=== PATIENT | male | born 1930 | race Caucasian/White ===

== ENCOUNTER 2017-09-16 14:10 | Inpatient (IN) | payer MEDICARE, BC ==
[2017-09-16] VITALS (8 sets, daily range): BP systolic 90–146; BP diastolic 40–78
[~2017-09-16] VITALS: Ht 172.7 cm; Wt 81.6 kg
[2017-09-16 14:58] LABS: HEMATOCRIT 26.7 % (42.0-52.0); HEMOGLOBIN 7.1 G/DL (14.2-18.0); MEAN CORPUSCULAR VOLUME 61 FL (80-99); PLATELET COUNT 99 K/UL (150-450); RED BLOOD COUNT 4.38 M/UL (4.70-6.10); RED CELL DISTRIBUTION WIDTH 18.4 % (11.6-14.8)
[2017-09-16 15:00] LABS: WHITE BLOOD COUNT 32.7 K/UL (4.8-10.8)
[2017-09-16 15:08] LABS: ANION GAP 10 mmol/L (5-15); BLOOD UREA NITROGEN 18 mg/dL (7-18); CALCIUM 8.7 MG/DL (8.5-10.1); CARBON DIOXIDE 23 MMOL/L (21-32); CHLORIDE 107 MMOL/L (98-107); CREATININE 1.2 MG/DL (0.55-1.30); POTASSIUM 3.7 MMOL/L (3.5-5.1); SODIUM 140 MMOL/L (136-145)
[2017-09-16 15:22] LABS: ALANINE AMINOTRANSFERASE 23 U/L (12-78); ALBUMIN 3.1 G/DL (3.4-5.0); ALBUMIN/GLOBULIN RATIO 0.9 (1.0-2.7); ALKALINE PHOSPHATASE 82 U/L (46-116); ASPARTATE AMINO TRANSFERASE 18 U/L (15-37); BILIRUBIN,TOTAL 0.7 MG/DL (0.2-1.0); CKMB 1.5 NG/ML (0.0-3.6); CREATINE KINASE 31 U/L (26-308)
[2017-09-16] MEDS ORDERED: ALLOPURINOL100 M1 ORAL (15:25)
[2017-09-16] MEDS ORDERED: LEVOTHYROXINE25 MCG ORAL (15:25)
[2017-09-16] MEDS ORDERED: SYMBICORT 80-10.2 G1 IH (15:25)
--- NOTE | 2017-09-16 15:30 | Diagnostic Imaging Report ---
Indication: Pain Technique: One view of the chest Comparison: none Findings: No acute infiltrates, effusions, or congestion. Tortuous calcified aorta. Normal heart size. Upper mediastinum unremarkable. Impression: No acute process.
[2017-09-16] MEDS ORDERED: NS 1000ml 2,200 ML IVLG ONE (16:00)
[2017-09-16 16:12] LABS: APPEARANCE,URINE CLEAR; BILIRUBIN, URINE NEGATIVE (NEGATIVE); GLUCOSE, URINE (UA) NEGATIVE (NEGATIVE); KETONES,URINE NEGATIVE (NEGATIVE); LEUKOCYTE ESTERASE ,URINE 1+ (NEGATIVE); NITRITE,URINE NEGATIVE (NEGATIVE); PH,URINE 5 (4.5-8.0); PROTEIN,URINE NEGATIVE (NEGATIVE); UROBILINOGEN,URINE NORMAL MG/DL (0.0-1.0)
[2017-09-16 16:17] LABS: COLOR,URINE YELLOW
--- NOTE | 2017-09-16 16:24 | Diagnostic Imaging Report ---
Indications: Altered mental status Technique: Spiral acquisitions obtained through the brain. Angled axial and coronal 5 x 5 mm slices were reconstructed. Total dose length product 1404.24 mGycm. CTDI vol(s) 70.38 mGy. Dose reduction achieved using automated exposure control Comparison: None. Findings: There is marked age-related enlargement of the ventricles and extra axial CSF spaces, the former somewhat out of proportion to the latter. 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 There is periventricular deep white matter chronic ischemic change. No acute intracranial hemorrhage or edema, mass effect, or midline shift. The calvarium is intact. There are bilateral maxillary sinusitis polyps versus mucous retention cysts. There is also bilateral ethmoid and right-sided sphenoid sinus disease visualized orbits are unremarkable. Impression: Chronic and age-related changes, as described Ventriculomegaly is probably due to chronic central volume loss, but component of hydrocephalus not completely ruled out Negative for acute intracranial bleed or mass effect The CT scanner at [facility] is accredited by the [employer] and the scans are performed using protocols designed to limit radiation exposure to as low as reasonably achievable to attain images of sufficient resolution adequate for diagnostic evaluation.
[2017-09-16] MEDS ORDERED: Zosyn 3.375gm inj ONE (16:54)
[2017-09-16] MEDS ORDERED: Piperacillin/Tazobactam 3.375 GM in NS 55 ML IVPB ONE (17:00)
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
[2017-09-16] MEDS ORDERED: LEVOTHYROXINE50 MCG ORAL (18:46)
[2017-09-16] MEDS ORDERED: ASPIRIN EC81 MG ORAL (18:47)
[2017-09-16] MEDS ORDERED: MONTELUKAST SOD10 MG ORAL (18:48)
[2017-09-16] MEDS ORDERED: Albuterol/Ipratropium 3ml neb HHN PRN (21:15)
[2017-09-16 21:49] LABS: HEMATOCRIT 22.5 % (42.0-52.0); MEAN CORPUSCULAR VOLUME 62 FL (80-99); PLATELET COUNT 78 K/UL (150-450); RED BLOOD COUNT 3.64 M/UL (4.70-6.10); RED CELL DISTRIBUTION WIDTH 18.5 % (11.6-14.8)
[2017-09-16 21:53] LABS: HEMOGLOBIN 5.8 G/DL (14.2-18.0); WHITE BLOOD COUNT 34.8 K/UL (4.8-10.8)
[2017-09-16] MEDS ORDERED: Piperacillin/Tazobactam 3.375 GM in D5W 110 ML IVPB SCH (22:00)
[2017-09-16] MEDS: D5NS 1,000 ML IV SCH (22:15)
[2017-09-16] MEDS: Pantoprazole Inj IVP SCH (23:56)
[2017-09-17] VITALS (24 sets, daily range): BP systolic 106–152; BP diastolic 35–82
[2017-09-17] MEDS ORDERED: Zosyn 3.375gm inj ONE ×2 (00:01→06:49)
[2017-09-17] MEDS: Zoysn 3.37gm in D5W 55ml IVPB SCH ×4 (00:06→21:37)
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
[2017-09-17 07:11] LABS: HEMATOCRIT 26.8 % (42.0-52.0); HEMOGLOBIN 7.8 G/DL (14.2-18.0); MEAN CORPUSCULAR VOLUME 66 FL (80-99); PLATELET COUNT 76 K/UL (150-450); RED BLOOD COUNT 4.08 M/UL (4.70-6.10); RED CELL DISTRIBUTION WIDTH 23.1 % (11.6-14.8)
[2017-09-17 07:28] LABS: WHITE BLOOD COUNT 26.4 K/UL (4.8-10.8)
[2017-09-17 07:53] LABS: % IRON SATURATION 3 % (15-50); IRON 9 ug/dL (50-175); TOTAL IRON BINDING CAPACITY 301 ug/dL (250-450)
[2017-09-17 08:06] LABS: ALANINE AMINOTRANSFERASE 22 U/L (12-78); ALBUMIN 2.7 G/DL (3.4-5.0); ALBUMIN/GLOBULIN RATIO 0.8 (1.0-2.7); ALKALINE PHOSPHATASE 69 U/L (46-116); ANION GAP 9 mmol/L (5-15); ASPARTATE AMINO TRANSFERASE 22 U/L (15-37); BLOOD UREA NITROGEN 14 mg/dL (7-18); CARBON DIOXIDE 22 MMOL/L (21-32); CHLORIDE 111 MMOL/L (98-107); CREATININE 1.2 MG/DL (0.55-1.30); POTASSIUM 3.4 MMOL/L (3.5-5.1); SODIUM 141 MMOL/L (136-145)
[2017-09-17] MEDS ORDERED: Aspirin EC 81mg tab ORAL SCH (09:00)
[2017-09-17] MEDS: Pantoprazole Inj IVP SCH ×2 (09:24→20:47)
[2017-09-17] MEDS: Montelukast 10mg tablet ORAL SCH (09:24)
[2017-09-17 10:35] LABS: BILIRUBIN,TOTAL 0.8 MG/DL (0.2-1.0)
--- NOTE | 2017-09-17 11:18 | General Progress Note ---
Assessment/Plan Problem List: (1) Anemia ICD Codes: D64.9 - Anemia, unspecified SNOMED: 913453574 (2) AMI (acute myocardial infarction) ICD Codes: I21.9 - Acute myocardial infarction, unspecified SNOMED: 14827016 (3) HTN (hypertension) ICD Codes: I10 - Essential (primary) hypertension SNOMED: 51005185 (4) COPD (chronic obstructive pulmonary disease) ICD Codes: J44.9 - Chronic obstructive pulmonary disease, unspecified SNOMED: 49259967 (5) Gout ICD Codes: M10.9 - Gout, unspecified SNOMED: 93124622 (6) Episode of generalized weakness ICD Codes: R53.1 - Weakness SNOMED: 28844381 (7) Sepsis ICD Codes: A41.9 - Sepsis, unspecified organism SNOMED: 93721514 Qualifiers: Qualified Codes: A41.9 - Sepsis, unspecified organism Status: stable, progressing Assessment/Plan transfuse iv abx follow up cultures id, cards, heme evals check stool ob iron panel smear guarded Subjective ROS Limited/Unobtainable: No Constitutional: Reports: malaise, weakness HEENT: Reports: no symptoms Cardiovascular: Reports: no symptoms Respiratory: Reports: no symptoms Gastrointestinal/Abdominal: Reports: no symptoms Genitourinary: Reports: no symptoms Neurologic/Psychiatric: Reports: no symptoms Endocrine: Reports: no symptoms Hematologic/Lymphatic: Reports: anemia Allergies: Coded Allergies: No Known Allergies (Unverified , 09/16/17) All Systems: reviewed and negative except above Subjective better. no bleeding. less confused according to family. WBC trending down. on iv abx Objective Last 24 Hour Vital Signs Date Time Temp Pulse Resp B/P (MAP) Pulse Ox O2 Delivery O2 Flow Rate FiO2 09/17/17 09:00 75 19 120/42 100 Nasal Cannula 2.0 09/17/17 08:00 69 09/17/17 08:00 97.9 71 18 107/41 99 Nasal Cannula 2.0 09/17/17 07:00 71 21 112/49 99 Nasal Cannula 2.0 09/17/17 06:00 71 21 115/49 99 Nasal Cannula 2.0 09/17/17 05:00 77 22 106/55 98 Nasal Cannula 2.0 09/17/17 04:00 78 09/17/17 04:00 98.1 78 22 116/46 97 Nasal Cannula 2.0 09/17/17 03:00 79 22 108/43 97 Nasal Cannula 2.0 09/17/17 02:00 79 23 107/43 96 Nasal Cannula 2.0 09/17/17 01:00 84 21 113/42 98 Nasal Cannula 2.0 09/17/17 00:00 98.0 84 21 108/41 99 Nasal Cannula 2.0 09/16/17 23:00 86 09/16/17 23:00 86 17 146/51 97 Nasal Cannula 2.0 09/16/17 22:35 98.7 87 18 98/48 96 09/16/17 21:00 97.0 88 18 124/72 96 09/16/17 19:50 98.7 95 16 107/78 98 Room Air 09/16/17 19:45 98.7 95 16 107/78 98 Room Air 09/16/17 17:00 95 19 110/45 94 Room Air 09/16/17 16:30 98.9 96 18 100/43 98 Room Air 09/16/17 16:00 98.9 96 18 90/40 98 Room Air 09/16/17 14:10 99.0 112 20 125/68 96 Room Air 09/16/17 14:04 99.0 110 20 125/68 96 Room Air Intake and Output 09/16/17 09/17/17 19:00 07:00 Intake Total 2200 ml 1330.00 ml Output Total 200 ml Balance 2200 ml 1130.00 ml Intake Oral 0 ml 0 ml IV Total 2200 ml 730.00 ml Blood Product 600 ml Output Urine Total 200 ml # Voids 1 # Bowel Movements 1 Laboratory Tests 09/16/17 14:15: White Blood Count 32.7*H, Red Blood Count 4.38L, Hemoglobin 7.1L, Hematocrit 26.7L, Mean Corpuscular Volume 61L, Mean Corpuscular Hemoglobin 16.2L, Mean Corpuscular Hemoglobin Concent 26.5L, Red Cell Distribution Width 18.4H, Platelet Count 99L, Mean Platelet Volume 12.1H, Neutrophils (%) (Auto) , Lymphocytes (%) (Auto) , Monocytes (%) (Auto) , Eosinophils (%) (Auto) , Basophils (%) (Auto) , Differential Total Cells Counted 100, Neutrophils % ( Manual) 86H, Lymphocytes % (Manual) 3L, Monocytes % (Manual) 7, Eosinophils % ( Manual) 0, Basophils % (Manual) 0, Band Neutrophils 4, Platelet Estimate DecreasedL, Platelet Morphology Normal, Polychromasia 2+, Hypochromasia 3+, Anisocytosis 3+, Microcytosis 3+, Prothrombin Time 10.6, Prothromb Time International Ratio 1.0, Activated Partial Thromboplast Time 29, Sodium Level 140, Potassium Level 3.7, Chloride Level 107, Carbon Dioxide Level 23, Anion Gap 10, Blood Urea Nitrogen 18, Creatinine 1.2, Estimat Glomerular Filtration Rate , Glucose Level 128H, Lactic Acid Level [Pending], Calcium Level 8.7, Total Bilirubin 0.7, Aspartate Amino Transf (AST/SGOT) 18, Alanine Aminotransferase (ALT/SGPT) 23, Alkaline Phosphatase 82, Total Creatine Kinase 31, Creatine Kinase MB 1.5, Creatine Kinase MB Relative Index 4.8, Troponin I 0.016, Pro-B-Type Natriuretic Peptide 486H, Total Protein 6.6, Albumin 3.1L, Globulin 3.5, Albumin/Globulin Ratio 0.9L 09/16/17 15:50: Urine Color Yellow, Urine Appearance Clear, Urine pH 5, Urine Specific [place] 1.015, Urine Protein Negative, Urine Glucose (UA) Negative, Urine Ketones Negative, Urine Occult Blood 1+H, Urine Nitrite Negative, Urine Bilirubin Negative, Urine Urobilinogen Normal, Urine Leukocyte Esterase 1+H, Urine RBC 2- 4H, Urine WBC 0-2, Urine Squamous Epithelial Cells None, Urine Bacteria Occasional 09/16/17 21:30: White Blood Count 34.8*H, Red Blood Count 3.64L, Hemoglobin 5.8*L, Hematocrit 22.5L, Mean Corpuscular Volume 62L, Mean Corpuscular Hemoglobin 16.0L, Mean Corpuscular Hemoglobin Concent 26.0L, Red Cell Distribution Width 18.5H, Platelet Count 78L, Mean Platelet Volume 10.6H, Neutrophils (%) (Auto) , Lymphocytes (%) (Auto) , Monocytes (%) (Auto) , Eosinophils (%) (Auto) , Basophils (%) (Auto) , Neutrophils % (Manual) 78H, Lymphocytes % (Manual) 7L, Monocytes % (Manual) 15H, Eosinophils % (Manual) 0, Basophils % (Manual) 0, Band Neutrophils 0, Platelet Estimate DecreasedL, Platelet Morphology Normal, Hypochromasia 3+, Anisocytosis 2+, Microcytosis 3+ 09/17/17 05:30: Stool Occult Blood [Pending] 09/17/17 06:35: White Blood Count 26.4*H, Red Blood Count 4.08L, Hemoglobin 7.8#L, Hematocrit 26.8L, Mean Corpuscular Volume 66L, Mean Corpuscular Hemoglobin 19.2L, Mean Corpuscular Hemoglobin Concent 29.2L, Red Cell Distribution Width 23.1H, Platelet Count 76L, Mean Platelet Volume 12.8H, Neutrophils (%) (Auto) , Lymphocytes (%) (Auto) , Monocytes (%) (Auto) , Eosinophils (%) (Auto) , Basophils (%) (Auto) , Differential Total Cells Counted 100, Neutrophils % ( Manual) 85H, Lymphocytes % (Manual) 4L, Monocytes % (Manual) 10, Eosinophils % ( Manual) 0, Basophils % (Manual) 1, Band Neutrophils 0, Platelet Estimate DecreasedL, Platelet Morphology Normal, Polychromasia 1+, Hypochromasia 1+, Anisocytosis 2+, Microcytosis 2+, Sodium Level 141, Potassium Level 3.4L, Chloride Level 111H, Carbon Dioxide Level 22, Anion Gap 9, Blood Urea Nitrogen 14, Creatinine 1.2, Estimat Glomerular Filtration Rate , Glucose Level 125H, Lactic Acid Level 1.60, Calcium Level 8.0L, Iron Level 9L, Total Iron Binding Capacity 301, Percent Iron Saturation 3L, Unsaturated Iron Binding 292, Total Bilirubin 0.8, Aspartate Amino Transf (AST/SGOT) 22, Alanine Aminotransferase ( ALT/SGPT) 22, Alkaline Phosphatase 69, Troponin I 0.120H, Total Protein 6.0L, Albumin 2.7L, Globulin 3.3, Albumin/Globulin Ratio 0.8L Height (Feet): 5 Height (Inches): 8.00 Weight (Pounds): 160 General Appearance: WD/WN, alert Neck: supple Cardiovascular: normal rate, regular rhythm Respiratory/Chest: chest wall non-tender, lungs clear, normal breath sounds, no respiratory distress Abdomen: normal bowel sounds, non tender, soft, no organomegaly Edema: no edema noted Arm (L), no edema noted Arm (R), no edema noted Leg (L), no edema noted Leg (R), no edema noted Pedal (L), no edema noted Pedal (R), no edema noted Generalized BHUPINDER DILL Sep 17, 2017 11:18
[2017-09-17] MEDS: D5NS 1,000 ML IV SCH (11:31)
[2017-09-17 14:29] LABS: INR 1.1 (0.9-1.1)
--- NOTE | 2017-09-17 21:38 | Cardiology Progress Note ---
Assessment/Plan Assessment/Plan The patient is seen and examined, full consult note will be dictated. Objective Last 24 Hour Vital Signs Date Time Temp Pulse Resp B/P (MAP) Pulse Ox O2 Delivery O2 Flow Rate FiO2 09/17/17 20:00 98.1 72 25 141/50 99 Nasal Cannula 2.0 09/17/17 20:00 72 09/17/17 19:57 100 Nasal Cannula 2.0 28 09/17/17 19:57 Nasal Cannula 2.0 28 09/17/17 19:30 81 20 Nasal Cannula 2.0 28 09/17/17 19:00 77 25 120/50 98 Nasal Cannula 2.0 09/17/17 18:00 85 21 110/82 99 Nasal Cannula 2.0 09/17/17 17:00 83 25 152/53 99 Nasal Cannula 2.0 09/17/17 16:00 98.5 85 25 139/49 99 Nasal Cannula 2.0 09/17/17 16:00 81 09/17/17 15:00 79 23 117/46 100 Nasal Cannula 2.0 09/17/17 14:00 74 21 115/45 100 Nasal Cannula 2.0 09/17/17 13:00 72 23 115/45 100 Nasal Cannula 2.0 09/17/17 12:00 98.7 69 19 130/43 100 Nasal Cannula 2.0 09/17/17 12:00 70 09/17/17 11:00 71 20 141/46 100 Nasal Cannula 2.0 09/17/17 10:00 74 23 114/50 99 Nasal Cannula 2.0 09/17/17 09:00 75 19 120/42 100 Nasal Cannula 2.0 09/17/17 08:00 69 09/17/17 08:00 97.9 71 18 107/41 99 Nasal Cannula 2.0 09/17/17 08:00 75 23 Nasal Cannula 2.0 28 09/17/17 08:00 100 Nasal Cannula 2.0 28 09/17/17 08:00 Nasal Cannula 2.0 28 09/17/17 07:00 71 21 112/49 99 Nasal Cannula 2.0 09/17/17 06:00 71 21 115/49 99 Nasal Cannula 2.0 09/17/17 05:00 77 22 106/55 98 Nasal Cannula 2.0 09/17/17 04:00 78 09/17/17 04:00 98.1 78 22 116/46 97 Nasal Cannula 2.0 09/17/17 03:00 79 22 108/43 97 Nasal Cannula 2.0 09/17/17 02:00 79 23 107/43 96 Nasal Cannula 2.0 09/17/17 01:00 84 21 113/42 98 Nasal Cannula 2.0 09/17/17 00:00 98.0 84 21 108/41 99 Nasal Cannula 2.0 09/16/17 23:00 86 09/16/17 23:00 86 17 146/51 97 Nasal Cannula 2.0 09/16/17 22:35 98.7 87 18 98/48 96 Intake and Output 09/16/17 09/17/17 19:00 07:00 Intake Total 2200 ml 1330.00 ml Output Total 200 ml Balance 2200 ml 1130.00 ml Intake Oral 0 ml 0 ml IV Total 2200 ml 730.00 ml Blood Product 600 ml Output Urine Total 200 ml # Voids 1 # Bowel Movements 1 Laboratory Tests Test 09/17/17 05:30 09/17/17 06:35 09/17/17 14:00 Stool Occult Blood Positive (NEGATIVE) White Blood Count 26.4 K/UL (4.8-10.8) *H Red Blood Count 4.08 M/UL (4.70-6.10) L Hemoglobin 7.8 G/DL (14.2-18.0) #L Hematocrit 26.8 % (42.0-52.0) L Mean Corpuscular Volume 66 FL (80-99) L Mean Corpuscular Hemoglobin 19.2 PG (27.0-31.0) L Mean Corpuscular Hemoglobin Concent 29.2 G/DL (32.0-36.0) L Red Cell Distribution Width 23.1 % (11.6-14.8) H Platelet Count 76 K/UL (150-450) L Mean Platelet Volume 12.8 FL (6.5-10.1) H Neutrophils (%) (Auto) % (45.0-75.0) Lymphocytes (%) (Auto) % (20.0-45.0) Monocytes (%) (Auto) % (1.0-10.0) Eosinophils (%) (Auto) % (0.0-3.0) Basophils (%) (Auto) % (0.0-2.0) Differential Total Cells Counted 100 Neutrophils % (Manual) 85 % (45-75) H Lymphocytes % (Manual) 4 % (20-45) L Monocytes % (Manual) 10 % (1-10) Eosinophils % (Manual) 0 % (0-3) Basophils % (Manual) 1 % (0-2) Band Neutrophils 0 % (0-8) Platelet Estimate Decreased L Platelet Morphology Normal Polychromasia 1+ Hypochromasia 1+ Anisocytosis 2+ Microcytosis 2+ Sodium Level 141 MMOL/L (136-145) Potassium Level 3.4 MMOL/L (3.5-5.1) L Chloride Level 111 MMOL/L (98-107) H Carbon Dioxide Level 22 MMOL/L (21-32) Anion Gap 9 mmol/L (5-15) Blood Urea Nitrogen 14 mg/dL (7-18) Creatinine 1.2 MG/DL (0.55-1.30) Estimat Glomerular Filtration Rate mL/min (>60) Glucose Level 125 MG/DL (74-106) H Lactic Acid Level 1.60 mmol/L (0.66-2.22) Calcium Level 8.0 MG/DL (8.5-10.1) L Iron Level 9 ug/dL (50-175) L 7 ug/dL (50-175) L Total Iron Binding Capacity 301 ug/dL (250-450) Percent Iron Saturation 3 % (15-50) L Unsaturated Iron Binding 292 ug/dL (112-346) Total Bilirubin 0.8 MG/DL (0.2-1.0) Aspartate Amino Transf (AST/SGOT) 22 U/L (15-37) Alanine Aminotransferase (ALT/SGPT) 22 U/L (12-78) Alkaline Phosphatase 69 U/L (46-116) Troponin I 0.120 ng/mL (0.000-0.056) Total Protein 6.0 G/DL (6.4-8.2) L Albumin 2.7 G/DL (3.4-5.0) L Globulin 3.3 g/dL Albumin/Globulin Ratio 0.8 (1.0-2.7) L Pending Reticulocyte Count 2.0 % (0.0-2.0) Prothrombin Time 11.5 SEC (9.30-11.50) Prothromb Time International Ratio 1.1 (0.9-1.1) Activated Partial Thromboplast Time 33 SEC (23-33) Fibrinogen 411 mg/dL (200-400) H Uric Acid 3.6 MG/DL (2.6-7.2) Ferritin 37 NG/ML (8-388) Lactate Dehydrogenase 193 U/L (81-234) Total Protein (PEP) Pending Albumin (PEP) Pending Globulin (PEP) Pending Fsktp-6-Eeibapqge Pending Djvpm-3-Hceiswfpk Pending Beta Globulins Pending Beta Gamma Globulin Pending PEP Abnormal Protein Bands Pending Protein Electrophoresis Interpret Pending Vitamin B12 Level 856 PG/ML (193-986) Folate 14.8 NG/ML (8.6-58.9) Hepatitis B Surface Antigen Pending Hepatitis C Antibody Pending HIV (1&2) Antibody Rapid Negative (NEGATIVE) Microbiology Date/Time Source Procedure Growth Status 09/16/17 16:00 Nasal Nares Influenza Types A,B Antigen (SOL) - Final Complete MARCELLO PULLIAM Sep 17, 2017 21:38
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
[2017-09-18] VITALS (14 sets, daily range): BP systolic 130–171; BP diastolic 49–90
[2017-09-18] MEDS: D5NS 1,000 ML IV SCH ×2 (00:12→13:22)
[2017-09-18] MEDS: Zoysn 3.37gm in D5W 55ml IVPB SCH (05:34)
[2017-09-18 05:45] LABS: HEMATOCRIT 30.6 % (42.0-52.0); MEAN CORPUSCULAR VOLUME 68 FL (80-99); RED BLOOD COUNT 4.52 M/UL (4.70-6.10); WHITE BLOOD COUNT 17.2 K/UL (4.8-10.8)
[2017-09-18 06:16] LABS: ALANINE AMINOTRANSFERASE 20 U/L (12-78); ALBUMIN 2.7 G/DL (3.4-5.0); ALBUMIN/GLOBULIN RATIO 0.7 (1.0-2.7); ALKALINE PHOSPHATASE 75 U/L (46-116); ANION GAP 7 mmol/L (5-15); ASPARTATE AMINO TRANSFERASE 22 U/L (15-37); BILIRUBIN,TOTAL 0.7 MG/DL (0.2-1.0); BLOOD UREA NITROGEN 13 mg/dL (7-18); CALCIUM 7.4 MG/DL (8.5-10.1); CARBON DIOXIDE 22 MMOL/L (21-32); CHLORIDE 112 MMOL/L (98-107); CREATININE 1.4 MG/DL (0.55-1.30); POTASSIUM 4.4 MMOL/L (3.5-5.1); SODIUM 141 MMOL/L (136-145)
[2017-09-18] MEDS: Montelukast 10mg tablet ORAL SCH (08:25)
[2017-09-18] MEDS: Pantoprazole Inj IVP SCH ×2 (08:25→21:10)
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
[2017-09-18] MEDS ORDERED: Docusate 250mg cap ORAL SCH (09:00)
[2017-09-18] MEDS ORDERED: Lactulose 20gm/30ml UDC ORAL SCH (09:00)
[2017-09-18 09:18] LABS: PLATELET COUNT 70 K/UL (150-450)
--- NOTE | 2017-09-18 10:41 | General Progress Note ---
Assessment/Plan Problem List: (1) Anemia ICD Codes: D64.9 - Anemia, unspecified SNOMED: 380292397 (2) AMI (acute myocardial infarction) ICD Codes: I21.9 - Acute myocardial infarction, unspecified SNOMED: 94189543 (3) HTN (hypertension) ICD Codes: I10 - Essential (primary) hypertension SNOMED: 48647279 (4) COPD (chronic obstructive pulmonary disease) ICD Codes: J44.9 - Chronic obstructive pulmonary disease, unspecified SNOMED: 40372590 (5) Gout ICD Codes: M10.9 - Gout, unspecified SNOMED: 43314305 (6) Episode of generalized weakness ICD Codes: R53.1 - Weakness SNOMED: 45333846 (7) Sepsis ICD Codes: A41.9 - Sepsis, unspecified organism SNOMED: 71242768 Qualifiers: Qualified Codes: A41.9 - Sepsis, unspecified organism (8) Pneumonia ICD Codes: J18.9 - Pneumonia, unspecified organism SNOMED: 061566891 Status: stable, progressing Assessment/Plan transfuse as needed GI eval- stool ob positive iv abx follow up cultures bowel regime ivf until eating better id, cards, heme evals apprecaited smear- no leukemia to buddy guarded Subjective ROS Limited/Unobtainable: No Constitutional: Reports: malaise, weakness HEENT: Reports: no symptoms Cardiovascular: Reports: no symptoms Respiratory: Reports: cough Gastrointestinal/Abdominal: Reports: no symptoms Genitourinary: Reports: no symptoms Neurologic/Psychiatric: Reports: no symptoms Endocrine: Reports: no symptoms Hematologic/Lymphatic: Reports: anemia Allergies: Coded Allergies: No Known Allergies (Unverified , 09/16/17) All Systems: reviewed and negative except above Subjective no events. ct yesterday shows fecal impaction and left lower lobe pna. more alert. h/h stable. Objective Last 24 Hour Vital Signs Date Time Temp Pulse Resp B/P (MAP) Pulse Ox O2 Delivery O2 Flow Rate FiO2 09/18/17 10:00 92 27 171/90 98 Nasal Cannula 2.0 09/18/17 09:00 89 26 163/64 96 Nasal Cannula 2.0 09/18/17 08:00 98.3 104 26 144/58 96 Nasal Cannula 2.0 09/18/17 07:00 101 23 140/74 96 Nasal Cannula 2.0 09/18/17 06:04 81 23 143/49 99 Nasal Cannula 2.0 09/18/17 05:00 78 22 148/61 100 Nasal Cannula 2.0 09/18/17 04:00 98.0 74 24 130/67 100 Nasal Cannula 2.0 09/18/17 04:00 74 09/18/17 03:00 77 23 131/50 96 Nasal Cannula 2.0 09/18/17 02:00 102 22 153/51 97 Nasal Cannula 2.0 09/18/17 01:00 75 24 135/52 98 Nasal Cannula 2.0 09/18/17 00:00 98.2 78 23 141/54 98 Nasal Cannula 2.0 09/18/17 00:00 78 09/17/17 23:00 75 23 130/51 100 Nasal Cannula 2.0 09/17/17 22:00 71 16 120/82 99 Nasal Cannula 2.0 09/17/17 21:00 87 22 134/35 98 Nasal Cannula 2.0 09/17/17 20:00 98.1 72 25 141/50 99 Nasal Cannula 2.0 09/17/17 20:00 72 09/17/17 19:57 100 Nasal Cannula 2.0 28 09/17/17 19:57 Nasal Cannula 2.0 28 09/17/17 19:30 81 20 Nasal Cannula 2.0 28 09/17/17 19:00 77 25 120/50 98 Nasal Cannula 2.0 09/17/17 18:00 85 21 110/82 99 Nasal Cannula 2.0 09/17/17 17:00 83 25 152/53 99 Nasal Cannula 2.0 09/17/17 16:00 98.5 85 25 139/49 99 Nasal Cannula 2.0 09/17/17 16:00 81 09/17/17 15:00 79 23 117/46 100 Nasal Cannula 2.0 09/17/17 14:00 74 21 115/45 100 Nasal Cannula 2.0 09/17/17 13:00 72 23 115/45 100 Nasal Cannula 2.0 09/17/17 12:00 98.7 69 19 130/43 100 Nasal Cannula 2.0 09/17/17 12:00 70 09/17/17 11:00 71 20 141/46 100 Nasal Cannula 2.0 Intake and Output 09/17/17 09/18/17 19:00 07:00 Intake Total 1950.50 ml 893.75 ml Output Total 126 ml 341 ml Balance 1824.50 ml 552.75 ml Intake Oral 960 ml 0 ml IV Total 970.50 ml 893.75 ml Other 20 ml Output Urine Total 126 ml 341 ml # Bowel Movements 4 2 Laboratory Tests 09/17/17 14:00: Reticulocyte Count 2.0, Prothrombin Time 11.5, Prothromb Time International Ratio 1.1, Activated Partial Thromboplast Time 33, Fibrinogen 411H, Uric Acid 3.6, Iron Level 7L, Ferritin 37, Lactate Dehydrogenase 193, Total Protein (PEP) [Pending], Albumin (PEP) [Pending], Globulin (PEP) [Pending], Albumin/Globulin Ratio [Pending], Mcvbj-0-Ptjiuolmj [Pending], Hxhud-6-[place] [Pending], Beta Globulins [Pending], Beta Gamma Globulin [Pending], PEP Abnormal Protein Bands [ Pending], Protein Electrophoresis Interpret [Pending], Vitamin B12 Level 856, Folate 14.8, Hepatitis B Surface Antigen Negative, Hepatitis C Antibody 0.1, HIV (1&2) Antibody Rapid Negative 09/18/17 04:20: Albumin/Globulin Ratio 0.7L, White Blood Count 17.2H, Red Blood Count 4.52L, Hemoglobin 9.0L, Hematocrit 30.6L, Mean Corpuscular Volume 68L, Mean Corpuscular Hemoglobin 19.8L, Mean Corpuscular Hemoglobin Concent 29.2L, Red Cell Distribution Width 24.0H, Platelet Count 70L, Mean Platelet Volume 14.8H, Neutrophils (%) (Auto) , Lymphocytes (%) (Auto) , Monocytes (%) (Auto) , Eosinophils (%) (Auto) , Basophils (%) (Auto) , Differential Total Cells Counted 100, Neutrophils % (Manual) 81H, Lymphocytes % (Manual) 9L, Monocytes % (Manual) 10, Eosinophils % (Manual) 0, Basophils % (Manual) 0, Band Neutrophils 0, Platelet Estimate DecreasedL, Platelet Morphology , Giant Platelets Occasional, Polychromasia 1+, Hypochromasia 1+, Microcytosis 2+, Sodium Level 141, Potassium Level 4.4, Chloride Level 112H, Carbon Dioxide Level 22, Anion Gap 7, Blood Urea Nitrogen 13, Creatinine 1.4H, Estimat Glomerular Filtration Rate , Glucose Level 140H, Calcium Level 7.4L, Total Bilirubin 0.7, Aspartate Amino Transf (AST/SGOT) 22, Alanine Aminotransferase (ALT/SGPT) 20, Alkaline Phosphatase 75, Troponin I 0.085H, Total Protein 6.4, Albumin 2.7L, Globulin 3.7 , Prostate Specific Antigen 3.18 Height (Feet): 5 Height (Inches): 8.00 Weight (Pounds): 160 Objective General Appearance: WD/WN, alert Neck: supple Cardiovascular: normal rate, regular rhythm Respiratory/Chest: chest wall non-tender, lungs clear, normal breath sounds, no respiratory distress Abdomen: normal bowel sounds, non tender, soft, no organomegaly Edema: no edema noted Arm (L), no edema noted Arm (R), no edema noted Leg (L), no edema noted Leg (R), no edema noted Pedal (L), no edema noted Pedal (R), no edema noted Generalized BHUPINDER DILL Sep 18, 2017 10:41
--- NOTE | 2017-09-18 12:29 | Infectious Diseases Prog Note ---
Assessment/Plan Assessment/Plan antibiotics : zosyn A 1. leucocytosis improving 2. COPD 3. gout 4. thrombocytopenia 5. anemia P 1. continue zosyn 2. will follow up cultures Subjective Constitutional: Denies: fever, chills Respiratory: Reports: shortness of breath, dry cough Gastrointestinal/Abdominal: Denies: nausea, vomiting, diarrhea Musculoskeletal: Denies: pain Allergies: Coded Allergies: No Known Allergies (Unverified , 09/16/17) Objective Vital Signs Last 24 Hour Vital Signs Date Time Temp Pulse Resp B/P (MAP) Pulse Ox O2 Delivery O2 Flow Rate FiO2 09/18/17 11:00 101 23 170/64 96 Nasal Cannula 2.0 09/18/17 10:00 92 27 171/90 98 Nasal Cannula 2.0 09/18/17 09:00 89 26 163/64 96 Nasal Cannula 2.0 09/18/17 08:00 98.3 104 26 144/58 96 Nasal Cannula 2.0 09/18/17 07:00 100 Nasal Cannula 2.0 28 09/18/17 07:00 84 20 Nasal Cannula 2.0 28 09/18/17 07:00 101 23 140/74 96 Nasal Cannula 2.0 09/18/17 07:00 Nasal Cannula 2.0 28 09/18/17 06:04 81 23 143/49 99 Nasal Cannula 2.0 09/18/17 05:00 78 22 148/61 100 Nasal Cannula 2.0 09/18/17 04:00 98.0 74 24 130/67 100 Nasal Cannula 2.0 09/18/17 04:00 74 09/18/17 03:00 77 23 131/50 96 Nasal Cannula 2.0 09/18/17 02:00 102 22 153/51 97 Nasal Cannula 2.0 09/18/17 01:00 75 24 135/52 98 Nasal Cannula 2.0 09/18/17 00:00 98.2 78 23 141/54 98 Nasal Cannula 2.0 09/18/17 00:00 78 09/17/17 23:00 75 23 130/51 100 Nasal Cannula 2.0 09/17/17 22:00 71 16 120/82 99 Nasal Cannula 2.0 09/17/17 21:00 87 22 134/35 98 Nasal Cannula 2.0 09/17/17 20:00 98.1 72 25 141/50 99 Nasal Cannula 2.0 09/17/17 20:00 72 09/17/17 19:57 100 Nasal Cannula 2.0 28 09/17/17 19:57 Nasal Cannula 2.0 28 09/17/17 19:30 81 20 Nasal Cannula 2.0 28 09/17/17 19:00 77 25 120/50 98 Nasal Cannula 2.0 09/17/17 18:00 85 21 110/82 99 Nasal Cannula 2.0 09/17/17 17:00 83 25 152/53 99 Nasal Cannula 2.0 09/17/17 16:00 98.5 85 25 139/49 99 Nasal Cannula 2.0 09/17/17 16:00 81 09/17/17 15:00 79 23 117/46 100 Nasal Cannula 2.0 09/17/17 14:00 74 21 115/45 100 Nasal Cannula 2.0 09/17/17 13:00 72 23 115/45 100 Nasal Cannula 2.0 Height (Feet): 5 Height (Inches): 8.00 Weight (Pounds): 160 Respiratory/Chest: lungs clear Cardiovascular: normal rate, regular rhythm, no gallop/murmur Abdomen: soft, non tender Extremities: no edema Microbiology Date/Time Source Procedure Growth Status 09/16/17 14:30 Blood Blood Culture - Preliminary NO GROWTH AFTER 24 HOURS Resulted 09/16/17 14:15 Blood Blood Culture - Preliminary NO GROWTH AFTER 24 HOURS Resulted 09/16/17 16:00 Nasal Nares Influenza Types A,B Antigen (SOL) - Final Complete Laboratory Tests Test 09/17/17 14:00 09/18/17 04:20 Reticulocyte Count 2.0 % (0.0-2.0) Prothrombin Time 11.5 SEC (9.30-11.50) Prothromb Time International Ratio 1.1 (0.9-1.1) Activated Partial Thromboplast Time 33 SEC (23-33) Fibrinogen 411 mg/dL (200-400) H Uric Acid 3.6 MG/DL (2.6-7.2) Iron Level 7 ug/dL (50-175) L Ferritin 37 NG/ML (8-388) Lactate Dehydrogenase 193 U/L (81-234) Total Protein (PEP) 5.9 g/dL (6.0-8.5) L Albumin (PEP) 3.1 g/dL (2.9-4.4) Globulin (PEP) 2.8 g/dL (2.2-3.9) Albumin/Globulin Ratio 1.1 (0.7-1.7) 0.7 (1.0-2.7) L Dnvte-4-Fbpwjyrfp 0.3 g/dL (0.0-0.4) Eomdf-5-Duucaeitq 0.8 g/dL (0.4-1.0) Beta Globulins 0.8 g/dL (0.7-1.3) Beta Gamma Globulin 0.9 g/dL (0.4-1.8) PEP Abnormal Protein Bands Not observed g/dL (Not Protein Electrophoresis Interpret Comment (.) Vitamin B12 Level 856 PG/ML (193-986) Folate 14.8 NG/ML (8.6-58.9) Hepatitis B Surface Antigen Negative (Negative) Hepatitis C Antibody 0.1 s/co ratio (0.0-0.9) HIV (1&2) Antibody Rapid Negative (NEGATIVE) White Blood Count 17.2 K/UL (4.8-10.8) H Red Blood Count 4.52 M/UL (4.70-6.10) L Hemoglobin 9.0 G/DL (14.2-18.0) L Hematocrit 30.6 % (42.0-52.0) L Mean Corpuscular Volume 68 FL (80-99) L Mean Corpuscular Hemoglobin 19.8 PG (27.0-31.0) L Mean Corpuscular Hemoglobin Concent 29.2 G/DL (32.0-36.0) L Red Cell Distribution Width 24.0 % (11.6-14.8) H Platelet Count 70 K/UL (150-450) L Mean Platelet Volume 14.8 FL (6.5-10.1) H Neutrophils (%) (Auto) % (45.0-75.0) Lymphocytes (%) (Auto) % (20.0-45.0) Monocytes (%) (Auto) % (1.0-10.0) Eosinophils (%) (Auto) % (0.0-3.0) Basophils (%) (Auto) % (0.0-2.0) Differential Total Cells Counted 100 Neutrophils % (Manual) 81 % (45-75) H Lymphocytes % (Manual) 9 % (20-45) L Monocytes % (Manual) 10 % (1-10) Eosinophils % (Manual) 0 % (0-3) Basophils % (Manual) 0 % (0-2) Band Neutrophils 0 % (0-8) Platelet Estimate Decreased L Platelet Morphology Giant Platelets Occasional Polychromasia 1+ Hypochromasia 1+ Microcytosis 2+ Sodium Level 141 MMOL/L (136-145) Potassium Level 4.4 MMOL/L (3.5-5.1) Chloride Level 112 MMOL/L (98-107) H Carbon Dioxide Level 22 MMOL/L (21-32) Anion Gap 7 mmol/L (5-15) Blood Urea Nitrogen 13 mg/dL (7-18) Creatinine 1.4 MG/DL (0.55-1.30) H Estimat Glomerular Filtration Rate mL/min (>60) Glucose Level 140 MG/DL (74-106) H Calcium Level 7.4 MG/DL (8.5-10.1) L Total Bilirubin 0.7 MG/DL (0.2-1.0) Aspartate Amino Transf (AST/SGOT) 22 U/L (15-37) Alanine Aminotransferase (ALT/SGPT) 20 U/L (12-78) Alkaline Phosphatase 75 U/L (46-116) Troponin I 0.085 ng/mL (0.000-0.056) Total Protein 6.4 G/DL (6.4-8.2) Albumin 2.7 G/DL (3.4-5.0) L Globulin 3.7 g/dL Prostate Specific Antigen 3.18 ng/mL (0.13-4.0) SHARON LUEVANO Sep 18, 2017 12:29
--- NOTE | 2017-09-18 13:17 | General Progress Note ---
Assessment/Plan Assessment/Plan Assessment - OB (+) stools - Microcytic Iron deficient anemia - severe thrombocytopenia - OBS Recommendations - d/w son - wants to discuss possible GI w/u with siblings over next few days - follow labs and exam - push po - Laxative - IV Fe - PPI Subjective Allergies: Coded Allergies: No Known Allergies (Unverified , 09/16/17) Objective Last 24 Hour Vital Signs Date Time Temp Pulse Resp B/P (MAP) Pulse Ox O2 Delivery O2 Flow Rate FiO2 09/18/17 12:00 103 09/18/17 11:00 101 23 170/64 96 Nasal Cannula 2.0 09/18/17 10:00 92 27 171/90 98 Nasal Cannula 2.0 09/18/17 09:00 89 26 163/64 96 Nasal Cannula 2.0 09/18/17 08:00 79 09/18/17 08:00 98.3 104 26 144/58 96 Nasal Cannula 2.0 09/18/17 07:00 100 Nasal Cannula 2.0 28 09/18/17 07:00 84 20 Nasal Cannula 2.0 28 09/18/17 07:00 101 23 140/74 96 Nasal Cannula 2.0 09/18/17 07:00 Nasal Cannula 2.0 28 09/18/17 06:04 81 23 143/49 99 Nasal Cannula 2.0 09/18/17 05:00 78 22 148/61 100 Nasal Cannula 2.0 09/18/17 04:00 98.0 74 24 130/67 100 Nasal Cannula 2.0 09/18/17 04:00 74 09/18/17 03:00 77 23 131/50 96 Nasal Cannula 2.0 09/18/17 02:00 102 22 153/51 97 Nasal Cannula 2.0 09/18/17 01:00 75 24 135/52 98 Nasal Cannula 2.0 09/18/17 00:00 98.2 78 23 141/54 98 Nasal Cannula 2.0 09/18/17 00:00 78 09/17/17 23:00 75 23 130/51 100 Nasal Cannula 2.0 09/17/17 22:00 71 16 120/82 99 Nasal Cannula 2.0 09/17/17 21:00 87 22 134/35 98 Nasal Cannula 2.0 09/17/17 20:00 98.1 72 25 141/50 99 Nasal Cannula 2.0 09/17/17 20:00 72 09/17/17 19:57 100 Nasal Cannula 2.0 28 09/17/17 19:57 Nasal Cannula 2.0 28 09/17/17 19:30 81 20 Nasal Cannula 2.0 28 09/17/17 19:00 77 25 120/50 98 Nasal Cannula 2.0 09/17/17 18:00 85 21 110/82 99 Nasal Cannula 2.0 09/17/17 17:00 83 25 152/53 99 Nasal Cannula 2.0 09/17/17 16:00 98.5 85 25 139/49 99 Nasal Cannula 2.0 09/17/17 16:00 81 09/17/17 15:00 79 23 117/46 100 Nasal Cannula 2.0 09/17/17 14:00 74 21 115/45 100 Nasal Cannula 2.0 Intake and Output 09/17/17 09/18/17 19:00 07:00 Intake Total 1950.50 ml 893.75 ml Output Total 126 ml 341 ml Balance 1824.50 ml 552.75 ml Intake Oral 960 ml 0 ml IV Total 970.50 ml 893.75 ml Other 20 ml Output Urine Total 126 ml 341 ml # Bowel Movements 4 2 Laboratory Tests 09/17/17 14:00: Reticulocyte Count 2.0, Prothrombin Time 11.5, Prothromb Time International Ratio 1.1, Activated Partial Thromboplast Time 33, Fibrinogen 411H, Uric Acid 3.6, Iron Level 7L, Ferritin 37, Lactate Dehydrogenase 193, Total Protein (PEP) 5.9L, Albumin (PEP) 3.1, Globulin (PEP) 2.8, Albumin/Globulin Ratio 1.1, Alpha-1 -Globulins 0.3, Wkvsp-1-Igrxamjky 0.8, Beta Globulins 0.8, Beta Gamma Globulin 0.9, PEP Abnormal Protein Bands Not observed, Protein Electrophoresis Interpret Comment, Vitamin B12 Level 856, Folate 14.8, Hepatitis B Surface Antigen Negative, Hepatitis C Antibody 0.1, HIV (1&2) Antibody Rapid Negative 09/18/17 04:20: Albumin/Globulin Ratio 0.7L, White Blood Count 17.2H, Red Blood Count 4.52L, Hemoglobin 9.0L, Hematocrit 30.6L, Mean Corpuscular Volume 68L, Mean Corpuscular Hemoglobin 19.8L, Mean Corpuscular Hemoglobin Concent 29.2L, Red Cell Distribution Width 24.0H, Platelet Count 70L, Mean Platelet Volume 14.8H, Neutrophils (%) (Auto) , Lymphocytes (%) (Auto) , Monocytes (%) (Auto) , Eosinophils (%) (Auto) , Basophils (%) (Auto) , Differential Total Cells Counted 100, Neutrophils % (Manual) 81H, Lymphocytes % (Manual) 9L, Monocytes % (Manual) 10, Eosinophils % (Manual) 0, Basophils % (Manual) 0, Band Neutrophils 0, Platelet Estimate DecreasedL, Platelet Morphology , Giant Platelets Occasional, Polychromasia 1+, Hypochromasia 1+, Microcytosis 2+, Sodium Level 141, Potassium Level 4.4, Chloride Level 112H, Carbon Dioxide Level 22, Anion Gap 7, Blood Urea Nitrogen 13, Creatinine 1.4H, Estimat Glomerular Filtration Rate , Glucose Level 140H, Calcium Level 7.4L, Total Bilirubin 0.7, Aspartate Amino Transf (AST/SGOT) 22, Alanine Aminotransferase (ALT/SGPT) 20, Alkaline Phosphatase 75, Troponin I 0.085H, Total Protein 6.4, Albumin 2.7L, Globulin 3.7 , Prostate Specific Antigen 3.18 Height (Feet): 5 Height (Inches): 8.00 Weight (Pounds): 160 TAYO GUERIN Sep 18, 2017 13:17
[2017-09-18] MEDS: Lactulose 20gm/30ml UDC ORAL SCH ×2 (13:18→18:15)
[2017-09-18] MEDS: Piperacillin/Tazobactam 3.375 GM in D5W 55 ML IVPB SCH ×2 (13:41→21:11)
--- NOTE | 2017-09-18 15:11 | Diagnostic Imaging Report ---
Indication: Evaluate for hematoma. Technique: CT CHEST Abdomen Pelvis WO Con. CT scan of the chest, abdomen and pelvis was obtained utilizing automated exposure control without intravenous or oral contrast. CT dose: Total DLP 1301.14 mGycm; CTDI vol 18.22 mGy Comparison: None Findings: CT chest: There are small bilateral pleural effusions with compressive atelectasis in bilateral lower lobes. There is more dense infiltrate in the left lower lobe concerning for pneumonia, question aspiration. There is no pneumothorax. There is a calcified granuloma in the left upper lobe. The heart is normal in caliber. There is a small pericardial effusion. There are extensive coronary arterial calcifications. Aortic valvular and mitral annular calcifications are also noted. Small mediastinal lymph nodes are noted. Nonspecific in etiology. Thyroid grossly unremarkable. CT abdomen/pelvis: Noncontrast evaluation of the liver, spleen, adrenal glands and pancreas is grossly unremarkable. Calcified gallstones are noted. No CT evidence to suggest acute cholecystitis. Well-circumscribed low-attenuation lesions in the kidneys not definitively characterize but possibly cysts. Bilateral nonspecific perinephric stranding. No evidence of urinary tract stone or hydronephrosis bilaterally. Bladder unremarkable in appearance. Prostate is heterogeneous in attenuation and mildly enlarged, particularly the central gland. It contains coarse central calcifications. There is marked fecal impaction with a large volume of stool within a distended rectum and sigmoid colon. There is associated rectal wall thickening and minimal perirectal fat stranding along with some small perirectal lymph nodes. These findings are concerning for stercoral colitis. There is colonic diverticulosis without evidence to suggest an acute diverticulitis. No free intraperitoneal air or abscess. Moderate to severe calcification of a normal caliber thoracic and abdominal aorta along with their main branches. Small perirectal lymph nodes as described with additional small mesenteric, retroperitoneal and mediastinal lymph nodes. Multiple compression deformities noted within the lower thoracic and lumbar spine of indeterminate age, possibly chronic. The patient is status post kyphoplasty at L5 3 at L5. Impression: Marked fecal impaction with abnormal distention of the rectum and rectal wall thickening. Mild perirectal fat stranding and small perirectal lymph nodes. These findings are concerning for stercoral colitis. Discrete underlying lesion is not seen.. Diverticulosis without evidence of acute diverticulitis. Cholelithiasis without evidence of acute cholecystitis. Left lower lobe opacity concerning for pneumonia. Medical correlation recommended. Small bilateral pleural effusions with adjacent compressive atelectasis. Small pericardial effusion. Coronary artery disease. Aortic valvular and mitral annular calcifications. Enlarged prostate. Multilevel lower thoracic and lumbar compression deformities. Patient status post vertebroplasty at L3 and L5. This corresponds with the statrad preliminary report. The CT scanner at [facility] is accredited by the [employer] and the scans are performed using protocols designed to limit radiation exposure to as low as reasonably achievable to attain images of sufficient resolution adequate for diagnostic evaluation.
[2017-09-18] MEDS: Docusate 250mg cap ORAL SCH (18:12)
[2017-09-18] MEDS: Albuterol/Ipratropium 3ml neb HHN PRN (18:44)
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
[2017-09-19] VITALS: BP 152/71
--- NOTE | 2017-09-19 00:03 | Cardiology Report ---
APPROVED REPORT EXAM: Two-dimensional echocardiogram with contrast. INDICATION ALTERNED MENTAL STATUS M-Mode DIMENSIONS IVSd1.5 (0.7-1.1cm)Left Atrium (MM)3.0 (1.6-4.0cm) LVDd2.2 (3.5-5.6cm)Aortic Root2.5 (2.0-3.7cm) PWd4.7 (0.7-1.1cm)Aortic Cusp Exc.1.4 (1.5-2.0cm) IVSs3.4 cm LVDs1.5 (2.5-4.0cm) PWs1.7 cm Technically difficult study due to poor acoustical windows. Normal left ventricular chamber size, systolic function and wall motion to extent visualized. Left ventricular ejection fraction estimated to be 55 %. mild left ventricular hypertrophy by 2-D. No evidence of pericardial effusion All other cardiac chamber size are within normal limits. Focal aortic valve sclerosis with adequate cusp excursion. Thickened mitral valve leaflets with normal excursion. Mitral annulus and aortic root calcification. Pulmonic valve not well visualized. Normal tricuspid valve structure. IVC at 2.2 cm without physiologic collapse.. A color flow and spectral Doppler study was performed and revealed: Mild aortic regurgitation. Trace mitral regurgitation. Normal left ventricular diastolic function. Trace tricuspid regurgitation. Tricuspid systolic velocities suggests peak right ventricular systolic pressure of 18 mmHg No Pulmonic regurgitation present.
--- NOTE | 2017-09-19 00:26 | Cardiology Report ---
APPROVED REPORT EKG Measurement Heart [id number] Sinus tachycardia Low voltage QRS Borderline ECG
[2017-09-19] MEDS: D5NS 1,000 ML IV SCH (02:24)
[2017-09-19 04:00] VITALS: BP 135/52
[2017-09-19] MEDS: Piperacillin/Tazobactam 3.375 GM in D5W 55 ML IVPB SCH ×3 (06:03→21:36)
[2017-09-19 07:38] LABS: HEMATOCRIT 28.7 % (42.0-52.0); HEMOGLOBIN 8.7 G/DL (14.2-18.0); MEAN CORPUSCULAR VOLUME 67 FL (80-99); PLATELET COUNT 74 K/UL (150-450); WHITE BLOOD COUNT 15.4 K/UL (4.8-10.8)
[2017-09-19 08:00] VITALS: BP 139/95
[2017-09-19 08:04] LABS: ALANINE AMINOTRANSFERASE 30 U/L (12-78); ALBUMIN 2.6 G/DL (3.4-5.0); ALBUMIN/GLOBULIN RATIO 0.7 (1.0-2.7); ALKALINE PHOSPHATASE 75 U/L (46-116); ANION GAP 10 mmol/L (5-15); ASPARTATE AMINO TRANSFERASE 22 U/L (15-37); BLOOD UREA NITROGEN 9 mg/dL (7-18); CALCIUM 7.3 MG/DL (8.5-10.1); CARBON DIOXIDE 21 MMOL/L (21-32); CHLORIDE 111 MMOL/L (98-107); POTASSIUM 3.2 MMOL/L (3.5-5.1); SODIUM 141 MMOL/L (136-145)
[2017-09-19] MEDS: Pantoprazole Inj IVP SCH ×2 (08:39→21:34)
[2017-09-19] MEDS: Docusate 250mg cap ORAL SCH ×2 (08:39→17:56)
[2017-09-19] MEDS: Lactulose 20gm/30ml UDC ORAL SCH ×3 (08:40→17:55)
[2017-09-19] MEDS: Montelukast 10mg tablet ORAL SCH (08:40)
--- NOTE | 2017-09-19 08:55 | Diagnostic Imaging Report ---
Indication: COPD Technique: 09/16/2017 Comparison: None Findings: Heart size and mediastinal contours are stable. Atherosclerotic calcifications again noted in the aortic arch. Interval development of interstitial opacification/edema and probably perihilar patchy airspace opacities. These findings may be related to fluid overload/pulmonary edema. Superimposed pneumonia should be excluded clinically. Patchy left basilar atelectasis. There is no pneumothorax. A prominent gaseous loop of the right colon is noted in the right upper abdomen, known to be interspersed anterior to the liver on prior CT scan. The degree of dilatation of this loop is increased compared to the CT scan. Impression: Interval development of interstitial edema with patchy bilateral airspace opacities thought to related to interstitial edema/fluid overload. Superimposed pneumonia should be excluded clinically. Follow-up exam recommended. Interval gaseous dilatation of known loop of right colon interposed anterior to the liver. Degree of gaseous dilatation of this loop is increased compared to CT of 09/17/2017, where there was marked fecal impaction in a markedly dilated rectum. Correlate with physical exam to exclude early obstruction. Further imaging of the abdomen can be obtained as clinically indicated.
[2017-09-19] MEDS: Albuterol/Ipratropium 3ml neb HHN PRN (09:05)
--- NOTE | 2017-09-19 09:22 | General Progress Note ---
Assessment/Plan Problem List: (1) Anemia ICD Codes: D64.9 - Anemia, unspecified SNOMED: 567576762 (2) AMI (acute myocardial infarction) ICD Codes: I21.9 - Acute myocardial infarction, unspecified SNOMED: 53870929 (3) HTN (hypertension) ICD Codes: I10 - Essential (primary) hypertension SNOMED: 64609841 (4) COPD (chronic obstructive pulmonary disease) ICD Codes: J44.9 - Chronic obstructive pulmonary disease, unspecified SNOMED: 61724177 (5) Gout ICD Codes: M10.9 - Gout, unspecified SNOMED: 60214045 (6) Episode of generalized weakness ICD Codes: R53.1 - Weakness SNOMED: 67640387 (7) Sepsis ICD Codes: A41.9 - Sepsis, unspecified organism SNOMED: 04946335 Qualifiers: Qualified Codes: A41.9 - Sepsis, unspecified organism (8) Pneumonia ICD Codes: J18.9 - Pneumonia, unspecified organism SNOMED: 854196701 Status: stable, progressing Assessment/Plan gi follow up ppi rx monitor h/h. transfuse as needed iv steroids for copd exac. follow up cxr resp rx scheduled q4 cards follow up Subjective ROS Limited/Unobtainable: No Constitutional: Reports: malaise, weakness HEENT: Reports: no symptoms Cardiovascular: Reports: no symptoms Respiratory: Reports: cough, shortness of breath, wheezing Gastrointestinal/Abdominal: Reports: no symptoms Genitourinary: Reports: no symptoms Neurologic/Psychiatric: Reports: no symptoms Endocrine: Reports: no symptoms Hematologic/Lymphatic: Reports: anemia Allergies: Coded Allergies: No Known Allergies (Unverified , 09/16/17) All Systems: reviewed and negative except above Subjective more sob. wheezing this am. no cp/sob. no fevers. + cough Objective Last 24 Hour Vital Signs Date Time Temp Pulse Resp B/P (MAP) Pulse Ox O2 Delivery O2 Flow Rate FiO2 09/19/17 09:10 94 20 92 Nasal Cannula 4.0 09/19/17 09:05 94 20 Nasal Cannula 4.0 36 09/19/17 09:05 Nasal Cannula 4.0 36 09/19/17 09:05 94 4.0 36 09/19/17 08:00 97.9 60 20 139/95 98 Nasal Cannula 4.0 09/19/17 04:00 96.1 88 23 135/52 92 Nasal Cannula 4.0 88 88 09/19/17 03:54 90 09/19/17 00:00 98.2 98 25 152/71 94 Nasal Cannula 4.0 09/18/17 23:40 98 09/18/17 20:17 97 09/18/17 20:00 98.1 109 26 149/67 94 Nasal Cannula 4.0 09/18/17 18:48 100 22 96 Nasal Cannula 2.0 28 09/18/17 18:45 28 09/18/17 18:44 102 22 94 Nasal Cannula 2.0 28 09/18/17 18:43 94 Nasal Cannula 2.0 28 09/18/17 18:39 Nasal Cannula 2.0 28 09/18/17 18:37 102 22 Nasal Cannula 2.0 28 09/18/17 16:00 98 09/18/17 16:00 99.5 99 22 138/90 96 Nasal Cannula 2.0 09/18/17 12:00 103 09/18/17 11:00 101 23 170/64 96 Nasal Cannula 2.0 09/18/17 10:00 92 27 171/90 98 Nasal Cannula 2.0 Intake and Output 09/18/17 09/19/17 19:00 07:00 Intake Total 721.85 ml 1305.00 ml Output Total 1460 ml 200 ml Balance -738.15 ml 1105.00 ml Intake Oral 240 ml 240 ml IV Total 481.85 ml 945.00 ml Blood Product 100 ml Other 20 ml Output Urine Total 1460 ml 200 ml # Voids 1 # Bowel Movements 1 1 Laboratory Tests 09/19/17 06:57: White Blood Count 15.4H, Red Blood Count 4.30L, Hemoglobin 8.7L, Hematocrit 28.7L, Mean Corpuscular Volume 67L, Mean Corpuscular Hemoglobin 20.3L, Mean Corpuscular Hemoglobin Concent 30.5L, Red Cell Distribution Width 24.0H, Platelet Count 74L, Mean Platelet Volume 13.7H, Neutrophils (%) (Auto) , Lymphocytes (%) (Auto) , Monocytes (%) (Auto) , Eosinophils (%) (Auto) , Basophils (%) (Auto) , Neutrophils % (Manual) [Pending], Lymphocytes % (Manual) [Pending], Platelet Estimate [Pending], Platelet Morphology [Pending], Sodium Level 141, Potassium Level 3.2L, Chloride Level 111H, Carbon Dioxide Level 21, Anion Gap 10, Blood Urea Nitrogen 9, Creatinine 1.0, Estimat Glomerular Filtration Rate , Glucose Level 149H, Calcium Level 7.3L, Total Bilirubin 1.0, Aspartate Amino Transf (AST/SGOT) 22, Alanine Aminotransferase (ALT/SGPT) 30, Alkaline Phosphatase 75, Total Protein 6.5, Albumin 2.6L, Globulin 3.9, Albumin/ Globulin Ratio 0.7L Height (Feet): 5 Height (Inches): 8.00 Weight (Pounds): 160 Objective General Appearance: WD/WN, alert Neck: supple Cardiovascular: normal rate, regular rhythm Respiratory/Chest: wheezes bilaterlly Abdomen: normal bowel sounds, non tender, soft, no organomegaly Edema: no edema noted Arm (L), no edema noted Arm (R), no edema noted Leg (L), no edema noted Leg (R), no edema noted Pedal (L), no edema noted Pedal (R), no edema noted Generalized BHUPINDER DILL Sep 19, 2017 09:22
--- NOTE | 2017-09-19 09:28 | General Progress Note ---
Assessment/Plan Problem List: (1) Diverticulosis ICD Codes: K57.90 - Diverticulosis of intestine, part unspecified, without perforation or abscess without bleeding SNOMED: 547948207 (2) Fecal impaction ICD Codes: K56.41 - Fecal impaction SNOMED: 06616150 (3) Gout ICD Codes: M10.9 - Gout, unspecified SNOMED: 76422605 (4) Anemia ICD Codes: D64.9 - Anemia, unspecified SNOMED: 459386341 (5) Sepsis ICD Codes: A41.9 - Sepsis, unspecified organism SNOMED: 11505824 Qualifiers: Qualified Codes: A41.9 - Sepsis, unspecified organism (6) AMI (acute myocardial infarction) ICD Codes: I21.9 - Acute myocardial infarction, unspecified SNOMED: 04736044 (7) HTN (hypertension) ICD Codes: I10 - Essential (primary) hypertension SNOMED: 09180753 (8) Episode of generalized weakness ICD Codes: R53.1 - Weakness SNOMED: 70447736 (9) Pneumonia ICD Codes: J18.9 - Pneumonia, unspecified organism SNOMED: 258157393 Assessment/Plan abd us to evaluate for thrombocytopenia ppi daily monitor H&H transfuse to keep Hgb around 8 needs GI procedures but needs cardiac clearance first repeat stool pb abx per ID fu Subjective ROS Limited/Unobtainable: Yes Allergies: Coded Allergies: No Known Allergies (Unverified , 09/16/17) Objective Last 24 Hour Vital Signs Date Time Temp Pulse Resp B/P (MAP) Pulse Ox O2 Delivery O2 Flow Rate FiO2 09/19/17 09:10 94 20 92 Nasal Cannula 4.0 09/19/17 09:05 94 20 Nasal Cannula 4.0 36 09/19/17 09:05 Nasal Cannula 4.0 36 09/19/17 09:05 94 4.0 36 09/19/17 08:00 97.9 60 20 139/95 98 Nasal Cannula 4.0 09/19/17 04:00 96.1 88 23 135/52 92 Nasal Cannula 4.0 88 88 09/19/17 03:54 90 09/19/17 00:00 98.2 98 25 152/71 94 Nasal Cannula 4.0 09/18/17 23:40 98 09/18/17 20:17 97 09/18/17 20:00 98.1 109 26 149/67 94 Nasal Cannula 4.0 09/18/17 18:48 100 22 96 Nasal Cannula 2.0 28 09/18/17 18:45 28 09/18/17 18:44 102 22 94 Nasal Cannula 2.0 28 09/18/17 18:43 94 Nasal Cannula 2.0 28 09/18/17 18:39 Nasal Cannula 2.0 28 09/18/17 18:37 102 22 Nasal Cannula 2.0 28 09/18/17 16:00 98 09/18/17 16:00 99.5 99 22 138/90 96 Nasal Cannula 2.0 09/18/17 12:00 103 09/18/17 11:00 101 23 170/64 96 Nasal Cannula 2.0 09/18/17 10:00 92 27 171/90 98 Nasal Cannula 2.0 Intake and Output 09/18/17 09/19/17 19:00 07:00 Intake Total 721.85 ml 1305.00 ml Output Total 1460 ml 200 ml Balance -738.15 ml 1105.00 ml Intake Oral 240 ml 240 ml IV Total 481.85 ml 945.00 ml Blood Product 100 ml Other 20 ml Output Urine Total 1460 ml 200 ml # Voids 1 # Bowel Movements 1 1 Laboratory Tests 09/19/17 06:57: White Blood Count 15.4H, Red Blood Count 4.30L, Hemoglobin 8.7L, Hematocrit 28.7L, Mean Corpuscular Volume 67L, Mean Corpuscular Hemoglobin 20.3L, Mean Corpuscular Hemoglobin Concent 30.5L, Red Cell Distribution Width 24.0H, Platelet Count 74L, Mean Platelet Volume 13.7H, Neutrophils (%) (Auto) , Lymphocytes (%) (Auto) , Monocytes (%) (Auto) , Eosinophils (%) (Auto) , Basophils (%) (Auto) , Neutrophils % (Manual) [Pending], Lymphocytes % (Manual) [Pending], Platelet Estimate [Pending], Platelet Morphology [Pending], Sodium Level 141, Potassium Level 3.2L, Chloride Level 111H, Carbon Dioxide Level 21, Anion Gap 10, Blood Urea Nitrogen 9, Creatinine 1.0, Estimat Glomerular Filtration Rate , Glucose Level 149H, Calcium Level 7.3L, Total Bilirubin 1.0, Aspartate Amino Transf (AST/SGOT) 22, Alanine Aminotransferase (ALT/SGPT) 30, Alkaline Phosphatase 75, Total Protein 6.5, Albumin 2.6L, Globulin 3.9, Albumin/ Globulin Ratio 0.7L Height (Feet): 5 Height (Inches): 8.00 Weight (Pounds): 160 General Appearance: alert EENT: normal ENT inspection Neck: supple Cardiovascular: normal rate Respiratory/Chest: decreased breath sounds Abdomen: normal bowel sounds, non tender, soft Extremities: non-tender SUZY CARDONA Sep 19, 2017 09:28
--- NOTE | 2017-09-19 10:56 | Infectious Diseases Prog Note ---
Assessment/Plan Assessment/Plan antibiotics : zosyn A 1. pneumonia 2. leucocytosis improving 3. COPD 4. gout 5. thrombocytopenia 6. anemia P 1. continue zosyn 2. sputum culture 3. will follow up cultures Subjective Constitutional: Denies: fever, chills Respiratory: Reports: shortness of breath, Denies: dry cough Gastrointestinal/Abdominal: Denies: nausea, vomiting, diarrhea Musculoskeletal: Denies: pain Allergies: Coded Allergies: No Known Allergies (Unverified , 09/16/17) Objective Vital Signs Last 24 Hour Vital Signs Date Time Temp Pulse Resp B/P (MAP) Pulse Ox O2 Delivery O2 Flow Rate FiO2 09/19/17 09:10 94 20 92 Nasal Cannula 4.0 09/19/17 09:05 94 20 Nasal Cannula 4.0 36 09/19/17 09:05 Nasal Cannula 4.0 36 09/19/17 09:05 94 4.0 36 09/19/17 08:00 97.9 60 20 139/95 98 Nasal Cannula 4.0 09/19/17 04:00 96.1 88 23 135/52 92 Nasal Cannula 4.0 88 88 09/19/17 03:54 90 09/19/17 00:00 98.2 98 25 152/71 94 Nasal Cannula 4.0 09/18/17 23:40 98 09/18/17 20:17 97 09/18/17 20:00 98.1 109 26 149/67 94 Nasal Cannula 4.0 09/18/17 18:48 100 22 96 Nasal Cannula 2.0 28 09/18/17 18:45 28 09/18/17 18:44 102 22 94 Nasal Cannula 2.0 28 09/18/17 18:43 94 Nasal Cannula 2.0 28 09/18/17 18:39 Nasal Cannula 2.0 28 09/18/17 18:37 102 22 Nasal Cannula 2.0 28 09/18/17 16:00 98 09/18/17 16:00 99.5 99 22 138/90 96 Nasal Cannula 2.0 09/18/17 12:00 103 09/18/17 11:00 101 23 170/64 96 Nasal Cannula 2.0 Height (Feet): 5 Height (Inches): 8.00 Weight (Pounds): 160 Respiratory/Chest: lungs clear Cardiovascular: normal rate, regular rhythm, no gallop/murmur Abdomen: soft, non tender Extremities: no edema Microbiology Date/Time Source Procedure Growth Status 09/16/17 14:30 Blood Blood Culture - Preliminary NO GROWTH AFTER 24 HOURS Resulted 09/16/17 14:15 Blood Blood Culture - Preliminary NO GROWTH AFTER 24 HOURS Resulted 09/16/17 16:00 Nasal Nares Influenza Types A,B Antigen (SOL) - Final Complete Laboratory Tests Test 09/19/17 06:57 White Blood Count 15.4 K/UL (4.8-10.8) H Red Blood Count 4.30 M/UL (4.70-6.10) L Hemoglobin 8.7 G/DL (14.2-18.0) L Hematocrit 28.7 % (42.0-52.0) L Mean Corpuscular Volume 67 FL (80-99) L Mean Corpuscular Hemoglobin 20.3 PG (27.0-31.0) L Mean Corpuscular Hemoglobin Concent 30.5 G/DL (32.0-36.0) L Red Cell Distribution Width 24.0 % (11.6-14.8) H Platelet Count 74 K/UL (150-450) L Mean Platelet Volume 13.7 FL (6.5-10.1) H Neutrophils (%) (Auto) % (45.0-75.0) Lymphocytes (%) (Auto) % (20.0-45.0) Monocytes (%) (Auto) % (1.0-10.0) Eosinophils (%) (Auto) % (0.0-3.0) Basophils (%) (Auto) % (0.0-2.0) Differential Total Cells Counted 100 Neutrophils % (Manual) 81 % (45-75) H Lymphocytes % (Manual) 6 % (20-45) L Monocytes % (Manual) 12 % (1-10) H Eosinophils % (Manual) 0 % (0-3) Basophils % (Manual) 0 % (0-2) Metamyelocytes % 1 % (0-0) H Band Neutrophils 0 % (0-8) Platelet Estimate Decreased L Platelet Morphology Normal Hypochromasia 2+ Anisocytosis 3+ Microcytosis 3+ Sodium Level 141 MMOL/L (136-145) Potassium Level 3.2 MMOL/L (3.5-5.1) L Chloride Level 111 MMOL/L (98-107) H Carbon Dioxide Level 21 MMOL/L (21-32) Anion Gap 10 mmol/L (5-15) Blood Urea Nitrogen 9 mg/dL (7-18) Creatinine 1.0 MG/DL (0.55-1.30) Estimat Glomerular Filtration Rate mL/min (>60) Glucose Level 149 MG/DL (74-106) H Calcium Level 7.3 MG/DL (8.5-10.1) L Total Bilirubin 1.0 MG/DL (0.2-1.0) Aspartate Amino Transf (AST/SGOT) 22 U/L (15-37) Alanine Aminotransferase (ALT/SGPT) 30 U/L (12-78) Alkaline Phosphatase 75 U/L (46-116) Total Protein 6.5 G/DL (6.4-8.2) Albumin 2.6 G/DL (3.4-5.0) L Globulin 3.9 g/dL Albumin/Globulin Ratio 0.7 (1.0-2.7) L SHARNO LUEVANO Sep 19, 2017 10:56
[2017-09-19] MEDS: Albuterol/Ipratropium 3ml neb HHN SCH ×4 (11:00→23:20)
[2017-09-19] MEDS: Solu-MEDROL 125mg Inj IVP SCH ×2 (11:09→17:57)
[2017-09-19 12:00] VITALS: BP 136/70
[2017-09-19 16:00] VITALS: BP 166/80
[2017-09-19] MEDS ORDERED: Tubing IV Secondary IV ONE ×2 (17:21→17:39)
[2017-09-19] MEDS ORDERED: D5NS 1000ml IV ONE ×2 (17:21→17:40)
[2017-09-19] MEDS ORDERED: NS 275ml ONE ×3 (17:21→17:40)
[2017-09-19] MEDS ORDERED: Tubing IV Blood Pump IV ONE ×2 (17:39→17:40)
[2017-09-19 20:00] VITALS: BP 119/68
[2017-09-19] MEDS: Miralax 17gm pkt ORAL SCH (21:35)
[2017-09-20] VITALS (20 sets, daily range): BP systolic 118–200; BP diastolic 56–112
[2017-09-20] MEDS: Solu-MEDROL 125mg Inj IVP SCH ×3 (01:44→17:58)
[2017-09-20] MEDS: Albuterol/Ipratropium 3ml neb HHN SCH ×3 (03:27→10:01)
[2017-09-20] MEDS: Piperacillin/Tazobactam 3.375 GM in D5W 55 ML IVPB SCH ×3 (06:00→21:55)
[2017-09-20 08:04] LABS: HEMATOCRIT 32.6 % (42.0-52.0); HEMOGLOBIN 9.7 G/DL (14.2-18.0); MEAN CORPUSCULAR VOLUME 67 FL (80-99); PLATELET COUNT 80 K/UL (150-450); RED BLOOD COUNT 4.86 M/UL (4.70-6.10); RED CELL DISTRIBUTION WIDTH 24.3 % (11.6-14.8); WHITE BLOOD COUNT 15.9 K/UL (4.8-10.8)
[2017-09-20 08:31] LABS: ALANINE AMINOTRANSFERASE 34 U/L (12-78); ALBUMIN/GLOBULIN RATIO 0.7 (1.0-2.7); ALKALINE PHOSPHATASE 80 U/L (46-116); ANION GAP 14 mmol/L (5-15); ASPARTATE AMINO TRANSFERASE 19 U/L (15-37); BILIRUBIN,TOTAL 0.5 MG/DL (0.2-1.0); BLOOD UREA NITROGEN 16 mg/dL (7-18); CALCIUM 8.2 MG/DL (8.5-10.1); CARBON DIOXIDE 21 MMOL/L (21-32); CHLORIDE 106 MMOL/L (98-107); CREATININE 1.4 MG/DL (0.55-1.30); POTASSIUM 3.6 MMOL/L (3.5-5.1); SODIUM 140 MMOL/L (136-145)
[2017-09-20] MEDS: Montelukast 10mg tablet ORAL SCH (08:46)
[2017-09-20] MEDS: Docusate 250mg cap ORAL SCH ×2 (08:46→17:57)
[2017-09-20] MEDS: Pantoprazole Inj IVP SCH ×2 (08:46→20:46)
[2017-09-20] MEDS: Lactulose 20gm/30ml UDC ORAL SCH ×3 (08:46→17:57)
--- NOTE | 2017-09-20 08:46 | Infectious Diseases Prog Note ---
Assessment/Plan Assessment/Plan O; 1. pneumonia 2. leucocytosis improving 3. COPD 4. gout 5. thrombocytopenia 6. anemia P 1. continue Zosyn 2.will f/u sputum culture Subjective ROS Limited/Unobtainable: No Constitutional: Reports: no symptoms Respiratory: Reports: productive cough Cardiovascular: Reports: no symptoms Gastrointestinal/Abdominal: Reports: no symptoms Genitourinary: Reports: no symptoms Allergies: Coded Allergies: No Known Allergies (Unverified , 09/16/17) Objective Vital Signs Last 24 Hour Vital Signs Date Time Temp Pulse Resp B/P (MAP) Pulse Ox O2 Delivery O2 Flow Rate FiO2 09/20/17 07:49 104 20 99 Nasal Cannula 4.0 36 09/20/17 07:45 36 09/20/17 07:44 98 4.0 36 09/20/17 07:44 Nasal Cannula 4.0 36 09/20/17 07:44 96 20 Nasal Cannula 4.0 36 09/20/17 07:42 96 18 98 Nasal Cannula 4.0 36 09/20/17 04:00 97.1 116 20 159/88 94 09/20/17 04:00 114 09/20/17 03:39 36 09/20/17 03:39 115 21 98 Nasal Cannula 4.0 36 09/20/17 03:28 14 20 97 Nasal Cannula 4.0 36 09/20/17 00:00 120 09/20/17 00:00 98.1 116 21 148/72 95 09/19/17 23:30 108 20 98 Nasal Cannula 4.0 36 09/19/17 23:30 36 09/19/17 23:20 107 20 97 Nasal Cannula 4.0 36 09/19/17 20:10 111 20 98 Nasal Cannula 4.0 36 09/19/17 20:10 36 09/19/17 20:01 95 4.0 36 09/19/17 20:01 96 20 Nasal Cannula 4.0 36 09/19/17 20:01 Nasal Cannula 4.0 36 09/19/17 20:00 95 20 97 Nasal Cannula 4.0 36 09/19/17 20:00 114 09/19/17 20:00 98.6 104 21 119/68 97 09/19/17 16:02 101 20 98 Nasal Cannula 4.0 36 09/19/17 16:02 36 09/19/17 16:00 97.9 81 19 166/80 93 Nasal Cannula 4.0 09/19/17 16:00 120 09/19/17 15:52 94 20 97 Nasal Cannula 4.0 36 09/19/17 12:18 36 09/19/17 12:18 101 20 98 Nasal Cannula 4.0 36 09/19/17 12:07 99 20 96 Nasal Cannula 4.0 36 09/19/17 12:00 Venturi Mask 95.0 09/19/17 12:00 104 09/19/17 12:00 97.7 81 19 136/70 Room Air 95.0 09/19/17 09:10 94 20 92 Nasal Cannula 4.0 09/19/17 09:05 94 20 Nasal Cannula 4.0 36 09/19/17 09:05 Nasal Cannula 4.0 36 09/19/17 09:05 94 4.0 36 Height (Feet): 5 Height (Inches): 8.00 Weight (Pounds): 160 General Appearance: no acute distress HEENT: mucous membranes moist Respiratory/Chest: rhonchi - bilaterally, other - O2 by cannula Abdomen: distended Extremities: other - edema of legs Laboratory Tests Test 09/20/17 06:27 White Blood Count 15.9 K/UL (4.8-10.8) H Red Blood Count 4.86 M/UL (4.70-6.10) Hemoglobin 9.7 G/DL (14.2-18.0) L Hematocrit 32.6 % (42.0-52.0) L Mean Corpuscular Volume 67 FL (80-99) L Mean Corpuscular Hemoglobin 20.1 PG (27.0-31.0) L Mean Corpuscular Hemoglobin Concent 30.0 G/DL (32.0-36.0) L Red Cell Distribution Width 24.3 % (11.6-14.8) H Platelet Count 80 K/UL (150-450) L Mean Platelet Volume 13.1 FL (6.5-10.1) H Neutrophils (%) (Auto) % (45.0-75.0) Lymphocytes (%) (Auto) % (20.0-45.0) Monocytes (%) (Auto) % (1.0-10.0) Eosinophils (%) (Auto) % (0.0-3.0) Basophils (%) (Auto) % (0.0-2.0) Neutrophils % (Manual) Pending Lymphocytes % (Manual) Pending Platelet Estimate Pending Platelet Morphology Pending Sodium Level 140 MMOL/L (136-145) Potassium Level 3.6 MMOL/L (3.5-5.1) Chloride Level 106 MMOL/L (98-107) Carbon Dioxide Level 21 MMOL/L (21-32) Anion Gap 14 mmol/L (5-15) Blood Urea Nitrogen 16 mg/dL (7-18) Creatinine 1.4 MG/DL (0.55-1.30) H Estimat Glomerular Filtration Rate mL/min (>60) Glucose Level 257 MG/DL (74-106) #H Calcium Level 8.2 MG/DL (8.5-10.1) L Total Bilirubin 0.5 MG/DL (0.2-1.0) Aspartate Amino Transf (AST/SGOT) 19 U/L (15-37) Alanine Aminotransferase (ALT/SGPT) 34 U/L (12-78) Alkaline Phosphatase 80 U/L (46-116) Total Protein 7.5 G/DL (6.4-8.2) Albumin 3.0 G/DL (3.4-5.0) L Globulin 4.5 g/dL Albumin/Globulin Ratio 0.7 (1.0-2.7) L Current Medications Medications (Trade) Dose Ordered Sig/Duong Route PRN Reason Start Time Stop Time Status Last Admin Dose Admin Albuterol/ Ipratropium (Albuterol/ Ipratropium) 3 ml Q4H PRN HHN Shortness of Breath 09/18/17 13:15 09/21/17 21:14 09/19/17 09:05 Albuterol/ Ipratropium (Albuterol/ Ipratropium) 3 ml Q4HRT HHN 09/19/17 11:00 09/24/17 10:59 09/20/17 07:41 Docusate Sodium (Colace) 250 mg BID ORAL 09/18/17 18:00 10/18/17 08:59 09/19/17 17:56 Furosemide (Lasix) 40 mg DAILY IV 09/19/17 12:00 10/19/17 11:59 09/19/17 12:25 Lactulose (Cephulac) 30 gm THREE TIMES A DAY ORAL 09/18/17 13:00 10/18/17 08:59 09/19/17 17:55 Levothyroxine Sodium (Synthroid) 50 mcg ACBREAKFAST ORAL 09/19/17 06:30 10/17/17 06:29 09/20/17 06:28 Methylprednisolone Sodium Succinate (Solu-MEDROL) 60 mg Q8H IVP 09/19/17 10:00 10/19/17 09:59 09/20/17 01:44 Montelukast Sodium (Singulair) 10 mg DAILY ORAL 09/19/17 09:00 10/17/17 08:59 09/19/17 08:40 Pantoprazole (Protonix) 40 mg EVERY 12 HOURS IVP 09/18/17 21:00 10/16/17 22:59 09/19/17 21:34 Piperacillin Sod/ Tazobactam Sod 3.375 gm/Dextrose 55 ml @ 13.75 mls/ hr EVERY 8 HOURS IVPB 09/19/17 14:00 09/22/17 13:59 09/20/17 06:00 Polyethylene Glycol (Miralax) 17 gm BEDTIME ORAL 09/19/17 21:00 10/19/17 20:59 09/19/17 21:35 CIRO GODFREY Sep 20, 2017 08:46
--- NOTE | 2017-09-20 09:03 | General Progress Note ---
Assessment/Plan Problem List: (1) Anemia ICD Codes: D64.9 - Anemia, unspecified SNOMED: 187895924 (2) AMI (acute myocardial infarction) ICD Codes: I21.9 - Acute myocardial infarction, unspecified SNOMED: 14211506 (3) HTN (hypertension) ICD Codes: I10 - Essential (primary) hypertension SNOMED: 25190804 (4) COPD (chronic obstructive pulmonary disease) ICD Codes: J44.9 - Chronic obstructive pulmonary disease, unspecified SNOMED: 31042190 (5) Gout ICD Codes: M10.9 - Gout, unspecified SNOMED: 13923267 (6) Episode of generalized weakness ICD Codes: R53.1 - Weakness SNOMED: 29904480 (7) Sepsis ICD Codes: A41.9 - Sepsis, unspecified organism SNOMED: 55662154 Qualifiers: Qualified Codes: A41.9 - Sepsis, unspecified organism (8) Pneumonia ICD Codes: J18.9 - Pneumonia, unspecified organism SNOMED: 351519362 Status: stable, progressing Assessment/Plan gi follow up ppi rx monitor h/h. transfuse as needed iv steroids for copd exac- will continue- consider weaning tomorrow monitor cxr resp rx scheduled q4 cards follow up lasix Subjective ROS Limited/Unobtainable: No Constitutional: Reports: malaise, weakness HEENT: Reports: no symptoms Cardiovascular: Reports: no symptoms Respiratory: Reports: cough, wheezing Gastrointestinal/Abdominal: Reports: no symptoms Genitourinary: Reports: no symptoms Neurologic/Psychiatric: Reports: no symptoms Endocrine: Reports: no symptoms Hematologic/Lymphatic: Reports: anemia Allergies: Coded Allergies: No Known Allergies (Unverified , 09/16/17) All Systems: reviewed and negative except above Subjective less sob this am but still with wheezing. cxr noted- increased infiltrates on iv abx, steroids and lasix Objective Last 24 Hour Vital Signs Date Time Temp Pulse Resp B/P (MAP) Pulse Ox O2 Delivery O2 Flow Rate FiO2 09/20/17 07:49 104 20 99 Nasal Cannula 4.0 36 09/20/17 07:45 36 09/20/17 07:44 98 4.0 36 09/20/17 07:44 Nasal Cannula 4.0 36 09/20/17 07:44 96 20 Nasal Cannula 4.0 36 09/20/17 07:42 96 18 98 Nasal Cannula 4.0 36 09/20/17 04:00 97.1 116 20 159/88 94 09/20/17 04:00 114 09/20/17 03:39 36 09/20/17 03:39 115 21 98 Nasal Cannula 4.0 36 09/20/17 03:28 14 20 97 Nasal Cannula 4.0 36 09/20/17 00:00 120 09/20/17 00:00 98.1 116 21 148/72 95 09/19/17 23:30 108 20 98 Nasal Cannula 4.0 36 09/19/17 23:30 36 09/19/17 23:20 107 20 97 Nasal Cannula 4.0 36 09/19/17 20:10 111 20 98 Nasal Cannula 4.0 36 09/19/17 20:10 36 09/19/17 20:01 95 4.0 36 09/19/17 20:01 96 20 Nasal Cannula 4.0 36 09/19/17 20:01 Nasal Cannula 4.0 36 09/19/17 20:00 95 20 97 Nasal Cannula 4.0 36 09/19/17 20:00 114 09/19/17 20:00 98.6 104 21 119/68 97 09/19/17 16:02 101 20 98 Nasal Cannula 4.0 36 09/19/17 16:02 36 09/19/17 16:00 97.9 81 19 166/80 93 Nasal Cannula 4.0 09/19/17 16:00 120 09/19/17 15:52 94 20 97 Nasal Cannula 4.0 36 09/19/17 12:18 36 09/19/17 12:18 101 20 98 Nasal Cannula 4.0 36 09/19/17 12:07 99 20 96 Nasal Cannula 4.0 36 09/19/17 12:00 Venturi Mask 95.0 09/19/17 12:00 104 09/19/17 12:00 97.7 81 19 136/70 Room Air 95.0 09/19/17 09:10 94 20 92 Nasal Cannula 4.0 09/19/17 09:05 94 20 Nasal Cannula 4.0 36 09/19/17 09:05 Nasal Cannula 4.0 36 09/19/17 09:05 94 4.0 36 Intake and Output 09/19/17 09/20/17 19:00 07:00 Intake Total 868.25 ml Output Total 300 ml Balance 568.25 ml Intake Oral 472 ml IV Total 396.25 ml Output Urine Total 300 ml # Voids 3 # Bowel Movements 1 Laboratory Tests 09/20/17 06:27: White Blood Count 15.9H, Red Blood Count 4.86, Hemoglobin 9.7L, Hematocrit 32.6L , Mean Corpuscular Volume 67L, Mean Corpuscular Hemoglobin 20.1L, Mean Corpuscular Hemoglobin Concent 30.0L, Red Cell Distribution Width 24.3H, Platelet Count 80L, Mean Platelet Volume 13.1H, Neutrophils (%) (Auto) , Lymphocytes (%) (Auto) , Monocytes (%) (Auto) , Eosinophils (%) (Auto) , Basophils (%) (Auto) , Neutrophils % (Manual) [Pending], Lymphocytes % (Manual) [Pending], Platelet Estimate [Pending], Platelet Morphology [Pending], Sodium Level 140, Potassium Level 3.6, Chloride Level 106, Carbon Dioxide Level 21, Anion Gap 14, Blood Urea Nitrogen 16, Creatinine 1.4H, Estimat Glomerular Filtration Rate , Glucose Level 257#H, Calcium Level 8.2L, Total Bilirubin 0.5, Aspartate Amino Transf (AST/SGOT) 19, Alanine Aminotransferase (ALT/SGPT) 34, Alkaline Phosphatase 80, Total Protein 7.5, Albumin 3.0L, Globulin 4.5, Albumin/ Globulin Ratio 0.7L Height (Feet): 5 Height (Inches): 8.00 Weight (Pounds): 160 Objective General Appearance: WD/WN, alert Neck: supple Cardiovascular: normal rate, regular rhythm Respiratory/Chest: wheezes bilaterlly- less Abdomen: normal bowel sounds, non tender, soft, no organomegaly Edema: no edema noted Arm (L), no edema noted Arm (R), no edema noted Leg (L), no edema noted Leg (R), no edema noted Pedal (L), no edema noted Pedal (R), no edema noted Generalized BHUPINDER DILL Sep 20, 2017 09:03
--- NOTE | 2017-09-20 09:58 | General Progress Note ---
Assessment/Plan Problem List: (1) Diverticulosis ICD Codes: K57.90 - Diverticulosis of intestine, part unspecified, without perforation or abscess without bleeding SNOMED: 530161370 (2) Fecal impaction ICD Codes: K56.41 - Fecal impaction SNOMED: 99850960 (3) Gout ICD Codes: M10.9 - Gout, unspecified SNOMED: 96117439 (4) Anemia ICD Codes: D64.9 - Anemia, unspecified SNOMED: 133753873 (5) Sepsis ICD Codes: A41.9 - Sepsis, unspecified organism SNOMED: 10885732 Qualifiers: Qualified Codes: A41.9 - Sepsis, unspecified organism (6) AMI (acute myocardial infarction) ICD Codes: I21.9 - Acute myocardial infarction, unspecified SNOMED: 53446401 (7) HTN (hypertension) ICD Codes: I10 - Essential (primary) hypertension SNOMED: 64911219 (8) Episode of generalized weakness ICD Codes: R53.1 - Weakness SNOMED: 52130265 (9) Pneumonia ICD Codes: J18.9 - Pneumonia, unspecified organism SNOMED: 526849219 Assessment/Plan abd us to evaluate for thrombocytopenia ppi daily monitor H&H transfuse to keep Hgb around 8 needs GI procedures but not stable at this time repeat stool ob abx per ID bowel regimen Subjective ROS Limited/Unobtainable: Yes Allergies: Coded Allergies: No Known Allergies (Unverified , 09/16/17) Subjective SOB wheezing had BM last night Objective Last 24 Hour Vital Signs Date Time Temp Pulse Resp B/P (MAP) Pulse Ox O2 Delivery O2 Flow Rate FiO2 09/20/17 09:52 129 22 171/76 94 4.0 09/20/17 09:41 191/112 09/20/17 09:20 98.2 131 25 191/112 94 Nasal Cannula 4.0 09/20/17 07:49 104 20 99 Nasal Cannula 4.0 36 09/20/17 07:45 36 09/20/17 07:44 98 4.0 36 09/20/17 07:44 Nasal Cannula 4.0 36 09/20/17 07:44 96 20 Nasal Cannula 4.0 36 09/20/17 07:42 96 18 98 Nasal Cannula 4.0 36 09/20/17 04:00 97.1 116 20 159/88 94 09/20/17 04:00 114 09/20/17 03:39 36 09/20/17 03:39 115 21 98 Nasal Cannula 4.0 36 09/20/17 03:28 14 20 97 Nasal Cannula 4.0 36 09/20/17 00:00 120 09/20/17 00:00 98.1 116 21 148/72 95 09/19/17 23:30 108 20 98 Nasal Cannula 4.0 36 09/19/17 23:30 36 09/19/17 23:20 107 20 97 Nasal Cannula 4.0 36 09/19/17 20:10 111 20 98 Nasal Cannula 4.0 36 09/19/17 20:10 36 09/19/17 20:01 95 4.0 36 09/19/17 20:01 96 20 Nasal Cannula 4.0 36 09/19/17 20:01 Nasal Cannula 4.0 36 09/19/17 20:00 95 20 97 Nasal Cannula 4.0 36 09/19/17 20:00 114 09/19/17 20:00 98.6 104 21 119/68 97 09/19/17 16:02 101 20 98 Nasal Cannula 4.0 36 09/19/17 16:02 36 09/19/17 16:00 97.9 81 19 166/80 93 Nasal Cannula 4.0 09/19/17 16:00 120 09/19/17 15:52 94 20 97 Nasal Cannula 4.0 36 09/19/17 12:18 36 09/19/17 12:18 101 20 98 Nasal Cannula 4.0 36 09/19/17 12:07 99 20 96 Nasal Cannula 4.0 36 09/19/17 12:00 Venturi Mask 95.0 09/19/17 12:00 104 09/19/17 12:00 97.7 81 19 136/70 Room Air 95.0 Intake and Output 09/19/17 09/20/17 19:00 07:00 Intake Total 868.25 ml Output Total 300 ml Balance 568.25 ml Intake Oral 472 ml IV Total 396.25 ml Output Urine Total 300 ml # Voids 3 # Bowel Movements 1 Laboratory Tests 09/20/17 06:27: White Blood Count 15.9H, Red Blood Count 4.86, Hemoglobin 9.7L, Hematocrit 32.6L , Mean Corpuscular Volume 67L, Mean Corpuscular Hemoglobin 20.1L, Mean Corpuscular Hemoglobin Concent 30.0L, Red Cell Distribution Width 24.3H, Platelet Count 80L, Mean Platelet Volume 13.1H, Neutrophils (%) (Auto) , Lymphocytes (%) (Auto) , Monocytes (%) (Auto) , Eosinophils (%) (Auto) , Basophils (%) (Auto) , Differential Total Cells Counted 100, Neutrophils % ( Manual) 89H, Lymphocytes % (Manual) 3L, Monocytes % (Manual) 5, Eosinophils % ( Manual) 0, Basophils % (Manual) 0, Band Neutrophils 3, Platelet Estimate DecreasedL, Platelet Morphology Normal, Hypochromasia 2+, Anisocytosis 3+, Microcytosis 3+, Sodium Level 140, Potassium Level 3.6, Chloride Level 106, Carbon Dioxide Level 21, Anion Gap 14, Blood Urea Nitrogen 16, Creatinine 1.4H, Estimat Glomerular Filtration Rate , Glucose Level 257#H, Calcium Level 8.2L, Total Bilirubin 0.5, Aspartate Amino Transf (AST/SGOT) 19, Alanine Aminotransferase (ALT/SGPT) 34, Alkaline Phosphatase 80, Total Protein 7.5, Albumin 3.0L, Globulin 4.5, Albumin/Globulin Ratio 0.7L Height (Feet): 5 Height (Inches): 8.00 Weight (Pounds): 160 General Appearance: alert EENT: normal ENT inspection Neck: supple Cardiovascular: normal rate Respiratory/Chest: respiratory distress, decreased breath sounds, rhonchi - bilaterally, expiratory wheezing Abdomen: non tender, soft, hypoactive bowel sounds Extremities: non-tender SUZY CARDONA Sep 20, 2017 09:58
[2017-09-20] MEDS ORDERED: dilTIAZem HCl 25mg/5ml Inj IVP ONE ×3 (10:20→11:15)
[2017-09-20] MEDS ORDERED: Levalbuterol Inh UD 1.25mg/0.5ml HHN PRN (11:00)
[2017-09-20] MEDS ORDERED: Ipratropium 0.02% Inh Soln 2.5ml UD HHN PRN (11:00)
--- NOTE | 2017-09-20 12:07 | Diagnostic Imaging Report ---
Indication: Abdominal pain Technique: Multi plantar grayscale and color Doppler imaging of the abdomen Comparison: Correlation made to CT of the chest, abdomen and pelvis 09/17/2017 Findings: Limited exam due to patient body habitus/overlying bowel gas. Pancreas, portions of the aorta and the left lobe of the liver not seen. The right lobe of the liver measures 17 cm in length. No discrete liver lesion is appreciated sonographically. Gallbladder is within normal limits. No cholelithiasis seen. There is no pericholecystic fluid. No intrahepatic or extrahepatic biliary ductal dilatation. Common bile duct measures 4.3 mm in diameter. Main portal vein is patent with normal direction of flow. Kidneys demonstrate normal parenchymal thickness and echogenicity bilaterally. A 1.8 cm simple cyst is noted within the upper pole the right kidney. No evidence of hydronephrosis bilaterally. Punctate calcification seen in the left kidney may represent the hilar calcification noted on concurrent CT. Spleen normal in size. Impression: Limited exam with lack of visualization of the pancreas, aorta and portions of the liver. No definite sonographic evidence of acute intra-abdominal pathology.
[2017-09-20] MEDS: dilTIAZem HCl 30mg tab ORAL SCH ×2 (12:34→17:57)
[2017-09-20] MEDS ORDERED: Levalbuterol Inh UD 1.25mg/0.5ml HHN SCH (13:00)
[2017-09-20] MEDS: Ipratropium 0.02% Inh Soln 2.5ml UD HHN SCH ×3 (15:26→22:52)
[2017-09-20] MEDS: Levalbuterol Inh UD 1.25mg/0.5ml HHN SCH ×3 (15:27→22:53)
[2017-09-20] MEDS: Miralax 17gm pkt ORAL SCH (20:46)
[2017-09-20] MEDS ORDERED: dilTIAZem HCl 60mg tab ORAL SCH (21:00)
[2017-09-20] MEDS: dilTIAZem HCl 60mg tab ORAL SCH (21:11)
[2017-09-21] VITALS (35 sets, daily range): BP systolic 66–191; BP diastolic 28–96
[2017-09-21] MEDS: dilTIAZem HCl 60mg tab ORAL SCH ×3 (00:15→12:52)
[2017-09-21] MEDS: Solu-MEDROL 125mg Inj IVP SCH ×3 (02:03→17:50)
--- NOTE | 2017-09-21 03:38 | Emergency Room Report ---
Physical Exam Asked to intubate patient. ABG with hypoxia, hypercarbia and respiratory acidosis. Last 24 Hour Vital Signs Date Time Temp Pulse Resp B/P (MAP) Pulse Ox O2 Delivery O2 Flow Rate FiO2 09/21/17 04:00 110 09/21/17 03:44 112 21 100 09/21/17 03:00 108 31 139/51 94 Non-Rebreather 15.0 100 09/21/17 02:00 108 30 151/53 96 Non-Rebreather 15.0 100 09/21/17 01:30 83 19 89/53 96 Non-Rebreather 15.0 100 09/21/17 01:15 85 19 66/29 96 Non-Rebreather 15.0 100 09/21/17 01:00 109 26 173/56 96 Non-Rebreather 15.0 100 09/21/17 00:45 86 19 72/28 96 Non-Rebreather 15.0 100 09/21/17 00:15 124 191/73 09/21/17 00:00 125 09/21/17 00:00 99.1 125 28 191/68 97 Non-Rebreather 15.0 100 09/20/17 23:28 126 21 93 Nasal Cannula 4.0 36 09/20/17 23:00 130 21 134/86 93 Nasal Cannula 4.0 09/20/17 22:54 36 09/20/17 22:53 124 22 92 Nasal Cannula 4.0 36 09/20/17 22:48 206/77 09/20/17 22:00 99.2 126 17 199/96 94 Nasal Cannula 4.0 09/20/17 21:11 125 182/83 09/20/17 21:00 125 17 182/83 93 Nasal Cannula 4.0 09/20/17 20:00 124 09/20/17 20:00 99.4 124 23 178/66 95 Nasal Cannula 4.0 09/20/17 19:08 132 23 97 Nasal Cannula 4.0 36 09/20/17 19:00 130 24 186/75 95 Nasal Cannula 4.0 09/20/17 18:52 36 09/20/17 18:50 124 17 97 Nasal Cannula 4.0 36 09/20/17 18:49 Nasal Cannula 4.0 36 09/20/17 18:46 97 Nasal Cannula 4.0 36 09/20/17 18:44 124 17 Nasal Cannula 4.0 36 09/20/17 18:00 123 18 185/76 99 Nasal Cannula 4.0 09/20/17 17:57 125 170/71 09/20/17 17:00 125 18 197/76 96 Nasal Cannula 4.0 09/20/17 16:00 125 09/20/17 16:00 98.6 124 19 175/84 96 Nasal Cannula 4.0 09/20/17 15:36 119 17 98 Nasal Cannula 4.0 36 09/20/17 15:28 36 09/20/17 15:28 120 16 95 Nasal Cannula 4.0 36 09/20/17 15:00 117 22 153/74 96 Nasal Cannula 4.0 09/20/17 14:00 118 22 147/56 96 Nasal Cannula 4.0 09/20/17 13:00 134 30 189/75 94 Nasal Cannula 4.0 09/20/17 12:34 138 190/89 09/20/17 12:00 138 26 190/90 93 Nasal Cannula 4.0 09/20/17 12:00 136 09/20/17 11:58 137 22 98 Nasal Cannula 4.0 36 09/20/17 11:58 36 09/20/17 11:30 98.5 136 26 200/91 93 Nasal Cannula 4.0 09/20/17 11:14 133 181/80 09/20/17 11:07 132 179/71 09/20/17 10:25 169/99 09/20/17 10:14 156 22 99 Nasal Cannula 4.0 36 09/20/17 10:07 36 09/20/17 10:01 120 20 96 Nasal Cannula 4.0 36 09/20/17 09:57 131 22 169/99 94 Nasal Cannula 4.0 09/20/17 09:52 129 22 171/76 94 4.0 09/20/17 09:41 191/112 09/20/17 09:20 98.2 131 25 191/112 94 Nasal Cannula 4.0 09/20/17 08:00 106 09/20/17 08:00 97.1 80 19 118/106 93 Nasal Cannula 4.0 09/20/17 07:49 104 20 99 Nasal Cannula 4.0 36 09/20/17 07:45 36 09/20/17 07:44 98 4.0 36 09/20/17 07:44 Nasal Cannula 4.0 36 09/20/17 07:44 96 20 Nasal Cannula 4.0 36 09/20/17 07:42 96 18 98 Nasal Cannula 4.0 36 Sp02 EP Interpretation: reviewed, abnormal - low per FIO2 General Appearance: moderate distress, Stupor Head: normocephalic Eyes: bilateral eye normal inspection, bilateral eye PERRL ENT: dry mucus membranes Respiratory: respiratory distress, accessory muscle use, rales, rhonchi Cardiovascular #1: tachycardia Gastrointestinal: decreased bowel sounds Musculoskeletal: other - no deform Neurologic: other - unresponsive to pain Psychiatric: other - stupor Skin: other - hot, plethoric Intubation Intubation : Consent: Emergent Intubation Method: orotracheal Tube Size (cm): 7.5 Medications: Other - none Breath Sounds after Intubation: equal Intubation Complications: no complications Post Intubation Xray: Yes Attempts: One Patient Tolerated: Well Complications: None Medical Decision Making Diagnostic Impression: Primary Impression: Respiratory failure Qualified Codes: J96.01 - Acute respiratory failure with hypoxia; J96.02 - Acute respiratory failure with hypercapnia Additional Impression: Sepsis Qualified Codes: A41.9 - Sepsis, unspecified organism ER Course Patient with hypoxia and hypercarbia. Patient has respiratory failure. He appear septic. Intubation is indicated. See procedure note. Post procedure x-ray shows good placement of endotracheal tube with infiltrates. Patient is quite ill. Rhythm Strip Diag. Results EP Interpretation: yes Rhythm: no PVC's, no ectopy, other - ST Last Vital Signs Date Time Temp Pulse Resp B/P (MAP) Pulse Ox O2 Delivery O2 Flow Rate FiO2 09/21/17 04:00 110 09/21/17 03:44 21 100 09/21/17 03:00 139/51 94 Non-Rebreather 15.0 09/21/17 00:00 99.1 Status: improved Disposition: ADMITTED INPATIENT Condition: Critical Referrals: NON PHYSICIAN (PCP) Malik Lozada M.D. Sep 21, 2017 03:38
--- NOTE | 2017-09-21 04:30 | Progress Note ---
DATE: 09/20/2017 CARDIOLOGY PROGRESS NOTE SUBJECTIVE: The patient is increasingly congested. He was transferred to the intensive care unit for further monitoring and placed on a high-flow mask. OBJECTIVE: VITAL SIGNS: Blood pressure 134/86, pulse 130, respiratory rate 21, and afebrile. LUNGS: Coarse breath sounds. Scattered rhonchi. Expiratory wheezes. CARDIAC: Regular rhythm. Rapid rate. Normal S1, S2. ABDOMEN: Soft. EXTREMITIES: Trace edema. LABORATORY DATA: Sodium 140, potassium 3.6, BUN 16, creatinine 1.4, glucose 257, albumin 3.0. ABG, pH 7.39, pCO2 32, pO2 74 this morning. White count 15.9, hemoglobin 9.7. IMPRESSION: 1. Acute respiratory insufficiency. 2. Chronic obstructive pulmonary disease exacerbation. 3. Status post acute myocardial infarction. 4. Microcytic anemia. 5. Accelerated hypertension/hypertensive urgency. PLAN: 1. Respiratory hygiene. 2. Steroids. 3. Inhaled bronchodilators. 4. Antimicrobials. 5. Diuresis with caution. 6. Diltiazem as needed for blood pressure management. 7. Avoid beta-blockers in view of active bronchospasm. 8. Critical condition, guarded prognosis. Adilson Mckay JOB#: [id number] CC:
[2017-09-21] MEDS: Ipratropium 0.02% Inh Soln 2.5ml UD HHN SCH ×6 (05:44→23:45)
[2017-09-21] MEDS: Levalbuterol Inh UD 1.25mg/0.5ml HHN SCH ×6 (05:44→23:45)
[2017-09-21] MEDS: Piperacillin/Tazobactam 3.375 GM in D5W 55 ML IVPB SCH ×2 (06:08→22:01)
[2017-09-21 07:23] LABS: HEMATOCRIT 35.9 % (42.0-52.0); HEMOGLOBIN 10.2 G/DL (14.2-18.0); MEAN CORPUSCULAR VOLUME 68 FL (80-99); PLATELET COUNT 133 K/UL (150-450); RED CELL DISTRIBUTION WIDTH 24.8 % (11.6-14.8)
[2017-09-21 07:24] LABS: WHITE BLOOD COUNT 49.2 K/UL (4.8-10.8)
--- NOTE | 2017-09-21 07:55 | Infectious Diseases Prog Note ---
Assessment/Plan Assessment/Plan O; 1. pneumonia 2. leucocytosis worsening 3. COPD 4. gout 5. thrombocytopenia 6. anemia 7. Hypoxic respiratory failure P 1. continue Zosyn 2.sputum culture Subjective ROS Limited/Unobtainable: Yes Respiratory: Reports: other - intubated transferred to ICU Neurologic: Reports: confusion, other - on restraint Allergies: Coded Allergies: No Known Allergies (Unverified , 09/16/17) Objective Vital Signs Last 24 Hour Vital Signs Date Time Temp Pulse Resp B/P (MAP) Pulse Ox O2 Delivery O2 Flow Rate FiO2 09/21/17 07:33 123 20 97 Mechanical Ventilator 80 09/21/17 07:17 97 Mechanical Ventilator 80 09/21/17 07:17 Mechanical Ventilator 80 09/21/17 07:17 123 21 Mechanical Ventilator 80 09/21/17 07:16 123 21 97 Mechanical Ventilator 80 09/21/17 07:07 122 22 80 09/21/17 07:00 124 18 125/59 97 Mechanical Ventilator 80 09/21/17 06:08 122 124/96 09/21/17 06:00 124 17 124/79 97 Mechanical Ventilator 80 09/21/17 05:56 121 18 97 Mechanical Ventilator 80 09/21/17 05:48 80 09/21/17 05:47 121 21 97 Mechanical Ventilator 80 09/21/17 05:00 121 21 111/96 97 Mechanical Ventilator 80 09/21/17 04:00 99.0 111 20 107/55 97 Mechanical Ventilator 80 09/21/17 04:00 110 09/21/17 03:44 112 21 100 09/21/17 03:00 108 31 139/51 94 Non-Rebreather 15.0 100 09/21/17 02:00 108 30 151/53 96 Non-Rebreather 15.0 100 09/21/17 01:00 109 26 173/56 96 Non-Rebreather 15.0 100 09/21/17 00:15 124 191/73 09/21/17 00:00 125 09/21/17 00:00 99.1 125 28 191/68 97 Non-Rebreather 15.0 100 09/20/17 23:28 126 21 93 Nasal Cannula 4.0 36 09/20/17 23:00 130 21 134/86 93 Nasal Cannula 4.0 09/20/17 22:54 36 09/20/17 22:53 124 22 92 Nasal Cannula 4.0 36 09/20/17 22:48 206/77 09/20/17 22:00 99.2 126 17 199/96 94 Nasal Cannula 4.0 09/20/17 21:11 125 182/83 09/20/17 21:00 125 17 182/83 93 Nasal Cannula 4.0 09/20/17 20:00 124 09/20/17 20:00 99.4 124 23 178/66 95 Nasal Cannula 4.0 09/20/17 19:08 132 23 97 Nasal Cannula 4.0 36 09/20/17 19:00 130 24 186/75 95 Nasal Cannula 4.0 09/20/17 18:52 36 09/20/17 18:50 124 17 97 Nasal Cannula 4.0 36 09/20/17 18:49 Nasal Cannula 4.0 36 09/20/17 18:46 97 Nasal Cannula 4.0 36 09/20/17 18:44 124 17 Nasal Cannula 4.0 36 09/20/17 18:00 123 18 185/76 99 Nasal Cannula 4.0 09/20/17 17:57 125 170/71 09/20/17 17:00 125 18 197/76 96 Nasal Cannula 4.0 09/20/17 16:00 125 09/20/17 16:00 98.6 124 19 175/84 96 Nasal Cannula 4.0 09/20/17 15:36 119 17 98 Nasal Cannula 4.0 36 09/20/17 15:28 36 09/20/17 15:28 120 16 95 Nasal Cannula 4.0 36 09/20/17 15:00 117 22 153/74 96 Nasal Cannula 4.0 09/20/17 14:00 118 22 147/56 96 Nasal Cannula 4.0 09/20/17 13:00 134 30 189/75 94 Nasal Cannula 4.0 09/20/17 12:34 138 190/89 09/20/17 12:00 138 26 190/90 93 Nasal Cannula 4.0 09/20/17 12:00 136 09/20/17 11:58 137 22 98 Nasal Cannula 4.0 36 09/20/17 11:58 36 09/20/17 11:30 98.5 136 26 200/91 93 Nasal Cannula 4.0 09/20/17 11:14 133 181/80 09/20/17 11:07 132 179/71 09/20/17 10:25 169/99 09/20/17 10:14 156 22 99 Nasal Cannula 4.0 36 09/20/17 10:07 36 09/20/17 10:01 120 20 96 Nasal Cannula 4.0 36 09/20/17 09:57 131 22 169/99 94 Nasal Cannula 4.0 09/20/17 09:52 129 22 171/76 94 4.0 09/20/17 09:41 191/112 09/20/17 09:20 98.2 131 25 191/112 94 Nasal Cannula 4.0 09/20/17 08:00 106 09/20/17 08:00 97.1 80 19 118/106 93 Nasal Cannula 4.0 09/20/17 07:49 104 20 99 Nasal Cannula 4.0 36 Height (Feet): 5 Height (Inches): 8.00 Weight (Pounds): 192 HEENT: other - orally intubated Respiratory/Chest: lungs clear, other - on ventilator Cardiovascular: tachycardia Abdomen: distended, other - soft Extremities: other - edema of legs Neurologic/Psychiatric: other - opens eyes Laboratory Tests Test 09/20/17 11:05 09/21/17 02:34 09/21/17 03:39 09/21/17 05:30 Arterial Blood pH 7.392 (7.350-7.450) 7.113 (7.350-7.450) 7.364 (7.350-7.450) Arterial Blood Partial Pressure CO2 32.7 mmHg (35.0-45.0) L 71.8 mmHg (35.0-45.0) *H 34.5 mmHg (35.0-45.0) L Arterial Blood Partial Pressure O2 73.5 mmHg (75.0-100.0) L 93.7 mmHg (75.0-100.0) 103.8 mmHg (75.0-100.0) H Arterial Blood HCO3 19.5 mmol/L (22.0-26.0) L 22.5 mmol/L (22.0-26.0) 19.2 mmol/L (22.0-26.0) L Arterial Blood Oxygen Saturation 94.7 % (92.0-98.0) 94.4 % (92.0-98.0) 97.9 % (92.0-98.0) Arterial Blood Base Excess -4.7 -7.8 -5.4 Scotty Test Positive Positive Positive White Blood Count 49.2 K/UL (4.8-10.8) #*H Red Blood Count 5.30 M/UL (4.70-6.10) Hemoglobin 10.2 G/DL (14.2-18.0) L Hematocrit 35.9 % (42.0-52.0) L Mean Corpuscular Volume 68 FL (80-99) L Mean Corpuscular Hemoglobin 19.3 PG (27.0-31.0) L Mean Corpuscular Hemoglobin Concent 28.6 G/DL (32.0-36.0) L Red Cell Distribution Width 24.8 % (11.6-14.8) H Platelet Count 133 K/UL (150-450) #L Mean Platelet Volume 13.2 FL (6.5-10.1) H Neutrophils (%) (Auto) % (45.0-75.0) Lymphocytes (%) (Auto) % (20.0-45.0) Monocytes (%) (Auto) % (1.0-10.0) Eosinophils (%) (Auto) % (0.0-3.0) Basophils (%) (Auto) % (0.0-2.0) Neutrophils % (Manual) Pending Lymphocytes % (Manual) Pending Platelet Estimate Pending Platelet Morphology Pending Sodium Level Pending Potassium Level Pending Chloride Level Pending Carbon Dioxide Level Pending Blood Urea Nitrogen Pending Creatinine Pending Estimat Glomerular Filtration Rate Pending Glucose Level Pending Calcium Level Pending Magnesium Level Pending Total Bilirubin Pending Aspartate Amino Transf (AST/SGOT) Pending Alanine Aminotransferase (ALT/SGPT) Pending Alkaline Phosphatase Pending Troponin I Pending Pro-B-Type Natriuretic Peptide Pending Total Protein Pending Albumin Pending Globulin Pending Current Medications Medications (Trade) Dose Ordered Sig/Duong Route PRN Reason Start Time Stop Time Status Last Admin Dose Admin Diltiazem HCl (Cardizem) 60 mg EVERY 6 HOURS ORAL 09/20/17 21:15 10/20/17 21:14 09/21/17 06:08 Docusate Sodium (Colace) 250 mg BID ORAL 09/18/17 18:00 10/18/17 08:59 09/20/17 17:57 Furosemide (Lasix) 40 mg DAILY IV 09/19/17 12:00 10/19/17 11:59 09/20/17 08:46 Hydralazine HCl (Apresoline) 10 mg Q4H PRN IV For High Blood Pressure 09/20/17 22:45 10/20/17 22:44 09/20/17 22:48 Ipratropium [place] (Atrovent) 500 mcg Q4H PRN N Breakthru Shortness of Breath 09/20/17 11:00 09/25/17 10:59 09/20/17 11:58 Ipratropium [place] (Atrovent) 500 mcg Q4HRT HHN 09/20/17 15:00 09/25/17 14:59 09/21/17 07:15 Lactulose (Cephulac) 30 gm THREE TIMES A DAY ORAL 09/18/17 13:00 10/18/17 08:59 09/20/17 17:57 Levalbuterol HCl (Xopenex) 0.63 mg Q4H PRN N Shortness of Breath 09/20/17 11:00 09/25/17 10:59 09/20/17 11:58 Levalbuterol HCl (Xopenex) 0.63 mg Q4HRT HHN 09/20/17 15:00 09/25/17 14:59 09/21/17 07:15 Levothyroxine Sodium (Synthroid) 50 mcg ACBREAKFAST ORAL 09/19/17 06:30 10/17/17 06:29 09/21/17 06:08 Methylprednisolone Sodium Succinate (Solu-MEDROL) 60 mg Q8H IVP 09/19/17 10:00 10/19/17 09:59 09/21/17 02:03 Montelukast Sodium (Singulair) 10 mg DAILY ORAL 09/19/17 09:00 10/17/17 08:59 09/20/17 08:46 Pantoprazole (Protonix) 40 mg EVERY 12 HOURS IVP 09/18/17 21:00 10/16/17 22:59 09/20/17 20:46 Piperacillin Sod/ Tazobactam Sod 3.375 gm/Dextrose 55 ml @ 13.75 mls/ hr EVERY 8 HOURS IVPB 09/19/17 14:00 09/22/17 13:59 09/21/17 06:08 Polyethylene Glycol (Miralax) 17 gm BEDTIME ORAL 09/19/17 21:00 10/19/17 20:59 09/20/17 20:46 CIRO GODFREY Sep 21, 2017 07:55
[2017-09-21 08:03] LABS: ALANINE AMINOTRANSFERASE 30 U/L (12-78); ALBUMIN/GLOBULIN RATIO 0.7 (1.0-2.7); ALKALINE PHOSPHATASE 84 U/L (46-116); ANION GAP 16 mmol/L (5-15); ASPARTATE AMINO TRANSFERASE 19 U/L (15-37); BILIRUBIN,TOTAL 0.5 MG/DL (0.2-1.0); BLOOD UREA NITROGEN 34 mg/dL (7-18); CALCIUM 8.8 MG/DL (8.5-10.1); CARBON DIOXIDE 19 MMOL/L (21-32); CHLORIDE 106 MMOL/L (98-107); CREATININE 2.5 MG/DL (0.55-1.30); POTASSIUM 3.4 MMOL/L (3.5-5.1); SODIUM 141 MMOL/L (136-145)
[2017-09-21] MEDS: Montelukast 10mg tablet ORAL SCH (09:18)
[2017-09-21] MEDS: Lactulose 20gm/30ml UDC ORAL SCH ×2 (09:18→12:52)
[2017-09-21] MEDS: Docusate 250mg cap ORAL SCH ×2 (09:18→17:50)
[2017-09-21] MEDS: Pantoprazole Inj IVP SCH ×2 (09:19→21:06)
--- NOTE | 2017-09-21 09:30 | Critical Care Progress Note ---
Assessment/Plan Assessment/Plan COPD with exacerbation Acute respiratory failure tachycardia Pneumonia acute encephalopathy hypoxemia significant agitation anemia hypertension profound leukocytosis PLAN care noted IV antibiotics respiratory care Ventilatory support Fentanyl drip for sedation supportive care suction start feeds ID follow up with significant leukocytosis taper steroids no wean oxygen therapy prognosis guarded and care d/w son in detai medications/laboratory data/nursing notes/ICU care reviewed in detail note reviewed and edited care discussed with RN and RT ICU time spent 36 minutes Critical Care - Subjective Interval Events: d/w son in detail notes that he is agitated and would like to increase sedation patient does have advanced directives currently arouseable d/w nursing in detail ROS Limited/Unobtainable: Yes Condition: critical EKG Rhythm: Sinus Tachycardia I&O: Intake and Output 09/20/17 09/21/17 19:00 07:00 Intake Total 163.75 ml 188.75 ml Output Total 480 ml 1175 ml Balance -316.25 ml -986.25 ml Intake Oral 150 ml 60 ml IV Total 13.75 ml 68.75 ml Other 60 ml Output Urine Total 480 ml 275 ml Gastric Drainage Total 900 ml Critical Care - Objective ET-Tube: 7.5 ET Position: 23 Last 24 Hour Vital Signs Date Time Temp Pulse Resp B/P (MAP) Pulse Ox O2 Delivery O2 Flow Rate FiO2 09/21/17 09:12 128 24 70 09/21/17 08:00 99.5 125 24 132/61 97 Mechanical Ventilator 80 09/21/17 08:00 125 09/21/17 07:33 123 20 97 Mechanical Ventilator 80 09/21/17 07:17 97 Mechanical Ventilator 80 09/21/17 07:17 Mechanical Ventilator 80 09/21/17 07:17 123 21 Mechanical Ventilator 80 09/21/17 07:16 123 21 97 Mechanical Ventilator 80 09/21/17 07:07 122 22 80 09/21/17 07:00 124 18 125/59 97 Mechanical Ventilator 80 09/21/17 06:08 122 124/96 09/21/17 06:00 124 17 124/79 97 Mechanical Ventilator 80 09/21/17 05:56 121 18 97 Mechanical Ventilator 80 09/21/17 05:48 80 09/21/17 05:47 121 21 97 Mechanical Ventilator 80 09/21/17 05:00 121 21 111/96 97 Mechanical Ventilator 80 09/21/17 04:00 99.0 111 20 107/55 97 Mechanical Ventilator 80 09/21/17 04:00 110 09/21/17 03:44 112 21 100 09/21/17 03:00 108 31 139/51 94 Non-Rebreather 15.0 100 09/21/17 02:00 108 30 151/53 96 Non-Rebreather 15.0 100 09/21/17 01:00 109 26 173/56 96 Non-Rebreather 15.0 100 09/21/17 00:15 124 191/73 09/21/17 00:00 125 09/21/17 00:00 99.1 125 28 191/68 97 Non-Rebreather 15.0 100 09/20/17 23:28 126 21 93 Nasal Cannula 4.0 36 09/20/17 23:00 130 21 134/86 93 Nasal Cannula 4.0 09/20/17 22:54 36 09/20/17 22:53 124 22 92 Nasal Cannula 4.0 36 09/20/17 22:48 206/77 09/20/17 22:00 99.2 126 17 199/96 94 Nasal Cannula 4.0 09/20/17 21:11 125 182/83 09/20/17 21:00 125 17 182/83 93 Nasal Cannula 4.0 09/20/17 20:00 124 09/20/17 20:00 99.4 124 23 178/66 95 Nasal Cannula 4.0 09/20/17 19:08 132 23 97 Nasal Cannula 4.0 36 09/20/17 19:00 130 24 186/75 95 Nasal Cannula 4.0 09/20/17 18:52 36 09/20/17 18:50 124 17 97 Nasal Cannula 4.0 36 09/20/17 18:49 Nasal Cannula 4.0 36 09/20/17 18:46 97 Nasal Cannula 4.0 36 09/20/17 18:44 124 17 Nasal Cannula 4.0 36 09/20/17 18:00 123 18 185/76 99 Nasal Cannula 4.0 09/20/17 17:57 125 170/71 09/20/17 17:00 125 18 197/76 96 Nasal Cannula 4.0 09/20/17 16:00 125 09/20/17 16:00 98.6 124 19 175/84 96 Nasal Cannula 4.0 09/20/17 15:36 119 17 98 Nasal Cannula 4.0 36 09/20/17 15:28 36 09/20/17 15:28 120 16 95 Nasal Cannula 4.0 36 09/20/17 15:00 117 22 153/74 96 Nasal Cannula 4.0 09/20/17 14:00 118 22 147/56 96 Nasal Cannula 4.0 09/20/17 13:00 134 30 189/75 94 Nasal Cannula 4.0 09/20/17 12:34 138 190/89 09/20/17 12:00 138 26 190/90 93 Nasal Cannula 4.0 09/20/17 12:00 136 09/20/17 11:58 137 22 98 Nasal Cannula 4.0 36 09/20/17 11:58 36 09/20/17 11:30 98.5 136 26 200/91 93 Nasal Cannula 4.0 09/20/17 11:14 133 181/80 09/20/17 11:07 132 179/71 09/20/17 10:25 169/99 09/20/17 10:14 156 22 99 Nasal Cannula 4.0 36 09/20/17 10:07 36 09/20/17 10:01 120 20 96 Nasal Cannula 4.0 36 09/20/17 09:57 131 22 169/99 94 Nasal Cannula 4.0 09/20/17 09:52 129 22 171/76 94 4.0 09/20/17 09:41 191/112 Labs: Labs Test 09/19/17 06:57 09/20/17 06:27 09/20/17 11:05 09/21/17 02:34 White Blood Count 15.4 K/UL (4.8-10.8) 15.9 K/UL (4.8-10.8) Red Blood Count 4.30 M/UL (4.70-6.10) 4.86 M/UL (4.70-6.10) Hemoglobin 8.7 G/DL (14.2-18.0) 9.7 G/DL (14.2-18.0) Hematocrit 28.7 % (42.0-52.0) 32.6 % (42.0-52.0) Mean Corpuscular Volume 67 FL (80-99) 67 FL (80-99) Mean Corpuscular Hemoglobin 20.3 PG (27.0-31.0) 20.1 PG (27.0-31.0) Mean Corpuscular Hemoglobin Concent 30.5 G/DL (32.0-36.0) 30.0 G/DL (32.0-36.0) Red Cell Distribution Width 24.0 % (11.6-14.8) 24.3 % (11.6-14.8) Platelet Count 74 K/UL (150-450) 80 K/UL (150-450) Mean Platelet Volume 13.7 FL (6.5-10.1) 13.1 FL (6.5-10.1) Neutrophils (%) (Auto) % (45.0-75.0) % (45.0-75.0) Lymphocytes (%) (Auto) % (20.0-45.0) % (20.0-45.0) Monocytes (%) (Auto) % (1.0-10.0) % (1.0-10.0) Eosinophils (%) (Auto) % (0.0-3.0) % (0.0-3.0) Basophils (%) (Auto) % (0.0-2.0) % (0.0-2.0) Differential Total Cells Counted 100 100 Neutrophils % (Manual) 81 % (45-75) 89 % (45-75) Lymphocytes % (Manual) 6 % (20-45) 3 % (20-45) Monocytes % (Manual) 12 % (1-10) 5 % (1-10) Eosinophils % (Manual) 0 % (0-3) 0 % (0-3) Basophils % (Manual) 0 % (0-2) 0 % (0-2) Metamyelocytes % 1 % (0-0) Band Neutrophils 0 % (0-8) 3 % (0-8) Platelet Estimate Decreased Decreased Platelet Morphology Normal Normal Hypochromasia 2+ 2+ Anisocytosis 3+ 3+ Microcytosis 3+ 3+ Sodium Level 141 MMOL/L (136-145) 140 MMOL/L (136-145) Potassium Level 3.2 MMOL/L (3.5-5.1) 3.6 MMOL/L (3.5-5.1) Chloride Level 111 MMOL/L (98-107) 106 MMOL/L (98-107) Carbon Dioxide Level 21 MMOL/L (21-32) 21 MMOL/L (21-32) Anion Gap 10 mmol/L (5-15) 14 mmol/L (5-15) Blood Urea Nitrogen 9 mg/dL (7-18) 16 mg/dL (7-18) Creatinine 1.0 MG/DL (0.55-1.30) 1.4 MG/DL (0.55-1.30) Estimat Glomerular Filtration Rate mL/min (>60) mL/min (>60) Glucose Level 149 MG/DL (74-106) 257 MG/DL (74-106) Calcium Level 7.3 MG/DL (8.5-10.1) 8.2 MG/DL (8.5-10.1) Total Bilirubin 1.0 MG/DL (0.2-1.0) 0.5 MG/DL (0.2-1.0) Aspartate Amino Transf (AST/SGOT) 22 U/L (15-37) 19 U/L (15-37) Alanine Aminotransferase (ALT/SGPT) 30 U/L (12-78) 34 U/L (12-78) Alkaline Phosphatase 75 U/L (46-116) 80 U/L (46-116) Total Protein 6.5 G/DL (6.4-8.2) 7.5 G/DL (6.4-8.2) Albumin 2.6 G/DL (3.4-5.0) 3.0 G/DL (3.4-5.0) Globulin 3.9 g/dL 4.5 g/dL Albumin/Globulin Ratio 0.7 (1.0-2.7) 0.7 (1.0-2.7) Arterial Blood pH 7.392 (7.350-7.450) 7.113 (7.350-7.450) Arterial Blood Partial Pressure CO2 32.7 mmHg (35.0-45.0) 71.8 mmHg (35.0-45.0) Arterial Blood Partial Pressure O2 73.5 mmHg (75.0-100.0) 93.7 mmHg (75.0-100.0) Arterial Blood HCO3 19.5 mmol/L (22.0-26.0) 22.5 mmol/L (22.0-26.0) Arterial Blood Oxygen Saturation 94.7 % (92.0-98.0) 94.4 % (92.0-98.0) Arterial Blood Base Excess -4.7 -7.8 Scotty Test Positive Positive Test 09/21/17 03:39 09/21/17 05:30 Arterial Blood pH 7.364 (7.350-7.450) Arterial Blood Partial Pressure CO2 34.5 mmHg (35.0-45.0) Arterial Blood Partial Pressure O2 103.8 mmHg (75.0-100.0) Arterial Blood HCO3 19.2 mmol/L (22.0-26.0) Arterial Blood Oxygen Saturation 97.9 % (92.0-98.0) Arterial Blood Base Excess -5.4 Scotty Test Positive White Blood Count 49.2 K/UL (4.8-10.8) Red Blood Count 5.30 M/UL (4.70-6.10) Hemoglobin 10.2 G/DL (14.2-18.0) Hematocrit 35.9 % (42.0-52.0) Mean Corpuscular Volume 68 FL (80-99) Mean Corpuscular Hemoglobin 19.3 PG (27.0-31.0) Mean Corpuscular Hemoglobin Concent 28.6 G/DL (32.0-36.0) Red Cell Distribution Width 24.8 % (11.6-14.8) Platelet Count 133 K/UL (150-450) Mean Platelet Volume 13.2 FL (6.5-10.1) Neutrophils (%) (Auto) % (45.0-75.0) Lymphocytes (%) (Auto) % (20.0-45.0) Monocytes (%) (Auto) % (1.0-10.0) Eosinophils (%) (Auto) % (0.0-3.0) Basophils (%) (Auto) % (0.0-2.0) Sodium Level 141 MMOL/L (136-145) Potassium Level 3.4 MMOL/L (3.5-5.1) Chloride Level 106 MMOL/L (98-107) Carbon Dioxide Level 19 MMOL/L (21-32) Anion Gap 16 mmol/L (5-15) Blood Urea Nitrogen 34 mg/dL (7-18) Creatinine 2.5 MG/DL (0.55-1.30) Estimat Glomerular Filtration Rate mL/min (>60) Glucose Level 216 MG/DL (74-106) Calcium Level 8.8 MG/DL (8.5-10.1) Magnesium Level 1.9 MG/DL (1.8-2.4) Total Bilirubin 0.5 MG/DL (0.2-1.0) Aspartate Amino Transf (AST/SGOT) 19 U/L (15-37) Alanine Aminotransferase (ALT/SGPT) 30 U/L (12-78) Alkaline Phosphatase 84 U/L (46-116) Troponin I 0.136 ng/mL (0.000-0.056) Pro-B-Type Natriuretic Peptide 76264 pg/mL (0-125) Total Protein 7.6 G/DL (6.4-8.2) Albumin 3.0 G/DL (3.4-5.0) Globulin 4.6 g/dL Albumin/Globulin Ratio 0.7 (1.0-2.7) Objective: WDWN NAD opens eyes ETT in place reduced breath sounds bilaterally with some rhonchi [id number] tachy without MRG NABS nontender no HSM OGT in place no CCE nonfocal somewhat sedated STEVE CARPIO Sep 21, 2017 09:30
--- NOTE | 2017-09-21 09:35 | Diagnostic Imaging Report ---
Indication: Postintubation Technique: XRAY Chest 1v Comparison: 09/19/2017 Findings: An endotracheal tube has been placed in good position. The cardiomediastinal silhouette is unchanged. There is decreased infiltrate or atelectasis in right suprahilar region. No other change. Impression: Decreased infiltrate or atelectasis in the right suprahilar region. Placement of endotracheal tube in good position. No other change.
[2017-09-21] MEDS: Azithromycin 500 MG in D5W 275 ML IV SCH (10:05)
--- NOTE | 2017-09-21 11:39 | General Progress Note ---
Assessment/Plan Problem List: (1) Diverticulosis ICD Codes: K57.90 - Diverticulosis of intestine, part unspecified, without perforation or abscess without bleeding SNOMED: 998791605 (2) Fecal impaction ICD Codes: K56.41 - Fecal impaction SNOMED: 40415445 (3) Gout ICD Codes: M10.9 - Gout, unspecified SNOMED: 49499126 (4) Anemia ICD Codes: D64.9 - Anemia, unspecified SNOMED: 938642221 (5) Sepsis ICD Codes: A41.9 - Sepsis, unspecified organism SNOMED: 04960196 Qualifiers: Qualified Codes: A41.9 - Sepsis, unspecified organism (6) AMI (acute myocardial infarction) ICD Codes: I21.9 - Acute myocardial infarction, unspecified SNOMED: 50884762 (7) HTN (hypertension) ICD Codes: I10 - Essential (primary) hypertension SNOMED: 75863059 (8) Episode of generalized weakness ICD Codes: R53.1 - Weakness SNOMED: 76950605 (9) Pneumonia ICD Codes: J18.9 - Pneumonia, unspecified organism SNOMED: 596532348 (10) Renal insufficiency ICD Codes: N28.9 - Disorder of kidney and ureter, unspecified SNOMED: 668213414, 167531583 (11) Respiratory failure ICD Codes: J96.90 - Respiratory failure, unspecified, unspecified whether with hypoxia or hypercapnia SNOMED: 952806517 Qualifiers: Qualified Codes: J96.01 - Acute respiratory failure with hypoxia; J96.02 - Acute respiratory failure with hypercapnia Assessment/Plan ppi daily monitor H&H transfuse to keep Hgb around 8 needs GI procedures but not stable at this time repeat stool ob abx per ID bowel regimen og TF abx stool for C.diff Subjective ROS Limited/Unobtainable: No Allergies: Coded Allergies: No Known Allergies (Unverified , 09/16/17) Subjective intubated Objective Last 24 Hour Vital Signs Date Time Temp Pulse Resp B/P (MAP) Pulse Ox O2 Delivery O2 Flow Rate FiO2 09/21/17 11:26 119 18 98 Mechanical Ventilator 80 09/21/17 11:15 116 22 98 Mechanical Ventilator 70 09/21/17 11:10 115 22 70 09/21/17 11:02 22 09/21/17 09:12 128 24 70 09/21/17 08:00 99.5 125 24 132/61 97 Mechanical Ventilator 80 09/21/17 08:00 125 09/21/17 07:33 123 20 97 Mechanical Ventilator 80 09/21/17 07:17 97 Mechanical Ventilator 80 09/21/17 07:17 Mechanical Ventilator 80 09/21/17 07:17 123 21 Mechanical Ventilator 80 09/21/17 07:16 123 21 97 Mechanical Ventilator 80 09/21/17 07:07 122 22 80 09/21/17 07:00 124 18 125/59 97 Mechanical Ventilator 80 09/21/17 06:08 122 124/96 09/21/17 06:00 124 17 124/79 97 Mechanical Ventilator 80 09/21/17 05:56 121 18 97 Mechanical Ventilator 80 09/21/17 05:48 80 09/21/17 05:47 121 21 97 Mechanical Ventilator 80 09/21/17 05:00 121 21 111/96 97 Mechanical Ventilator 80 09/21/17 04:00 99.0 111 20 107/55 97 Mechanical Ventilator 80 09/21/17 04:00 110 09/21/17 03:44 112 21 100 09/21/17 03:00 108 31 139/51 94 Non-Rebreather 15.0 100 09/21/17 02:00 108 30 151/53 96 Non-Rebreather 15.0 100 09/21/17 01:00 109 26 173/56 96 Non-Rebreather 15.0 100 09/21/17 00:15 124 191/73 09/21/17 00:00 125 09/21/17 00:00 99.1 125 28 191/68 97 Non-Rebreather 15.0 100 09/20/17 23:28 126 21 93 Nasal Cannula 4.0 36 09/20/17 23:00 130 21 134/86 93 Nasal Cannula 4.0 09/20/17 22:54 36 09/20/17 22:53 124 22 92 Nasal Cannula 4.0 36 09/20/17 22:48 206/77 09/20/17 22:00 99.2 126 17 199/96 94 Nasal Cannula 4.0 09/20/17 21:11 125 182/83 09/20/17 21:00 125 17 182/83 93 Nasal Cannula 4.0 09/20/17 20:00 124 09/20/17 20:00 99.4 124 23 178/66 95 Nasal Cannula 4.0 09/20/17 19:08 132 23 97 Nasal Cannula 4.0 36 09/20/17 19:00 130 24 186/75 95 Nasal Cannula 4.0 09/20/17 18:52 36 09/20/17 18:50 124 17 97 Nasal Cannula 4.0 36 09/20/17 18:49 Nasal Cannula 4.0 36 09/20/17 18:46 97 Nasal Cannula 4.0 36 09/20/17 18:44 124 17 Nasal Cannula 4.0 36 09/20/17 18:00 123 18 185/76 99 Nasal Cannula 4.0 09/20/17 17:57 125 170/71 09/20/17 17:00 125 18 197/76 96 Nasal Cannula 4.0 09/20/17 16:00 125 09/20/17 16:00 98.6 124 19 175/84 96 Nasal Cannula 4.0 09/20/17 15:36 119 17 98 Nasal Cannula 4.0 36 09/20/17 15:28 36 09/20/17 15:28 120 16 95 Nasal Cannula 4.0 36 09/20/17 15:00 117 22 153/74 96 Nasal Cannula 4.0 09/20/17 14:00 118 22 147/56 96 Nasal Cannula 4.0 09/20/17 13:00 134 30 189/75 94 Nasal Cannula 4.0 09/20/17 12:34 138 190/89 09/20/17 12:00 138 26 190/90 93 Nasal Cannula 4.0 09/20/17 12:00 136 09/20/17 11:58 137 22 98 Nasal Cannula 4.0 36 09/20/17 11:58 36 Intake and Output 09/20/17 09/21/17 19:00 07:00 Intake Total 163.75 ml 188.75 ml Output Total 480 ml 1175 ml Balance -316.25 ml -986.25 ml Intake Oral 150 ml 60 ml IV Total 13.75 ml 68.75 ml Other 60 ml Output Urine Total 480 ml 275 ml Gastric Drainage Total 900 ml Laboratory Tests 09/21/17 02:34: Arterial Blood pH 7.113*L, Arterial Blood Partial Pressure CO2 71.8*H, Arterial Blood Partial Pressure O2 93.7, Arterial Blood HCO3 22.5, Arterial Blood Oxygen Saturation 94.4, Arterial Blood Base Excess -7.8, Scotty Test Positive 09/21/17 03:39: Arterial Blood pH 7.364, Arterial Blood Partial Pressure CO2 34.5L, Arterial Blood Partial Pressure O2 103.8H, Arterial Blood HCO3 19.2L, Arterial Blood Oxygen Saturation 97.9, Arterial Blood Base Excess -5.4, Scotty Test Positive 09/21/17 05:30: White Blood Count 49.2#*H, Red Blood Count 5.30, Hemoglobin 10.2L, Hematocrit 35.9L, Mean Corpuscular Volume 68L, Mean Corpuscular Hemoglobin 19.3L, Mean Corpuscular Hemoglobin Concent 28.6L, Red Cell Distribution Width 24.8H, Platelet Count 133#L, Mean Platelet Volume 13.2H, Neutrophils (%) (Auto) , Lymphocytes (%) (Auto) , Monocytes (%) (Auto) , Eosinophils (%) (Auto) , Basophils (%) (Auto) , Differential Total Cells Counted 100, Neutrophils % ( Manual) 82H, Lymphocytes % (Manual) 2L, Monocytes % (Manual) 14H, Eosinophils % (Manual) 0, Basophils % (Manual) 0, Band Neutrophils 2, Platelet Estimate DecreasedL, Platelet Morphology Normal, Hypochromasia 1+, Anisocytosis 2+, Microcytosis 2+, Sodium Level 141, Potassium Level 3.4L, Chloride Level 106, Carbon Dioxide Level 19L, Anion Gap 16H, Blood Urea Nitrogen 34H, Creatinine 2.5 #H, Estimat Glomerular Filtration Rate , Glucose Level 216H, Calcium Level 8.8, Magnesium Level 1.9, Total Bilirubin 0.5, Aspartate Amino Transf (AST/SGOT) 19, Alanine Aminotransferase (ALT/SGPT) 30, Alkaline Phosphatase 84, Troponin I 0.136H, Pro-B-Type Natriuretic Peptide 41736M, Total Protein 7.6, Albumin 3.0L, Globulin 4.6, Albumin/Globulin Ratio 0.7L Height (Feet): 5 Height (Inches): 8.00 Weight (Pounds): 192 General Appearance: lethargic EENT: normal ENT inspection Neck: supple Cardiovascular: tachycardia Respiratory/Chest: decreased breath sounds Abdomen: normal bowel sounds, non tender, soft Extremities: non-tender SUZY CARDONA Sep 21, 2017 11:39
[2017-09-21] MEDS ORDERED: Tubing IV Secondary IV ONE (17:27)
[2017-09-21] MEDS ORDERED: Sterile Water Irrig 1000ml IRRIG ONE (17:27)
[2017-09-21] MEDS ORDERED: NS 275ml ONE (17:27)
[2017-09-21] MEDS: Lactulose 20gm/30ml UDC GT SCH (17:50)
[2017-09-21] MEDS: dilTIAZem HCl 60mg tab GT SCH ×2 (17:51→23:49)
[2017-09-21] MEDS ORDERED: Acetaminophen 650mg/20.3ml NG PRN ×2 (21:00→22:00)
[2017-09-21] MEDS: Miralax 17gm pkt GT SCH (21:06)
[2017-09-22] VITALS (36 sets, daily range): BP systolic 96–133; BP diastolic 35–55
[2017-09-22] MEDS: Solu-MEDROL 125mg Inj IVP SCH (01:33)
[2017-09-22] MEDS: Ipratropium 0.02% Inh Soln 2.5ml UD HHN SCH ×6 (03:19→23:04)
[2017-09-22] MEDS: Levalbuterol Inh UD 1.25mg/0.5ml HHN SCH ×6 (03:19→23:04)
--- NOTE | 2017-09-22 03:30 | Progress Note ---
DATE: 09/21/2017 CARDIOLOGY PROGRESS NOTE Critical care, 85 minutes. SUBJECTIVE: The patient is in the intensive care unit. He was evaluated with nursing staff. He was noted to have labored breathing with minimal air entry. An ABG was obtained and results noted as follows, 7.113, 72, and 94. I felt that the patient would require intubation and mechanical ventilation based on these findings. His son was contacted, Onur Nobles and made aware of the situation and by telephone agreed with that plan of care. Shortly thereafter, they arrived at the hospital and the case was discussed again in detail. Specifically, terminal extubation would be considered only if the patient was not felt to have any chance for meaningful recovery in the future. OBJECTIVE: VITAL SIGNS: Blood pressure is 139/51, pulse 108, respiratory rate 31, no fever. GENERAL: Poor air entry. Poorly responsive. HEART: Regular rhythm. Rapid rate. Normal S1, S2. ABDOMEN: Soft. EXTREMITIES: Trace edema. LABORATORIES: Noted. IMPRESSION: 1. Acute respiratory acidosis. 2. Acute respiratory failure with hypercarbia. 3. Secondary sinus tachycardia. 4. Severe leukocytosis. 5. Sepsis. 6. Hypokalemia. 7. Acute renal failure. 8. Acute myocardial ischemia. 9. Acute on chronic diastolic congestive heart failure. 10. Critical and guarded. PLAN: 1. Antimicrobials. 2. Ventilator support. 3. Hydration. 4. No diuretics. 5. Monitor acid-base parameters. Malik Burroughs M.D. DR: Dashawn JOB#: [id number] CC:
[2017-09-22 06:09] LABS: HEMATOCRIT 27.1 % (42.0-52.0); MEAN CORPUSCULAR VOLUME 66 FL (80-99); PLATELET COUNT 112 K/UL (150-450); RED CELL DISTRIBUTION WIDTH 24.9 % (11.6-14.8)
[2017-09-22 06:17] LABS: ALANINE AMINOTRANSFERASE 25 U/L (12-78); ALBUMIN 2.3 G/DL (3.4-5.0); ALBUMIN/GLOBULIN RATIO 0.6 (1.0-2.7); ALKALINE PHOSPHATASE 67 U/L (46-116); ANION GAP 15 mmol/L (5-15); ASPARTATE AMINO TRANSFERASE 26 U/L (15-37); BILIRUBIN,TOTAL 0.4 MG/DL (0.2-1.0); BLOOD UREA NITROGEN 48 mg/dL (7-18); CALCIUM 8.3 MG/DL (8.5-10.1); CARBON DIOXIDE 21 MMOL/L (21-32); CHLORIDE 109 MMOL/L (98-107); CREATININE 2.8 MG/DL (0.55-1.30); POTASSIUM 2.8 MMOL/L (3.5-5.1); SODIUM 144 MMOL/L (136-145)
[2017-09-22] MEDS: dilTIAZem HCl 60mg tab GT SCH ×4 (06:28→22:02)
--- NOTE | 2017-09-22 08:16 | Critical Care Progress Note ---
Assessment/Plan Assessment/Plan COPD with exacerbation Acute respiratory failure tachycardia Pneumonia acute encephalopathy hypoxemia significant agitation anemia hypertension profound leukocytosis PLAN care noted IV antibiotics respiratory care Ventilatory support Fentanyl drip for sedation supportive care suction started on feeds ID follow up with significant leukocytosis taper steroids as able- PIP low and patient without bronchospasm no wean- today; start in am oxygen therapy check ABG prognosis guarded and care d/w son in det[place] medications/laboratory data/nursing notes/ICU care reviewed in detail note reviewed and edited care discussed with RN and RT ICU time spent 36 minutes Critical Care - Subjective Interval Events: care noted appears more comfortable on the fentanyl drip hemodynamics improved ROS Limited/Unobtainable: Yes EKG Rhythm: Sinus Rhythm I&O: Intake and Output 09/21/17 09/22/17 19:00 07:00 Intake Total 488.25 ml 241.00 ml Output Total 760 ml 450 ml Balance -271.75 ml -209.00 ml IV Total 338.25 ml 91.00 ml Other 150 ml 150 ml Output Urine Total 530 ml 400 ml Gastric Drainage Total 200 ml 50 ml Emesis 30 ml # Bowel Movements 1 Critical Care - Objective CXR: improved reviewed ET-Tube: 7.5 ET Position: 23 Last 24 Hour Vital Signs Date Time Temp Pulse Resp B/P (MAP) Pulse Ox O2 Delivery O2 Flow Rate FiO2 09/22/17 07:54 92 20 98 Mechanical Ventilator 09/22/17 07:02 91 19 60 09/22/17 07:01 91 19 95 Mechanical Ventilator 09/22/17 07:00 87 19 133/42 97 Mechanical Ventilator 60 09/22/17 06:28 94 127/46 09/22/17 06:00 90 21 127/45 93 Mechanical Ventilator 40 09/22/17 05:24 86 19 40 09/22/17 05:00 85 20 121/39 92 Mechanical Ventilator 40 09/22/17 04:00 40 09/22/17 04:00 98.6 91 20 116/46 95 Mechanical Ventilator 40 09/22/17 04:00 90 09/22/17 03:23 99 20 100 Mechanical Ventilator 09/22/17 03:21 96 18 98 Mechanical Ventilator 09/22/17 03:19 87 18 60 09/22/17 03:00 88 19 120/38 98 Mechanical Ventilator 60 09/22/17 02:00 88 18 112/37 98 Mechanical Ventilator 60 09/22/17 01:30 96 25 60 09/22/17 01:00 90 19 109/35 97 Mechanical Ventilator 60 09/22/17 00:00 99.1 97 20 127/40 97 Mechanical Ventilator 60 09/22/17 00:00 97 09/22/17 00:00 60 09/21/17 23:55 106 22 99 Mechanical Ventilator 60 09/21/17 23:54 102 22 98 Mechanical Ventilator 60 09/21/17 23:49 104 123/43 09/21/17 23:30 104 23 60 09/21/17 23:00 94 18 118/43 97 Mechanical Ventilator 60 09/21/17 22:00 99.1 98 20 114/34 97 Mechanical Ventilator 60 09/21/17 21:30 111 21 60 09/21/17 21:00 99.7 106 25 121/41 97 Mechanical Ventilator 60 09/21/17 20:00 111 09/21/17 20:00 100.2 107 16 132/48 98 Mechanical Ventilator 60 09/21/17 20:00 60 09/21/17 19:45 110 26 99 Mechanical Ventilator 60 09/21/17 19:30 109 23 98 Mechanical Ventilator 60 09/21/17 19:30 Mechanical Ventilator 09/21/17 19:30 Mechanical Ventilator 09/21/17 19:30 Mechanical Ventilator 09/21/17 19:30 110 24 60 09/21/17 19:00 107 20 112/40 97 Mechanical Ventilator 60 09/21/17 18:30 109 18 112/38 98 Mechanical Ventilator 60 09/21/17 18:00 111 17 99/75 100 Mechanical Ventilator 60 09/21/17 17:51 111 109/40 09/21/17 17:30 113 17 109/40 100 Mechanical Ventilator 60 09/21/17 17:08 113 21 60 09/21/17 17:00 84 17 86/35 100 Mechanical Ventilator 60 09/21/17 16:30 114 22 129/45 98 Mechanical Ventilator 60 09/21/17 16:00 99.0 116 22 128/46 97 Mechanical Ventilator 60 09/21/17 16:00 115 09/21/17 15:30 116 22 113/43 97 Mechanical Ventilator 60 09/21/17 15:00 120 23 127/48 98 Mechanical Ventilator 60 09/21/17 14:52 123 20 98 Mechanical Ventilator 60 09/21/17 14:45 112 22 96 Mechanical Ventilator 60 09/21/17 14:42 112 21 60 09/21/17 14:30 112 22 114/48 96 Mechanical Ventilator 60 09/21/17 14:00 115 22 110/47 96 Mechanical Ventilator 60 09/21/17 13:30 120 22 111/45 96 Mechanical Ventilator 60 09/21/17 13:00 60 09/21/17 13:00 122 22 128/55 98 Mechanical Ventilator 60 09/21/17 12:52 124 140/53 09/21/17 12:44 125 22 60 09/21/17 12:30 123 22 140/51 98 Mechanical Ventilator 60 09/21/17 12:00 122 09/21/17 12:00 70 09/21/17 12:00 20 09/21/17 12:00 99.7 124 21 140/53 98 Mechanical Ventilator 70 09/21/17 11:30 121 21 123/51 98 Mechanical Ventilator 70 09/21/17 11:26 119 18 98 Mechanical Ventilator 80 09/21/17 11:15 116 22 98 Mechanical Ventilator 70 09/21/17 11:10 115 22 70 09/21/17 11:02 22 09/21/17 11:00 117 23 136/50 98 Mechanical Ventilator 80 09/21/17 10:00 119 23 130/49 98 Mechanical Ventilator 80 09/21/17 09:12 128 24 70 09/21/17 09:00 126 20 123/67 97 Mechanical Ventilator 80 Labs: Laboratory Tests Test 09/22/17 05:00 White Blood Count 21.0 K/UL (4.8-10.8) #H Red Blood Count 4.10 M/UL (4.70-6.10) L Hemoglobin 8.0 G/DL (14.2-18.0) L Hematocrit 27.1 % (42.0-52.0) L Mean Corpuscular Volume 66 FL (80-99) L Mean Corpuscular Hemoglobin 19.5 PG (27.0-31.0) L Mean Corpuscular Hemoglobin Concent 29.5 G/DL (32.0-36.0) L Red Cell Distribution Width 24.9 % (11.6-14.8) H Platelet Count 112 K/UL (150-450) L Mean Platelet Volume 11.4 FL (6.5-10.1) H Neutrophils (%) (Auto) % (45.0-75.0) Lymphocytes (%) (Auto) % (20.0-45.0) Monocytes (%) (Auto) % (1.0-10.0) Eosinophils (%) (Auto) % (0.0-3.0) Basophils (%) (Auto) % (0.0-2.0) Neutrophils % (Manual) Pending Lymphocytes % (Manual) Pending Platelet Estimate Pending Platelet Morphology Pending Sodium Level 144 MMOL/L (136-145) Potassium Level 2.8 MMOL/L (3.5-5.1) L Chloride Level 109 MMOL/L (98-107) H Carbon Dioxide Level 21 MMOL/L (21-32) Anion Gap 15 mmol/L (5-15) Blood Urea Nitrogen 48 mg/dL (7-18) H Creatinine 2.8 MG/DL (0.55-1.30) H Estimat Glomerular Filtration Rate mL/min (>60) Glucose Level 258 MG/DL (74-106) H Calcium Level 8.3 MG/DL (8.5-10.1) L Magnesium Level 2.1 MG/DL (1.8-2.4) Total Bilirubin 0.4 MG/DL (0.2-1.0) Aspartate Amino Transf (AST/SGOT) 26 U/L (15-37) Alanine Aminotransferase (ALT/SGPT) 25 U/L (12-78) Alkaline Phosphatase 67 U/L (46-116) Troponin I 0.084 ng/mL (0.000-0.056) Total Protein 6.3 G/DL (6.4-8.2) L Albumin 2.3 G/DL (3.4-5.0) L Globulin 4.0 g/dL Albumin/Globulin Ratio 0.6 (1.0-2.7) L Objective: WDWN NAD opens eyes ETT in place reduced breath sounds bilaterally with reduced rhonchi [id number] without MRG NABS nontender no HSM OGT in place no CCE nonfocal sedated Micro: Microbiology Date/Time Source Procedure Growth Status 09/21/17 10:15 Sputum Gram Stain Pending Resulted 09/21/17 10:15 Sputum Sputum Culture - Preliminary NO GROWTH AFTER 24 HOURS Resulted STEVE CARPIO Sep 22, 2017 08:16
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
[2017-09-22] MEDS: Solu-MEDROL 40mg Inj IVP SCH ×2 (09:28→21:01)
[2017-09-22] MEDS: Lactulose 20gm/30ml UDC GT SCH ×2 (09:28→12:59)
[2017-09-22] MEDS: Docusate 250mg cap ORAL SCH (09:29)
[2017-09-22] MEDS: Pantoprazole Inj IVP SCH ×2 (09:29→21:01)
[2017-09-22] MEDS: Montelukast 10mg tablet GT SCH (09:29)
[2017-09-22] MEDS: Azithromycin 500 MG in D5W 275 ML IV SCH (09:30)
[2017-09-22] MEDS: Piperacillin/Tazobactam 3.375 GM in D5W 55 ML IVPB SCH ×2 (09:31→21:01)
--- NOTE | 2017-09-22 11:55 | Diagnostic Imaging Report ---
Indication: NG tube Comparison: None Single view of the abdomen obtained Findings: NG tube is in the position. Two-level kyphoplasty noted within the lumbar spine. Dilated small bowel and large bowel noted in the abdomen. Follow-up suggested. IMPRESSION: NG tube in good position.
--- NOTE | 2017-09-22 12:17 | Infectious Diseases Prog Note ---
Assessment/Plan Assessment/Plan antibiotics : zosyn A 1. pneumonia improving 2. leucocytosis improving 3. COPD 4. gout 5. respiratory failure 6. renal failure P 1. continue zosyn 2. will follow up cultures Subjective ROS Limited/Unobtainable: Yes Allergies: Coded Allergies: No Known Allergies (Unverified , 09/16/17) Objective Vital Signs Last 24 Hour Vital Signs Date Time Temp Pulse Resp B/P (MAP) Pulse Ox O2 Delivery O2 Flow Rate FiO2 09/22/17 11:38 84 18 99 Mechanical Ventilator 09/22/17 11:12 86 18 95 Mechanical Ventilator 09/22/17 11:11 86 18 60 09/22/17 09:00 85 20 107/36 94 Mechanical Ventilator 60 09/22/17 09:00 60 09/22/17 08:49 88 18 60 09/22/17 08:30 86 20 115/40 94 Mechanical Ventilator 60 09/22/17 08:00 90 09/22/17 08:00 99.0 93 19 121/40 95 Mechanical Ventilator 60 09/22/17 07:54 92 20 98 Mechanical Ventilator 09/22/17 07:30 91 19 122/40 97 Mechanical Ventilator 60 09/22/17 07:02 91 19 60 09/22/17 07:01 91 19 95 Mechanical Ventilator 09/22/17 07:00 87 19 133/42 97 Mechanical Ventilator 60 09/22/17 06:28 94 127/46 09/22/17 06:00 90 21 127/45 93 Mechanical Ventilator 40 09/22/17 05:24 86 19 40 09/22/17 05:00 85 20 121/39 92 Mechanical Ventilator 40 09/22/17 04:00 40 09/22/17 04:00 98.6 91 20 116/46 95 Mechanical Ventilator 40 09/22/17 04:00 90 09/22/17 03:23 99 20 100 Mechanical Ventilator 09/22/17 03:21 96 18 98 Mechanical Ventilator 09/22/17 03:19 87 18 60 09/22/17 03:00 88 19 120/38 98 Mechanical Ventilator 60 09/22/17 02:00 88 18 112/37 98 Mechanical Ventilator 60 09/22/17 01:30 96 25 60 09/22/17 01:00 90 19 109/35 97 Mechanical Ventilator 60 09/22/17 00:00 99.1 97 20 127/40 97 Mechanical Ventilator 60 09/22/17 00:00 97 09/22/17 00:00 60 09/21/17 23:55 106 22 99 Mechanical Ventilator 60 09/21/17 23:54 102 22 98 Mechanical Ventilator 60 09/21/17 23:49 104 123/43 09/21/17 23:30 104 23 60 09/21/17 23:00 94 18 118/43 97 Mechanical Ventilator 60 09/21/17 22:00 99.1 98 20 114/34 97 Mechanical Ventilator 60 09/21/17 21:30 111 21 60 09/21/17 21:00 99.7 106 25 121/41 97 Mechanical Ventilator 60 09/21/17 20:00 111 09/21/17 20:00 100.2 107 16 132/48 98 Mechanical Ventilator 60 09/21/17 20:00 60 09/21/17 19:45 110 26 99 Mechanical Ventilator 60 09/21/17 19:30 109 23 98 Mechanical Ventilator 60 09/21/17 19:30 Mechanical Ventilator 09/21/17 19:30 Mechanical Ventilator 09/21/17 19:30 Mechanical Ventilator 09/21/17 19:30 110 24 60 09/21/17 19:00 107 20 112/40 97 Mechanical Ventilator 60 09/21/17 18:30 109 18 112/38 98 Mechanical Ventilator 60 09/21/17 18:00 111 17 99/75 100 Mechanical Ventilator 60 09/21/17 17:51 111 109/40 09/21/17 17:30 113 17 109/40 100 Mechanical Ventilator 60 09/21/17 17:08 113 21 60 09/21/17 17:00 84 17 86/35 100 Mechanical Ventilator 60 09/21/17 16:30 114 22 129/45 98 Mechanical Ventilator 60 09/21/17 16:00 99.0 116 22 128/46 97 Mechanical Ventilator 60 09/21/17 16:00 115 09/21/17 15:30 116 22 113/43 97 Mechanical Ventilator 60 09/21/17 15:00 120 23 127/48 98 Mechanical Ventilator 60 09/21/17 14:52 123 20 98 Mechanical Ventilator 60 09/21/17 14:45 112 22 96 Mechanical Ventilator 60 09/21/17 14:42 112 21 60 09/21/17 14:30 112 22 114/48 96 Mechanical Ventilator 60 09/21/17 14:00 115 22 110/47 96 Mechanical Ventilator 60 09/21/17 13:30 120 22 111/45 96 Mechanical Ventilator 60 09/21/17 13:00 60 09/21/17 13:00 122 22 128/55 98 Mechanical Ventilator 60 09/21/17 12:52 124 140/53 09/21/17 12:44 125 22 60 09/21/17 12:30 123 22 140/51 98 Mechanical Ventilator 60 Height (Feet): 5 Height (Inches): 8.00 Weight (Pounds): 183 HEENT: other - intubated Respiratory/Chest: lungs clear Cardiovascular: normal rate, regular rhythm, no gallop/murmur Abdomen: soft, non tender Extremities: other - + edema bilaterally Microbiology Date/Time Source Procedure Growth Status 09/21/17 10:15 Sputum Gram Stain Pending Resulted 09/21/17 10:15 Sputum Sputum Culture - Preliminary NO GROWTH AFTER 24 HOURS Resulted 09/22/17 05:20 Stool Clostridium difficile Toxin Assay - Final Complete Laboratory Tests Test 09/22/17 05:00 09/22/17 07:58 White Blood Count 21.0 K/UL (4.8-10.8) #H Red Blood Count 4.10 M/UL (4.70-6.10) L Hemoglobin 8.0 G/DL (14.2-18.0) L Hematocrit 27.1 % (42.0-52.0) L Mean Corpuscular Volume 66 FL (80-99) L Mean Corpuscular Hemoglobin 19.5 PG (27.0-31.0) L Mean Corpuscular Hemoglobin Concent 29.5 G/DL (32.0-36.0) L Red Cell Distribution Width 24.9 % (11.6-14.8) H Platelet Count 112 K/UL (150-450) L Mean Platelet Volume 11.4 FL (6.5-10.1) H Neutrophils (%) (Auto) % (45.0-75.0) Lymphocytes (%) (Auto) % (20.0-45.0) Monocytes (%) (Auto) % (1.0-10.0) Eosinophils (%) (Auto) % (0.0-3.0) Basophils (%) (Auto) % (0.0-2.0) Differential Total Cells Counted 100 Neutrophils % (Manual) 93 % (45-75) H Lymphocytes % (Manual) 2 % (20-45) L Monocytes % (Manual) 5 % (1-10) Eosinophils % (Manual) 0 % (0-3) Basophils % (Manual) 0 % (0-2) Band Neutrophils 0 % (0-8) Platelet Estimate Decreased L Platelet Morphology Normal Hypochromasia 1+ Anisocytosis 2+ Microcytosis 2+ Sodium Level 144 MMOL/L (136-145) Potassium Level 2.8 MMOL/L (3.5-5.1) L Chloride Level 109 MMOL/L (98-107) H Carbon Dioxide Level 21 MMOL/L (21-32) Anion Gap 15 mmol/L (5-15) Blood Urea Nitrogen 48 mg/dL (7-18) H Creatinine 2.8 MG/DL (0.55-1.30) H Estimat Glomerular Filtration Rate mL/min (>60) Glucose Level 258 MG/DL (74-106) H Calcium Level 8.3 MG/DL (8.5-10.1) L Magnesium Level 2.1 MG/DL (1.8-2.4) Total Bilirubin 0.4 MG/DL (0.2-1.0) Aspartate Amino Transf (AST/SGOT) 26 U/L (15-37) Alanine Aminotransferase (ALT/SGPT) 25 U/L (12-78) Alkaline Phosphatase 67 U/L (46-116) Troponin I 0.084 ng/mL (0.000-0.056) Total Protein 6.3 G/DL (6.4-8.2) L Albumin 2.3 G/DL (3.4-5.0) L Globulin 4.0 g/dL Albumin/Globulin Ratio 0.6 (1.0-2.7) L Arterial Blood pH 7.463 (7.350-7.450) Arterial Blood Partial Pressure CO2 29.1 mmHg (35.0-45.0) L Arterial Blood Partial Pressure O2 88.9 mmHg (75.0-100.0) Arterial Blood HCO3 20.4 mmol/L (22.0-26.0) L Arterial Blood Oxygen Saturation 96.5 % (92.0-98.0) Arterial Blood Base Excess -2.8 Scotty Test Positive SHARON LUEVANO Sep 22, 2017 12:17
[2017-09-22] MEDS ORDERED: Sodium Chloride 500ML 500 ML IV ONE (13:30)
[2017-09-22] MEDS: fentaNYL Citrate 2500mcg in NS 250ml IV SCH (13:39)
[2017-09-22] MEDS ORDERED: Ipratropium 0.02% Inh Soln 2.5ml UD HHN PRN (15:00)
--- NOTE | 2017-09-22 15:17 | GI Progress Note ---
Assessment/Plan Problems: (1) Fecal impaction ICD Codes: K56.41 - Fecal impaction SNOMED: 55080236 (2) Anemia ICD Codes: D64.9 - Anemia, unspecified SNOMED: 113638653 (3) Episode of generalized weakness ICD Codes: R53.1 - Weakness SNOMED: 27173495 (4) Diverticulosis ICD Codes: K57.90 - Diverticulosis of intestine, part unspecified, without perforation or abscess without bleeding SNOMED: 500499430 Status: unchanged Status Narrative Discussed with Dr. Mnotelongo. Assessment/Plan stool ob positive needs GI procedures but not stable at this time ppi daily monitor H&H, transfuse to keep Hgb around 8 titrate bowel regime >> dc colace/lactulose stool for C.diff >> dc ppi, ordered H2B abx per ID og TF abx fu labs The patient was seen and examined at bedside and all new and available data was reviewed in the patients chart. I agree with the above findings, impression and plan. (Patient seen earlier today. Signature stamp does not reflect patient encounter time.). - Brittaney Montelongo MD Subjective Subjective limited Objective Last 24 Hour Vital Signs Date Time Temp Pulse Resp B/P (MAP) Pulse Ox O2 Delivery O2 Flow Rate FiO2 09/22/17 15:00 85 19 120/44 96 Mechanical Ventilator 60 09/22/17 14:30 85 20 108/39 96 Mechanical Ventilator 60 09/22/17 14:00 86 20 108/42 96 Mechanical Ventilator 60 09/22/17 13:58 90 116/43 09/22/17 13:39 20 09/22/17 13:30 93 20 116/43 96 Mechanical Ventilator 60 09/22/17 13:03 95 121/47 09/22/17 13:00 95 20 114/41 97 Mechanical Ventilator 60 09/22/17 12:51 97 18 60 09/22/17 12:30 97 20 116/42 97 Mechanical Ventilator 60 09/22/17 12:00 99.3 98 24 121/47 97 Mechanical Ventilator 60 09/22/17 12:00 93 09/22/17 11:38 84 18 99 Mechanical Ventilator 09/22/17 11:30 91 19 103/55 96 Mechanical Ventilator 60 09/22/17 11:12 86 18 95 Mechanical Ventilator 09/22/17 11:11 86 18 60 09/22/17 11:00 20 09/22/17 11:00 86 21 96/37 96 Mechanical Ventilator 60 09/22/17 10:30 87 21 110/43 97 Mechanical Ventilator 60 09/22/17 10:00 91 21 108/38 97 Mechanical Ventilator 60 09/22/17 09:30 93 21 119/40 97 Mechanical Ventilator 60 09/22/17 09:00 85 20 107/36 94 Mechanical Ventilator 60 09/22/17 09:00 60 09/22/17 08:49 88 18 60 09/22/17 08:30 86 20 115/40 94 Mechanical Ventilator 60 09/22/17 08:00 90 09/22/17 08:00 99.0 93 19 121/40 95 Mechanical Ventilator 60 09/22/17 07:54 92 20 98 Mechanical Ventilator 09/22/17 07:30 91 19 122/40 97 Mechanical Ventilator 60 09/22/17 07:02 91 19 60 09/22/17 07:01 91 19 95 Mechanical Ventilator 09/22/17 07:00 87 19 133/42 97 Mechanical Ventilator 60 09/22/17 06:28 94 127/46 09/22/17 06:00 90 21 127/45 93 Mechanical Ventilator 40 09/22/17 05:24 86 19 40 09/22/17 05:00 85 20 121/39 92 Mechanical Ventilator 40 09/22/17 04:00 40 09/22/17 04:00 98.6 91 20 116/46 95 Mechanical Ventilator 40 09/22/17 04:00 90 09/22/17 03:23 99 20 100 Mechanical Ventilator 09/22/17 03:21 96 18 98 Mechanical Ventilator 09/22/17 03:19 87 18 60 09/22/17 03:00 88 19 120/38 98 Mechanical Ventilator 60 09/22/17 02:00 88 18 112/37 98 Mechanical Ventilator 60 09/22/17 01:30 96 25 60 09/22/17 01:00 90 19 109/35 97 Mechanical Ventilator 60 09/22/17 00:00 99.1 97 20 127/40 97 Mechanical Ventilator 60 09/22/17 00:00 97 09/22/17 00:00 60 09/21/17 23:55 106 22 99 Mechanical Ventilator 60 09/21/17 23:54 102 22 98 Mechanical Ventilator 60 09/21/17 23:49 104 123/43 09/21/17 23:30 104 23 60 09/21/17 23:00 94 18 118/43 97 Mechanical Ventilator 60 09/21/17 22:00 99.1 98 20 114/34 97 Mechanical Ventilator 60 09/21/17 21:30 111 21 60 09/21/17 21:00 99.7 106 25 121/41 97 Mechanical Ventilator 60 09/21/17 20:00 111 09/21/17 20:00 100.2 107 16 132/48 98 Mechanical Ventilator 60 09/21/17 20:00 60 09/21/17 19:45 110 26 99 Mechanical Ventilator 60 09/21/17 19:30 109 23 98 Mechanical Ventilator 60 09/21/17 19:30 Mechanical Ventilator 09/21/17 19:30 Mechanical Ventilator 09/21/17 19:30 Mechanical Ventilator 09/21/17 19:30 110 24 60 09/21/17 19:00 107 20 112/40 97 Mechanical Ventilator 60 09/21/17 18:30 109 18 112/38 98 Mechanical Ventilator 60 09/21/17 18:00 111 17 99/75 100 Mechanical Ventilator 60 09/21/17 17:51 111 109/40 09/21/17 17:30 113 17 109/40 100 Mechanical Ventilator 60 09/21/17 17:08 113 21 60 09/21/17 17:00 84 17 86/35 100 Mechanical Ventilator 60 09/21/17 16:30 114 22 129/45 98 Mechanical Ventilator 60 09/21/17 16:00 99.0 116 22 128/46 97 Mechanical Ventilator 60 09/21/17 16:00 115 09/21/17 15:30 116 22 113/43 97 Mechanical Ventilator 60 Intake and Output 09/21/17 09/22/17 19:00 07:00 Intake Total 488.25 ml 241.00 ml Output Total 760 ml 450 ml Balance -271.75 ml -209.00 ml IV Total 338.25 ml 91.00 ml Other 150 ml 150 ml Output Urine Total 530 ml 400 ml Gastric Drainage Total 200 ml 50 ml Emesis 30 ml # Bowel Movements 1 Laboratory Tests Test 09/22/17 05:00 09/22/17 07:58 White Blood Count 21.0 K/UL (4.8-10.8) #H Red Blood Count 4.10 M/UL (4.70-6.10) L Hemoglobin 8.0 G/DL (14.2-18.0) L Hematocrit 27.1 % (42.0-52.0) L Mean Corpuscular Volume 66 FL (80-99) L Mean Corpuscular Hemoglobin 19.5 PG (27.0-31.0) L Mean Corpuscular Hemoglobin Concent 29.5 G/DL (32.0-36.0) L Red Cell Distribution Width 24.9 % (11.6-14.8) H Platelet Count 112 K/UL (150-450) L Mean Platelet Volume 11.4 FL (6.5-10.1) H Neutrophils (%) (Auto) % (45.0-75.0) Lymphocytes (%) (Auto) % (20.0-45.0) Monocytes (%) (Auto) % (1.0-10.0) Eosinophils (%) (Auto) % (0.0-3.0) Basophils (%) (Auto) % (0.0-2.0) Differential Total Cells Counted 100 Neutrophils % (Manual) 93 % (45-75) H Lymphocytes % (Manual) 2 % (20-45) L Monocytes % (Manual) 5 % (1-10) Eosinophils % (Manual) 0 % (0-3) Basophils % (Manual) 0 % (0-2) Band Neutrophils 0 % (0-8) Platelet Estimate Decreased L Platelet Morphology Normal Hypochromasia 1+ Anisocytosis 2+ Microcytosis 2+ Sodium Level 144 MMOL/L (136-145) Potassium Level 2.8 MMOL/L (3.5-5.1) L Chloride Level 109 MMOL/L (98-107) H Carbon Dioxide Level 21 MMOL/L (21-32) Anion Gap 15 mmol/L (5-15) Blood Urea Nitrogen 48 mg/dL (7-18) H Creatinine 2.8 MG/DL (0.55-1.30) H Estimat Glomerular Filtration Rate mL/min (>60) Glucose Level 258 MG/DL (74-106) H Calcium Level 8.3 MG/DL (8.5-10.1) L Magnesium Level 2.1 MG/DL (1.8-2.4) Total Bilirubin 0.4 MG/DL (0.2-1.0) Aspartate Amino Transf (AST/SGOT) 26 U/L (15-37) Alanine Aminotransferase (ALT/SGPT) 25 U/L (12-78) Alkaline Phosphatase 67 U/L (46-116) Troponin I 0.084 ng/mL (0.000-0.056) Total Protein 6.3 G/DL (6.4-8.2) L Albumin 2.3 G/DL (3.4-5.0) L Globulin 4.0 g/dL Albumin/Globulin Ratio 0.6 (1.0-2.7) L Arterial Blood pH 7.463 (7.350-7.450) Arterial Blood Partial Pressure CO2 29.1 mmHg (35.0-45.0) L Arterial Blood Partial Pressure O2 88.9 mmHg (75.0-100.0) Arterial Blood HCO3 20.4 mmol/L (22.0-26.0) L Arterial Blood Oxygen Saturation 96.5 % (92.0-98.0) Arterial Blood Base Excess -2.8 Scotty Test Positive Microbiology Date/Time Source Procedure Growth Status 09/22/17 05:20 Stool Clostridium difficile Toxin Assay - Final Complete Height (Feet): 5 Height (Inches): 8.00 Weight (Pounds): 183 General Appearance: no apparent distress Cardiovascular: normal rate Respiratory/Chest: normal breath sounds, no respiratory distress, other - mech vent Abdominal Exam: GT site - c/d/i Extremities: non-tender Mary Ellen Stevenson N.PEffie Sep 22, 2017 15:17 SUZY MONTELONGO Sep 29, 2017 12:20
[2017-09-22] MEDS: 1/2NS w/KCl 20mEq 1000ml 1,000 ML IV SCH (16:28)
[2017-09-22] MEDS ORDERED: NS 275ml ONE (17:02)
[2017-09-22] MEDS ORDERED: Tubing IV Secondary IV ONE (17:02)
[2017-09-22 17:39] LABS: APPEARANCE,URINE CLEAR; BILIRUBIN, URINE NEGATIVE (NEGATIVE); COLOR,URINE PALE YELLOW; GLUCOSE, URINE (UA) NEGATIVE (NEGATIVE); KETONES,URINE NEGATIVE (NEGATIVE); LEUKOCYTE ESTERASE ,URINE NEGATIVE (NEGATIVE); NITRITE,URINE NEGATIVE (NEGATIVE); PH,URINE 5 (4.5-8.0); PROTEIN,URINE 1+ (NEGATIVE); UROBILINOGEN,URINE NORMAL MG/DL (0.0-1.0)
--- NOTE | 2017-09-22 18:30 | Consultation ---
DATE OF CONSULTATION: 09/22/2017 CONSULTING PHYSICIAN: Tre Hamilton M.D. REFERRING PHYSICIAN: Deacon Polanco M.D. REASON FOR CONSULTATION: Acute kidney injury. HISTORY OF PRESENT ILLNESS: The patient presents with weakness, anemia, and pancytopenia. He is having acute kidney injury. His creatinine on admission was 1.0 to 1.2 and today, BUN 48 and creatinine 2.8. He has an elevated glucose on this admission and an elevated BNP and elevated troponin. He is now intubated and sedated. There is no prior history of kidney disease, but he may have had some BPH and some slow stream of urine. He has an external catheter at this time. He has a history of [id number] alcohol use in the past. PAST SURGICAL HISTORY: Back surgery. CURRENT MEDICATIONS: Reviewed on the computer. HABITS: Smoked in the distant past and a [id number] alcohol as above. SYSTEM REVIEW: The patient is unable. Major problems as above. He also has a history of gout. PHYSICAL EXAMINATION: GENERAL: The patient is sedated and intubated. VITAL SIGNS: His blood pressure is 114/41, pulse oximetry 97% , and temperature 99.3. HEENT: Oral mucosa is slightly dry. He is intubated. Eyes closed. NECK: No adenopathy. LUNGS: Clear. HEART: Regular rhythm. I hear no murmur. ABDOMEN: Soft. I am unable to feel liver or spleen. EXTREMITIES: Trace edema. Degenerative changes in the knees. NEUROLOGIC: The patient is sedated. LABORATORY DATA: Pertinent labs today, sodium 144, potassium 2.8, chloride 109, CO2 21, BUN 48, creatinine 2.8, and glucose 257. Calcium is 8.3 and magnesium 2.1. The hematology, white count 21,000, hemoglobin 8, hematocrit 27.1, and platelets 112,000. The chest x-ray prior shows interstitial fullness with superimposed atelectasis and ill defined left hilar opacity. CT scanning showed a trabeculated bladder and no evidence of urinary stones or hydronephrosis. There was diverticulosis, cholelithiasis, left lower lobe opacity, bilateral effusions, evidence of coronary disease, aortic valve or mitral valve calcifications, and an enlarged prostate. The abdominal ultrasound showed normal parenchymal thickness and echogenicity of the kidneys. A 1.8 cm simple cyst is noted in the upper pole of right kidney. No hydronephrosis. IMPRESSION: The patient has acute kidney injury. This could be due to the use of diuretics in this admission versus sepsis and septic shock. He has had negative fluid balance for the past two days. His condition is critical. He is in the intensive care unit with multiorgan failure. He also has hypokalemia and this should be corrected. 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 PLAN: At this time, we will avoid dehydration, keep on some baseline fluids, replace potassium, and watch the evolution of his renal function. The patient also will have a Mcdonnell catheter placed for better monitoring of his renal function. Tre Hamilton M.D. DR: RAUL JOB#: [id number] CC:
[2017-09-22] MEDS: Miralax 17gm pkt GT SCH (21:01)
[2017-09-23] VITALS (27 sets, daily range): BP systolic 104–155; BP diastolic 39–76
[2017-09-23] MEDS: 1/2NS w/KCl 20mEq 1000ml 1,000 ML IV SCH ×4 (00:06→19:49)
[2017-09-23] MEDS: Ipratropium 0.02% Inh Soln 2.5ml UD HHN SCH ×6 (03:16→23:12)
[2017-09-23] MEDS: Levalbuterol Inh UD 1.25mg/0.5ml HHN SCH ×6 (03:16→23:12)
[2017-09-23] MEDS: dilTIAZem HCl 60mg tab GT SCH ×3 (05:44→21:40)
[2017-09-23 06:44] LABS: INR 1.1 (0.9-1.1)
[2017-09-23 06:46] LABS: HEMATOCRIT 25.8 % (42.0-52.0); HEMOGLOBIN 7.7 G/DL (14.2-18.0); MEAN CORPUSCULAR VOLUME 66 FL (80-99); PLATELET COUNT 94 K/UL (150-450); RED BLOOD COUNT 3.91 M/UL (4.70-6.10); RED CELL DISTRIBUTION WIDTH 25.3 % (11.6-14.8); WHITE BLOOD COUNT 12.7 K/UL (4.8-10.8)
[2017-09-23 07:34] LABS: ALANINE AMINOTRANSFERASE 27 U/L (12-78); ALBUMIN 2.2 G/DL (3.4-5.0); ALBUMIN/GLOBULIN RATIO 0.6 (1.0-2.7); ALKALINE PHOSPHATASE 63 U/L (46-116); ANION GAP 11 mmol/L (5-15); ASPARTATE AMINO TRANSFERASE 30 U/L (15-37); BILIRUBIN,TOTAL 0.3 MG/DL (0.2-1.0); BLOOD UREA NITROGEN 49 mg/dL (7-18); CALCIUM 8.1 MG/DL (8.5-10.1); CARBON DIOXIDE 23 MMOL/L (21-32); CHLORIDE 111 MMOL/L (98-107); CREATININE 1.8 MG/DL (0.55-1.30); POTASSIUM 3.9 MMOL/L (3.5-5.1); SODIUM 145 MMOL/L (136-145)
--- NOTE | 2017-09-23 07:57 | Nephrology Progress Note ---
Assessment/Plan Problem List: (1) Respiratory failure (2) Renal insufficiency (3) Sepsis (4) AMI (acute myocardial infarction) (5) Gout (6) Anemia (7) Diverticulosis (8) VICTORIA (acute kidney injury) (9) Pneumonia Plan victoria likely prerenal, lab trend better, reduce iv rate to avoid overload Subjective ROS Limited/Unobtainable: Yes Objective Objective Last 24 Hour Vital Signs Date Time Temp Pulse Resp B/P (MAP) Pulse Ox O2 Delivery O2 Flow Rate FiO2 09/23/17 07:26 83 20 98 Mechanical Ventilator 50 09/23/17 07:17 80 20 98 Mechanical Ventilator 50 09/23/17 07:00 76 19 130/50 98 Mechanical Ventilator 50 09/23/17 07:00 83 17 50 09/23/17 06:00 86 20 120/49 98 Mechanical Ventilator 50 09/23/17 05:44 88 134/48 09/23/17 05:26 88 25 50 09/23/17 05:00 79 21 118/45 98 Mechanical Ventilator 50 09/23/17 04:00 50 09/23/17 04:00 81 09/23/17 04:00 98.7 85 20 134/44 96 Mechanical Ventilator 50 09/23/17 03:25 72 14 98 Mechanical Ventilator 50 09/23/17 03:15 77 22 97 Mechanical Ventilator 50 09/23/17 03:14 82 22 50 09/23/17 03:00 81 15 127/58 97 Mechanical Ventilator 50 09/23/17 02:00 86 21 130/54 98 Mechanical Ventilator 50 09/23/17 01:07 81 16 50 09/23/17 01:00 79 16 104/44 98 Mechanical Ventilator 50 09/23/17 00:00 80 09/23/17 00:00 98.7 85 17 113/39 98 Mechanical Ventilator 50 09/23/17 00:00 50 09/22/17 23:13 78 17 98 Mechanical Ventilator 50 09/22/17 23:04 79 17 97 Mechanical Ventilator 50 09/22/17 23:03 80 17 60 09/22/17 23:00 80 22 101/37 99 Mechanical Ventilator 50 09/22/17 22:02 89 122/44 09/22/17 22:00 92 22 133/54 98 Mechanical Ventilator 50 09/22/17 21:23 85 17 60 09/22/17 21:00 89 18 111/44 96 Mechanical Ventilator 50 09/22/17 20:00 50 09/22/17 20:00 99.2 92 17 105/40 97 Mechanical Ventilator 50 09/22/17 20:00 88 09/22/17 19:42 87 18 99 Mechanical Ventilator 09/22/17 19:32 83 18 97 Mechanical Ventilator 50 09/22/17 19:29 81 17 60 09/22/17 19:00 80 20 109/37 97 Mechanical Ventilator 60 09/22/17 18:30 86 20 113/46 97 Mechanical Ventilator 60 09/22/17 18:00 86 20 118/46 97 Mechanical Ventilator 60 09/22/17 17:30 89 20 116/43 97 Mechanical Ventilator 60 09/22/17 17:14 93 23 60 09/22/17 17:00 95 23 124/45 97 Mechanical Ventilator 60 09/22/17 16:30 91 23 127/53 97 Mechanical Ventilator 60 09/22/17 16:00 20 09/22/17 16:00 91 09/22/17 16:00 60 09/22/17 16:00 99.1 93 20 118/53 98 Mechanical Ventilator 60 09/22/17 15:44 86 19 97 Mechanical Ventilator 09/22/17 15:30 83 19 128/46 97 Mechanical Ventilator 60 09/22/17 15:27 88 18 97 Mechanical Ventilator 09/22/17 15:27 84 18 60 09/22/17 15:00 85 19 120/44 96 Mechanical Ventilator 60 09/22/17 14:30 85 20 108/39 96 Mechanical Ventilator 60 09/22/17 14:00 86 20 108/42 96 Mechanical Ventilator 60 09/22/17 13:58 90 116/43 09/22/17 13:39 20 09/22/17 13:30 93 20 116/43 96 Mechanical Ventilator 60 09/22/17 13:03 95 121/47 09/22/17 13:00 95 20 114/41 97 Mechanical Ventilator 60 09/22/17 12:51 97 18 60 09/22/17 12:30 97 20 116/42 97 Mechanical Ventilator 60 09/22/17 12:00 60 09/22/17 12:00 99.3 98 24 121/47 97 Mechanical Ventilator 60 09/22/17 12:00 93 09/22/17 11:38 84 18 99 Mechanical Ventilator 09/22/17 11:30 91 19 103/55 96 Mechanical Ventilator 60 09/22/17 11:12 86 18 95 Mechanical Ventilator 09/22/17 11:11 86 18 60 09/22/17 11:00 20 09/22/17 11:00 86 21 96/37 96 Mechanical Ventilator 60 09/22/17 10:30 87 21 110/43 97 Mechanical Ventilator 60 09/22/17 10:00 91 21 108/38 97 Mechanical Ventilator 60 09/22/17 09:30 93 21 119/40 97 Mechanical Ventilator 60 09/22/17 09:00 85 20 107/36 94 Mechanical Ventilator 60 09/22/17 09:00 60 09/22/17 08:49 88 18 60 09/22/17 08:30 86 20 115/40 94 Mechanical Ventilator 60 09/22/17 08:00 90 09/22/17 08:00 99.0 93 19 121/40 95 Mechanical Ventilator 60 Intake and Output 09/22/17 09/23/17 19:00 07:00 Intake Total 1054.00 ml 1841.00 ml Output Total 1000 ml 765 ml Balance 54.00 ml 1076.00 ml IV Total 934.00 ml 1591.00 ml Tube Feeding 20 ml 100 ml Other 100 ml 150 ml Output Urine Total 1000 ml 765 ml # Bowel Movements 2 Laboratory Tests 09/22/17 07:58: Arterial Blood pH 7.463H, Arterial Blood Partial Pressure CO2 29.1L, Arterial Blood Partial Pressure O2 88.9, Arterial Blood HCO3 20.4L, Arterial Blood Oxygen Saturation 96.5, Arterial Blood Base Excess -2.8, Scotty Test Positive 09/22/17 15:00: Urine Color Pale yellow, Urine Appearance Clear, Urine pH 5, Urine Specific Dowell 1.020, Urine Protein 1+H, Urine Glucose (UA) Negative, Urine Ketones Negative, Urine Occult Blood 2+H, Urine Nitrite Negative, Urine Bilirubin Negative, Urine Urobilinogen Normal, Urine Leukocyte Esterase Negative, Urine RBC 2-4H, Urine WBC 0-2, Urine Squamous Epithelial Cells None, Urine Amorphous Sediment ModerateH, Urine Bacteria Few, Urine Osmolality 414L, Urine Random Sodium 95, Urine Creatinine 34.0 09/23/17 05:25: White Blood Count 12.7H, Red Blood Count 3.91L, Hemoglobin 7.7L, Hematocrit 25.8L, Mean Corpuscular Volume 66L, Mean Corpuscular Hemoglobin 19.7L, Mean Corpuscular Hemoglobin Concent 29.8L, Red Cell Distribution Width 25.3H, Platelet Count 94L, Mean Platelet Volume 13.8H, Neutrophils (%) (Auto) , Lymphocytes (%) (Auto) , Monocytes (%) (Auto) , Eosinophils (%) (Auto) , Basophils (%) (Auto) , Differential Total Cells Counted 100, Neutrophils % ( Manual) 93H, Lymphocytes % (Manual) 2L, Monocytes % (Manual) 5, Eosinophils % ( Manual) 0, Basophils % (Manual) 0, Band Neutrophils 0, Platelet Estimate DecreasedL, Platelet Morphology Normal, Hypochromasia 1+, Anisocytosis 2+, Microcytosis 2+, Prothrombin Time 11.4, Prothromb Time International Ratio 1.1, Sodium Level 145, Potassium Level 3.9, Chloride Level 111H, Carbon Dioxide Level 23, Anion Gap 11, Blood Urea Nitrogen 49H, Creatinine 1.8H, Estimat Glomerular Filtration Rate , Glucose Level 187H, Calcium Level 8.1L, Magnesium Level 2.1, Total Bilirubin 0.3, Aspartate Amino Transf (AST/SGOT) 30, Alanine Aminotransferase (ALT/SGPT) 27, Alkaline Phosphatase 63, Ammonia 26, Troponin I 0.077H, Total Protein 6.1L, Albumin 2.2L, Globulin 3.9, Albumin/Globulin Ratio 0.6L Height (Feet): 5 Height (Inches): 8.00 Weight (Pounds): 186 General Appearance: mild distress, other - intubated EENT: normal ENT inspection Neck: normal alignment Cardiovascular: normal rate Respiratory/Chest: rhonchi - bilaterally Abdomen: no organomegaly Extremities: trace edema Neurologic: engineering teacher II-XII grossly normal NAOMI SIERRA Sep 23, 2017 07:57
--- NOTE | 2017-09-23 08:40 | Critical Care Progress Note ---
Assessment/Plan Assessment/Plan COPD with exacerbation Acute respiratory failure tachycardia Pneumonia acute encephalopathy hypoxemia significant agitation anemia hypertension profound leukocytosis PLAN care noted IV antibiotics respiratory care Ventilatory support and start wean Fentanyl drip for sedation- hold with wean supportive care as outlined suction started on feeds ID follow up with persistent leukocytosis taper steroids and monitor weaning protocol oxygen therapy check ABG for yoo prognosis guarded but overall improved medications/laboratory data/nursing notes/ICU care reviewed in detail note reviewed and edited care discussed with RN and RT ICU time spent 37 minutes Critical Care - Subjective Interval Events: awake no distress on the ventilator comfortable at present acid base adequate ROS Limited/Unobtainable: Yes Condition: critical EKG Rhythm: Sinus Rhythm Residuals: minimal Tube Feeding Tolerated: yes I&O: Intake and Output 09/22/17 09/23/17 19:00 07:00 Intake Total 1054.00 ml 1841.00 ml Output Total 1000 ml 765 ml Balance 54.00 ml 1076.00 ml IV Total 934.00 ml 1591.00 ml Tube Feeding 20 ml 100 ml Other 100 ml 150 ml Output Urine Total 1000 ml 765 ml # Bowel Movements 2 Critical Care - Objective CXR: improved reviewed ET-Tube: 7.5 ET Position: 23 Last 24 Hour Vital Signs Date Time Temp Pulse Resp B/P (MAP) Pulse Ox O2 Delivery O2 Flow Rate FiO2 09/23/17 07:26 83 20 98 Mechanical Ventilator 50 09/23/17 07:17 80 20 98 Mechanical Ventilator 50 09/23/17 07:00 76 19 130/50 98 Mechanical Ventilator 50 09/23/17 07:00 83 17 50 09/23/17 06:00 86 20 120/49 98 Mechanical Ventilator 50 09/23/17 05:44 88 134/48 09/23/17 05:26 88 25 50 09/23/17 05:00 79 21 118/45 98 Mechanical Ventilator 50 09/23/17 04:00 50 09/23/17 04:00 81 09/23/17 04:00 98.7 85 20 134/44 96 Mechanical Ventilator 50 09/23/17 03:25 72 14 98 Mechanical Ventilator 50 09/23/17 03:15 77 22 97 Mechanical Ventilator 50 09/23/17 03:14 82 22 50 09/23/17 03:00 81 15 127/58 97 Mechanical Ventilator 50 09/23/17 02:00 86 21 130/54 98 Mechanical Ventilator 50 09/23/17 01:07 81 16 50 09/23/17 01:00 79 16 104/44 98 Mechanical Ventilator 50 09/23/17 00:00 80 09/23/17 00:00 98.7 85 17 113/39 98 Mechanical Ventilator 50 09/23/17 00:00 50 09/22/17 23:13 78 17 98 Mechanical Ventilator 50 09/22/17 23:04 79 17 97 Mechanical Ventilator 50 09/22/17 23:03 80 17 60 09/22/17 23:00 80 22 101/37 99 Mechanical Ventilator 50 09/22/17 22:02 89 122/44 09/22/17 22:00 92 22 133/54 98 Mechanical Ventilator 50 09/22/17 21:23 85 17 60 09/22/17 21:00 89 18 111/44 96 Mechanical Ventilator 50 09/22/17 20:00 50 09/22/17 20:00 99.2 92 17 105/40 97 Mechanical Ventilator 50 09/22/17 20:00 88 09/22/17 19:42 87 18 99 Mechanical Ventilator 09/22/17 19:32 83 18 97 Mechanical Ventilator 50 09/22/17 19:29 81 17 60 09/22/17 19:00 80 20 109/37 97 Mechanical Ventilator 60 09/22/17 18:30 86 20 113/46 97 Mechanical Ventilator 60 09/22/17 18:00 86 20 118/46 97 Mechanical Ventilator 60 09/22/17 17:30 89 20 116/43 97 Mechanical Ventilator 60 09/22/17 17:14 93 23 60 09/22/17 17:00 95 23 124/45 97 Mechanical Ventilator 60 09/22/17 16:30 91 23 127/53 97 Mechanical Ventilator 60 09/22/17 16:00 20 09/22/17 16:00 91 09/22/17 16:00 60 09/22/17 16:00 99.1 93 20 118/53 98 Mechanical Ventilator 60 09/22/17 15:44 86 19 97 Mechanical Ventilator 09/22/17 15:30 83 19 128/46 97 Mechanical Ventilator 60 09/22/17 15:27 88 18 97 Mechanical Ventilator 09/22/17 15:27 84 18 60 09/22/17 15:00 85 19 120/44 96 Mechanical Ventilator 60 09/22/17 14:30 85 20 108/39 96 Mechanical Ventilator 60 09/22/17 14:00 86 20 108/42 96 Mechanical Ventilator 60 09/22/17 13:58 90 116/43 09/22/17 13:39 20 09/22/17 13:30 93 20 116/43 96 Mechanical Ventilator 60 09/22/17 13:03 95 121/47 09/22/17 13:00 95 20 114/41 97 Mechanical Ventilator 60 09/22/17 12:51 97 18 60 09/22/17 12:30 97 20 116/42 97 Mechanical Ventilator 60 09/22/17 12:00 60 09/22/17 12:00 99.3 98 24 121/47 97 Mechanical Ventilator 60 09/22/17 12:00 93 09/22/17 11:38 84 18 99 Mechanical Ventilator 09/22/17 11:30 91 19 103/55 96 Mechanical Ventilator 60 09/22/17 11:12 86 18 95 Mechanical Ventilator 09/22/17 11:11 86 18 60 09/22/17 11:00 20 09/22/17 11:00 86 21 96/37 96 Mechanical Ventilator 60 09/22/17 10:30 87 21 110/43 97 Mechanical Ventilator 60 09/22/17 10:00 91 21 108/38 97 Mechanical Ventilator 60 09/22/17 09:30 93 21 119/40 97 Mechanical Ventilator 60 09/22/17 09:00 85 20 107/36 94 Mechanical Ventilator 60 09/22/17 09:00 60 09/22/17 08:49 88 18 60 Labs: Labs Test 09/20/17 11:05 09/21/17 02:34 09/21/17 03:39 09/21/17 05:30 Arterial Blood pH 7.392 (7.350-7.450) 7.113 (7.350-7.450) 7.364 (7.350-7.450) Arterial Blood Partial Pressure CO2 32.7 mmHg (35.0-45.0) 71.8 mmHg (35.0-45.0) 34.5 mmHg (35.0-45.0) Arterial Blood Partial Pressure O2 73.5 mmHg (75.0-100.0) 93.7 mmHg (75.0-100.0) 103.8 mmHg (75.0-100.0) Arterial Blood HCO3 19.5 mmol/L (22.0-26.0) 22.5 mmol/L (22.0-26.0) 19.2 mmol/L (22.0-26.0) Arterial Blood Oxygen Saturation 94.7 % (92.0-98.0) 94.4 % (92.0-98.0) 97.9 % (92.0-98.0) Arterial Blood Base Excess -4.7 -7.8 -5.4 Scotty Test Positive Positive Positive White Blood Count 49.2 K/UL (4.8-10.8) Red Blood Count 5.30 M/UL (4.70-6.10) Hemoglobin 10.2 G/DL (14.2-18.0) Hematocrit 35.9 % (42.0-52.0) Mean Corpuscular Volume 68 FL (80-99) Mean Corpuscular Hemoglobin 19.3 PG (27.0-31.0) Mean Corpuscular Hemoglobin Concent 28.6 G/DL (32.0-36.0) Red Cell Distribution Width 24.8 % (11.6-14.8) Platelet Count 133 K/UL (150-450) Mean Platelet Volume 13.2 FL (6.5-10.1) Neutrophils (%) (Auto) % (45.0-75.0) Lymphocytes (%) (Auto) % (20.0-45.0) Monocytes (%) (Auto) % (1.0-10.0) Eosinophils (%) (Auto) % (0.0-3.0) Basophils (%) (Auto) % (0.0-2.0) Differential Total Cells Counted 100 Neutrophils % (Manual) 82 % (45-75) Lymphocytes % (Manual) 2 % (20-45) Monocytes % (Manual) 14 % (1-10) Eosinophils % (Manual) 0 % (0-3) Basophils % (Manual) 0 % (0-2) Band Neutrophils 2 % (0-8) Platelet Estimate Decreased Platelet Morphology Normal Hypochromasia 1+ Anisocytosis 2+ Microcytosis 2+ Sodium Level 141 MMOL/L (136-145) Potassium Level 3.4 MMOL/L (3.5-5.1) Chloride Level 106 MMOL/L (98-107) Carbon Dioxide Level 19 MMOL/L (21-32) Anion Gap 16 mmol/L (5-15) Blood Urea Nitrogen 34 mg/dL (7-18) Creatinine 2.5 MG/DL (0.55-1.30) Estimat Glomerular Filtration Rate mL/min (>60) Glucose Level 216 MG/DL (74-106) Calcium Level 8.8 MG/DL (8.5-10.1) Magnesium Level 1.9 MG/DL (1.8-2.4) Total Bilirubin 0.5 MG/DL (0.2-1.0) Aspartate Amino Transf (AST/SGOT) 19 U/L (15-37) Alanine Aminotransferase (ALT/SGPT) 30 U/L (12-78) Alkaline Phosphatase 84 U/L (46-116) Troponin I 0.136 ng/mL (0.000-0.056) Pro-B-Type Natriuretic Peptide 24435 pg/mL (0-125) Total Protein 7.6 G/DL (6.4-8.2) Albumin 3.0 G/DL (3.4-5.0) Globulin 4.6 g/dL Albumin/Globulin Ratio 0.7 (1.0-2.7) Test 09/22/17 05:00 09/22/17 07:58 09/22/17 15:00 09/23/17 05:25 White Blood Count 21.0 K/UL (4.8-10.8) 12.7 K/UL (4.8-10.8) Red Blood Count 4.10 M/UL (4.70-6.10) 3.91 M/UL (4.70-6.10) Hemoglobin 8.0 G/DL (14.2-18.0) 7.7 G/DL (14.2-18.0) Hematocrit 27.1 % (42.0-52.0) 25.8 % (42.0-52.0) Mean Corpuscular Volume 66 FL (80-99) 66 FL (80-99) Mean Corpuscular Hemoglobin 19.5 PG (27.0-31.0) 19.7 PG (27.0-31.0) Mean Corpuscular Hemoglobin Concent 29.5 G/DL (32.0-36.0) 29.8 G/DL (32.0-36.0) Red Cell Distribution Width 24.9 % (11.6-14.8) 25.3 % (11.6-14.8) Platelet Count 112 K/UL (150-450) 94 K/UL (150-450) Mean Platelet Volume 11.4 FL (6.5-10.1) 13.8 FL (6.5-10.1) Neutrophils (%) (Auto) % (45.0-75.0) % (45.0-75.0) Lymphocytes (%) (Auto) % (20.0-45.0) % (20.0-45.0) Monocytes (%) (Auto) % (1.0-10.0) % (1.0-10.0) Eosinophils (%) (Auto) % (0.0-3.0) % (0.0-3.0) Basophils (%) (Auto) % (0.0-2.0) % (0.0-2.0) Differential Total Cells Counted 100 100 Neutrophils % (Manual) 93 % (45-75) 93 % (45-75) Lymphocytes % (Manual) 2 % (20-45) 2 % (20-45) Monocytes % (Manual) 5 % (1-10) 5 % (1-10) Eosinophils % (Manual) 0 % (0-3) 0 % (0-3) Basophils % (Manual) 0 % (0-2) 0 % (0-2) Band Neutrophils 0 % (0-8) 0 % (0-8) Platelet Estimate Decreased Decreased Platelet Morphology Normal Normal Hypochromasia 1+ 1+ Anisocytosis 2+ 2+ Microcytosis 2+ 2+ Sodium Level 144 MMOL/L (136-145) 145 MMOL/L (136-145) Potassium Level 2.8 MMOL/L (3.5-5.1) 3.9 MMOL/L (3.5-5.1) Chloride Level 109 MMOL/L (98-107) 111 MMOL/L (98-107) Carbon Dioxide Level 21 MMOL/L (21-32) 23 MMOL/L (21-32) Anion Gap 15 mmol/L (5-15) 11 mmol/L (5-15) Blood Urea Nitrogen 48 mg/dL (7-18) 49 mg/dL (7-18) Creatinine 2.8 MG/DL (0.55-1.30) 1.8 MG/DL (0.55-1.30) Estimat Glomerular Filtration Rate mL/min (>60) mL/min (>60) Glucose Level 258 MG/DL (74-106) 187 MG/DL (74-106) Calcium Level 8.3 MG/DL (8.5-10.1) 8.1 MG/DL (8.5-10.1) Magnesium Level 2.1 MG/DL (1.8-2.4) 2.1 MG/DL (1.8-2.4) Total Bilirubin 0.4 MG/DL (0.2-1.0) 0.3 MG/DL (0.2-1.0) Aspartate Amino Transf (AST/SGOT) 26 U/L (15-37) 30 U/L (15-37) Alanine Aminotransferase (ALT/SGPT) 25 U/L (12-78) 27 U/L (12-78) Alkaline Phosphatase 67 U/L (46-116) 63 U/L (46-116) Troponin I 0.084 ng/mL (0.000-0.056) 0.077 ng/mL (0.000-0.056) Total Protein 6.3 G/DL (6.4-8.2) 6.1 G/DL (6.4-8.2) Albumin 2.3 G/DL (3.4-5.0) 2.2 G/DL (3.4-5.0) Globulin 4.0 g/dL 3.9 g/dL Albumin/Globulin Ratio 0.6 (1.0-2.7) 0.6 (1.0-2.7) Arterial Blood pH 7.463 (7.350-7.450) Arterial Blood Partial Pressure CO2 29.1 mmHg (35.0-45.0) Arterial Blood Partial Pressure O2 88.9 mmHg (75.0-100.0) Arterial Blood HCO3 20.4 mmol/L (22.0-26.0) Arterial Blood Oxygen Saturation 96.5 % (92.0-98.0) Arterial Blood Base Excess -2.8 Scotty Test Positive Urine Color Pale yellow Urine Appearance Clear Urine pH 5 (4.5-8.0) Urine Specific [place] 1.020 (1.005-1.035) Urine Protein 1+ (NEGATIVE) Urine Glucose (UA) Negative (NEGATIVE) Urine Ketones Negative (NEGATIVE) Urine Occult Blood 2+ (NEGATIVE) Urine Nitrite Negative (NEGATIVE) Urine Bilirubin Negative (NEGATIVE) Urine Urobilinogen Normal MG/DL (0.0-1.0) Urine Leukocyte Esterase Negative (NEGATIVE) Urine RBC 2-4 /HPF (0 - 0) Urine WBC 0-2 /HPF (0 - 0) Urine Squamous Epithelial Cells None /LPF (NONE/OCC) Urine Amorphous Sediment Moderate /LPF (NONE) Urine Bacteria Few /HPF (NONE) Urine Osmolality 414 mOsm/kg (429-449) Urine Random Sodium 95 MEQ/L (20-110) Urine Creatinine 34.0 MG/DL (30.0-125.0) Prothrombin Time 11.4 SEC (9.30-11.50) Prothromb Time International Ratio 1.1 (0.9-1.1) Ammonia 26 umol/L (11-32) Objective: WDWN NAD opens eyes ETT in place reduced breath sounds bilaterally with some persistent rhonchi [id number] without MRG NABS nontender no HSM OGT in place no CCE nonfocal sedated but awake at present skin noted lines reviewed Micro: Microbiology Date/Time Source Procedure Growth Status 09/21/17 10:15 Sputum Gram Stain - Final Resulted 09/21/17 10:15 Sputum Sputum Culture - Preliminary NO GROWTH AFTER 24 HOURS Resulted 09/22/17 05:20 Stool Clostridium difficile Toxin Assay - Final Complete TSEVE CARPIO Sep 23, 2017 08:40
[2017-09-23] MEDS: Piperacillin/Tazobactam 3.375 GM in D5W 55 ML IVPB SCH ×2 (09:01→21:30)
[2017-09-23] MEDS: Montelukast 10mg tablet GT SCH (09:02)
[2017-09-23] MEDS: Pantoprazole Inj IVP SCH ×2 (09:02→21:03)
[2017-09-23] MEDS: Solu-MEDROL 40mg Inj IVP SCH (09:03)
[2017-09-23] MEDS: Azithromycin 500 MG in D5W 275 ML IV SCH (10:00)
--- NOTE | 2017-09-23 11:26 | Infectious Diseases Prog Note ---
Assessment/Plan Assessment/Plan antibiotics : zosyn A 1. pneumonia improving 2. leucocytosis improving 3. COPD 4. gout 5. respiratory failure 6. renal failure improving P 1. continue zosyn 2. will follow up cultures Subjective ROS Limited/Unobtainable: Yes Allergies: Coded Allergies: No Known Allergies (Unverified , 09/16/17) Objective Vital Signs Last 24 Hour Vital Signs Date Time Temp Pulse Resp B/P (MAP) Pulse Ox O2 Delivery O2 Flow Rate FiO2 09/23/17 11:20 81 20 94 Mechanical Ventilator 50 09/23/17 11:09 81 22 92 Mechanical Ventilator 50 09/23/17 11:00 83 24 131/54 95 Mechanical Ventilator 50 09/23/17 10:35 104 25 40 09/23/17 10:00 87 24 153/76 98 Bi-pap 45 09/23/17 09:31 88 26 09/23/17 09:30 45 09/23/17 09:30 78 24 130/49 98 Bi-pap 45 09/23/17 09:20 93 09/23/17 09:00 82 24 142/44 98 Mechanical Ventilator 40 09/23/17 08:36 82 22 40 09/23/17 08:30 84 22 155/66 98 Mechanical Ventilator 40 09/23/17 08:00 81 21 135/43 98 Mechanical Ventilator 40 09/23/17 08:00 40 09/23/17 08:00 79 09/23/17 07:30 76 19 130/50 98 Mechanical Ventilator 40 09/23/17 07:26 83 20 98 Mechanical Ventilator 50 09/23/17 07:17 80 20 98 Mechanical Ventilator 50 09/23/17 07:00 76 19 130/50 98 Mechanical Ventilator 50 09/23/17 07:00 83 17 50 09/23/17 06:00 86 20 120/49 98 Mechanical Ventilator 50 09/23/17 05:44 88 134/48 09/23/17 05:26 88 25 50 09/23/17 05:00 79 21 118/45 98 Mechanical Ventilator 50 09/23/17 04:00 50 09/23/17 04:00 81 09/23/17 04:00 98.7 85 20 134/44 96 Mechanical Ventilator 50 09/23/17 03:25 72 14 98 Mechanical Ventilator 50 09/23/17 03:15 77 22 97 Mechanical Ventilator 50 09/23/17 03:14 82 22 50 09/23/17 03:00 81 15 127/58 97 Mechanical Ventilator 50 09/23/17 02:00 86 21 130/54 98 Mechanical Ventilator 50 09/23/17 01:07 81 16 50 09/23/17 01:00 79 16 104/44 98 Mechanical Ventilator 50 09/23/17 00:00 80 09/23/17 00:00 98.7 85 17 113/39 98 Mechanical Ventilator 50 09/23/17 00:00 50 09/22/17 23:13 78 17 98 Mechanical Ventilator 50 09/22/17 23:04 79 17 97 Mechanical Ventilator 50 09/22/17 23:03 80 17 60 09/22/17 23:00 80 22 101/37 99 Mechanical Ventilator 50 09/22/17 22:02 89 122/44 09/22/17 22:00 92 22 133/54 98 Mechanical Ventilator 50 09/22/17 21:23 85 17 60 09/22/17 21:00 89 18 111/44 96 Mechanical Ventilator 50 09/22/17 20:00 50 09/22/17 20:00 99.2 92 17 105/40 97 Mechanical Ventilator 50 09/22/17 20:00 88 09/22/17 19:42 87 18 99 Mechanical Ventilator 09/22/17 19:32 83 18 97 Mechanical Ventilator 50 09/22/17 19:29 81 17 60 09/22/17 19:00 80 20 109/37 97 Mechanical Ventilator 60 09/22/17 18:30 86 20 113/46 97 Mechanical Ventilator 60 09/22/17 18:00 86 20 118/46 97 Mechanical Ventilator 60 09/22/17 17:30 89 20 116/43 97 Mechanical Ventilator 60 09/22/17 17:14 93 23 60 09/22/17 17:00 95 23 124/45 97 Mechanical Ventilator 60 09/22/17 16:30 91 23 127/53 97 Mechanical Ventilator 60 09/22/17 16:00 20 09/22/17 16:00 91 09/22/17 16:00 60 09/22/17 16:00 99.1 93 20 118/53 98 Mechanical Ventilator 60 09/22/17 15:44 86 19 97 Mechanical Ventilator 09/22/17 15:30 83 19 128/46 97 Mechanical Ventilator 60 09/22/17 15:27 88 18 97 Mechanical Ventilator 09/22/17 15:27 84 18 60 09/22/17 15:00 85 19 120/44 96 Mechanical Ventilator 60 09/22/17 14:30 85 20 108/39 96 Mechanical Ventilator 60 09/22/17 14:00 86 20 108/42 96 Mechanical Ventilator 60 09/22/17 13:58 90 116/43 09/22/17 13:39 20 09/22/17 13:30 93 20 116/43 96 Mechanical Ventilator 60 09/22/17 13:03 95 121/47 09/22/17 13:00 95 20 114/41 97 Mechanical Ventilator 60 09/22/17 12:51 97 18 60 09/22/17 12:30 97 20 116/42 97 Mechanical Ventilator 60 09/22/17 12:00 60 09/22/17 12:00 99.3 98 24 121/47 97 Mechanical Ventilator 60 09/22/17 12:00 93 09/22/17 11:38 84 18 99 Mechanical Ventilator 09/22/17 11:30 91 19 103/55 96 Mechanical Ventilator 60 Height (Feet): 5 Height (Inches): 8.00 Weight (Pounds): 186 HEENT: other - intubated Respiratory/Chest: lungs clear Cardiovascular: normal rate, regular rhythm, no gallop/murmur Abdomen: soft, non tender Extremities: no edema Microbiology Date/Time Source Procedure Growth Status 09/21/17 10:15 Sputum Gram Stain - Final Complete 09/21/17 10:15 Sputum Sputum Culture - Final NORMAL UPPER RESPIRATORY NIELS PRESENT Complete 09/22/17 05:20 Stool Clostridium difficile Toxin Assay - Final Complete Laboratory Tests Test 09/22/17 15:00 09/23/17 05:25 09/23/17 10:30 Urine Color Pale yellow Urine Appearance Clear Urine pH 5 (4.5-8.0) Urine Specific [place] 1.020 (1.005-1.035) Urine Protein 1+ (NEGATIVE) H Urine Glucose (UA) Negative (NEGATIVE) Urine Ketones Negative (NEGATIVE) Urine Occult Blood 2+ (NEGATIVE) H Urine Nitrite Negative (NEGATIVE) Urine Bilirubin Negative (NEGATIVE) Urine Urobilinogen Normal MG/DL (0.0-1.0) Urine Leukocyte Esterase Negative (NEGATIVE) Urine RBC 2-4 /HPF (0 - 0) H Urine WBC 0-2 /HPF (0 - 0) Urine Squamous Epithelial Cells None /LPF (NONE/OCC) Urine Amorphous Sediment Moderate /LPF (NONE) H Urine Bacteria Few /HPF (NONE) Urine Osmolality 414 mOsm/kg (429-449) L Urine Random Sodium 95 MEQ/L (20-110) Urine Creatinine 34.0 MG/DL (30.0-125.0) White Blood Count 12.7 K/UL (4.8-10.8) H Red Blood Count 3.91 M/UL (4.70-6.10) L Hemoglobin 7.7 G/DL (14.2-18.0) L Hematocrit 25.8 % (42.0-52.0) L Mean Corpuscular Volume 66 FL (80-99) L Mean Corpuscular Hemoglobin 19.7 PG (27.0-31.0) L Mean Corpuscular Hemoglobin Concent 29.8 G/DL (32.0-36.0) L Red Cell Distribution Width 25.3 % (11.6-14.8) H Platelet Count 94 K/UL (150-450) L Mean Platelet Volume 13.8 FL (6.5-10.1) H Neutrophils (%) (Auto) % (45.0-75.0) Lymphocytes (%) (Auto) % (20.0-45.0) Monocytes (%) (Auto) % (1.0-10.0) Eosinophils (%) (Auto) % (0.0-3.0) Basophils (%) (Auto) % (0.0-2.0) Differential Total Cells Counted 100 Neutrophils % (Manual) 93 % (45-75) H Lymphocytes % (Manual) 2 % (20-45) L Monocytes % (Manual) 5 % (1-10) Eosinophils % (Manual) 0 % (0-3) Basophils % (Manual) 0 % (0-2) Band Neutrophils 0 % (0-8) Platelet Estimate Decreased L Platelet Morphology Normal Hypochromasia 1+ Anisocytosis 2+ Microcytosis 2+ Prothrombin Time 11.4 SEC (9.30-11.50) Prothromb Time International Ratio 1.1 (0.9-1.1) Sodium Level 145 MMOL/L (136-145) Potassium Level 3.9 MMOL/L (3.5-5.1) Chloride Level 111 MMOL/L (98-107) H Carbon Dioxide Level 23 MMOL/L (21-32) Anion Gap 11 mmol/L (5-15) Blood Urea Nitrogen 49 mg/dL (7-18) H Creatinine 1.8 MG/DL (0.55-1.30) H Estimat Glomerular Filtration Rate mL/min (>60) Glucose Level 187 MG/DL (74-106) H Calcium Level 8.1 MG/DL (8.5-10.1) L Magnesium Level 2.1 MG/DL (1.8-2.4) Total Bilirubin 0.3 MG/DL (0.2-1.0) Aspartate Amino Transf (AST/SGOT) 30 U/L (15-37) Alanine Aminotransferase (ALT/SGPT) 27 U/L (12-78) Alkaline Phosphatase 63 U/L (46-116) Ammonia 26 umol/L (11-32) Troponin I 0.077 ng/mL (0.000-0.056) Total Protein 6.1 G/DL (6.4-8.2) L Albumin 2.2 G/DL (3.4-5.0) L Globulin 3.9 g/dL Albumin/Globulin Ratio 0.6 (1.0-2.7) L Arterial Blood pH 7.320 (7.350-7.450) Arterial Blood Partial Pressure CO2 44.6 mmHg (35.0-45.0) Arterial Blood Partial Pressure O2 69.9 mmHg (75.0-100.0) L Arterial Blood HCO3 22.5 mmol/L (22.0-26.0) Arterial Blood Oxygen Saturation 90.7 % (92.0-98.0) L Arterial Blood Base Excess -3.5 Scotty Test Positive SHARON LUEVANO Sep 23, 2017 11:26
[2017-09-23] MEDS: fentaNYL Citrate 2500mcg in NS 250ml IV SCH (13:00)
--- NOTE | 2017-09-23 19:36 | General Progress Note ---
Assessment/Plan Assessment/Plan Assessment - OB (+) stools - Microcytic Iron deficient anemia - s/p transfusion - TF intolerance - thrombocytopenia - OBS Recommendations - d/w son - wants to discuss possible EGD with his brother first - follow labs and exam - consider changing opioid sedative to BDZ given TF intolerance - transfuse PRN - IV Fe - PPI, d/c H2B Subjective Allergies: Coded Allergies: No Known Allergies (Unverified , 09/16/17) Subjective Above noted patient intubated lower H&H --> Transfused d/w son , aj, eneida GI w/u Son to discuss with his brother and get back to me re ? EGD patient with small brown stool no BRBPR or Melena reported TF intolerance noted by RN Objective Last 24 Hour Vital Signs Date Time Temp Pulse Resp B/P (MAP) Pulse Ox O2 Delivery O2 Flow Rate FiO2 09/23/17 18:00 86 18 132/44 98 Mechanical Ventilator 50 09/23/17 17:07 81 20 50 09/23/17 17:00 98.9 79 21 135/45 94 Mechanical Ventilator 50 09/23/17 16:00 98.9 82 18 136/48 94 Mechanical Ventilator 50 09/23/17 16:00 50 09/23/17 15:28 78 09/23/17 15:05 79 22 95 Mechanical Ventilator 50 09/23/17 15:02 78 24 50 09/23/17 15:00 84 18 146/51 94 Mechanical Ventilator 50 09/23/17 15:00 50 09/23/17 14:49 78 21 98 Mechanical Ventilator 50 09/23/17 14:33 82 141/52 09/23/17 14:00 82 18 141/52 94 Mechanical Ventilator 50 09/23/17 13:45 79 26 45 09/23/17 13:00 98.9 76 18 136/43 94 Mechanical Ventilator 50 09/23/17 13:00 18 09/23/17 13:00 45 09/23/17 12:48 83 24 50 09/23/17 12:00 80 09/23/17 12:00 75 18 120/75 94 Mechanical Ventilator 50 09/23/17 12:00 50 09/23/17 11:20 81 20 94 Mechanical Ventilator 50 09/23/17 11:09 81 22 92 Mechanical Ventilator 50 09/23/17 11:00 83 24 131/54 95 Mechanical Ventilator 50 09/23/17 10:35 104 25 50 09/23/17 10:30 50 09/23/17 10:00 87 24 153/76 98 Bi-pap 45 09/23/17 09:31 88 26 09/23/17 09:30 98.9 09/23/17 09:30 45 09/23/17 09:30 78 24 130/49 98 Bi-pap 45 09/23/17 09:20 93 09/23/17 09:00 82 24 142/44 98 Mechanical Ventilator 40 09/23/17 09:00 22 09/23/17 08:36 82 22 40 09/23/17 08:30 84 22 155/66 98 Mechanical Ventilator 40 09/23/17 08:00 81 21 135/43 98 Mechanical Ventilator 40 09/23/17 08:00 18 09/23/17 08:00 40 09/23/17 08:00 79 09/23/17 07:30 76 19 130/50 98 Mechanical Ventilator 40 09/23/17 07:26 83 20 98 Mechanical Ventilator 50 09/23/17 07:17 80 20 98 Mechanical Ventilator 50 09/23/17 07:00 76 19 130/50 98 Mechanical Ventilator 50 09/23/17 07:00 83 17 50 09/23/17 06:00 86 20 120/49 98 Mechanical Ventilator 50 09/23/17 05:44 88 134/48 09/23/17 05:26 88 25 50 09/23/17 05:00 79 21 118/45 98 Mechanical Ventilator 50 09/23/17 04:00 50 09/23/17 04:00 81 09/23/17 04:00 98.7 85 20 134/44 96 Mechanical Ventilator 50 09/23/17 03:25 72 14 98 Mechanical Ventilator 50 09/23/17 03:15 77 22 97 Mechanical Ventilator 50 09/23/17 03:14 82 22 50 09/23/17 03:00 81 15 127/58 97 Mechanical Ventilator 50 09/23/17 02:00 86 21 130/54 98 Mechanical Ventilator 50 09/23/17 01:07 81 16 50 09/23/17 01:00 79 16 104/44 98 Mechanical Ventilator 50 09/23/17 00:00 80 09/23/17 00:00 98.7 85 17 113/39 98 Mechanical Ventilator 50 09/23/17 00:00 50 12/26/17 23:13 78 17 98 Mechanical Ventilator 50 09/22/17 23:04 79 17 97 Mechanical Ventilator 50 09/22/17 23:03 80 17 60 09/22/17 23:00 80 22 101/37 99 Mechanical Ventilator 50 09/22/17 22:02 89 122/44 09/22/17 22:00 92 22 133/54 98 Mechanical Ventilator 50 09/22/17 21:23 85 17 60 09/22/17 21:00 89 18 111/44 96 Mechanical Ventilator 50 09/22/17 20:00 50 09/22/17 20:00 99.2 92 17 105/40 97 Mechanical Ventilator 50 09/22/17 20:00 88 09/22/17 19:42 87 18 99 Mechanical Ventilator 09/22/17 19:32 83 18 97 Mechanical Ventilator 50 Intake and Output 09/22/17 09/23/17 19:00 07:00 Intake Total 1054.00 ml 1841.00 ml Output Total 1000 ml 765 ml Balance 54.00 ml 1076.00 ml IV Total 934.00 ml 1591.00 ml Tube Feeding 20 ml 100 ml Other 100 ml 150 ml Output Urine Total 1000 ml 765 ml # Bowel Movements 2 Laboratory Tests 09/23/17 05:25: White Blood Count 12.7H, Red Blood Count 3.91L, Hemoglobin 7.7L, Hematocrit 25.8L, Mean Corpuscular Volume 66L, Mean Corpuscular Hemoglobin 19.7L, Mean Corpuscular Hemoglobin Concent 29.8L, Red Cell Distribution Width 25.3H, Platelet Count 94L, Mean Platelet Volume 13.8H, Neutrophils (%) (Auto) , Lymphocytes (%) (Auto) , Monocytes (%) (Auto) , Eosinophils (%) (Auto) , Basophils (%) (Auto) , Differential Total Cells Counted 100, Neutrophils % ( Manual) 93H, Lymphocytes % (Manual) 2L, Monocytes % (Manual) 5, Eosinophils % ( Manual) 0, Basophils % (Manual) 0, Band Neutrophils 0, Platelet Estimate DecreasedL, Platelet Morphology Normal, Hypochromasia 1+, Anisocytosis 2+, Microcytosis 2+, Prothrombin Time 11.4, Prothromb Time International Ratio 1.1, Sodium Level 145, Potassium Level 3.9, Chloride Level 111H, Carbon Dioxide Level 23, Anion Gap 11, Blood Urea Nitrogen 49H, Creatinine 1.8H, Estimat Glomerular Filtration Rate , Glucose Level 187H, Calcium Level 8.1L, Magnesium Level 2.1, Total Bilirubin 0.3, Aspartate Amino Transf (AST/SGOT) 30, Alanine Aminotransferase (ALT/SGPT) 27, Alkaline Phosphatase 63, Ammonia 26, Troponin I 0.077H, Total Protein 6.1L, Albumin 2.2L, Globulin 3.9, Albumin/Globulin Ratio 0.6L 09/23/17 10:30: Arterial Blood pH 7.320L, Arterial Blood Partial Pressure CO2 44.6, Arterial Blood Partial Pressure O2 69.9L, Arterial Blood HCO3 22.5, Arterial Blood Oxygen Saturation 90.7L, Arterial Blood Base Excess -3.5, Scotty Test Positive Height (Feet): 5 Height (Inches): 8.00 Weight (Pounds): 186 Objective Elderly patient in ICU NCAT, (+) ETT, (+) OGT supple Coarse BS RR Soft abd trace edema (+) TAYO Ramirez Sep 23, 2017 19:36
[2017-09-23] MEDS: Miralax 17gm pkt GT SCH (21:00)
--- NOTE | 2017-09-23 22:15 | Progress Note ---
DATE: 09/23/2017 CARDIOLOGY PROGRESS NOTE SUBJECTIVE: The patient was seen and evaluated. His son was at bedside. The case was discussed in detail with the patient's son as well as nursing staff. The patient is on a weaning trial. He is more awake and alert. He still has congestion and secretions. Monitored rhythm, sinus. OBJECTIVE: VITAL SIGNS: Blood pressure 132/44, heart rate 86, respiratory rate 18, and afebrile. LUNGS: Coarse breath sounds. Scattered rhonchi. HEART: Regular rhythm and rate. Normal S1, S2. ABDOMEN: Soft. EXTREMITIES: No edema. LABORATORY DATA: White count 12.7, hemoglobin 7.7. Potassium 3.9, BUN 49, and creatinine 1.8. Troponin 0.077. ABG, 7.32, 45, and 70. IMPRESSION: 1. Critical and guarded. 2. Status post acute respiratory acidosis. 3. Respiratory failure with hypoxia. 4. Acute renal failure. 5. Paroxysmal sinus tachycardia. 6. Toxic and metabolic encephalopathies. 7. Anemia. 8. Acute myocardial ischemia. 9. History of hypertension. 10. Gastroparesis. 11. Hemoccult-positive stool. PLAN: 1. Antimicrobials. 2. Respiratory hygiene. 3. Bronchodilators. 4. Cautious hydration. 5. No diuretics. 6. Transfuse packed red blood cells. 7. Promotility agents for gastroparesis. Malik Burroughs M.D. DR: Letty JOB#: [id number] CC:
[2017-09-24] VITALS (24 sets, daily range): BP systolic 132–161; BP diastolic 44–96
[2017-09-24] MEDS: Levalbuterol Inh UD 1.25mg/0.5ml HHN SCH ×6 (03:22→22:31)
[2017-09-24] MEDS: Ipratropium 0.02% Inh Soln 2.5ml UD HHN SCH ×6 (03:22→22:31)
[2017-09-24 06:04] LABS: HEMOGLOBIN 9.4 G/DL (14.2-18.0); MEAN CORPUSCULAR VOLUME 70 FL (80-99); PLATELET COUNT 87 K/UL (150-450); RED BLOOD COUNT 4.42 M/UL (4.70-6.10); WHITE BLOOD COUNT 9.9 K/UL (4.8-10.8)
[2017-09-24 06:16] LABS: ANION GAP 8 mmol/L (5-15); BLOOD UREA NITROGEN 37 mg/dL (7-18); CALCIUM 8.2 MG/DL (8.5-10.1); CARBON DIOXIDE 25 MMOL/L (21-32); CHLORIDE 111 MMOL/L (98-107); CREATINE KINASE 87 U/L (26-308); CREATININE 1.3 MG/DL (0.55-1.30); PHOSPHORUS 3.6 MG/DL (2.5-4.9); POTASSIUM 4.5 MMOL/L (3.5-5.1); SODIUM 143 MMOL/L (136-145)
[2017-09-24] MEDS: Piperacillin/Tazobactam 3.375 GM in D5W 55 ML IVPB SCH ×3 (06:25→21:28)
[2017-09-24] MEDS: dilTIAZem HCl 60mg tab GT SCH ×2 (06:25→15:11)
--- NOTE | 2017-09-24 08:13 | Nephrology Progress Note ---
Assessment/Plan Problem List: (1) Respiratory failure (2) Renal insufficiency (3) Sepsis (4) AMI (acute myocardial infarction) (5) Gout (6) Anemia (7) Diverticulosis (8) VICTORIA (acute kidney injury) (9) Pneumonia Plan victoria likely prerenal, lab trend better, reduce iv rate to avoid overload Subjective ROS Limited/Unobtainable: Yes Objective Objective Last 24 Hour Vital Signs Date Time Temp Pulse Resp B/P (MAP) Pulse Ox O2 Delivery O2 Flow Rate FiO2 09/24/17 07:30 67 17 45 09/24/17 07:00 66 19 136/51 99 Mechanical Ventilator 40 09/24/17 06:25 73 143/51 09/24/17 06:00 73 20 148/51 96 Mechanical Ventilator 50 09/24/17 05:16 71 19 45 09/24/17 05:00 83 25 148/47 92 Mechanical Ventilator 50 09/24/17 04:04 50 09/24/17 04:03 67 09/24/17 04:00 98.8 66 19 158/56 94 Mechanical Ventilator 50 09/24/17 03:34 65 14 97 Mechanical Ventilator 45 09/24/17 03:21 72 18 95 Mechanical Ventilator 45 09/24/17 03:20 67 20 45 09/24/17 03:00 66 21 152/65 96 Mechanical Ventilator 50 09/24/17 02:00 82 22 139/96 97 Mechanical Ventilator 50 09/24/17 01:19 83 20 45 09/24/17 01:00 76 20 139/53 97 Mechanical Ventilator 50 09/24/17 00:00 50 09/24/17 00:00 98.9 67 19 145/49 97 Mechanical Ventilator 50 09/23/17 23:22 63 14 96 Mechanical Ventilator 45 09/23/17 23:11 65 20 97 Mechanical Ventilator 45 09/23/17 23:10 63 20 45 09/23/17 23:00 63 17 133/43 97 Mechanical Ventilator 50 09/23/17 22:00 69 17 144/56 97 Mechanical Ventilator 50 09/23/17 21:40 87 122/61 09/23/17 21:18 87 24 45 09/23/17 21:00 87 22 122/61 96 Mechanical Ventilator 50 09/23/17 20:00 50 09/23/17 20:00 99.0 81 18 147/49 99 Mechanical Ventilator 50 09/23/17 20:00 81 09/23/17 19:55 90 20 97 Mechanical Ventilator 45 09/23/17 19:41 77 22 97 Mechanical Ventilator 45 09/23/17 19:29 75 23 45 09/23/17 19:00 88 18 134/46 98 Mechanical Ventilator 50 09/23/17 18:00 86 18 132/44 98 Mechanical Ventilator 50 09/23/17 17:07 81 20 50 09/23/17 17:00 98.9 79 21 135/45 94 Mechanical Ventilator 50 09/23/17 16:00 98.9 82 18 136/48 94 Mechanical Ventilator 50 09/23/17 16:00 50 09/23/17 15:28 78 09/23/17 15:05 79 22 95 Mechanical Ventilator 50 09/23/17 15:02 78 24 50 09/23/17 15:00 84 18 146/51 94 Mechanical Ventilator 50 09/23/17 15:00 50 09/23/17 14:49 78 21 98 Mechanical Ventilator 50 09/23/17 14:33 82 141/52 09/23/17 14:00 82 18 141/52 94 Mechanical Ventilator 50 09/23/17 13:45 79 26 45 09/23/17 13:00 98.9 76 18 136/43 94 Mechanical Ventilator 50 09/23/17 13:00 18 09/23/17 13:00 45 09/23/17 12:48 83 24 50 09/23/17 12:00 80 09/23/17 12:00 75 18 120/75 94 Mechanical Ventilator 50 09/23/17 12:00 50 09/23/17 11:20 81 20 94 Mechanical Ventilator 50 09/23/17 11:09 81 22 92 Mechanical Ventilator 50 09/23/17 11:00 83 24 131/54 95 Mechanical Ventilator 50 09/23/17 10:35 104 25 50 09/23/17 10:30 50 09/23/17 10:00 87 24 153/76 98 Bi-pap 45 09/23/17 09:31 88 26 09/23/17 09:30 98.9 09/23/17 09:30 45 09/23/17 09:30 78 24 130/49 98 Bi-pap 45 09/23/17 09:20 93 09/23/17 09:00 82 24 142/44 98 Mechanical Ventilator 40 09/23/17 09:00 22 12/27/17 08:36 82 22 40 09/23/17 08:30 84 22 155/66 98 Mechanical Ventilator 40 Intake and Output 09/23/17 09/24/17 19:00 07:00 Intake Total 1312.00 ml 1180.00 ml Output Total 1450 ml 1130 ml Balance -138.00 ml 50.00 ml IV Total 1082.00 ml 880.00 ml Tube Feeding 180 ml 0 ml Blood Product 300 ml Other 50 ml Output Urine Total 1450 ml 1130 ml # Bowel Movements 1 Laboratory Tests 09/23/17 10:30: Arterial Blood pH 7.320L, Arterial Blood Partial Pressure CO2 44.6, Arterial Blood Partial Pressure O2 69.9L, Arterial Blood HCO3 22.5, Arterial Blood Oxygen Saturation 90.7L, Arterial Blood Base Excess -3.5, Scotty Test Positive 09/24/17 04:40: White Blood Count 9.9, Red Blood Count 4.42L, Hemoglobin 9.4L, Hematocrit 31.0L , Mean Corpuscular Volume 70L, Mean Corpuscular Hemoglobin 21.3L, Mean Corpuscular Hemoglobin Concent 30.5L, Red Cell Distribution Width 25.0H, Platelet Count 87L, Mean Platelet Volume 12.6H, Neutrophils (%) (Auto) , Lymphocytes (%) (Auto) , Monocytes (%) (Auto) , Eosinophils (%) (Auto) , Basophils (%) (Auto) , Sodium Level 143, Potassium Level 4.5, Chloride Level 111H, Carbon Dioxide Level 25, Anion Gap 8, Blood Urea Nitrogen 37H, Creatinine 1.3, Estimat Glomerular Filtration Rate , Glucose Level 176H, Calcium Level 8.2L , Phosphorus Level 3.6, Magnesium Level 2.0, Total Creatine Kinase 87 Height (Feet): 5 Height (Inches): 8.00 Weight (Pounds): 190 General Appearance: mild distress EENT: normal ENT inspection Neck: normal alignment Cardiovascular: regular rhythm Respiratory/Chest: rhonchi - bilaterally Abdomen: non tender, soft Extremities: trace edema Neurologic: motor weakness NAOMI SIERRA Sep 24, 2017 08:13
--- NOTE | 2017-09-24 08:34 | Critical Care Progress Note ---
Assessment/Plan Assessment/Plan COPD with exacerbation Acute respiratory failure tachycardia Pneumonia acute encephalopathy hypoxemia significant agitation anemia hypertension profound leukocytosis PLAN care noted IV antibiotics respiratory care Ventilatory support and retry wean hold sedation as able supportive care as outlined suction started on feeds ID follow up with persistent leukocytosis- better at present taper steroids and monitor to off as able weaning protocol ordered oxygen therapy check ABG for change as needed prognosis guarded but overall improved medications/laboratory data/nursing notes/ICU care reviewed in detail note reviewed and edited care discussed with RN and RT ICU time spent 36 minutes Critical Care - Subjective Interval Events: care noted and reviewed did not tolerate wean yesterday opens eyes comfortable at present ROS Limited/Unobtainable: Yes Condition: critical EKG Rhythm: Sinus Rhythm Residuals: minimal Tube Feeding Tolerated: yes I&O: Intake and Output 09/23/17 09/24/17 19:00 07:00 Intake Total 1312.00 ml 1180.00 ml Output Total 1450 ml 1130 ml Balance -138.00 ml 50.00 ml IV Total 1082.00 ml 880.00 ml Tube Feeding 180 ml 0 ml Blood Product 300 ml Other 50 ml Output Urine Total 1450 ml 1130 ml # Bowel Movements 1 Critical Care - Objective ET-Tube: 7.5 ET Position: 23 Last 24 Hour Vital Signs Date Time Temp Pulse Resp B/P (MAP) Pulse Ox O2 Delivery O2 Flow Rate FiO2 09/24/17 07:38 65 14 97 Mechanical Ventilator 45 09/24/17 07:30 67 17 45 09/24/17 07:28 77 19 99 Mechanical Ventilator 45 09/24/17 07:28 77 19 45 09/24/17 07:00 66 19 136/51 99 Mechanical Ventilator 40 09/24/17 06:25 73 143/51 09/24/17 06:00 73 20 148/51 96 Mechanical Ventilator 50 09/24/17 05:16 71 19 45 09/24/17 05:00 83 25 148/47 92 Mechanical Ventilator 50 09/24/17 04:04 50 09/24/17 04:03 67 09/24/17 04:00 98.8 66 19 158/56 94 Mechanical Ventilator 50 09/24/17 03:34 65 14 97 Mechanical Ventilator 45 09/24/17 03:21 72 18 95 Mechanical Ventilator 45 09/24/17 03:20 67 20 45 09/24/17 03:00 66 21 152/65 96 Mechanical Ventilator 50 09/24/17 02:00 82 22 139/96 97 Mechanical Ventilator 50 09/24/17 01:19 83 20 45 09/24/17 01:00 76 20 139/53 97 Mechanical Ventilator 50 09/24/17 00:00 50 09/24/17 00:00 98.9 67 19 145/49 97 Mechanical Ventilator 50 09/23/17 23:22 63 14 96 Mechanical Ventilator 45 09/23/17 23:11 65 20 97 Mechanical Ventilator 45 09/23/17 23:10 63 20 45 09/23/17 23:00 63 17 133/43 97 Mechanical Ventilator 50 09/23/17 22:00 69 17 144/56 97 Mechanical Ventilator 50 09/23/17 21:40 87 122/61 09/23/17 21:18 87 24 45 09/23/17 21:00 87 22 122/61 96 Mechanical Ventilator 50 09/23/17 20:00 50 09/23/17 20:00 99.0 81 18 147/49 99 Mechanical Ventilator 50 09/23/17 20:00 81 09/23/17 19:55 90 20 97 Mechanical Ventilator 45 09/23/17 19:41 77 22 97 Mechanical Ventilator 45 09/23/17 19:29 75 23 45 09/23/17 19:00 88 18 134/46 98 Mechanical Ventilator 50 09/23/17 18:00 86 18 132/44 98 Mechanical Ventilator 50 09/23/17 17:07 81 20 50 09/23/17 17:00 98.9 79 21 135/45 94 Mechanical Ventilator 50 09/23/17 16:00 98.9 82 18 136/48 94 Mechanical Ventilator 50 09/23/17 16:00 50 09/23/17 15:28 78 09/23/17 15:05 79 22 95 Mechanical Ventilator 50 09/23/17 15:02 78 24 50 09/23/17 15:00 84 18 146/51 94 Mechanical Ventilator 50 09/23/17 15:00 50 09/23/17 14:49 78 21 98 Mechanical Ventilator 50 09/23/17 14:33 82 141/52 09/23/17 14:00 82 18 141/52 94 Mechanical Ventilator 50 09/23/17 13:45 79 26 45 09/23/17 13:00 98.9 76 18 136/43 94 Mechanical Ventilator 50 09/23/17 13:00 18 09/23/17 13:00 45 09/23/17 12:48 83 24 50 09/23/17 12:00 80 09/23/17 12:00 75 18 120/75 94 Mechanical Ventilator 50 09/23/17 12:00 50 09/23/17 11:20 81 20 94 Mechanical Ventilator 50 09/23/17 11:09 81 22 92 Mechanical Ventilator 50 09/23/17 11:00 83 24 131/54 95 Mechanical Ventilator 50 09/23/17 10:35 104 25 50 09/23/17 10:30 50 09/23/17 10:00 87 24 153/76 98 Bi-pap 45 09/23/17 09:31 88 26 09/23/17 09:30 98.9 09/23/17 09:30 45 09/23/17 09:30 78 24 130/49 98 Bi-pap 45 09/23/17 09:20 93 09/23/17 09:00 82 24 142/44 98 Mechanical Ventilator 40 09/23/17 09:00 22 09/23/17 08:36 82 22 40 Labs: Labs Test 09/22/17 05:00 09/22/17 07:58 09/22/17 15:00 09/23/17 05:25 White Blood Count 21.0 K/UL (4.8-10.8) 12.7 K/UL (4.8-10.8) Red Blood Count 4.10 M/UL (4.70-6.10) 3.91 M/UL (4.70-6.10) Hemoglobin 8.0 G/DL (14.2-18.0) 7.7 G/DL (14.2-18.0) Hematocrit 27.1 % (42.0-52.0) 25.8 % (42.0-52.0) Mean Corpuscular Volume 66 FL (80-99) 66 FL (80-99) Mean Corpuscular Hemoglobin 19.5 PG (27.0-31.0) 19.7 PG (27.0-31.0) Mean Corpuscular Hemoglobin Concent 29.5 G/DL (32.0-36.0) 29.8 G/DL (32.0-36.0) Red Cell Distribution Width 24.9 % (11.6-14.8) 25.3 % (11.6-14.8) Platelet Count 112 K/UL (150-450) 94 K/UL (150-450) Mean Platelet Volume 11.4 FL (6.5-10.1) 13.8 FL (6.5-10.1) Neutrophils (%) (Auto) % (45.0-75.0) % (45.0-75.0) Lymphocytes (%) (Auto) % (20.0-45.0) % (20.0-45.0) Monocytes (%) (Auto) % (1.0-10.0) % (1.0-10.0) Eosinophils (%) (Auto) % (0.0-3.0) % (0.0-3.0) Basophils (%) (Auto) % (0.0-2.0) % (0.0-2.0) Differential Total Cells Counted 100 100 Neutrophils % (Manual) 93 % (45-75) 93 % (45-75) Lymphocytes % (Manual) 2 % (20-45) 2 % (20-45) Monocytes % (Manual) 5 % (1-10) 5 % (1-10) Eosinophils % (Manual) 0 % (0-3) 0 % (0-3) Basophils % (Manual) 0 % (0-2) 0 % (0-2) Band Neutrophils 0 % (0-8) 0 % (0-8) Platelet Estimate Decreased Decreased Platelet Morphology Normal Normal Hypochromasia 1+ 1+ Anisocytosis 2+ 2+ Microcytosis 2+ 2+ Sodium Level 144 MMOL/L (136-145) 145 MMOL/L (136-145) Potassium Level 2.8 MMOL/L (3.5-5.1) 3.9 MMOL/L (3.5-5.1) Chloride Level 109 MMOL/L (98-107) 111 MMOL/L (98-107) Carbon Dioxide Level 21 MMOL/L (21-32) 23 MMOL/L (21-32) Anion Gap 15 mmol/L (5-15) 11 mmol/L (5-15) Blood Urea Nitrogen 48 mg/dL (7-18) 49 mg/dL (7-18) Creatinine 2.8 MG/DL (0.55-1.30) 1.8 MG/DL (0.55-1.30) Estimat Glomerular Filtration Rate mL/min (>60) mL/min (>60) Glucose Level 258 MG/DL (74-106) 187 MG/DL (74-106) Calcium Level 8.3 MG/DL (8.5-10.1) 8.1 MG/DL (8.5-10.1) Magnesium Level 2.1 MG/DL (1.8-2.4) 2.1 MG/DL (1.8-2.4) Total Bilirubin 0.4 MG/DL (0.2-1.0) 0.3 MG/DL (0.2-1.0) Aspartate Amino Transf (AST/SGOT) 26 U/L (15-37) 30 U/L (15-37) Alanine Aminotransferase (ALT/SGPT) 25 U/L (12-78) 27 U/L (12-78) Alkaline Phosphatase 67 U/L (46-116) 63 U/L (46-116) Troponin I 0.084 ng/mL (0.000-0.056) 0.077 ng/mL (0.000-0.056) Total Protein 6.3 G/DL (6.4-8.2) 6.1 G/DL (6.4-8.2) Albumin 2.3 G/DL (3.4-5.0) 2.2 G/DL (3.4-5.0) Globulin 4.0 g/dL 3.9 g/dL Albumin/Globulin Ratio 0.6 (1.0-2.7) 0.6 (1.0-2.7) Arterial Blood pH 7.463 (7.350-7.450) Arterial Blood Partial Pressure CO2 29.1 mmHg (35.0-45.0) Arterial Blood Partial Pressure O2 88.9 mmHg (75.0-100.0) Arterial Blood HCO3 20.4 mmol/L (22.0-26.0) Arterial Blood Oxygen Saturation 96.5 % (92.0-98.0) Arterial Blood Base Excess -2.8 Scotty Test Positive Urine Color Pale yellow Urine Appearance Clear Urine pH 5 (4.5-8.0) Urine Specific [place] 1.020 (1.005-1.035) Urine Protein 1+ (NEGATIVE) Urine Glucose (UA) Negative (NEGATIVE) Urine Ketones Negative (NEGATIVE) Urine Occult Blood 2+ (NEGATIVE) Urine Nitrite Negative (NEGATIVE) Urine Bilirubin Negative (NEGATIVE) Urine Urobilinogen Normal MG/DL (0.0-1.0) Urine Leukocyte Esterase Negative (NEGATIVE) Urine RBC 2-4 /HPF (0 - 0) Urine WBC 0-2 /HPF (0 - 0) Urine Squamous Epithelial Cells None /LPF (NONE/OCC) Urine Amorphous Sediment Moderate /LPF (NONE) Urine Bacteria Few /HPF (NONE) Urine Osmolality 414 mOsm/kg (429-449) Urine Random Sodium 95 MEQ/L (20-110) Urine Creatinine 34.0 MG/DL (30.0-125.0) Prothrombin Time 11.4 SEC (9.30-11.50) Prothromb Time International Ratio 1.1 (0.9-1.1) Ammonia 26 umol/L (11-32) Test 09/23/17 10:30 09/24/17 04:40 Arterial Blood pH 7.320 (7.350-7.450) Arterial Blood Partial Pressure CO2 44.6 mmHg (35.0-45.0) Arterial Blood Partial Pressure O2 69.9 mmHg (75.0-100.0) Arterial Blood HCO3 22.5 mmol/L (22.0-26.0) Arterial Blood Oxygen Saturation 90.7 % (92.0-98.0) Arterial Blood Base Excess -3.5 Scotty Test Positive White Blood Count 9.9 K/UL (4.8-10.8) Red Blood Count 4.42 M/UL (4.70-6.10) Hemoglobin 9.4 G/DL (14.2-18.0) Hematocrit 31.0 % (42.0-52.0) Mean Corpuscular Volume 70 FL (80-99) Mean Corpuscular Hemoglobin 21.3 PG (27.0-31.0) Mean Corpuscular Hemoglobin Concent 30.5 G/DL (32.0-36.0) Red Cell Distribution Width 25.0 % (11.6-14.8) Platelet Count 87 K/UL (150-450) Mean Platelet Volume 12.6 FL (6.5-10.1) Neutrophils (%) (Auto) % (45.0-75.0) Lymphocytes (%) (Auto) % (20.0-45.0) Monocytes (%) (Auto) % (1.0-10.0) Eosinophils (%) (Auto) % (0.0-3.0) Basophils (%) (Auto) % (0.0-2.0) Sodium Level 143 MMOL/L (136-145) Potassium Level 4.5 MMOL/L (3.5-5.1) Chloride Level 111 MMOL/L (98-107) Carbon Dioxide Level 25 MMOL/L (21-32) Anion Gap 8 mmol/L (5-15) Blood Urea Nitrogen 37 mg/dL (7-18) Creatinine 1.3 MG/DL (0.55-1.30) Estimat Glomerular Filtration Rate mL/min (>60) Glucose Level 176 MG/DL (74-106) Calcium Level 8.2 MG/DL (8.5-10.1) Phosphorus Level 3.6 MG/DL (2.5-4.9) Magnesium Level 2.0 MG/DL (1.8-2.4) Total Creatine Kinase 87 U/L (26-308) Objective: WDWN NAD opens eyes ETT in place reduced breath sounds bilaterally with some residual rhonchi [id number] without MRG NABS nontender no HSM OGT in place no CCE nonfocal sedated but awake at present skin noted lines reviewed reviewed and edited Micro: Microbiology Date/Time Source Procedure Growth Status 09/21/17 10:15 Sputum Gram Stain - Final Complete 09/21/17 10:15 Sputum Sputum Culture - Final NORMAL UPPER RESPIRATORY NIELS PRESENT Complete 09/22/17 05:20 Stool Clostridium difficile Toxin Assay - Final Complete STEVE CARPIO Sep 24, 2017 08:34
[2017-09-24] MEDS: Pantoprazole Inj IVP SCH ×2 (08:53→21:38)
[2017-09-24] MEDS: 1/2NS w/KCl 20mEq 1000ml 1,000 ML IV SCH (08:53)
[2017-09-24] MEDS: Montelukast 10mg tablet GT SCH (08:54)
[2017-09-24] MEDS: Solu-MEDROL 40mg Inj IVP SCH (08:54)
[2017-09-24] MEDS: Azithromycin 500 MG in D5W 275 ML IV SCH (08:54)
--- NOTE | 2017-09-24 09:05 | Diagnostic Imaging Report ---
Indication: Abdominal pain Technique: Supine view of the abdomen Comparison: 09/22/2017 Findings: Again demonstrated is a nasogastric tube, tip projected at the level of the gastric body. Considerable gas is seen in upper limits of normal caliber large and small bowel loops. Considerable stool is seen in the rectum, distending it. Again demonstrated is evidence of prior vertebral augmentation of L3 and L5. There is a Mcdonnell catheter in place. Findings are overall unchanged Impression: Satisfactory position of nasogastric tube Possible rectal fecal impaction 09/23/2017 Nonspecific prominent bowel gas without arian distention
--- NOTE | 2017-09-24 09:19 | Infectious Diseases Prog Note ---
Assessment/Plan Assessment/Plan O; 1. pneumonia 2. leucocytosis resolved 3. COPD 4. gout 5. thrombocytopenia 6. anemia 7. Hypoxic respiratory failure P 1. continue Zosyn Subjective ROS Limited/Unobtainable: Yes Respiratory: Reports: other - on weaning process Allergies: Coded Allergies: No Known Allergies (Unverified , 09/16/17) Objective Vital Signs Last 24 Hour Vital Signs Date Time Temp Pulse Resp B/P (MAP) Pulse Ox O2 Delivery O2 Flow Rate FiO2 09/24/17 09:00 45 09/24/17 09:00 97 09/24/17 09:00 73 29 45 09/24/17 08:00 99.0 68 17 143/51 97 Mechanical Ventilator 40 09/24/17 08:00 45 09/24/17 07:38 65 14 97 Mechanical Ventilator 45 09/24/17 07:28 77 19 99 Mechanical Ventilator 45 09/24/17 07:28 77 19 45 09/24/17 07:00 66 19 136/51 99 Mechanical Ventilator 40 09/24/17 06:25 73 143/51 09/24/17 06:00 73 20 148/51 96 Mechanical Ventilator 50 09/24/17 05:16 71 19 45 09/24/17 05:00 83 25 148/47 92 Mechanical Ventilator 50 09/24/17 04:04 50 09/24/17 04:03 67 09/24/17 04:00 98.8 66 19 158/56 94 Mechanical Ventilator 50 09/24/17 03:34 65 14 97 Mechanical Ventilator 45 09/24/17 03:21 72 18 95 Mechanical Ventilator 45 09/24/17 03:20 67 20 45 09/24/17 03:00 66 21 152/65 96 Mechanical Ventilator 50 09/24/17 02:00 82 22 139/96 97 Mechanical Ventilator 50 09/24/17 01:19 83 20 45 09/24/17 01:00 76 20 139/53 97 Mechanical Ventilator 50 09/24/17 00:00 50 09/24/17 00:00 98.9 67 19 145/49 97 Mechanical Ventilator 50 09/23/17 23:22 63 14 96 Mechanical Ventilator 45 09/23/17 23:11 65 20 97 Mechanical Ventilator 45 09/23/17 23:10 63 20 45 09/23/17 23:00 63 17 133/43 97 Mechanical Ventilator 50 09/23/17 22:00 69 17 144/56 97 Mechanical Ventilator 50 09/23/17 21:40 87 122/61 09/23/17 21:18 87 24 45 09/23/17 21:00 87 22 122/61 96 Mechanical Ventilator 50 09/23/17 20:00 50 09/23/17 20:00 99.0 81 18 147/49 99 Mechanical Ventilator 50 09/23/17 20:00 81 09/23/17 19:55 90 20 97 Mechanical Ventilator 45 09/23/17 19:41 77 22 97 Mechanical Ventilator 45 09/23/17 19:29 75 23 45 09/23/17 19:00 88 18 134/46 98 Mechanical Ventilator 50 09/23/17 18:00 86 18 132/44 98 Mechanical Ventilator 50 09/23/17 17:07 81 20 50 09/23/17 17:00 98.9 79 21 135/45 94 Mechanical Ventilator 50 09/23/17 16:00 98.9 82 18 136/48 94 Mechanical Ventilator 50 09/23/17 16:00 50 09/23/17 15:28 78 09/23/17 15:05 79 22 95 Mechanical Ventilator 50 09/23/17 15:02 78 24 50 09/23/17 15:00 84 18 146/51 94 Mechanical Ventilator 50 09/23/17 15:00 50 09/23/17 14:49 78 21 98 Mechanical Ventilator 50 09/23/17 14:33 82 141/52 09/23/17 14:00 82 18 141/52 94 Mechanical Ventilator 50 09/23/17 13:45 79 26 45 09/23/17 13:00 98.9 76 18 136/43 94 Mechanical Ventilator 50 09/23/17 13:00 18 09/23/17 13:00 45 09/23/17 12:48 83 24 50 09/23/17 12:00 80 09/23/17 12:00 75 18 120/75 94 Mechanical Ventilator 50 09/23/17 12:00 50 09/23/17 11:20 81 20 94 Mechanical Ventilator 50 09/23/17 11:09 81 22 92 Mechanical Ventilator 50 09/23/17 11:00 83 24 131/54 95 Mechanical Ventilator 50 09/23/17 10:35 104 25 50 09/23/17 10:30 50 09/23/17 10:00 87 24 153/76 98 Bi-pap 45 09/23/17 09:31 88 26 09/23/17 09:30 98.9 09/23/17 09:30 45 09/23/17 09:30 78 24 130/49 98 Bi-pap 45 09/23/17 09:20 93 Height (Feet): 5 Height (Inches): 8.00 Weight (Pounds): 190 HEENT: other - orally intubated Respiratory/Chest: rhonchi - bilaterally Cardiovascular: normal rate Abdomen: soft, non tender, other - orogastric tube Extremities: no edema Neurologic/Psychiatric: alert, responsive Microbiology Date/Time Source Procedure Growth Status 09/21/17 10:15 Sputum Gram Stain - Final Complete 09/21/17 10:15 Sputum Sputum Culture - Final NORMAL UPPER RESPIRATORY NIELS PRESENT Complete 09/22/17 05:20 Stool Clostridium difficile Toxin Assay - Final Complete Laboratory Tests Test 09/23/17 10:30 09/24/17 04:40 Arterial Blood pH 7.320 (7.350-7.450) Arterial Blood Partial Pressure CO2 44.6 mmHg (35.0-45.0) Arterial Blood Partial Pressure O2 69.9 mmHg (75.0-100.0) L Arterial Blood HCO3 22.5 mmol/L (22.0-26.0) Arterial Blood Oxygen Saturation 90.7 % (92.0-98.0) L Arterial Blood Base Excess -3.5 Scotty Test Positive White Blood Count 9.9 K/UL (4.8-10.8) Red Blood Count 4.42 M/UL (4.70-6.10) L Hemoglobin 9.4 G/DL (14.2-18.0) L Hematocrit 31.0 % (42.0-52.0) L Mean Corpuscular Volume 70 FL (80-99) L Mean Corpuscular Hemoglobin 21.3 PG (27.0-31.0) L Mean Corpuscular Hemoglobin Concent 30.5 G/DL (32.0-36.0) L Red Cell Distribution Width 25.0 % (11.6-14.8) H Platelet Count 87 K/UL (150-450) L Mean Platelet Volume 12.6 FL (6.5-10.1) H Neutrophils (%) (Auto) % (45.0-75.0) Lymphocytes (%) (Auto) % (20.0-45.0) Monocytes (%) (Auto) % (1.0-10.0) Eosinophils (%) (Auto) % (0.0-3.0) Basophils (%) (Auto) % (0.0-2.0) Sodium Level 143 MMOL/L (136-145) Potassium Level 4.5 MMOL/L (3.5-5.1) Chloride Level 111 MMOL/L (98-107) H Carbon Dioxide Level 25 MMOL/L (21-32) Anion Gap 8 mmol/L (5-15) Blood Urea Nitrogen 37 mg/dL (7-18) H Creatinine 1.3 MG/DL (0.55-1.30) Estimat Glomerular Filtration Rate mL/min (>60) Glucose Level 176 MG/DL (74-106) H Calcium Level 8.2 MG/DL (8.5-10.1) L Phosphorus Level 3.6 MG/DL (2.5-4.9) Magnesium Level 2.0 MG/DL (1.8-2.4) Total Creatine Kinase 87 U/L (26-308) Current Medications Medications (Trade) Dose Ordered Sig/Duong Route PRN Reason Start Time Stop Time Status Last Admin Dose Admin Acetaminophen (Tylenol) 650 mg Q4H PRN NG MILD PAIN(1-3)/FEVER 09/21/17 22:00 10/21/17 21:59 Azithromycin 500 mg/Dextrose 275 ml @ 275 mls/hr Q24HRS IV 09/21/17 09:00 09/27/17 09:59 09/24/17 08:54 Diltiazem HCl (Cardizem) 60 mg EVERY 8 HOURS GT 09/22/17 14:00 10/20/17 21:14 09/24/17 06:25 Fentanyl Citrate 2500 mcg/Sodium Chloride 250 ml @ 0 mls/hr Q24H IV 09/22/17 13:00 09/29/17 12:59 09/22/17 13:39 Ipratropium Peck (Atrovent) 500 mcg Q4H PRN HHN Breakthru Shortness of Breath 09/22/17 15:00 09/27/17 23:59 Ipratropium Peck (Atrovent) 500 mcg Q4HRT HHN 09/20/17 15:00 09/25/17 14:59 09/24/17 07:28 Levalbuterol HCl (Xopenex) 0.63 mg Q4H PRN HHN Shortness of Breath 09/20/17 11:00 09/25/17 10:59 09/20/17 11:58 Levalbuterol HCl (Xopenex) 0.63 mg Q4HRT HHN 09/20/17 15:00 09/25/17 14:59 09/24/17 07:28 Levothyroxine Sodium (Synthroid) 50 mcg ACBREAKFAST GT 09/22/17 06:30 10/17/17 06:29 09/24/17 06:25 Methylprednisolone Sodium Succinate (Solu-MEDROL) 40 mg DAILY IVP 09/23/17 09:00 10/19/17 09:59 09/24/17 08:54 Montelukast Sodium (Singulair) 10 mg DAILY GT 09/22/17 09:00 10/17/17 08:59 09/24/17 08:54 Pantoprazole (Protonix) 40 mg EVERY 12 HOURS IVP 09/18/17 21:00 10/16/17 22:59 09/24/17 08:53 Piperacillin Sod/ Tazobactam Sod 3.375 gm/Dextrose 55 ml @ 13.75 mls/ hr Q8HR IVPB 09/23/17 09:00 09/30/17 08:59 09/24/17 06:25 Polyethylene Glycol (Miralax) 17 gm BEDTIME GT 09/21/17 21:00 10/19/17 20:59 09/22/17 21:01 Sodium 1,000 ml @ 40 mls/hr Q24H IV 09/24/17 08:30 10/24/17 08:29 09/24/17 08:53 CIRO GODFREY Sep 24, 2017 09:19
--- NOTE | 2017-09-24 10:49 | Diagnostic Imaging Report ---
APPROVED REPORT CPT Code: 50245 Present Symptoms Shortness of breath BILATERAL LOWER EXTREMITY VENOUS DUPLEX: Imaging reveals a patent deep venous system bilaterally. There is no evidence of thrombus within the femoral, popliteal or tibial segments. The greater saphenous veins are also within normal limits. Doppler indicates normal spontaneous flow within these segments.
[2017-09-24] MEDS: fentaNYL Citrate 2500mcg in NS 250ml IV SCH (13:00)
[2017-09-24] MEDS ORDERED: Fleet's Enema 133ml RECTAL ONE (17:00)
[2017-09-24] MEDS: Metoclopramide 10mg/2ml Inj IVP SCH ×2 (17:51→23:44)
[2017-09-24] MEDS: Miralax 17gm pkt GT SCH (21:26)
[2017-09-24] MEDS: Metoprolol 25mg tab NG SCH (21:27)
--- NOTE | 2017-09-24 22:37 | General Progress Note ---
Assessment/Plan Assessment/Plan Assessment - OB (+) stools - Microcytic Iron deficient anemia - s/p transfusion - TF intolerance - thrombocytopenia - OBS - ? constipation Recommendations - follow labs and exam - Enema trial - transfuse PRN - IV Fe - PPI Subjective Allergies: Coded Allergies: No Known Allergies (Unverified , 09/16/17) Subjective Above noted undergoing weaning trials TF held since yesterday, due to residuals KUB noted Objective Last 24 Hour Vital Signs Date Time Temp Pulse Resp B/P (MAP) Pulse Ox O2 Delivery O2 Flow Rate FiO2 09/24/17 22:31 60 17 98 Mechanical Ventilator 45 09/24/17 22:29 60 17 45 09/24/17 21:27 60 159/61 09/24/17 20:57 60 18 45 09/24/17 19:00 61 19 144/58 97 Mechanical Ventilator 40 09/24/17 18:51 66 18 97 Mechanical Ventilator 45 09/24/17 18:43 69 18 45 09/24/17 18:41 69 24 98 Mechanical Ventilator 45 09/24/17 18:00 78 19 144/50 97 Mechanical Ventilator 40 09/24/17 17:21 70 21 45 09/24/17 17:00 68 19 146/58 97 Mechanical Ventilator 40 09/24/17 16:31 98.9 09/24/17 16:00 69 19 148/87 97 Mechanical Ventilator 40 09/24/17 16:00 71 09/24/17 16:00 98.7 09/24/17 16:00 45 09/24/17 15:13 69 21 97 Mechanical Ventilator 45 09/24/17 15:11 66 149/51 09/24/17 15:03 66 16 99 Mechanical Ventilator 45 09/24/17 15:02 67 16 45 09/24/17 15:00 68 19 149/51 97 Mechanical Ventilator 40 09/24/17 14:00 66 19 154/51 97 Mechanical Ventilator 40 09/24/17 13:27 67 25 45 09/24/17 13:20 67 26 45 09/24/17 13:00 68 19 155/49 97 Mechanical Ventilator 40 09/24/17 13:00 20 09/24/17 12:00 74 09/24/17 12:00 98.9 68 18 147/58 97 Mechanical Ventilator 40 09/24/17 12:00 45 09/24/17 11:45 71 16 99 Mechanical Ventilator 45 09/24/17 11:34 70 16 99 Mechanical Ventilator 45 09/24/17 11:00 68 19 138/54 99 Mechanical Ventilator 40 09/24/17 10:57 72 20 45 09/24/17 10:00 76 19 136/51 99 Mechanical Ventilator 40 09/24/17 09:47 77 27 45 09/24/17 09:00 45 09/24/17 09:00 97 09/24/17 09:00 73 29 45 09/24/17 09:00 98.9 69 17 148/51 97 Mechanical Ventilator 40 09/24/17 08:00 99.0 68 17 143/51 97 Mechanical Ventilator 40 09/24/17 08:00 45 09/24/17 08:00 72 09/24/17 07:38 65 14 97 Mechanical Ventilator 45 09/24/17 07:28 77 19 99 Mechanical Ventilator 45 09/24/17 07:28 77 19 45 09/24/17 07:00 66 19 136/51 99 Mechanical Ventilator 40 09/24/17 06:25 73 143/51 09/24/17 06:00 73 20 148/51 96 Mechanical Ventilator 50 09/24/17 05:16 71 19 45 09/24/17 05:00 83 25 148/47 92 Mechanical Ventilator 50 09/24/17 04:04 50 09/24/17 04:03 67 09/24/17 04:00 98.8 66 19 158/56 94 Mechanical Ventilator 50 09/24/17 03:34 65 14 97 Mechanical Ventilator 45 09/24/17 03:21 72 18 95 Mechanical Ventilator 45 09/24/17 03:20 67 20 45 09/24/17 03:00 66 21 152/65 96 Mechanical Ventilator 50 09/24/17 02:00 82 22 139/96 97 Mechanical Ventilator 50 09/24/17 01:19 83 20 45 09/24/17 01:00 76 20 139/53 97 Mechanical Ventilator 50 09/24/17 00:00 50 09/24/17 00:00 98.9 67 19 145/49 97 Mechanical Ventilator 50 09/23/17 23:22 63 14 96 Mechanical Ventilator 45 09/23/17 23:11 65 20 97 Mechanical Ventilator 45 09/23/17 23:10 63 20 45 09/23/17 23:00 63 17 133/43 97 Mechanical Ventilator 50 Intake and Output 09/23/17 09/24/17 19:00 07:00 Intake Total 1312.00 ml 1193.75 ml Output Total 1450 ml 1130 ml Balance -138.00 ml 63.75 ml IV Total 1082.00 ml 893.75 ml Tube Feeding 180 ml 0 ml Blood Product 300 ml Other 50 ml Output Urine Total 1450 ml 1130 ml # Bowel Movements 2 Laboratory Tests 09/24/17 04:40: White Blood Count 9.9, Red Blood Count 4.42L, Hemoglobin 9.4L, Hematocrit 31.0L , Mean Corpuscular Volume 70L, Mean Corpuscular Hemoglobin 21.3L, Mean Corpuscular Hemoglobin Concent 30.5L, Red Cell Distribution Width 25.0H, Platelet Count 87L, Mean Platelet Volume 12.6H, Neutrophils (%) (Auto) , Lymphocytes (%) (Auto) , Monocytes (%) (Auto) , Eosinophils (%) (Auto) , Basophils (%) (Auto) , Sodium Level 143, Potassium Level 4.5, Chloride Level 111H, Carbon Dioxide Level 25, Anion Gap 8, Blood Urea Nitrogen 37H, Creatinine 1.3, Estimat Glomerular Filtration Rate , Glucose Level 176H, Calcium Level 8.2L , Phosphorus Level 3.6, Magnesium Level 2.0, Total Creatine Kinase 87 Height (Feet): 5 Height (Inches): 8.00 Weight (Pounds): 190 Objective Elderly patient in ICU NCAT, (+) ETT, (+) OGT supple Coarse BS RR Soft abd trace edema (+) TAYO Ramirez Sep 24, 2017 22:37
[2017-09-25] VITALS (24 sets, daily range): BP systolic 138–165; BP diastolic 45–84
--- NOTE | 2017-09-25 02:00 | Progress Note ---
DATE: 09/24/2017 CARDIOLOGY PROGRESS NOTE SUBJECTIVE: The patient remains in the intensive care unit. Condition remains critical. Prognosis guarded. Case was discussed with his son. The patient is alert and interactive, but has not done well with weaning trials today. He also has abdominal distention due to fecal impaction and gastroparesis as well. OBJECTIVE: VITAL SIGNS: Blood pressure 136/51, pulse 66, respirations 19, and afebrile. LUNGS: Coarse breath sounds. Scattered rhonchi. HEART: Regular rhythm and rate. Normal S1 and S2. There is a fourth heart sound. ABDOMEN: Soft. EXTREMITIES: No edema. LABORATORY DATA: White count 9.9 and hemoglobin 9.4. Sodium 143, potassium 4.5, bicarbonate 25, BUN 37, and creatinine 1.3. Troponin 0.077. Albumin 2.2. Hemoglobin post transfusion is 9.4. IMPRESSION: 1. Sepsis with shock, recovering. 2. Anemia status post gastrointestinal bleed, now stabilized. 3. Respiratory failure with acute respiratory acidosis. 4. Healthcare-acquired pneumonia due to aspiration. 5. Fecal impaction. 6. Gastroparesis. 7. Severe protein-calorie malnutrition. 8. Acute renal failure, resolving. 9. Acute myocardial ischemia, resolving. PLAN: 1. Disimpact, start feedings with promotility agents. 2. Continue weaning trials. 3. Monitor volume status. 4. Cardiorenal parameters. 5. Diuresis as needed. 6. DVT and stress ulcer prophylaxes. 7. Hold anti-platelet therapy. 8. Family members considering endoscopy based on progress over the next 24 hours. 9. Discontinue diltiazem in favor of beta-brad therapy. Malik Burroughs M.D. DR: Jess JOB#: [id number] CC:
[2017-09-25] MEDS: Levalbuterol Inh UD 1.25mg/0.5ml HHN SCH ×3 (03:07→10:51)
[2017-09-25] MEDS: Ipratropium 0.02% Inh Soln 2.5ml UD HHN SCH ×3 (03:07→10:50)
[2017-09-25] MEDS: Piperacillin/Tazobactam 3.375 GM in D5W 55 ML IVPB SCH (05:37)
[2017-09-25] MEDS: Metoclopramide 10mg/2ml Inj IVP SCH ×4 (05:37→23:52)
[2017-09-25 06:09] LABS: HEMATOCRIT 32.4 % (42.0-52.0); HEMOGLOBIN 9.9 G/DL (14.2-18.0); MEAN CORPUSCULAR VOLUME 70 FL (80-99); PLATELET COUNT 70 K/UL (150-450); RED CELL DISTRIBUTION WIDTH 25.8 % (11.6-14.8); WHITE BLOOD COUNT 13.2 K/UL (4.8-10.8)
[2017-09-25 06:45] LABS: ANION GAP 8 mmol/L (5-15); BLOOD UREA NITROGEN 34 mg/dL (7-18); CALCIUM 8.4 MG/DL (8.5-10.1); CARBON DIOXIDE 26 MMOL/L (21-32); CHLORIDE 109 MMOL/L (98-107); CREATININE 1.2 MG/DL (0.55-1.30); POTASSIUM 4.5 MMOL/L (3.5-5.1); SODIUM 143 MMOL/L (136-145)
[2017-09-25] MEDS: 1/2NS w/KCl 20mEq 1000ml 1,000 ML IV SCH (09:16)
[2017-09-25] MEDS: Azithromycin 500 MG in D5W 275 ML IV SCH (09:16)
[2017-09-25] MEDS: Montelukast 10mg tablet GT SCH (09:17)
[2017-09-25] MEDS: Pantoprazole Inj IVP SCH ×2 (09:17→21:13)
[2017-09-25] MEDS: Solu-MEDROL 40mg Inj IVP SCH (09:17)
[2017-09-25] MEDS: Metoprolol 25mg tab NG SCH ×2 (09:18→21:14)
--- NOTE | 2017-09-25 12:05 | Infectious Diseases Prog Note ---
Assessment/Plan Assessment/Plan antibiotics : zosyn A 1. pneumonia improving 2. leucocytosis improving 3. COPD 4. gout 5. respiratory failure 6. renal failure improving 7. thrombocytopenia P 1. d/c zosyn 2. start and continue po levoquin 4 more days 3. will follow up cultures Subjective ROS Limited/Unobtainable: Yes Allergies: Coded Allergies: No Known Allergies (Unverified , 09/16/17) Objective Vital Signs Last 24 Hour Vital Signs Date Time Temp Pulse Resp B/P (MAP) Pulse Ox O2 Delivery O2 Flow Rate FiO2 09/25/17 11:50 35 09/25/17 11:50 86 30 09/25/17 11:00 84 23 158/61 96 Mechanical Ventilator 40 09/25/17 10:59 85 22 99 Mechanical Ventilator 40 09/25/17 10:51 83 23 98 Mechanical Ventilator 40 09/25/17 10:49 84 24 40 09/25/17 10:00 94 30 163/67 96 Mechanical Ventilator 40 09/25/17 09:18 86 152/52 09/25/17 09:15 40 09/25/17 09:14 82 24 40 09/25/17 09:00 97 29 152/52 98 Mechanical Ventilator 40 09/25/17 08:00 99.0 79 18 151/58 96 Mechanical Ventilator 40 09/25/17 08:00 40 09/25/17 08:00 79 09/25/17 07:23 81 18 99 Mechanical Ventilator 45 09/25/17 07:15 80 14 98 Mechanical Ventilator 45 09/25/17 07:14 84 14 45 09/25/17 07:00 73 20 141/49 98 Mechanical Ventilator 40 09/25/17 06:00 81 20 141/46 95 Mechanical Ventilator 40 09/25/17 05:02 61 23 45 09/25/17 05:00 64 18 158/58 98 Mechanical Ventilator 40 09/25/17 04:00 65 09/25/17 04:00 98.3 65 18 156/58 98 Mechanical Ventilator 40 09/25/17 04:00 40 09/25/17 03:14 60 18 99 Mechanical Ventilator 45 09/25/17 03:07 56 14 98 Mechanical Ventilator 45 09/25/17 03:06 59 14 45 09/25/17 03:00 64 19 138/50 97 Mechanical Ventilator 40 09/25/17 02:00 66 15 156/51 97 Mechanical Ventilator 40 09/25/17 01:26 66 18 45 09/25/17 01:00 65 20 154/56 98 Mechanical Ventilator 40 09/25/17 00:00 98.7 65 22 139/47 98 Mechanical Ventilator 40 09/25/17 00:00 40 09/25/17 00:00 65 09/24/17 23:00 62 23 144/46 98 Mechanical Ventilator 40 09/24/17 22:43 61 20 99 Mechanical Ventilator 45 09/24/17 22:31 60 17 98 Mechanical Ventilator 45 09/24/17 22:29 60 17 45 09/24/17 22:00 65 20 161/61 98 Mechanical Ventilator 40 09/24/17 21:27 60 159/61 09/24/17 21:00 64 21 159/61 98 Mechanical Ventilator 40 09/24/17 20:57 60 18 45 09/24/17 20:00 40 09/24/17 20:00 54 09/24/17 20:00 98.7 54 16 132/44 97 Mechanical Ventilator 40 09/24/17 19:00 61 19 144/58 97 Mechanical Ventilator 40 09/24/17 18:51 66 18 97 Mechanical Ventilator 45 09/24/17 18:43 69 18 45 09/24/17 18:41 69 24 98 Mechanical Ventilator 45 09/24/17 18:00 78 19 144/50 97 Mechanical Ventilator 40 09/24/17 17:21 70 21 45 09/24/17 17:00 68 19 146/58 97 Mechanical Ventilator 40 09/24/17 16:31 98.9 09/24/17 16:00 69 19 148/87 97 Mechanical Ventilator 40 09/24/17 16:00 71 09/24/17 16:00 98.7 09/24/17 16:00 45 09/24/17 15:13 69 21 97 Mechanical Ventilator 45 09/24/17 15:11 66 149/51 09/24/17 15:03 66 16 99 Mechanical Ventilator 45 09/24/17 15:02 67 16 45 09/24/17 15:00 68 19 149/51 97 Mechanical Ventilator 40 09/24/17 14:00 66 19 154/51 97 Mechanical Ventilator 40 09/24/17 13:27 67 25 45 09/24/17 13:20 67 26 45 09/24/17 13:00 68 19 155/49 97 Mechanical Ventilator 40 09/24/17 13:00 20 Height (Feet): 5 Height (Inches): 8.00 Weight (Pounds): 185 HEENT: other - intubated Respiratory/Chest: lungs clear Cardiovascular: normal rate, regular rhythm, no gallop/murmur Abdomen: soft, non tender Extremities: no edema Laboratory Tests Test 09/25/17 05:00 White Blood Count 13.2 K/UL (4.8-10.8) H Red Blood Count 4.60 M/UL (4.70-6.10) L Hemoglobin 9.9 G/DL (14.2-18.0) L Hematocrit 32.4 % (42.0-52.0) L Mean Corpuscular Volume 70 FL (80-99) L Mean Corpuscular Hemoglobin 21.5 PG (27.0-31.0) L Mean Corpuscular Hemoglobin Concent 30.6 G/DL (32.0-36.0) L Red Cell Distribution Width 25.8 % (11.6-14.8) H Platelet Count 70 K/UL (150-450) L Mean Platelet Volume 12.5 FL (6.5-10.1) H Neutrophils (%) (Auto) % (45.0-75.0) Lymphocytes (%) (Auto) % (20.0-45.0) Monocytes (%) (Auto) % (1.0-10.0) Eosinophils (%) (Auto) % (0.0-3.0) Basophils (%) (Auto) % (0.0-2.0) Sodium Level 143 MMOL/L (136-145) Potassium Level 4.5 MMOL/L (3.5-5.1) Chloride Level 109 MMOL/L (98-107) H Carbon Dioxide Level 26 MMOL/L (21-32) Anion Gap 8 mmol/L (5-15) Blood Urea Nitrogen 34 mg/dL (7-18) H Creatinine 1.2 MG/DL (0.55-1.30) Estimat Glomerular Filtration Rate mL/min (>60) Glucose Level 154 MG/DL (74-106) H Calcium Level 8.4 MG/DL (8.5-10.1) L Magnesium Level 1.9 MG/DL (1.8-2.4) Pro-B-Type Natriuretic Peptide 2989 pg/mL (0-125) H SHARON LUEVANO Sep 25, 2017 12:05
--- NOTE | 2017-09-25 12:26 | Diagnostic Imaging Report ---
Indication: Abnormal breath sounds Comparison: 09/21/2017 A single view chest radiograph was obtained. Findings: Patchy mild infiltrates demonstrated within the left lung. Heart size is normal. Tubes and lines are stable. IMPRESSION: Patchy infiltrates. No significant change
[2017-09-25] MEDS: fentaNYL Citrate 2500mcg in NS 250ml IV SCH (13:00)
[2017-09-25] MEDS ORDERED: Piperacillin/Tazobactam 3.375 GM in NS 110 ML IVPB SCH (14:00)
--- NOTE | 2017-09-25 14:39 | Nephrology Progress Note ---
Assessment/Plan Problem List: (1) Respiratory failure (2) Renal insufficiency (3) Sepsis (4) AMI (acute myocardial infarction) (5) Gout (6) Anemia (7) Diverticulosis (8) VICTORIA (acute kidney injury) (9) Pneumonia Plan victoria likely prerenal, lab trend better, reduce iv rate to avoid overload Subjective ROS Limited/Unobtainable: Yes Objective Objective Last 24 Hour Vital Signs Date Time Temp Pulse Resp B/P (MAP) Pulse Ox O2 Delivery O2 Flow Rate FiO2 09/25/17 14:00 68 21 151/57 96 Mechanical Ventilator 35 09/25/17 13:00 80 23 154/52 96 Mechanical Ventilator 35 09/25/17 12:49 85 28 09/25/17 12:00 81 09/25/17 12:00 99.1 87 24 143/51 96 Mechanical Ventilator 35 09/25/17 11:50 35 09/25/17 11:50 86 30 09/25/17 11:00 84 23 158/61 96 Mechanical Ventilator 40 09/25/17 10:59 85 22 99 Mechanical Ventilator 40 09/25/17 10:51 83 23 98 Mechanical Ventilator 40 09/25/17 10:49 84 24 40 09/25/17 10:00 94 30 163/67 96 Mechanical Ventilator 40 09/25/17 09:50 95 09/25/17 09:18 86 152/52 09/25/17 09:15 40 09/25/17 09:14 82 24 40 09/25/17 09:00 97 29 152/52 98 Mechanical Ventilator 40 09/25/17 08:00 99.0 79 18 151/58 96 Mechanical Ventilator 40 09/25/17 08:00 40 09/25/17 08:00 79 09/25/17 07:23 81 18 99 Mechanical Ventilator 45 09/25/17 07:15 80 14 98 Mechanical Ventilator 45 09/25/17 07:14 84 14 45 09/25/17 07:00 73 20 141/49 98 Mechanical Ventilator 40 09/25/17 06:00 81 20 141/46 95 Mechanical Ventilator 40 09/25/17 05:02 61 23 45 09/25/17 05:00 64 18 158/58 98 Mechanical Ventilator 40 09/25/17 04:00 65 09/25/17 04:00 98.3 65 18 156/58 98 Mechanical Ventilator 40 09/25/17 04:00 40 09/25/17 03:14 60 18 99 Mechanical Ventilator 45 09/25/17 03:07 56 14 98 Mechanical Ventilator 45 09/25/17 03:06 59 14 45 09/25/17 03:00 64 19 138/50 97 Mechanical Ventilator 40 09/25/17 02:00 66 15 156/51 97 Mechanical Ventilator 40 09/25/17 01:26 66 18 45 09/25/17 01:00 65 20 154/56 98 Mechanical Ventilator 40 09/25/17 00:00 98.7 65 22 139/47 98 Mechanical Ventilator 40 09/25/17 00:00 40 09/25/17 00:00 65 09/24/17 23:00 62 23 144/46 98 Mechanical Ventilator 40 09/24/17 22:43 61 20 99 Mechanical Ventilator 45 09/24/17 22:31 60 17 98 Mechanical Ventilator 45 09/24/17 22:29 60 17 45 09/24/17 22:00 65 20 161/61 98 Mechanical Ventilator 40 09/24/17 21:27 60 159/61 09/24/17 21:00 64 21 159/61 98 Mechanical Ventilator 40 09/24/17 20:57 60 18 45 09/24/17 20:00 40 09/24/17 20:00 54 09/24/17 20:00 98.7 54 16 132/44 97 Mechanical Ventilator 40 09/24/17 19:00 61 19 144/58 97 Mechanical Ventilator 40 09/24/17 18:51 66 18 97 Mechanical Ventilator 45 09/24/17 18:43 69 18 45 09/24/17 18:41 69 24 98 Mechanical Ventilator 45 09/24/17 18:00 78 19 144/50 97 Mechanical Ventilator 40 09/24/17 17:21 70 21 45 09/24/17 17:00 68 19 146/58 97 Mechanical Ventilator 40 09/24/17 16:31 98.9 09/24/17 16:00 69 19 148/87 97 Mechanical Ventilator 40 09/24/17 16:00 71 09/24/17 16:00 98.7 09/24/17 16:00 45 09/24/17 15:13 69 21 97 Mechanical Ventilator 45 09/24/17 15:11 66 149/51 09/24/17 15:03 66 16 99 Mechanical Ventilator 45 12/28/17 15:02 67 16 45 09/24/17 15:00 68 19 149/51 97 Mechanical Ventilator 40 Intake and Output 09/24/17 09/25/17 19:00 07:00 Intake Total 538.75 ml 908.75 ml Output Total 1200 ml 790 ml Balance -661.25 ml 118.75 ml Free Water 30 ml IV Total 508.75 ml 548.75 ml Tube Feeding 0 ml 360 ml Output Urine Total 1200 ml 790 ml # Bowel Movements 2 2 Laboratory Tests 09/25/17 05:00: White Blood Count 13.2H, Red Blood Count 4.60L, Hemoglobin 9.9L, Hematocrit 32.4L, Mean Corpuscular Volume 70L, Mean Corpuscular Hemoglobin 21.5L, Mean Corpuscular Hemoglobin Concent 30.6L, Red Cell Distribution Width 25.8H, Platelet Count 70L, Mean Platelet Volume 12.5H, Neutrophils (%) (Auto) , Lymphocytes (%) (Auto) , Monocytes (%) (Auto) , Eosinophils (%) (Auto) , Basophils (%) (Auto) , Sodium Level 143, Potassium Level 4.5, Chloride Level 109H, Carbon Dioxide Level 26, Anion Gap 8, Blood Urea Nitrogen 34H, Creatinine 1.2, Estimat Glomerular Filtration Rate , Glucose Level 154H, Calcium Level 8.4L , Magnesium Level 1.9, Pro-B-Type Natriuretic Peptide 2989H 09/25/17 12:50: Arterial Blood pH 7.463H, Arterial Blood Partial Pressure CO2 38.8, Arterial Blood Partial Pressure O2 78.3, Arterial Blood HCO3 27.2H, Arterial Blood Oxygen Saturation 95.5, Arterial Blood Base Excess 3.2, Scotty Test Positive Height (Feet): 5 Height (Inches): 8.00 Weight (Pounds): 185 General Appearance: mild distress EENT: normal ENT inspection Neck: normal alignment Cardiovascular: regular rhythm Respiratory/Chest: rhonchi - bilaterally Abdomen: non tender Extremities: trace edema Neurologic: public service administrator II-XII grossly normal NAOMI SIERRA Sep 25, 2017 14:38
--- NOTE | 2017-09-25 15:00 | Progress Note ---
DATE: 09/25/2017 CARDIOLOGY PROGRESS NOTE SUBJECTIVE: The patient seen and evaluated. Family members at bedside. The patient is on a weaning trial at this time and is tolerating this well without distress. OBJECTIVE: VITAL SIGNS: Blood pressure 158/61, pulse 84, respiratory rate 23. NECK: Supple. LUNGS: Orally intubated. No accessory muscle use. Coarse breath sounds. No wheezing. HEART: Regular rhythm and rate. Normal S1 and S2. ABDOMEN: Soft. No edema. LABORATORY AND DIAGNOSTIC DATA: Hemoglobin stable at 9.9 and white count 13.2. Potassium 4.5, BUN 34 and creatinine 1.2. Magnesium 1.9. Pro-natriuretic peptide 2900. Chest x-rays pending. IMPRESSION: Remains critical, but improved. Prognosis still guarded. Concern respiratory failure aspiration risk, recovering sepsis status post shock, acute myocardial ischemia, hypertensive heart disease, protein-calorie malnutrition, anemia, recovering renal failure. PLAN: Nutrition by feeding tube, weaning protocol. Discontinue intravenous fluids. No diuresis at this time. Hold endoscopy. Continue beta-brad. Serial hemoglobin. Malik Burroughs M.D. DR: CORNELL JOB#: [id number] CC:
--- NOTE | 2017-09-25 17:48 | Critical Care Progress Note ---
Assessment/Plan Assessment/Plan COPD with exacerbation Acute respiratory failure tachycardia Pneumonia acute encephalopathy hypoxemia significant agitation anemia hypertension profound leukocytosis PLAN care noted IV antibiotics respiratory care as is monitor after wean off vent supportive care as outlined suction started on feeds ID follow up taper steroids further weaning successful oxygen therapy check ABG for change as needed prognosis improved medications/laboratory data/nursing notes/ICU care reviewed in detail note reviewed and edited care discussed with RN and RT ICU time spent 38 minutes Critical Care - Subjective Interval Events: seen earlier awake second visit doing well post extubation ABG noted and reviewed d/w family and updated ROS Limited/Unobtainable: Yes Condition: improving EKG Rhythm: Sinus Rhythm I&O: Intake and Output 09/24/17 09/25/17 19:00 07:00 Intake Total 538.75 ml 908.75 ml Output Total 1200 ml 790 ml Balance -661.25 ml 118.75 ml Free Water 30 ml IV Total 508.75 ml 548.75 ml Tube Feeding 0 ml 360 ml Output Urine Total 1200 ml 790 ml # Bowel Movements 2 2 Critical Care - Objective CXR: patchy infiltrates ET-Tube: 7.5 ET Position: 23 Last 24 Hour Vital Signs Date Time Temp Pulse Resp B/P (MAP) Pulse Ox O2 Delivery O2 Flow Rate FiO2 09/25/17 16:00 98.9 70 23 140/48 93 Nasal Cannula 4.0 09/25/17 16:00 76 09/25/17 15:24 83 24 96 Nasal Cannula 4.0 36 09/25/17 15:15 85 25 93 Nasal Cannula 4.0 36 09/25/17 15:05 Nasal Cannula 4.0 36 09/25/17 15:00 75 23 140/60 94 Mechanical Ventilator 35 09/25/17 14:51 74 28 09/25/17 14:00 68 21 151/57 96 Mechanical Ventilator 35 09/25/17 13:00 80 23 154/52 96 Mechanical Ventilator 35 09/25/17 12:49 85 28 09/25/17 12:00 81 09/25/17 12:00 99.1 87 24 143/51 96 Mechanical Ventilator 35 09/25/17 11:50 35 09/25/17 11:50 86 30 09/25/17 11:00 84 23 158/61 96 Mechanical Ventilator 40 09/25/17 10:59 85 22 99 Mechanical Ventilator 40 09/25/17 10:51 83 23 98 Mechanical Ventilator 40 09/25/17 10:49 84 24 40 09/25/17 10:00 94 30 163/67 96 Mechanical Ventilator 40 09/25/17 09:50 95 09/25/17 09:18 86 152/52 09/25/17 09:15 40 09/25/17 09:14 82 24 40 09/25/17 09:00 97 29 152/52 98 Mechanical Ventilator 40 09/25/17 08:00 99.0 79 18 151/58 96 Mechanical Ventilator 40 09/25/17 08:00 40 09/25/17 08:00 79 09/25/17 07:23 81 18 99 Mechanical Ventilator 45 09/25/17 07:15 80 14 98 Mechanical Ventilator 45 09/25/17 07:14 84 14 45 09/25/17 07:00 73 20 141/49 98 Mechanical Ventilator 40 09/25/17 06:00 81 20 141/46 95 Mechanical Ventilator 40 09/25/17 05:02 61 23 45 09/25/17 05:00 64 18 158/58 98 Mechanical Ventilator 40 09/25/17 04:00 65 09/25/17 04:00 98.3 65 18 156/58 98 Mechanical Ventilator 40 09/25/17 04:00 40 09/25/17 03:14 60 18 99 Mechanical Ventilator 45 09/25/17 03:07 56 14 98 Mechanical Ventilator 45 09/25/17 03:06 59 14 45 09/25/17 03:00 64 19 138/50 97 Mechanical Ventilator 40 09/25/17 02:00 66 15 156/51 97 Mechanical Ventilator 40 09/25/17 01:26 66 18 45 09/25/17 01:00 65 20 154/56 98 Mechanical Ventilator 40 09/25/17 00:00 98.7 65 22 139/47 98 Mechanical Ventilator 40 09/25/17 00:00 40 09/25/17 00:00 65 09/24/17 23:00 62 23 144/46 98 Mechanical Ventilator 40 09/24/17 22:43 61 20 99 Mechanical Ventilator 45 09/24/17 22:31 60 17 98 Mechanical Ventilator 45 09/24/17 22:29 60 17 45 09/24/17 22:00 65 20 161/61 98 Mechanical Ventilator 40 09/24/17 21:27 60 159/61 09/24/17 21:00 64 21 159/61 98 Mechanical Ventilator 40 09/24/17 20:57 60 18 45 09/24/17 20:00 40 09/24/17 20:00 54 09/24/17 20:00 98.7 54 16 132/44 97 Mechanical Ventilator 40 09/24/17 19:00 61 19 144/58 97 Mechanical Ventilator 40 09/24/17 18:51 66 18 97 Mechanical Ventilator 45 09/24/17 18:43 69 18 45 09/24/17 18:41 69 24 98 Mechanical Ventilator 45 09/24/17 18:00 78 19 144/50 97 Mechanical Ventilator 40 Labs: Labs Test 09/23/17 05:25 09/23/17 10:30 09/24/17 04:40 09/25/17 05:00 White Blood Count 12.7 K/UL (4.8-10.8) 9.9 K/UL (4.8-10.8) 13.2 K/UL (4.8-10.8) Red Blood Count 3.91 M/UL (4.70-6.10) 4.42 M/UL (4.70-6.10) 4.60 M/UL (4.70-6.10) Hemoglobin 7.7 G/DL (14.2-18.0) 9.4 G/DL (14.2-18.0) 9.9 G/DL (14.2-18.0) Hematocrit 25.8 % (42.0-52.0) 31.0 % (42.0-52.0) 32.4 % (42.0-52.0) Mean Corpuscular Volume 66 FL (80-99) 70 FL (80-99) 70 FL (80-99) Mean Corpuscular Hemoglobin 19.7 PG (27.0-31.0) 21.3 PG (27.0-31.0) 21.5 PG (27.0-31.0) Mean Corpuscular Hemoglobin Concent 29.8 G/DL (32.0-36.0) 30.5 G/DL (32.0-36.0) 30.6 G/DL (32.0-36.0) Red Cell Distribution Width 25.3 % (11.6-14.8) 25.0 % (11.6-14.8) 25.8 % (11.6-14.8) Platelet Count 94 K/UL (150-450) 87 K/UL (150-450) 70 K/UL (150-450) Mean Platelet Volume 13.8 FL (6.5-10.1) 12.6 FL (6.5-10.1) 12.5 FL (6.5-10.1) Neutrophils (%) (Auto) % (45.0-75.0) % (45.0-75.0) % (45.0-75.0) Lymphocytes (%) (Auto) % (20.0-45.0) % (20.0-45.0) % (20.0-45.0) Monocytes (%) (Auto) % (1.0-10.0) % (1.0-10.0) % (1.0-10.0) Eosinophils (%) (Auto) % (0.0-3.0) % (0.0-3.0) % (0.0-3.0) Basophils (%) (Auto) % (0.0-2.0) % (0.0-2.0) % (0.0-2.0) Differential Total Cells Counted 100 Neutrophils % (Manual) 93 % (45-75) Lymphocytes % (Manual) 2 % (20-45) Monocytes % (Manual) 5 % (1-10) Eosinophils % (Manual) 0 % (0-3) Basophils % (Manual) 0 % (0-2) Band Neutrophils 0 % (0-8) Platelet Estimate Decreased Platelet Morphology Normal Hypochromasia 1+ Anisocytosis 2+ Microcytosis 2+ Prothrombin Time 11.4 SEC (9.30-11.50) Prothromb Time International Ratio 1.1 (0.9-1.1) Sodium Level 145 MMOL/L (136-145) 143 MMOL/L (136-145) 143 MMOL/L (136-145) Potassium Level 3.9 MMOL/L (3.5-5.1) 4.5 MMOL/L (3.5-5.1) 4.5 MMOL/L (3.5-5.1) Chloride Level 111 MMOL/L (98-107) 111 MMOL/L (98-107) 109 MMOL/L (98-107) Carbon Dioxide Level 23 MMOL/L (21-32) 25 MMOL/L (21-32) 26 MMOL/L (21-32) Anion Gap 11 mmol/L (5-15) 8 mmol/L (5-15) 8 mmol/L (5-15) Blood Urea Nitrogen 49 mg/dL (7-18) 37 mg/dL (7-18) 34 mg/dL (7-18) Creatinine 1.8 MG/DL (0.55-1.30) 1.3 MG/DL (0.55-1.30) 1.2 MG/DL (0.55-1.30) Estimat Glomerular Filtration Rate mL/min (>60) mL/min (>60) mL/min (>60) Glucose Level 187 MG/DL (74-106) 176 MG/DL (74-106) 154 MG/DL (74-106) Calcium Level 8.1 MG/DL (8.5-10.1) 8.2 MG/DL (8.5-10.1) 8.4 MG/DL (8.5-10.1) Magnesium Level 2.1 MG/DL (1.8-2.4) 2.0 MG/DL (1.8-2.4) 1.9 MG/DL (1.8-2.4) Total Bilirubin 0.3 MG/DL (0.2-1.0) Aspartate Amino Transf (AST/SGOT) 30 U/L (15-37) Alanine Aminotransferase (ALT/SGPT) 27 U/L (12-78) Alkaline Phosphatase 63 U/L (46-116) Ammonia 26 umol/L (11-32) Troponin I 0.077 ng/mL (0.000-0.056) Total Protein 6.1 G/DL (6.4-8.2) Albumin 2.2 G/DL (3.4-5.0) Globulin 3.9 g/dL Albumin/Globulin Ratio 0.6 (1.0-2.7) Arterial Blood pH 7.320 (7.350-7.450) Arterial Blood Partial Pressure CO2 44.6 mmHg (35.0-45.0) Arterial Blood Partial Pressure O2 69.9 mmHg (75.0-100.0) Arterial Blood HCO3 22.5 mmol/L (22.0-26.0) Arterial Blood Oxygen Saturation 90.7 % (92.0-98.0) Arterial Blood Base Excess -3.5 Scotty Test Positive Phosphorus Level 3.6 MG/DL (2.5-4.9) Total Creatine Kinase 87 U/L (26-308) Pro-B-Type Natriuretic Peptide 2989 pg/mL (0-125) Test 09/25/17 12:50 Arterial Blood pH 7.463 (7.350-7.450) Arterial Blood Partial Pressure CO2 38.8 mmHg (35.0-45.0) Arterial Blood Partial Pressure O2 78.3 mmHg (75.0-100.0) Arterial Blood HCO3 27.2 mmol/L (22.0-26.0) Arterial Blood Oxygen Saturation 95.5 % (92.0-98.0) Arterial Blood Base Excess 3.2 Scotty Test Positive Objective: WDWN NAD opens eyes ETT in place (and now removed reduced breath sounds bilaterally with further clearing [id number] without MRG NABS nontender no HSM OGT in place no CCE nonfocal awake and comfortable skin noted lines reviewed reviewed and edited STEVE CARPIO Sep 25, 2017 17:48
--- NOTE | 2017-09-25 19:16 | General Progress Note ---
Assessment/Plan Assessment/Plan Assessment - OB (+) stools - Microcytic Iron deficient anemia - s/p transfusion - TF intolerance - thrombocytopenia - OBS - constipation Recommendations - follow labs and exam - laxative trial - Increase reglan dose - transfuse PRN - IV Fe - PPI Subjective Allergies: Coded Allergies: No Known Allergies (Unverified , 09/16/17) Subjective Above noted undergoing weaning trials showing intermittent high residuals KUB noted Objective Last 24 Hour Vital Signs Date Time Temp Pulse Resp B/P (MAP) Pulse Ox O2 Delivery O2 Flow Rate FiO2 09/25/17 17:00 75 20 144/53 95 Nasal Cannula 4.0 09/25/17 16:00 98.9 70 23 140/48 93 Nasal Cannula 4.0 09/25/17 16:00 76 09/25/17 15:24 83 24 96 Nasal Cannula 4.0 36 09/25/17 15:15 85 25 93 Nasal Cannula 4.0 36 09/25/17 15:05 Nasal Cannula 4.0 36 09/25/17 15:00 75 23 140/60 94 Mechanical Ventilator 35 09/25/17 14:51 74 28 09/25/17 14:00 68 21 151/57 96 Mechanical Ventilator 35 09/25/17 13:00 80 23 154/52 96 Mechanical Ventilator 35 09/25/17 12:49 85 28 09/25/17 12:00 81 09/25/17 12:00 99.1 87 24 143/51 96 Mechanical Ventilator 35 09/25/17 11:50 35 09/25/17 11:50 86 30 09/25/17 11:00 84 23 158/61 96 Mechanical Ventilator 40 09/25/17 10:59 85 22 99 Mechanical Ventilator 40 09/25/17 10:51 83 23 98 Mechanical Ventilator 40 09/25/17 10:49 84 24 40 09/25/17 10:00 94 30 163/67 96 Mechanical Ventilator 40 09/25/17 09:50 95 09/25/17 09:18 86 152/52 09/25/17 09:15 40 09/25/17 09:14 82 24 40 09/25/17 09:00 97 29 152/52 98 Mechanical Ventilator 40 09/25/17 08:00 99.0 79 18 151/58 96 Mechanical Ventilator 40 09/25/17 08:00 40 09/25/17 08:00 79 09/25/17 07:23 81 18 99 Mechanical Ventilator 45 09/25/17 07:15 80 14 98 Mechanical Ventilator 45 09/25/17 07:14 84 14 45 09/25/17 07:00 73 20 141/49 98 Mechanical Ventilator 40 09/25/17 06:00 81 20 141/46 95 Mechanical Ventilator 40 09/25/17 05:02 61 23 45 09/25/17 05:00 64 18 158/58 98 Mechanical Ventilator 40 09/25/17 04:00 65 09/25/17 04:00 98.3 65 18 156/58 98 Mechanical Ventilator 40 09/25/17 04:00 40 09/25/17 03:14 60 18 99 Mechanical Ventilator 45 09/25/17 03:07 56 14 98 Mechanical Ventilator 45 09/25/17 03:06 59 14 45 09/25/17 03:00 64 19 138/50 97 Mechanical Ventilator 40 09/25/17 02:00 66 15 156/51 97 Mechanical Ventilator 40 09/25/17 01:26 66 18 45 09/25/17 01:00 65 20 154/56 98 Mechanical Ventilator 40 09/25/17 00:00 98.7 65 22 139/47 98 Mechanical Ventilator 40 09/25/17 00:00 40 09/25/17 00:00 65 09/24/17 23:00 62 23 144/46 98 Mechanical Ventilator 40 09/24/17 22:43 61 20 99 Mechanical Ventilator 45 09/24/17 22:31 60 17 98 Mechanical Ventilator 45 09/24/17 22:29 60 17 45 09/24/17 22:00 65 20 161/61 98 Mechanical Ventilator 40 09/24/17 21:27 60 159/61 09/24/17 21:00 64 21 159/61 98 Mechanical Ventilator 40 09/24/17 20:57 60 18 45 09/24/17 20:00 40 09/24/17 20:00 54 09/24/17 20:00 98.7 54 16 132/44 97 Mechanical Ventilator 40 Intake and Output 09/24/17 09/25/17 19:00 07:00 Intake Total 538.75 ml 908.75 ml Output Total 1200 ml 790 ml Balance -661.25 ml 118.75 ml Free Water 30 ml IV Total 508.75 ml 548.75 ml Tube Feeding 0 ml 360 ml Output Urine Total 1200 ml 790 ml # Bowel Movements 2 2 Laboratory Tests 09/25/17 05:00: White Blood Count 13.2H, Red Blood Count 4.60L, Hemoglobin 9.9L, Hematocrit 32.4L, Mean Corpuscular Volume 70L, Mean Corpuscular Hemoglobin 21.5L, Mean Corpuscular Hemoglobin Concent 30.6L, Red Cell Distribution Width 25.8H, Platelet Count 70L, Mean Platelet Volume 12.5H, Neutrophils (%) (Auto) , Lymphocytes (%) (Auto) , Monocytes (%) (Auto) , Eosinophils (%) (Auto) , Basophils (%) (Auto) , Sodium Level 143, Potassium Level 4.5, Chloride Level 109H, Carbon Dioxide Level 26, Anion Gap 8, Blood Urea Nitrogen 34H, Creatinine 1.2, Estimat Glomerular Filtration Rate , Glucose Level 154H, Calcium Level 8.4L , Magnesium Level 1.9, Pro-B-Type Natriuretic Peptide 2989H 09/25/17 12:50: Arterial Blood pH 7.463H, Arterial Blood Partial Pressure CO2 38.8, Arterial Blood Partial Pressure O2 78.3, Arterial Blood HCO3 27.2H, Arterial Blood Oxygen Saturation 95.5, Arterial Blood Base Excess 3.2, Scotty Test Positive Height (Feet): 5 Height (Inches): 8.00 Weight (Pounds): 185 Objective Elderly patient in ICU NCAT, (+) ETT, (+) OGT supple Coarse BS RR Soft abd trace edema (+) TAYO Ramirez Sep 25, 2017 19:16
[2017-09-25] MEDS ORDERED: Sorbitol Solution UD 30ml ORAL ONE (20:00)
[2017-09-25] MEDS: Miralax 17gm pkt GT SCH (21:13)
[2017-09-25] MEDS: Piperacillin/Tazobactam 3.375 GM in NS 110 ML IVPB SCH (21:43)
[2017-09-26] VITALS (24 sets, daily range): BP systolic 141–184; BP diastolic 43–104
--- NOTE | 2017-09-26 06:00 | Progress Note ---
DATE: 09/26/2017 CARDIOLOGY PROGRESS NOTE SUBJECTIVE: The patient remains in the intensive care unit. The case was reviewed with his family members at bedside yesterday. The patient was extubated yesterday afternoon. He remains on oxygen supplement with no respiratory distress. He is on a Ventimask at 50%. Respiratory rate 28 to 30 unlabored. There are thin secretions. OBJECTIVE: VITAL SIGNS: Blood pressure 164/104, pulse 85, respirations 30, afebrile. LUNGS: Bilateral breath sounds. Scattered rhonchi. HEART: Regular rhythm and rate. Normal S1, S2. There is a fourth heart sound. ABDOMEN: Soft. EXTREMITIES: Trace edema. LABORATORY DATA: Reviewed. IMPRESSION: 1. Respiratory failure, status post extubation. 2. Acute on chronic diastolic congestive heart failure. 3. Anemia. 4. Status post sepsis with shock. 5. Acute myocardial ischemia, improved. 6. Hypertensive heart disease. 7. Protein-calorie malnutrition, resolved. 8. Renal failure. PLAN: Diurese. No IV fluids now. Nutrition by feeding tube. Swallow evaluation pending. Serial hemoglobin. Antibiotics. Respiratory hygiene. Close observation for recurrent aspiration. Adilson Mckay JOB#: [id number] CC:
[2017-09-26] MEDS: Metoclopramide 10mg/2ml Inj IVP SCH ×3 (06:11→18:15)
[2017-09-26] MEDS: Piperacillin/Tazobactam 3.375 GM in NS 110 ML IVPB SCH (06:11)
[2017-09-26 06:25] LABS: HEMATOCRIT 36.2 % (42.0-52.0); HEMOGLOBIN 11.3 G/DL (14.2-18.0); MEAN CORPUSCULAR VOLUME 71 FL (80-99); PLATELET COUNT 85 K/UL (150-450); RED BLOOD COUNT 5.11 M/UL (4.70-6.10); RED CELL DISTRIBUTION WIDTH 25.1 % (11.6-14.8); WHITE BLOOD COUNT 16.9 K/UL (4.8-10.8)
[2017-09-26 06:43] LABS: ALANINE AMINOTRANSFERASE 48 U/L (12-78); ALBUMIN 2.3 G/DL (3.4-5.0); ALBUMIN/GLOBULIN RATIO 0.5 (1.0-2.7); ALKALINE PHOSPHATASE 74 U/L (46-116); ANION GAP 7 mmol/L (5-15); ASPARTATE AMINO TRANSFERASE 42 U/L (15-37); BILIRUBIN,TOTAL 0.5 MG/DL (0.2-1.0); BLOOD UREA NITROGEN 32 mg/dL (7-18); CALCIUM 8.5 MG/DL (8.5-10.1); CARBON DIOXIDE 29 MMOL/L (21-32); CHLORIDE 107 MMOL/L (98-107); CREATININE 0.9 MG/DL (0.55-1.30); POTASSIUM 3.9 MMOL/L (3.5-5.1); SODIUM 143 MMOL/L (136-145)
[2017-09-26] MEDS: 1/2NS w/KCl 20mEq 1000ml 1,000 ML IV SCH (08:38)
[2017-09-26] MEDS: Azithromycin 500 MG in D5W 275 ML IV SCH (09:00)
[2017-09-26] MEDS: Solu-MEDROL 40mg Inj IVP SCH (09:00)
[2017-09-26] MEDS: Montelukast 10mg tablet GT SCH (09:00)
[2017-09-26] MEDS: Pantoprazole Inj IVP SCH ×2 (09:00→23:00)
[2017-09-26] MEDS: Metoprolol 25mg tab NG SCH ×2 (09:00→23:02)
--- NOTE | 2017-09-26 12:28 | Critical Care Progress Note ---
Assessment/Plan Assessment/Plan COPD with exacerbation Acute respiratory failure tachycardia Pneumonia acute encephalopathy hypoxemia significant agitation anemia hypertension profound leukocytosis PLAN care noted IV antibiotics dc iv fluid check BNP respiratory care as is monitor off vent supportive care as outlined suction ID follow up taper steroids further in am weaning successful but still with increase in RR oxygen therapy check ABG for change as needed in am prognosis improved medications/laboratory data/nursing notes/ICU care reviewed in detail note reviewed and edited care discussed with RN and RT ICU time spent 36 minutes Critical Care - Subjective Interval Events: extubated still mildly tachypneic on oxygen just suctioned when seen ROS Limited/Unobtainable: Yes Condition: critical EKG Rhythm: Sinus Rhythm I&O: Intake and Output 09/25/17 09/26/17 19:00 07:00 Intake Total 936.25 ml 830.0 ml Output Total 1180 ml 1461 ml Balance -243.75 ml -631.0 ml IV Total 756.25 ml 590.0 ml Tube Feeding 180 ml 120 ml Other 120 ml Output Urine Total 1180 ml 1460 ml Stool Total 1 ml # Bowel Movements 1 2 Critical Care - Objective ET-Tube: 7.5 ET Position: 23 Last 24 Hour Vital Signs Date Time Temp Pulse Resp B/P (MAP) Pulse Ox O2 Delivery O2 Flow Rate FiO2 09/26/17 11:00 82 26 141/50 94 Venturi Mask 55 09/26/17 10:00 76 25 148/55 95 Venturi Mask 55 09/26/17 09:00 90 145/62 09/26/17 09:00 93 28 145/62 94 Venturi Mask 55 09/26/17 08:00 94 09/26/17 08:00 97.6 84 29 149/64 94 Venturi Mask 55 09/26/17 07:12 Venturi Mask 14.0 55 09/26/17 07:12 94 Venturi Mask 14.0 55 09/26/17 07:12 Venturi Mask 14.0 55 09/26/17 07:00 84 31 146/74 94 Venturi Mask 55 09/26/17 06:00 91 31 159/58 94 Venturi Mask 55 09/26/17 05:00 91 31 160/60 94 Venturi Mask 55 09/26/17 04:00 84 09/26/17 04:00 98.0 91 31 171/60 94 Venturi Mask 55 09/26/17 03:00 85 31 164/104 94 Venturi Mask 55 09/26/17 02:00 83 33 184/43 94 Venturi Mask 55 09/26/17 01:00 68 25 143/96 94 Venturi Mask 55 09/26/17 00:00 98.3 78 33 164/67 92 Venturi Mask 55 09/25/17 23:00 80 29 165/84 94 Nasal Cannula 4.0 09/25/17 22:00 76 27 141/45 96 Nasal Cannula 4.0 09/25/17 21:14 70 142/65 09/25/17 21:00 62 26 142/65 95 Nasal Cannula 4.0 09/25/17 20:00 98.8 85 32 163/53 94 Nasal Cannula 4.0 09/25/17 20:00 85 09/25/17 19:00 94 Venturi Mask 14.0 55 09/25/17 19:00 81 26 148/47 95 Nasal Cannula 4.0 09/25/17 19:00 Venturi Mask 14.0 55 09/25/17 18:00 77 23 151/55 96 Nasal Cannula 4.0 09/25/17 17:00 75 20 144/53 95 Nasal Cannula 4.0 09/25/17 16:00 98.9 70 23 140/48 93 Nasal Cannula 4.0 09/25/17 16:00 76 09/25/17 15:24 83 24 96 Nasal Cannula 4.0 36 09/25/17 15:15 85 25 93 Nasal Cannula 4.0 36 09/25/17 15:05 Nasal Cannula 4.0 36 09/25/17 15:00 75 23 140/60 94 Mechanical Ventilator 35 09/25/17 14:51 74 28 09/25/17 14:00 68 21 151/57 96 Mechanical Ventilator 35 09/25/17 13:00 80 23 154/52 96 Mechanical Ventilator 35 09/25/17 12:49 85 28 Labs: Labs Test 09/24/17 04:40 09/25/17 05:00 09/25/17 12:50 09/26/17 04:55 White Blood Count 9.9 K/UL (4.8-10.8) 13.2 K/UL (4.8-10.8) 16.9 K/UL (4.8-10.8) Red Blood Count 4.42 M/UL (4.70-6.10) 4.60 M/UL (4.70-6.10) 5.11 M/UL (4.70-6.10) Hemoglobin 9.4 G/DL (14.2-18.0) 9.9 G/DL (14.2-18.0) 11.3 G/DL (14.2-18.0) Hematocrit 31.0 % (42.0-52.0) 32.4 % (42.0-52.0) 36.2 % (42.0-52.0) Mean Corpuscular Volume 70 FL (80-99) 70 FL (80-99) 71 FL (80-99) Mean Corpuscular Hemoglobin 21.3 PG (27.0-31.0) 21.5 PG (27.0-31.0) 22.1 PG (27.0-31.0) Mean Corpuscular Hemoglobin Concent 30.5 G/DL (32.0-36.0) 30.6 G/DL (32.0-36.0) 31.2 G/DL (32.0-36.0) Red Cell Distribution Width 25.0 % (11.6-14.8) 25.8 % (11.6-14.8) 25.1 % (11.6-14.8) Platelet Count 87 K/UL (150-450) 70 K/UL (150-450) 85 K/UL (150-450) Mean Platelet Volume 12.6 FL (6.5-10.1) 12.5 FL (6.5-10.1) 14.6 FL (6.5-10.1) Neutrophils (%) (Auto) % (45.0-75.0) % (45.0-75.0) % (45.0-75.0) Lymphocytes (%) (Auto) % (20.0-45.0) % (20.0-45.0) % (20.0-45.0) Monocytes (%) (Auto) % (1.0-10.0) % (1.0-10.0) % (1.0-10.0) Eosinophils (%) (Auto) % (0.0-3.0) % (0.0-3.0) % (0.0-3.0) Basophils (%) (Auto) % (0.0-2.0) % (0.0-2.0) % (0.0-2.0) Sodium Level 143 MMOL/L (136-145) 143 MMOL/L (136-145) 143 MMOL/L (136-145) Potassium Level 4.5 MMOL/L (3.5-5.1) 4.5 MMOL/L (3.5-5.1) 3.9 MMOL/L (3.5-5.1) Chloride Level 111 MMOL/L (98-107) 109 MMOL/L (98-107) 107 MMOL/L (98-107) Carbon Dioxide Level 25 MMOL/L (21-32) 26 MMOL/L (21-32) 29 MMOL/L (21-32) Anion Gap 8 mmol/L (5-15) 8 mmol/L (5-15) 7 mmol/L (5-15) Blood Urea Nitrogen 37 mg/dL (7-18) 34 mg/dL (7-18) 32 mg/dL (7-18) Creatinine 1.3 MG/DL (0.55-1.30) 1.2 MG/DL (0.55-1.30) 0.9 MG/DL (0.55-1.30) Estimat Glomerular Filtration Rate mL/min (>60) mL/min (>60) mL/min (>60) Glucose Level 176 MG/DL (74-106) 154 MG/DL (74-106) 89 MG/DL (74-106) Calcium Level 8.2 MG/DL (8.5-10.1) 8.4 MG/DL (8.5-10.1) 8.5 MG/DL (8.5-10.1) Phosphorus Level 3.6 MG/DL (2.5-4.9) Magnesium Level 2.0 MG/DL (1.8-2.4) 1.9 MG/DL (1.8-2.4) Total Creatine Kinase 87 U/L (26-308) Pro-B-Type Natriuretic Peptide 2989 pg/mL (0-125) Arterial Blood pH 7.463 (7.350-7.450) Arterial Blood Partial Pressure CO2 38.8 mmHg (35.0-45.0) Arterial Blood Partial Pressure O2 78.3 mmHg (75.0-100.0) Arterial Blood HCO3 27.2 mmol/L (22.0-26.0) Arterial Blood Oxygen Saturation 95.5 % (92.0-98.0) Arterial Blood Base Excess 3.2 Scotty Test Positive Differential Total Cells Counted 100 Neutrophils % (Manual) 79 % (45-75) Lymphocytes % (Manual) 7 % (20-45) Monocytes % (Manual) 8 % (1-10) Eosinophils % (Manual) 0 % (0-3) Basophils % (Manual) 0 % (0-2) Band Neutrophils 6 % (0-8) Platelet Estimate Decreased Platelet Morphology Normal Hypochromasia 1+ Anisocytosis 2+ Microcytosis 2+ Total Bilirubin 0.5 MG/DL (0.2-1.0) Aspartate Amino Transf (AST/SGOT) 42 U/L (15-37) Alanine Aminotransferase (ALT/SGPT) 48 U/L (12-78) Alkaline Phosphatase 74 U/L (46-116) Total Protein 6.6 G/DL (6.4-8.2) Albumin 2.3 G/DL (3.4-5.0) Globulin 4.3 g/dL Albumin/Globulin Ratio 0.5 (1.0-2.7) Objective: WDWN NAD opens eyes on oxygen reduced breath sounds bilaterally without rhonchi or wheeze [id number] without MRG NABS nontender no HSM OGT in place no CCE nonfocal awake and comfortable skin noted lines reviewed reviewed and edited STEVE CARPIO Sep 26, 2017 12:28
--- NOTE | 2017-09-26 12:40 | Nephrology Progress Note ---
Assessment/Plan Problem List: (1) Respiratory failure (2) Renal insufficiency (3) Sepsis (4) AMI (acute myocardial infarction) (5) Gout (6) Anemia (7) Diverticulosis (8) VICTORIA (acute kidney injury) (9) Pneumonia (10) CHF exacerbation Plan victoria likely prerenal, lab trend better, dc iv to avoid overload, diuresis Subjective ROS Limited/Unobtainable: Yes Objective Objective Last 24 Hour Vital Signs Date Time Temp Pulse Resp B/P (MAP) Pulse Ox O2 Delivery O2 Flow Rate FiO2 09/26/17 11:00 82 26 141/50 94 Venturi Mask 55 09/26/17 10:00 76 25 148/55 95 Venturi Mask 55 09/26/17 09:00 90 145/62 09/26/17 09:00 93 28 145/62 94 Venturi Mask 55 09/26/17 08:00 94 09/26/17 08:00 97.6 84 29 149/64 94 Venturi Mask 55 09/26/17 07:12 Venturi Mask 14.0 55 09/26/17 07:12 94 Venturi Mask 14.0 55 09/26/17 07:12 Venturi Mask 14.0 55 09/26/17 07:00 84 31 146/74 94 Venturi Mask 55 09/26/17 06:00 91 31 159/58 94 Venturi Mask 55 09/26/17 05:00 91 31 160/60 94 Venturi Mask 55 09/26/17 04:00 84 09/26/17 04:00 98.0 91 31 171/60 94 Venturi Mask 55 09/26/17 03:00 85 31 164/104 94 Venturi Mask 55 09/26/17 02:00 83 33 184/43 94 Venturi Mask 55 09/26/17 01:00 68 25 143/96 94 Venturi Mask 55 09/26/17 00:00 98.3 78 33 164/67 92 Venturi Mask 55 09/25/17 23:00 80 29 165/84 94 Nasal Cannula 4.0 09/25/17 22:00 76 27 141/45 96 Nasal Cannula 4.0 09/25/17 21:14 70 142/65 09/25/17 21:00 62 26 142/65 95 Nasal Cannula 4.0 09/25/17 20:00 98.8 85 32 163/53 94 Nasal Cannula 4.0 09/25/17 20:00 85 09/25/17 19:00 94 Venturi Mask 14.0 55 09/25/17 19:00 81 26 148/47 95 Nasal Cannula 4.0 09/25/17 19:00 Venturi Mask 14.0 55 09/25/17 18:00 77 23 151/55 96 Nasal Cannula 4.0 09/25/17 17:00 75 20 144/53 95 Nasal Cannula 4.0 09/25/17 16:00 98.9 70 23 140/48 93 Nasal Cannula 4.0 09/25/17 16:00 76 09/25/17 15:24 83 24 96 Nasal Cannula 4.0 36 09/25/17 15:15 85 25 93 Nasal Cannula 4.0 36 09/25/17 15:05 Nasal Cannula 4.0 36 09/25/17 15:00 75 23 140/60 94 Mechanical Ventilator 35 09/25/17 14:51 74 28 09/25/17 14:00 68 21 151/57 96 Mechanical Ventilator 35 09/25/17 13:00 80 23 154/52 96 Mechanical Ventilator 35 09/25/17 12:49 85 28 Intake and Output 09/25/17 09/26/17 19:00 07:00 Intake Total 936.25 ml 830.0 ml Output Total 1180 ml 1461 ml Balance -243.75 ml -631.0 ml IV Total 756.25 ml 590.0 ml Tube Feeding 180 ml 120 ml Other 120 ml Output Urine Total 1180 ml 1460 ml Stool Total 1 ml # Bowel Movements 1 2 Laboratory Tests 09/25/17 12:50: Arterial Blood pH 7.463H, Arterial Blood Partial Pressure CO2 38.8, Arterial Blood Partial Pressure O2 78.3, Arterial Blood HCO3 27.2H, Arterial Blood Oxygen Saturation 95.5, Arterial Blood Base Excess 3.2, Scotty Test Positive 09/26/17 04:55: White Blood Count 16.9H, Red Blood Count 5.11, Hemoglobin 11.3L, Hematocrit 36.2L, Mean Corpuscular Volume 71L, Mean Corpuscular Hemoglobin 22.1L, Mean Corpuscular Hemoglobin Concent 31.2L, Red Cell Distribution Width 25.1H, Platelet Count 85L, Mean Platelet Volume 14.6H, Neutrophils (%) (Auto) , Lymphocytes (%) (Auto) , Monocytes (%) (Auto) , Eosinophils (%) (Auto) , Basophils (%) (Auto) , Differential Total Cells Counted 100, Neutrophils % ( Manual) 79H, Lymphocytes % (Manual) 7L, Monocytes % (Manual) 8, Eosinophils % ( Manual) 0, Basophils % (Manual) 0, Band Neutrophils 6, Platelet Estimate DecreasedL, Platelet Morphology Normal, Hypochromasia 1+, Anisocytosis 2+, Microcytosis 2+, Sodium Level 143, Potassium Level 3.9, Chloride Level 107, Carbon Dioxide Level 29, Anion Gap 7, Blood Urea Nitrogen 32H, Creatinine 0.9, Estimat Glomerular Filtration Rate , Glucose Level 89, Calcium Level 8.5, Total Bilirubin 0.5, Aspartate Amino Transf (AST/SGOT) 42H, Alanine Aminotransferase ( ALT/SGPT) 48, Alkaline Phosphatase 74, Total Protein 6.6, Albumin 2.3L, Globulin 4.3, Albumin/Globulin Ratio 0.5L Height (Feet): 5 Height (Inches): 8.00 Weight (Pounds): 183 General Appearance: confused, mild distress EENT: normal ENT inspection Neck: normal alignment Cardiovascular: regular rhythm Respiratory/Chest: rhonchi - bilaterally Abdomen: non tender, soft Extremities: trace edema Neurologic: sensory deficit NAOMI SIERRA Sep 26, 2017 12:40
[2017-09-26] MEDS: fentaNYL Citrate 2500mcg in NS 250ml IV SCH (13:00)
--- NOTE | 2017-09-26 20:12 | General Progress Note ---
Assessment/Plan Problem List: (1) Anemia ICD Codes: D64.9 - Anemia, unspecified SNOMED: 604025882 (2) AMI (acute myocardial infarction) ICD Codes: I21.9 - Acute myocardial infarction, unspecified SNOMED: 74645068 (3) HTN (hypertension) ICD Codes: I10 - Essential (primary) hypertension SNOMED: 97868379 (4) COPD (chronic obstructive pulmonary disease) ICD Codes: J44.9 - Chronic obstructive pulmonary disease, unspecified SNOMED: 20468695 (5) Gout ICD Codes: M10.9 - Gout, unspecified SNOMED: 28056318 (6) Episode of generalized weakness ICD Codes: R53.1 - Weakness SNOMED: 07341756 (7) Sepsis ICD Codes: A41.9 - Sepsis, unspecified organism SNOMED: 40759737 Qualifiers: Qualified Codes: A41.9 - Sepsis, unspecified organism (8) Pneumonia ICD Codes: J18.9 - Pneumonia, unspecified organism SNOMED: 184038843 Status: stable, progressing Assessment/Plan resp rx/suctioning/o2 wean o2 iv abc keep dry monitor abg and cxr remains guarded but improving slowly. Subjective ROS Limited/Unobtainable: No Constitutional: Reports: malaise, weakness HEENT: Reports: no symptoms Cardiovascular: Reports: no symptoms Respiratory: Reports: cough, shortness of breath, sputum Gastrointestinal/Abdominal: Reports: no symptoms Genitourinary: Reports: no symptoms Neurologic/Psychiatric: Reports: no symptoms Endocrine: Reports: no symptoms Hematologic/Lymphatic: Reports: anemia Allergies: Coded Allergies: No Known Allergies (Unverified , 09/16/17) All Systems: reviewed and negative except above Subjective events noted. chart reviewed. extubated yesterday. more alert and less confused according to family members. off ivf. on iv abx. getting resp rx. Objective Last 24 Hour Vital Signs Date Time Temp Pulse Resp B/P (MAP) Pulse Ox O2 Delivery O2 Flow Rate FiO2 09/26/17 19:00 94 20 177/70 99 Venturi Mask 55 09/26/17 18:00 81 22 148/57 99 Venturi Mask 55 09/26/17 17:00 97.8 93 24 160/57 96 Venturi Mask 55 09/26/17 16:00 88 23 145/56 96 Venturi Mask 55 09/26/17 16:00 84 09/26/17 15:23 Non-Rebreather 15.0 100 09/26/17 15:00 80 28 168/55 97 Venturi Mask 55 09/26/17 14:00 86 26 154/62 94 Venturi Mask 55 09/26/17 13:00 84 26 141/49 94 Venturi Mask 55 09/26/17 12:00 85 09/26/17 12:00 97.5 83 27 144/46 94 Venturi Mask 55 09/26/17 11:00 82 26 141/50 94 Venturi Mask 55 09/26/17 10:00 76 25 148/55 95 Venturi Mask 55 09/26/17 09:00 90 145/62 09/26/17 09:00 93 28 145/62 94 Venturi Mask 55 09/26/17 08:00 94 09/26/17 08:00 97.6 84 29 149/64 94 Venturi Mask 55 09/26/17 07:12 Venturi Mask 14.0 55 09/26/17 07:12 94 Venturi Mask 14.0 55 09/26/17 07:12 Venturi Mask 14.0 55 09/26/17 07:00 84 31 146/74 94 Venturi Mask 55 09/26/17 06:00 91 31 159/58 94 Venturi Mask 55 09/26/17 05:00 91 31 160/60 94 Venturi Mask 55 09/26/17 04:00 84 09/26/17 04:00 98.0 91 31 171/60 94 Venturi Mask 55 09/26/17 03:00 85 31 164/104 94 Venturi Mask 55 09/26/17 02:00 83 33 184/43 94 Venturi Mask 55 09/26/17 01:00 68 25 143/96 94 Venturi Mask 55 09/26/17 00:00 98.3 78 33 164/67 92 Venturi Mask 55 09/25/17 23:00 80 29 165/84 94 Nasal Cannula 4.0 09/25/17 22:00 76 27 141/45 96 Nasal Cannula 4.0 09/25/17 21:14 70 142/65 09/25/17 21:00 62 26 142/65 95 Nasal Cannula 4.0 Intake and Output 09/25/17 09/26/17 19:00 07:00 Intake Total 936.25 ml 830.0 ml Output Total 1180 ml 1461 ml Balance -243.75 ml -631.0 ml IV Total 756.25 ml 590.0 ml Tube Feeding 180 ml 120 ml Other 120 ml Output Urine Total 1180 ml 1460 ml Stool Total 1 ml # Bowel Movements 1 2 Laboratory Tests 09/26/17 04:55: White Blood Count 16.9H, Red Blood Count 5.11, Hemoglobin 11.3L, Hematocrit 36.2L, Mean Corpuscular Volume 71L, Mean Corpuscular Hemoglobin 22.1L, Mean Corpuscular Hemoglobin Concent 31.2L, Red Cell Distribution Width 25.1H, Platelet Count 85L, Mean Platelet Volume 14.6H, Neutrophils (%) (Auto) , Lymphocytes (%) (Auto) , Monocytes (%) (Auto) , Eosinophils (%) (Auto) , Basophils (%) (Auto) , Differential Total Cells Counted 100, Neutrophils % ( Manual) 79H, Lymphocytes % (Manual) 7L, Monocytes % (Manual) 8, Eosinophils % ( Manual) 0, Basophils % (Manual) 0, Band Neutrophils 6, Platelet Estimate DecreasedL, Platelet Morphology Normal, Hypochromasia 1+, Anisocytosis 2+, Microcytosis 2+, Sodium Level 143, Potassium Level 3.9, Chloride Level 107, Carbon Dioxide Level 29, Anion Gap 7, Blood Urea Nitrogen 32H, Creatinine 0.9, Estimat Glomerular Filtration Rate , Glucose Level 89, Calcium Level 8.5, Total Bilirubin 0.5, Aspartate Amino Transf (AST/SGOT) 42H, Alanine Aminotransferase ( ALT/SGPT) 48, Alkaline Phosphatase 74, Total Protein 6.6, Albumin 2.3L, Globulin 4.3, Albumin/Globulin Ratio 0.5L 09/26/17 12:26: Arterial Blood pH 7.480H, Arterial Blood Partial Pressure CO2 40.9, Arterial Blood Partial Pressure O2 63.1L, Arterial Blood HCO3 30.4H, Arterial Blood Oxygen Saturation 93.0, Arterial Blood Base Excess 6.5, Scotty Test Positive Height (Feet): 5 Height (Inches): 8.00 Weight (Pounds): 183 Objective General Appearance: WD/WN, alert. no distress Neck: supple Cardiovascular: normal rate, regular rhythm Respiratory/Chest: rales and rhonchi ernestine Abdomen: normal bowel sounds, non tender, soft, no organomegaly Edema: no edema noted Arm (L), no edema noted Arm (R), no edema noted Leg (L), no edema noted Leg (R), no edema noted Pedal (L), no edema noted Pedal (R), no edema noted Generalized BHUPINDER DILL Sep 26, 2017 20:12
--- NOTE | 2017-09-26 20:39 | General Progress Note ---
Assessment/Plan Assessment/Plan Assessment - OB (+) stools - Microcytic Iron deficient anemia - s/p transfusion - TF intolerance - thrombocytopenia - OBS - constipation Recommendations - follow labs and exam - laxative PRN - d/c reglan - transfuse PRN - IV Fe - PPI - swallow eval Subjective Allergies: Coded Allergies: No Known Allergies (Unverified , 09/16/17) Subjective extubated minimimally verbal Objective Last 24 Hour Vital Signs Date Time Temp Pulse Resp B/P (MAP) Pulse Ox O2 Delivery O2 Flow Rate FiO2 09/26/17 19:00 94 20 177/70 99 Venturi Mask 55 09/26/17 18:00 81 22 148/57 99 Venturi Mask 55 09/26/17 17:00 97.8 93 24 160/57 96 Venturi Mask 55 09/26/17 16:00 88 23 145/56 96 Venturi Mask 55 09/26/17 16:00 84 09/26/17 15:23 Non-Rebreather 15.0 100 09/26/17 15:00 80 28 168/55 97 Venturi Mask 55 09/26/17 14:00 86 26 154/62 94 Venturi Mask 55 09/26/17 13:00 84 26 141/49 94 Venturi Mask 55 09/26/17 12:00 85 09/26/17 12:00 97.5 83 27 144/46 94 Venturi Mask 55 09/26/17 11:00 82 26 141/50 94 Venturi Mask 55 09/26/17 10:00 76 25 148/55 95 Venturi Mask 55 09/26/17 09:00 90 145/62 09/26/17 09:00 93 28 145/62 94 Venturi Mask 55 09/26/17 08:00 94 09/26/17 08:00 97.6 84 29 149/64 94 Venturi Mask 55 09/26/17 07:12 Venturi Mask 14.0 55 09/26/17 07:12 94 Venturi Mask 14.0 55 09/26/17 07:12 Venturi Mask 14.0 55 09/26/17 07:00 84 31 146/74 94 Venturi Mask 55 09/26/17 06:00 91 31 159/58 94 Venturi Mask 55 09/26/17 05:00 91 31 160/60 94 Venturi Mask 55 09/26/17 04:00 84 09/26/17 04:00 98.0 91 31 171/60 94 Venturi Mask 55 09/26/17 03:00 85 31 164/104 94 Venturi Mask 55 09/26/17 02:00 83 33 184/43 94 Venturi Mask 55 09/26/17 01:00 68 25 143/96 94 Venturi Mask 55 09/26/17 00:00 98.3 78 33 164/67 92 Venturi Mask 55 09/25/17 23:00 80 29 165/84 94 Nasal Cannula 4.0 09/25/17 22:00 76 27 141/45 96 Nasal Cannula 4.0 09/25/17 21:14 70 142/65 09/25/17 21:00 62 26 142/65 95 Nasal Cannula 4.0 Intake and Output 09/25/17 09/26/17 19:00 07:00 Intake Total 936.25 ml 830.0 ml Output Total 1180 ml 1461 ml Balance -243.75 ml -631.0 ml IV Total 756.25 ml 590.0 ml Tube Feeding 180 ml 120 ml Other 120 ml Output Urine Total 1180 ml 1460 ml Stool Total 1 ml # Bowel Movements 1 2 Laboratory Tests 09/26/17 04:55: White Blood Count 16.9H, Red Blood Count 5.11, Hemoglobin 11.3L, Hematocrit 36.2L, Mean Corpuscular Volume 71L, Mean Corpuscular Hemoglobin 22.1L, Mean Corpuscular Hemoglobin Concent 31.2L, Red Cell Distribution Width 25.1H, Platelet Count 85L, Mean Platelet Volume 14.6H, Neutrophils (%) (Auto) , Lymphocytes (%) (Auto) , Monocytes (%) (Auto) , Eosinophils (%) (Auto) , Basophils (%) (Auto) , Differential Total Cells Counted 100, Neutrophils % ( Manual) 79H, Lymphocytes % (Manual) 7L, Monocytes % (Manual) 8, Eosinophils % ( Manual) 0, Basophils % (Manual) 0, Band Neutrophils 6, Platelet Estimate DecreasedL, Platelet Morphology Normal, Hypochromasia 1+, Anisocytosis 2+, Microcytosis 2+, Sodium Level 143, Potassium Level 3.9, Chloride Level 107, Carbon Dioxide Level 29, Anion Gap 7, Blood Urea Nitrogen 32H, Creatinine 0.9, Estimat Glomerular Filtration Rate , Glucose Level 89, Calcium Level 8.5, Total Bilirubin 0.5, Aspartate Amino Transf (AST/SGOT) 42H, Alanine Aminotransferase ( ALT/SGPT) 48, Alkaline Phosphatase 74, Total Protein 6.6, Albumin 2.3L, Globulin 4.3, Albumin/Globulin Ratio 0.5L 09/26/17 12:26: Arterial Blood pH 7.480H, Arterial Blood Partial Pressure CO2 40.9, Arterial Blood Partial Pressure O2 63.1L, Arterial Blood HCO3 30.4H, Arterial Blood Oxygen Saturation 93.0, Arterial Blood Base Excess 6.5, Scotty Test Positive Height (Feet): 5 Height (Inches): 8.00 Weight (Pounds): 183 Objective Elderly patient in ICU NCAT supple Coarse BS RR Soft abd trace edema TAYO GUERIN Sep 26, 2017 20:39
[2017-09-26] MEDS: Miralax 17gm pkt GT SCH (22:59)
[2017-09-27] VITALS (24 sets, daily range): BP systolic 119–158; BP diastolic 23–56
[2017-09-27 04:46] LABS: HEMATOCRIT 34.6 % (42.0-52.0); MEAN CORPUSCULAR VOLUME 69 FL (80-99); PLATELET COUNT 83 K/UL (150-450); RED BLOOD COUNT 5.05 M/UL (4.70-6.10); RED CELL DISTRIBUTION WIDTH 25.1 % (11.6-14.8); WHITE BLOOD COUNT 20.4 K/UL (4.8-10.8)
[2017-09-27 05:35] LABS: ALANINE AMINOTRANSFERASE 29 U/L (12-78); ALBUMIN 2.1 G/DL (3.4-5.0); ALBUMIN/GLOBULIN RATIO 0.5 (1.0-2.7); ALKALINE PHOSPHATASE 59 U/L (46-116); ANION GAP 6 mmol/L (5-15); ASPARTATE AMINO TRANSFERASE 24 U/L (15-37); BILIRUBIN,TOTAL 0.7 MG/DL (0.2-1.0); BLOOD UREA NITROGEN 30 mg/dL (7-18); CALCIUM 8.2 MG/DL (8.5-10.1); CARBON DIOXIDE 30 MMOL/L (21-32); CHLORIDE 103 MMOL/L (98-107); CREATININE 0.9 MG/DL (0.55-1.30); POTASSIUM 3.6 MMOL/L (3.5-5.1); SODIUM 139 MMOL/L (136-145)
--- NOTE | 2017-09-27 07:39 | Infectious Diseases Prog Note ---
Assessment/Plan Assessment/Plan O; 1. pneumonia 2. leucocytosis, may be steroid related 3. COPD 4. gout 5. thrombocytopenia 6. anemia 7. Hypoxic respiratory failure P 1. continue Levaquin X 2 days Subjective ROS Limited/Unobtainable: Yes Allergies: Coded Allergies: No Known Allergies (Unverified , 09/16/17) Objective Vital Signs Last 24 Hour Vital Signs Date Time Temp Pulse Resp B/P (MAP) Pulse Ox O2 Delivery O2 Flow Rate FiO2 09/27/17 07:23 87 20 100 Non-Rebreather 15.0 100 09/27/17 07:23 87 20 98 Non-Rebreather 15.0 100 09/27/17 07:22 98 Non-Rebreather 15.0 100 09/27/17 07:22 Non-Rebreather 15.0 100 09/27/17 07:17 87 20 Non-Rebreather 15.0 100 09/27/17 07:00 85 28 139/41 99 Venturi Mask 55 09/27/17 06:00 82 28 139/41 99 Venturi Mask 55 09/27/17 05:00 83 28 122/23 99 Venturi Mask 55 09/27/17 04:00 79 28 119/41 99 Venturi Mask 55 09/27/17 04:00 79 09/27/17 04:00 98.5 79 28 121/55 99 Venturi Mask 55 09/27/17 03:00 83 28 121/55 98 Venturi Mask 55 09/27/17 02:00 76 28 121/55 99 Venturi Mask 55 09/27/17 01:28 86 20 94 Non-Rebreather 15.0 100 09/27/17 01:28 94 20 100 Non-Rebreather 15.0 100 09/27/17 01:00 84 26 154/54 99 Venturi Mask 55 09/27/17 00:00 94 20 157/56 99 Venturi Mask 55 09/27/17 00:00 71 09/26/17 23:02 76 167/62 09/26/17 23:00 94 20 169/61 99 Venturi Mask 55 09/26/17 22:00 94 20 167/62 99 Venturi Mask 55 09/26/17 21:00 94 20 179/63 99 Venturi Mask 55 09/26/17 20:43 93 20 Non-Rebreather 15.0 100 09/26/17 20:00 94 09/26/17 20:00 94 20 170/63 99 Venturi Mask 55 09/26/17 19:30 Non-Rebreather 15.0 100 09/26/17 19:30 98 Non-Rebreather 15.0 100 09/26/17 19:00 94 20 177/70 99 Venturi Mask 55 09/26/17 18:00 81 22 148/57 99 Venturi Mask 55 09/26/17 17:00 97.8 93 24 160/57 96 Venturi Mask 55 09/26/17 16:00 88 23 145/56 96 Venturi Mask 55 09/26/17 16:00 84 09/26/17 15:23 Non-Rebreather 15.0 100 09/26/17 15:00 80 28 168/55 97 Venturi Mask 55 09/26/17 14:00 86 26 154/62 94 Venturi Mask 55 09/26/17 13:00 84 26 141/49 94 Venturi Mask 55 09/26/17 12:00 85 09/26/17 12:00 97.5 83 27 144/46 94 Venturi Mask 55 09/26/17 11:00 82 26 141/50 94 Venturi Mask 55 09/26/17 10:00 76 25 148/55 95 Venturi Mask 55 09/26/17 09:00 90 145/62 09/26/17 09:00 93 28 145/62 94 Venturi Mask 55 09/26/17 08:00 94 09/26/17 08:00 97.6 84 29 149/64 94 Venturi Mask 55 Height (Feet): 5 Height (Inches): 8.00 Weight (Pounds): 200 HEENT: other - nasal airway Respiratory/Chest: decreased breath sounds, other - O2 by rebreathing mask Cardiovascular: normal rate Abdomen: soft, non tender, other - orogastric tube Extremities: no edema Neurologic/Psychiatric: other - drowsy Laboratory Tests Test 09/26/17 12:26 09/27/17 04:00 Arterial Blood pH 7.480 (7.350-7.450) Arterial Blood Partial Pressure CO2 40.9 mmHg (35.0-45.0) Arterial Blood Partial Pressure O2 63.1 mmHg (75.0-100.0) L Arterial Blood HCO3 30.4 mmol/L (22.0-26.0) H Arterial Blood Oxygen Saturation 93.0 % (92.0-98.0) Arterial Blood Base Excess 6.5 Scotty Test Positive White Blood Count 20.4 K/UL (4.8-10.8) H Red Blood Count 5.05 M/UL (4.70-6.10) Hemoglobin 11.0 G/DL (14.2-18.0) L Hematocrit 34.6 % (42.0-52.0) L Mean Corpuscular Volume 69 FL (80-99) L Mean Corpuscular Hemoglobin 21.8 PG (27.0-31.0) L Mean Corpuscular Hemoglobin Concent 31.9 G/DL (32.0-36.0) L Red Cell Distribution Width 25.1 % (11.6-14.8) H Platelet Count 83 K/UL (150-450) L Mean Platelet Volume 13.5 FL (6.5-10.1) H Neutrophils (%) (Auto) % (45.0-75.0) Lymphocytes (%) (Auto) % (20.0-45.0) Monocytes (%) (Auto) % (1.0-10.0) Eosinophils (%) (Auto) % (0.0-3.0) Basophils (%) (Auto) % (0.0-2.0) Neutrophils % (Manual) Pending Lymphocytes % (Manual) Pending Platelet Estimate Pending Platelet Morphology Pending Sodium Level 139 MMOL/L (136-145) Potassium Level 3.6 MMOL/L (3.5-5.1) Chloride Level 103 MMOL/L (98-107) Carbon Dioxide Level 30 MMOL/L (21-32) Anion Gap 6 mmol/L (5-15) Blood Urea Nitrogen 30 mg/dL (7-18) H Creatinine 0.9 MG/DL (0.55-1.30) Estimat Glomerular Filtration Rate mL/min (>60) Glucose Level 94 MG/DL (74-106) Calcium Level 8.2 MG/DL (8.5-10.1) L Total Bilirubin 0.7 MG/DL (0.2-1.0) Aspartate Amino Transf (AST/SGOT) 24 U/L (15-37) Alanine Aminotransferase (ALT/SGPT) 29 U/L (12-78) Alkaline Phosphatase 59 U/L (46-116) Total Protein 6.2 G/DL (6.4-8.2) L Albumin 2.1 G/DL (3.4-5.0) L Globulin 4.1 g/dL Albumin/Globulin Ratio 0.5 (1.0-2.7) L Current Medications Medications (Trade) Dose Ordered Sig/Duong Route PRN Reason Start Time Stop Time Status Last Admin Dose Admin Acetaminophen (Tylenol) 650 mg Q4H PRN NG MILD PAIN(1-3)/FEVER 09/21/17 22:00 10/21/17 21:59 09/24/17 16:31 Fentanyl Citrate 2500 mcg/Sodium Chloride 250 ml @ 0 mls/hr Q24H IV 09/22/17 13:00 09/29/17 12:59 09/22/17 13:39 Ipratropium Taberg (Atrovent) 500 mcg Q4H PRN HHN Breakthru Shortness of Breath 09/22/17 15:00 09/27/17 23:59 09/25/17 15:15 Levofloxacin 150 ml @ 150 mls/hr Q24H IVPB 09/26/17 15:00 09/28/17 15:59 09/26/17 15:01 Levothyroxine Sodium (Synthroid) 50 mcg ACBREAKFAST GT 09/22/17 06:30 10/17/17 06:29 09/27/17 06:39 Methylprednisolone Sodium Succinate (Solu-MEDROL) 40 mg DAILY IVP 09/23/17 09:00 10/19/17 09:59 09/26/17 09:00 Metoprolol Tartrate (Lopressor) 50 mg Q12HR NG 09/25/17 21:00 10/25/17 20:59 09/26/17 23:02 Montelukast Sodium (Singulair) 10 mg DAILY GT 09/22/17 09:00 10/17/17 08:59 09/26/17 09:00 Pantoprazole (Protonix) 40 mg EVERY 12 HOURS IVP 09/18/17 21:00 10/16/17 22:59 09/26/17 23:00 Polyethylene Glycol (Miralax) 17 gm BEDTIME GT 09/21/17 21:00 10/19/17 20:59 09/26/17 22:59 CIRO GODFREY Sep 27, 2017 07:39
[2017-09-27] MEDS: Pantoprazole Inj IVP SCH ×2 (08:52→21:13)
[2017-09-27] MEDS: Montelukast 10mg tablet GT SCH (08:52)
[2017-09-27] MEDS: Solu-MEDROL 40mg Inj IVP SCH (08:53)
[2017-09-27] MEDS: Metoprolol 25mg tab NG SCH ×2 (08:53→21:14)
--- NOTE | 2017-09-27 09:09 | General Progress Note ---
Assessment/Plan Problem List: (1) Anemia ICD Codes: D64.9 - Anemia, unspecified SNOMED: 279539503 (2) AMI (acute myocardial infarction) ICD Codes: I21.9 - Acute myocardial infarction, unspecified SNOMED: 91508292 (3) HTN (hypertension) ICD Codes: I10 - Essential (primary) hypertension SNOMED: 64034571 (4) COPD (chronic obstructive pulmonary disease) ICD Codes: J44.9 - Chronic obstructive pulmonary disease, unspecified SNOMED: 55603164 (5) Gout ICD Codes: M10.9 - Gout, unspecified SNOMED: 19035607 (6) Episode of generalized weakness ICD Codes: R53.1 - Weakness SNOMED: 57907195 (7) Sepsis ICD Codes: A41.9 - Sepsis, unspecified organism SNOMED: 83531559 Qualifiers: Qualified Codes: A41.9 - Sepsis, unspecified organism (8) Pneumonia ICD Codes: J18.9 - Pneumonia, unspecified organism SNOMED: 751500471 Status: stable, progressing Assessment/Plan resp rx/suctioning/o2 wean o2 iv abc keep dry monitor abg and cxr swallow eval remains guarded but improving slowly. Subjective ROS Limited/Unobtainable: No Constitutional: Reports: malaise, weakness HEENT: Reports: no symptoms Cardiovascular: Reports: no symptoms Respiratory: Reports: cough, shortness of breath, sputum Gastrointestinal/Abdominal: Reports: difficulty swallowing Genitourinary: Reports: no symptoms Neurologic/Psychiatric: Reports: no symptoms Endocrine: Reports: no symptoms Hematologic/Lymphatic: Reports: anemia Allergies: Coded Allergies: No Known Allergies (Unverified , 09/16/17) All Systems: reviewed and negative except above Subjective no events. remains on venti mask. less congested than yesterday. has ngt. Objective Last 24 Hour Vital Signs Date Time Temp Pulse Resp B/P (MAP) Pulse Ox O2 Delivery O2 Flow Rate FiO2 09/27/17 08:53 87 119/44 09/27/17 08:00 98.2 84 25 119/44 97 Venturi Mask 55 09/27/17 08:00 93 09/27/17 07:23 87 20 100 Non-Rebreather 15.0 100 09/27/17 07:23 87 20 98 Non-Rebreather 15.0 100 09/27/17 07:22 98 Non-Rebreather 15.0 100 09/27/17 07:22 Non-Rebreather 15.0 100 09/27/17 07:17 87 20 Non-Rebreather 15.0 100 09/27/17 07:00 85 28 139/41 99 Venturi Mask 55 09/27/17 06:00 82 28 139/41 99 Venturi Mask 55 09/27/17 05:00 83 28 122/23 99 Venturi Mask 55 09/27/17 04:00 79 28 119/41 99 Venturi Mask 55 09/27/17 04:00 79 09/27/17 04:00 98.5 79 28 121/55 99 Venturi Mask 55 09/27/17 03:00 83 28 121/55 98 Venturi Mask 55 09/27/17 02:00 76 28 121/55 99 Venturi Mask 55 09/27/17 01:28 86 20 94 Non-Rebreather 15.0 100 09/27/17 01:28 94 20 100 Non-Rebreather 15.0 100 09/27/17 01:00 84 26 154/54 99 Venturi Mask 55 09/27/17 00:00 94 20 157/56 99 Venturi Mask 55 09/27/17 00:00 71 09/26/17 23:02 76 167/62 09/26/17 23:00 94 20 169/61 99 Venturi Mask 55 09/26/17 22:00 94 20 167/62 99 Venturi Mask 55 09/26/17 21:00 94 20 179/63 99 Venturi Mask 55 09/26/17 20:43 93 20 Non-Rebreather 15.0 100 09/26/17 20:00 94 09/26/17 20:00 94 20 170/63 99 Venturi Mask 55 09/26/17 19:30 Non-Rebreather 15.0 100 09/26/17 19:30 98 Non-Rebreather 15.0 100 09/26/17 19:00 94 20 177/70 99 Venturi Mask 55 09/26/17 18:00 81 22 148/57 99 Venturi Mask 55 09/26/17 17:00 97.8 93 24 160/57 96 Venturi Mask 55 09/26/17 16:00 88 23 145/56 96 Venturi Mask 55 09/26/17 16:00 84 09/26/17 15:23 Non-Rebreather 15.0 100 09/26/17 15:00 80 28 168/55 97 Venturi Mask 55 09/26/17 14:00 86 26 154/62 94 Venturi Mask 55 09/26/17 13:00 84 26 141/49 94 Venturi Mask 55 09/26/17 12:00 85 09/26/17 12:00 97.5 83 27 144/46 94 Venturi Mask 55 09/26/17 11:00 82 26 141/50 94 Venturi Mask 55 09/26/17 10:00 76 25 148/55 95 Venturi Mask 55 Intake and Output 09/26/17 09/27/17 19:00 07:00 Intake Total 660 ml 0 ml Output Total 1300 ml 1520 ml Balance -640 ml -1520 ml IV Total 660 ml Tube Feeding 0 ml 0 ml Output Urine Total 1300 ml 1520 ml # Bowel Movements 3 5 Laboratory Tests 09/26/17 12:26: Arterial Blood pH 7.480H, Arterial Blood Partial Pressure CO2 40.9, Arterial Blood Partial Pressure O2 63.1L, Arterial Blood HCO3 30.4H, Arterial Blood Oxygen Saturation 93.0, Arterial Blood Base Excess 6.5, Scotty Test Positive 09/27/17 04:00: White Blood Count 20.4H, Red Blood Count 5.05, Hemoglobin 11.0L, Hematocrit 34.6L, Mean Corpuscular Volume 69L, Mean Corpuscular Hemoglobin 21.8L, Mean Corpuscular Hemoglobin Concent 31.9L, Red Cell Distribution Width 25.1H, Platelet Count 83L, Mean Platelet Volume 13.5H, Neutrophils (%) (Auto) , Lymphocytes (%) (Auto) , Monocytes (%) (Auto) , Eosinophils (%) (Auto) , Basophils (%) (Auto) , Differential Total Cells Counted 100, Neutrophils % ( Manual) 89H, Lymphocytes % (Manual) 5L, Monocytes % (Manual) 6, Eosinophils % ( Manual) 0, Basophils % (Manual) 0, Band Neutrophils 0, Platelet Estimate DecreasedL, Platelet Morphology Normal, Hypochromasia 1+, Anisocytosis 2+, Microcytosis 2+, Sodium Level 139, Potassium Level 3.6, Chloride Level 103, Carbon Dioxide Level 30, Anion Gap 6, Blood Urea Nitrogen 30H, Creatinine 0.9, Estimat Glomerular Filtration Rate , Glucose Level 94, Calcium Level 8.2L, Total Bilirubin 0.7, Aspartate Amino Transf (AST/SGOT) 24, Alanine Aminotransferase (ALT/SGPT) 29, Alkaline Phosphatase 59, Total Protein 6.2L, Albumin 2.1L, Globulin 4.1, Albumin/Globulin Ratio 0.5L Height (Feet): 5 Height (Inches): 8.00 Weight (Pounds): 200 Objective General Appearance: WD/WN, alert. no distress. +ngt Neck: supple Cardiovascular: normal rate, regular rhythm Respiratory/Chest: rales and rhonchi ernestine- less Abdomen: normal bowel sounds, non tender, soft, no organomegaly Edema: no edema noted Arm (L), no edema noted Arm (R), no edema noted Leg (L), no edema noted Leg (R), no edema noted Pedal (L), no edema noted Pedal (R), no edema noted Generalized BHUPINDER DILL Sep 27, 2017 09:09
--- NOTE | 2017-09-27 09:35 | Critical Care Progress Note ---
Assessment/Plan Assessment/Plan COPD with exacerbation Acute respiratory failure tachycardia Pneumonia acute encephalopathy hypoxemia significant agitation anemia hypertension profound leukocytosis PLAN care noted IV antibiotics off iv fluids monitor BNP respiratory care as is monitor off vent supportive care as outlined suction ID follow up increase steroids CPT ABG may need repeat intubation CM to assist with possible transport monitor respiratory status closely oxygen therapy prognosis guarded medications/laboratory data/nursing notes/ICU care reviewed in detail note reviewed and edited care discussed with RN and RT ICU time spent 36 minutes Critical Care - Subjective Interval Events: care noted awake events reviewed in detail on face mask oxygen- 100% acid base noted long d/w family- want him transported to [place] and willing to sign responsibility- aware that he is not safe for transport but willing to have RN and RT on board and agreeable to repeat intubation ROS Limited/Unobtainable: Yes Condition: critical EKG Rhythm: Sinus Rhythm I&O: Intake and Output 09/26/17 09/27/17 19:00 07:00 Intake Total 660 ml 0 ml Output Total 1300 ml 1520 ml Balance -640 ml -1520 ml IV Total 660 ml Tube Feeding 0 ml 0 ml Output Urine Total 1300 ml 1520 ml # Bowel Movements 3 5 Critical Care - Objective ET-Tube: 7.5 ET Position: 23 Last 24 Hour Vital Signs Date Time Temp Pulse Resp B/P (MAP) Pulse Ox O2 Delivery O2 Flow Rate FiO2 09/27/17 09:00 86 26 139/53 96 Venturi Mask 55 09/27/17 08:53 87 119/44 09/27/17 08:00 98.2 84 25 119/44 97 Venturi Mask 55 09/27/17 08:00 93 09/27/17 07:23 87 20 100 Non-Rebreather 15.0 100 09/27/17 07:23 87 20 98 Non-Rebreather 15.0 100 09/27/17 07:22 98 Non-Rebreather 15.0 100 09/27/17 07:22 Non-Rebreather 15.0 100 09/27/17 07:17 87 20 Non-Rebreather 15.0 100 09/27/17 07:00 85 28 139/41 99 Venturi Mask 55 09/27/17 06:00 82 28 139/41 99 Venturi Mask 55 09/27/17 05:00 83 28 122/23 99 Venturi Mask 55 09/27/17 04:00 79 28 119/41 99 Venturi Mask 55 09/27/17 04:00 79 09/27/17 04:00 98.5 79 28 121/55 99 Venturi Mask 55 09/27/17 03:00 83 28 121/55 98 Venturi Mask 55 09/27/17 02:00 76 28 121/55 99 Venturi Mask 55 09/27/17 01:28 86 20 94 Non-Rebreather 15.0 100 09/27/17 01:28 94 20 100 Non-Rebreather 15.0 100 09/27/17 01:00 84 26 154/54 99 Venturi Mask 55 09/27/17 00:00 94 20 157/56 99 Venturi Mask 55 09/27/17 00:00 71 09/26/17 23:02 76 167/62 09/26/17 23:00 94 20 169/61 99 Venturi Mask 55 09/26/17 22:00 94 20 167/62 99 Venturi Mask 55 09/26/17 21:00 94 20 179/63 99 Venturi Mask 55 09/26/17 20:43 93 20 Non-Rebreather 15.0 100 09/26/17 20:00 94 09/26/17 20:00 94 20 170/63 99 Venturi Mask 55 09/26/17 19:30 Non-Rebreather 15.0 100 09/26/17 19:30 98 Non-Rebreather 15.0 100 09/26/17 19:00 94 20 177/70 99 Venturi Mask 55 09/26/17 18:00 81 22 148/57 99 Venturi Mask 55 09/26/17 17:00 97.8 93 24 160/57 96 Venturi Mask 55 09/26/17 16:00 88 23 145/56 96 Venturi Mask 55 09/26/17 16:00 84 09/26/17 15:23 Non-Rebreather 15.0 100 09/26/17 15:00 80 28 168/55 97 Venturi Mask 55 09/26/17 14:00 86 26 154/62 94 Venturi Mask 55 09/26/17 13:00 84 26 141/49 94 Venturi Mask 55 09/26/17 12:00 85 09/26/17 12:00 97.5 83 27 144/46 94 Venturi Mask 55 09/26/17 11:00 82 26 141/50 94 Venturi Mask 55 09/26/17 10:00 76 25 148/55 95 Venturi Mask 55 Labs: Laboratory Tests Test 09/26/17 12:26 09/27/17 04:00 Arterial Blood pH 7.480 (7.350-7.450) Arterial Blood Partial Pressure CO2 40.9 mmHg (35.0-45.0) Arterial Blood Partial Pressure O2 63.1 mmHg (75.0-100.0) L Arterial Blood HCO3 30.4 mmol/L (22.0-26.0) H Arterial Blood Oxygen Saturation 93.0 % (92.0-98.0) Arterial Blood Base Excess 6.5 Scotty Test Positive White Blood Count 20.4 K/UL (4.8-10.8) H Red Blood Count 5.05 M/UL (4.70-6.10) Hemoglobin 11.0 G/DL (14.2-18.0) L Hematocrit 34.6 % (42.0-52.0) L Mean Corpuscular Volume 69 FL (80-99) L Mean Corpuscular Hemoglobin 21.8 PG (27.0-31.0) L Mean Corpuscular Hemoglobin Concent 31.9 G/DL (32.0-36.0) L Red Cell Distribution Width 25.1 % (11.6-14.8) H Platelet Count 83 K/UL (150-450) L Mean Platelet Volume 13.5 FL (6.5-10.1) H Neutrophils (%) (Auto) % (45.0-75.0) Lymphocytes (%) (Auto) % (20.0-45.0) Monocytes (%) (Auto) % (1.0-10.0) Eosinophils (%) (Auto) % (0.0-3.0) Basophils (%) (Auto) % (0.0-2.0) Differential Total Cells Counted 100 Neutrophils % (Manual) 89 % (45-75) H Lymphocytes % (Manual) 5 % (20-45) L Monocytes % (Manual) 6 % (1-10) Eosinophils % (Manual) 0 % (0-3) Basophils % (Manual) 0 % (0-2) Band Neutrophils 0 % (0-8) Platelet Estimate Decreased L Platelet Morphology Normal Hypochromasia 1+ Anisocytosis 2+ Microcytosis 2+ Sodium Level 139 MMOL/L (136-145) Potassium Level 3.6 MMOL/L (3.5-5.1) Chloride Level 103 MMOL/L (98-107) Carbon Dioxide Level 30 MMOL/L (21-32) Anion Gap 6 mmol/L (5-15) Blood Urea Nitrogen 30 mg/dL (7-18) H Creatinine 0.9 MG/DL (0.55-1.30) Estimat Glomerular Filtration Rate mL/min (>60) Glucose Level 94 MG/DL (74-106) Calcium Level 8.2 MG/DL (8.5-10.1) L Total Bilirubin 0.7 MG/DL (0.2-1.0) Aspartate Amino Transf (AST/SGOT) 24 U/L (15-37) Alanine Aminotransferase (ALT/SGPT) 29 U/L (12-78) Alkaline Phosphatase 59 U/L (46-116) Total Protein 6.2 G/DL (6.4-8.2) L Albumin 2.1 G/DL (3.4-5.0) L Globulin 4.1 g/dL Albumin/Globulin Ratio 0.5 (1.0-2.7) L Objective: WDWN NAD opens eyes and slightly more work of breathing on oxygen reduced breath sounds bilaterally with worsening rhonchi bilaterally [id number] without MRG NABS nontender no HSM OGT in place no CCE nonfocal awake and comfortable skin noted lines reviewed reviewed and edited STEVE CARPIO Sep 27, 2017 09:35
--- NOTE | 2017-09-27 10:55 | Nephrology Progress Note ---
Assessment/Plan Problem List: (1) Respiratory failure (2) Renal insufficiency (3) Sepsis (4) AMI (acute myocardial infarction) (5) Gout (6) Anemia (7) Diverticulosis (8) VICTORIA (acute kidney injury) (9) Pneumonia (10) CHF exacerbation Plan victoria likely prerenal, lab trend better, dc iv to avoid overload, diuresis Subjective ROS Limited/Unobtainable: Yes Objective Objective Last 24 Hour Vital Signs Date Time Temp Pulse Resp B/P (MAP) Pulse Ox O2 Delivery O2 Flow Rate FiO2 09/27/17 10:00 88 25 135/49 96 Venturi Mask 55 09/27/17 09:00 86 26 139/53 96 Venturi Mask 55 09/27/17 08:53 87 119/44 09/27/17 08:00 98.2 84 25 119/44 97 Venturi Mask 55 09/27/17 08:00 93 09/27/17 07:23 87 20 100 Non-Rebreather 15.0 100 09/27/17 07:23 87 20 98 Non-Rebreather 15.0 100 09/27/17 07:22 98 Non-Rebreather 15.0 100 09/27/17 07:22 Non-Rebreather 15.0 100 09/27/17 07:17 87 20 Non-Rebreather 15.0 100 09/27/17 07:00 85 28 139/41 99 Venturi Mask 55 09/27/17 06:00 82 28 139/41 99 Venturi Mask 55 09/27/17 05:00 83 28 122/23 99 Venturi Mask 55 09/27/17 04:00 79 28 119/41 99 Venturi Mask 55 09/27/17 04:00 79 09/27/17 04:00 98.5 79 28 121/55 99 Venturi Mask 55 09/27/17 03:00 83 28 121/55 98 Venturi Mask 55 09/27/17 02:00 76 28 121/55 99 Venturi Mask 55 09/27/17 01:28 86 20 94 Non-Rebreather 15.0 100 09/27/17 01:28 94 20 100 Non-Rebreather 15.0 100 09/27/17 01:00 84 26 154/54 99 Venturi Mask 55 09/27/17 00:00 94 20 157/56 99 Venturi Mask 55 09/27/17 00:00 71 09/26/17 23:02 76 167/62 09/26/17 23:00 94 20 169/61 99 Venturi Mask 55 09/26/17 22:00 94 20 167/62 99 Venturi Mask 55 09/26/17 21:00 94 20 179/63 99 Venturi Mask 55 09/26/17 20:43 93 20 Non-Rebreather 15.0 100 09/26/17 20:00 94 09/26/17 20:00 94 20 170/63 99 Venturi Mask 55 09/26/17 19:30 Non-Rebreather 15.0 100 09/26/17 19:30 98 Non-Rebreather 15.0 100 09/26/17 19:00 94 20 177/70 99 Venturi Mask 55 09/26/17 18:00 81 22 148/57 99 Venturi Mask 55 09/26/17 17:00 97.8 93 24 160/57 96 Venturi Mask 55 09/26/17 16:00 88 23 145/56 96 Venturi Mask 55 09/26/17 16:00 84 09/26/17 15:23 Non-Rebreather 15.0 100 09/26/17 15:00 80 28 168/55 97 Venturi Mask 55 09/26/17 14:00 86 26 154/62 94 Venturi Mask 55 09/26/17 13:00 84 26 141/49 94 Venturi Mask 55 09/26/17 12:00 85 09/26/17 12:00 97.5 83 27 144/46 94 Venturi Mask 55 09/26/17 11:00 82 26 141/50 94 Venturi Mask 55 Intake and Output 09/26/17 09/27/17 19:00 07:00 Intake Total 660 ml 0 ml Output Total 1300 ml 1520 ml Balance -640 ml -1520 ml IV Total 660 ml Tube Feeding 0 ml 0 ml Output Urine Total 1300 ml 1520 ml # Bowel Movements 3 5 Laboratory Tests 09/26/17 12:26: Arterial Blood pH 7.480H, Arterial Blood Partial Pressure CO2 40.9, Arterial Blood Partial Pressure O2 63.1L, Arterial Blood HCO3 30.4H, Arterial Blood Oxygen Saturation 93.0, Arterial Blood Base Excess 6.5, Scotty Test Positive 09/27/17 04:00: White Blood Count 20.4H, Red Blood Count 5.05, Hemoglobin 11.0L, Hematocrit 34.6L, Mean Corpuscular Volume 69L, Mean Corpuscular Hemoglobin 21.8L, Mean Corpuscular Hemoglobin Concent 31.9L, Red Cell Distribution Width 25.1H, Platelet Count 83L, Mean Platelet Volume 13.5H, Neutrophils (%) (Auto) , Lymphocytes (%) (Auto) , Monocytes (%) (Auto) , Eosinophils (%) (Auto) , Basophils (%) (Auto) , Differential Total Cells Counted 100, Neutrophils % ( Manual) 89H, Lymphocytes % (Manual) 5L, Monocytes % (Manual) 6, Eosinophils % ( Manual) 0, Basophils % (Manual) 0, Band Neutrophils 0, Platelet Estimate DecreasedL, Platelet Morphology Normal, Hypochromasia 1+, Anisocytosis 2+, Microcytosis 2+, Sodium Level 139, Potassium Level 3.6, Chloride Level 103, Carbon Dioxide Level 30, Anion Gap 6, Blood Urea Nitrogen 30H, Creatinine 0.9, Estimat Glomerular Filtration Rate , Glucose Level 94, Calcium Level 8.2L, Total Bilirubin 0.7, Aspartate Amino Transf (AST/SGOT) 24, Alanine Aminotransferase (ALT/SGPT) 29, Alkaline Phosphatase 59, Total Protein 6.2L, Albumin 2.1L, Globulin 4.1, Albumin/Globulin Ratio 0.5L Height (Feet): 5 Height (Inches): 8.00 Weight (Pounds): 200 General Appearance: lethargic, confused EENT: normal ENT inspection Neck: normal alignment Cardiovascular: regular rhythm Respiratory/Chest: rhonchi - bilaterally Abdomen: non tender, soft Extremities: trace edema Neurologic: disoriented NAOMI SIERRA Sep 27, 2017 10:55
[2017-09-27] MEDS: fentaNYL Citrate 2500mcg in NS 250ml IV SCH (12:08)
--- NOTE | 2017-09-27 13:27 | Diagnostic Imaging Report ---
Indication: Dyspnea Technique: XRAY Chest 1v Comparison: 09/25/2017 Findings: Interval removal of endotracheal tube. NG tube unchanged. Heart size and mediastinal contours are stable. There are persistent patchy left-sided airspace opacities. There is slight increase in hazy opacities in the right mid/lower lung. There is persistent dense right medial basilar atelectasis/consolidation. No pneumothorax. Costophrenic sulci are sharp. No acute osseous abnormality Impression: Interval removal of endotracheal tube. Persistent left-sided patchy airspace opacities. Slight interval worsening of aeration of the right lower lung.
--- NOTE | 2017-09-27 15:13 | General Progress Note ---
Assessment/Plan Assessment/Plan Assessment - OB (+) stools - Microcytic Iron deficient anemia - s/p transfusion - TF intolerance - thrombocytopenia - OBS - constipation Recommendations - follow labs and exam - laxative PRN - d/c reglan - transfuse PRN - IV Fe - PPI - swallow eval Subjective Allergies: Coded Allergies: No Known Allergies (Unverified , 09/16/17) Subjective Feels ok weak on mask (+) OGT Objective Last 24 Hour Vital Signs Date Time Temp Pulse Resp B/P (MAP) Pulse Ox O2 Delivery O2 Flow Rate FiO2 09/27/17 14:00 69 25 126/43 100 Venturi Mask 55 09/27/17 13:00 87 28 158/52 92 Venturi Mask 55 09/27/17 12:00 98.9 96 29 154/45 97 Venturi Mask 55 09/27/17 12:00 97 09/27/17 11:00 89 27 145/55 97 Venturi Mask 55 09/27/17 10:00 88 25 135/49 96 Venturi Mask 55 09/27/17 09:00 86 26 139/53 96 Venturi Mask 55 09/27/17 08:53 87 119/44 09/27/17 08:00 98.2 84 25 119/44 97 Venturi Mask 55 09/27/17 08:00 93 09/27/17 07:23 87 20 100 Non-Rebreather 15.0 100 09/27/17 07:23 87 20 98 Non-Rebreather 15.0 100 09/27/17 07:22 98 Non-Rebreather 15.0 100 09/27/17 07:22 Non-Rebreather 15.0 100 09/27/17 07:17 87 20 Non-Rebreather 15.0 100 09/27/17 07:00 85 28 139/41 99 Venturi Mask 55 09/27/17 06:00 82 28 139/41 99 Venturi Mask 55 09/27/17 05:00 83 28 122/23 99 Venturi Mask 55 09/27/17 04:00 79 28 119/41 99 Venturi Mask 55 09/27/17 04:00 79 09/27/17 04:00 98.5 79 28 121/55 99 Venturi Mask 55 09/27/17 03:00 83 28 121/55 98 Venturi Mask 55 09/27/17 02:00 76 28 121/55 99 Venturi Mask 55 09/27/17 01:28 86 20 94 Non-Rebreather 15.0 100 09/27/17 01:28 94 20 100 Non-Rebreather 15.0 100 09/27/17 01:00 84 26 154/54 99 Venturi Mask 55 09/27/17 00:00 94 20 157/56 99 Venturi Mask 55 09/27/17 00:00 71 09/26/17 23:02 76 167/62 09/26/17 23:00 94 20 169/61 99 Venturi Mask 55 09/26/17 22:00 94 20 167/62 99 Venturi Mask 55 09/26/17 21:00 94 20 179/63 99 Venturi Mask 55 09/26/17 20:43 93 20 Non-Rebreather 15.0 100 09/26/17 20:00 94 09/26/17 20:00 94 20 170/63 99 Venturi Mask 55 09/26/17 19:30 Non-Rebreather 15.0 100 09/26/17 19:30 98 Non-Rebreather 15.0 100 09/26/17 19:00 94 20 177/70 99 Venturi Mask 55 09/26/17 18:00 81 22 148/57 99 Venturi Mask 55 09/26/17 17:00 97.8 93 24 160/57 96 Venturi Mask 55 09/26/17 16:00 88 23 145/56 96 Venturi Mask 55 09/26/17 16:00 84 09/26/17 15:23 Non-Rebreather 15.0 100 Intake and Output 09/26/17 09/27/17 19:00 07:00 Intake Total 660 ml 0 ml Output Total 1300 ml 1520 ml Balance -640 ml -1520 ml IV Total 660 ml Tube Feeding 0 ml 0 ml Output Urine Total 1300 ml 1520 ml # Bowel Movements 3 5 Laboratory Tests 09/27/17 04:00: White Blood Count 20.4H, Red Blood Count 5.05, Hemoglobin 11.0L, Hematocrit 34.6L, Mean Corpuscular Volume 69L, Mean Corpuscular Hemoglobin 21.8L, Mean Corpuscular Hemoglobin Concent 31.9L, Red Cell Distribution Width 25.1H, Platelet Count 83L, Mean Platelet Volume 13.5H, Neutrophils (%) (Auto) , Lymphocytes (%) (Auto) , Monocytes (%) (Auto) , Eosinophils (%) (Auto) , Basophils (%) (Auto) , Differential Total Cells Counted 100, Neutrophils % ( Manual) 89H, Lymphocytes % (Manual) 5L, Monocytes % (Manual) 6, Eosinophils % ( Manual) 0, Basophils % (Manual) 0, Band Neutrophils 0, Platelet Estimate DecreasedL, Platelet Morphology Normal, Hypochromasia 1+, Anisocytosis 2+, Microcytosis 2+, Sodium Level 139, Potassium Level 3.6, Chloride Level 103, Carbon Dioxide Level 30, Anion Gap 6, Blood Urea Nitrogen 30H, Creatinine 0.9, Estimat Glomerular Filtration Rate , Glucose Level 94, Calcium Level 8.2L, Total Bilirubin 0.7, Aspartate Amino Transf (AST/SGOT) 24, Alanine Aminotransferase (ALT/SGPT) 29, Alkaline Phosphatase 59, Total Protein 6.2L, Albumin 2.1L, Globulin 4.1, Albumin/Globulin Ratio 0.5L 09/27/17 12:05: Arterial Blood pH 7.430, Arterial Blood Partial Pressure CO2 46.9H, Arterial Blood Partial Pressure O2 149.2H, Arterial Blood HCO3 30.6H, Arterial Blood Oxygen Saturation 98.8H, Arterial Blood Base Excess 5.5, Scotty Test Positive Height (Feet): 5 Height (Inches): 8.00 Weight (Pounds): 200 Objective Elderly patient in ICU NCAT, (+) OGT, (+) FM supple Coarse BS RR Soft abd trace edema TAYO GUERIN Sep 27, 2017 15:13
[2017-09-27] MEDS ORDERED: NS 500ML ONE (17:07)
[2017-09-27] MEDS ORDERED: Sterile Water Irrig 1000ml IRRIG ONE (17:07)
[2017-09-27] MEDS ORDERED: NS Irrig 1000ml ONE (17:07)
[2017-09-27] MEDS ORDERED: NS 275ml ONE (17:07)
[2017-09-27] MEDS: Miralax 17gm pkt GT SCH (21:00)
[2017-09-28] VITALS (26 sets, daily range): BP systolic 17–179; BP diastolic 42–75
[2017-09-28 05:37] LABS: HEMATOCRIT 36.1 % (42.0-52.0); HEMOGLOBIN 11.1 G/DL (14.2-18.0); MEAN CORPUSCULAR VOLUME 70 FL (80-99); PLATELET COUNT 98 K/UL (150-450); RED BLOOD COUNT 5.19 M/UL (4.70-6.10); RED CELL DISTRIBUTION WIDTH 25.4 % (11.6-14.8); WHITE BLOOD COUNT 19.5 K/UL (4.8-10.8)
[2017-09-28 06:36] LABS: ALANINE AMINOTRANSFERASE 25 U/L (12-78); ALBUMIN 2.1 G/DL (3.4-5.0); ALBUMIN/GLOBULIN RATIO 0.5 (1.0-2.7); ALKALINE PHOSPHATASE 66 U/L (46-116); ANION GAP 10 mmol/L (5-15); ASPARTATE AMINO TRANSFERASE 22 U/L (15-37); BILIRUBIN,TOTAL 0.6 MG/DL (0.2-1.0); BLOOD UREA NITROGEN 27 mg/dL (7-18); CALCIUM 8.3 MG/DL (8.5-10.1); CARBON DIOXIDE 29 MMOL/L (21-32); CHLORIDE 107 MMOL/L (98-107); CREATININE 0.9 MG/DL (0.55-1.30); POTASSIUM 3.3 MMOL/L (3.5-5.1); SODIUM 146 MMOL/L (136-145)
--- NOTE | 2017-09-28 08:07 | General Progress Note ---
Assessment/Plan Problem List: (1) Anemia ICD Codes: D64.9 - Anemia, unspecified SNOMED: 874113660 (2) AMI (acute myocardial infarction) ICD Codes: I21.9 - Acute myocardial infarction, unspecified SNOMED: 08706573 (3) HTN (hypertension) ICD Codes: I10 - Essential (primary) hypertension SNOMED: 44337028 (4) COPD (chronic obstructive pulmonary disease) ICD Codes: J44.9 - Chronic obstructive pulmonary disease, unspecified SNOMED: 35131530 (5) Gout ICD Codes: M10.9 - Gout, unspecified SNOMED: 78893723 (6) Episode of generalized weakness ICD Codes: R53.1 - Weakness SNOMED: 08093848 (7) Sepsis ICD Codes: A41.9 - Sepsis, unspecified organism SNOMED: 93246340 Qualifiers: Qualified Codes: A41.9 - Sepsis, unspecified organism (8) Pneumonia ICD Codes: J18.9 - Pneumonia, unspecified organism SNOMED: 930713198 Status: stable, progressing Assessment/Plan resp rx/suctioning/o2 wean o2 iv abc keep dry monitor abg and cxr swallow eval increase water flush ngt feeds monitor residuals remains guarded but improving slowly. Subjective ROS Limited/Unobtainable: No Constitutional: Reports: malaise, weakness HEENT: Reports: no symptoms Cardiovascular: Reports: no symptoms Respiratory: Reports: cough, shortness of breath Gastrointestinal/Abdominal: Reports: difficulty swallowing Genitourinary: Reports: no symptoms Neurologic/Psychiatric: Reports: no symptoms Endocrine: Reports: no symptoms Hematologic/Lymphatic: Reports: anemia Allergies: Coded Allergies: No Known Allergies (Unverified , 09/16/17) All Systems: reviewed and negative except above Subjective no events. remains on venti mask. less congested than yesterday. has ngt. denies chest pain d/w rn. feeds just resumed. elevated Na noted. Objective Last 24 Hour Vital Signs Date Time Temp Pulse Resp B/P (MAP) Pulse Ox O2 Delivery O2 Flow Rate FiO2 09/28/17 07:00 74 25 169/52 96 Venturi Mask 55 09/28/17 06:00 76 22 156/51 97 Venturi Mask 55 09/28/17 05:00 80 22 159/62 94 Venturi Mask 55 09/28/17 04:00 98.4 82 26 152/51 95 Venturi Mask 55 09/28/17 03:56 80 09/28/17 03:00 75 25 150/54 95 Venturi Mask 55 09/28/17 03:00 77 24 160/47 95 Venturi Mask 55 09/28/17 02:00 78 25 144/46 97 Venturi Mask 55 09/28/17 01:00 80 24 154/42 97 Venturi Mask 55 09/28/17 00:19 66 09/28/17 00:00 97.9 68 26 138/49 96 Venturi Mask 55 09/27/17 23:05 75 23 144/43 95 Venturi Mask 55 09/27/17 22:00 74 23 133/42 95 Venturi Mask 55 09/27/17 21:14 95 133/45 09/27/17 21:00 95 25 133/45 96 Venturi Mask 55 09/27/17 20:21 90 09/27/17 20:00 98.7 90 22 144/53 96 Venturi Mask 55 09/27/17 19:30 Venturi Mask 14.0 55 09/27/17 19:30 91 20 Venturi Mask 14.0 55 09/27/17 19:30 95 Venturi Mask 14.0 55 09/27/17 19:00 86 26 132/44 94 Venturi Mask 55 09/27/17 18:00 88 27 128/50 92 Venturi Mask 55 09/27/17 17:00 86 27 131/49 93 Venturi Mask 55 09/27/17 16:00 97.6 91 29 151/52 90 Venturi Mask 55 09/27/17 16:00 92 09/27/17 15:00 80 27 126/47 92 Venturi Mask 55 09/27/17 14:00 69 25 126/43 100 Venturi Mask 55 09/27/17 13:00 87 28 158/52 92 Venturi Mask 55 09/27/17 12:00 98.9 96 29 154/45 97 Venturi Mask 55 09/27/17 12:00 97 09/27/17 11:00 89 27 145/55 97 Venturi Mask 55 09/27/17 10:00 88 25 135/49 96 Venturi Mask 55 09/27/17 09:00 86 26 139/53 96 Venturi Mask 55 09/27/17 08:53 87 119/44 Intake and Output 09/27/17 09/28/17 19:00 07:00 Intake Total 225 ml 90 ml Output Total 660 ml 500 ml Balance -435 ml -410 ml Free Water 100 ml 60 ml IV Total 125 ml Tube Feeding 0 ml 30 ml Output Urine Total 660 ml 500 ml # Bowel Movements 4 3 Laboratory Tests 09/27/17 12:05: Arterial Blood pH 7.430, Arterial Blood Partial Pressure CO2 46.9H, Arterial Blood Partial Pressure O2 149.2H, Arterial Blood HCO3 30.6H, Arterial Blood Oxygen Saturation 98.8H, Arterial Blood Base Excess 5.5, Scotty Test Positive 09/28/17 04:30: White Blood Count 19.5H, Red Blood Count 5.19, Hemoglobin 11.1L, Hematocrit 36.1L, Mean Corpuscular Volume 70L, Mean Corpuscular Hemoglobin 21.3L, Mean Corpuscular Hemoglobin Concent 30.6L, Red Cell Distribution Width 25.4H, Platelet Count 98L, Mean Platelet Volume 12.6H, Neutrophils (%) (Auto) , Lymphocytes (%) (Auto) , Monocytes (%) (Auto) , Eosinophils (%) (Auto) , Basophils (%) (Auto) , Neutrophils % (Manual) [Pending], Lymphocytes % (Manual) [Pending], Platelet Estimate [Pending], Platelet Morphology [Pending], Sodium Level 146H, Potassium Level 3.3L, Chloride Level 107, Carbon Dioxide Level 29, Anion Gap 10, Blood Urea Nitrogen 27H, Creatinine 0.9, Estimat Glomerular Filtration Rate , Glucose Level 89, Calcium Level 8.3L, Total Bilirubin 0.6, Aspartate Amino Transf (AST/SGOT) 22, Alanine Aminotransferase (ALT/SGPT) 25, Alkaline Phosphatase 66, Total Protein 6.6, Albumin 2.1L, Globulin 4.5, Albumin/ Globulin Ratio 0.5L Height (Feet): 5 Height (Inches): 8.00 Weight (Pounds): 180 Objective General Appearance: WD/WN, alert. no distress. +ngt Neck: supple Cardiovascular: normal rate, regular rhythm Respiratory/Chest: rales and rhonchi ernestine- less Abdomen: normal bowel sounds, non tender, soft, no organomegaly Edema: no edema noted Arm (L), no edema noted Arm (R), no edema noted Leg (L), no edema noted Leg (R), no edema noted Pedal (L), no edema noted Pedal (R), no edema noted Generalized BHUPINDER DILL Sep 28, 2017 08:07
--- NOTE | 2017-09-28 08:34 | Infectious Diseases Prog Note ---
Assessment/Plan Assessment/Plan O; 1. pneumonia 2. leucocytosis, may be steroid related 3. COPD 4. gout 5. thrombocytopenia 6. anemia 7. Hypoxic respiratory failure P 1. continue Levaquin X 1 day 2. UA, UC 3. case was D/W RN Subjective ROS Limited/Unobtainable: Yes Allergies: Coded Allergies: No Known Allergies (Unverified , 09/16/17) Objective Vital Signs Last 24 Hour Vital Signs Date Time Temp Pulse Resp B/P (MAP) Pulse Ox O2 Delivery O2 Flow Rate FiO2 09/28/17 07:45 94 Venturi Mask 14.0 55 09/28/17 07:45 Venturi Mask 14.0 55 09/28/17 07:45 86 20 Venturi Mask 14.0 55 09/28/17 07:00 74 25 169/52 96 Venturi Mask 55 09/28/17 06:00 76 22 156/51 97 Venturi Mask 55 09/28/17 05:00 80 22 159/62 94 Venturi Mask 55 09/28/17 04:00 98.4 82 26 152/51 95 Venturi Mask 55 09/28/17 03:56 80 09/28/17 03:00 75 25 150/54 95 Venturi Mask 55 09/28/17 03:00 77 24 160/47 95 Venturi Mask 55 09/28/17 02:00 78 25 144/46 97 Venturi Mask 55 09/28/17 01:00 80 24 154/42 97 Venturi Mask 55 09/28/17 00:19 66 09/28/17 00:00 97.9 68 26 138/49 96 Venturi Mask 55 09/27/17 23:05 75 23 144/43 95 Venturi Mask 55 09/27/17 22:00 74 23 133/42 95 Venturi Mask 55 09/27/17 21:14 95 133/45 09/27/17 21:00 95 25 133/45 96 Venturi Mask 55 09/27/17 20:21 90 09/27/17 20:00 98.7 90 22 144/53 96 Venturi Mask 55 09/27/17 19:30 Venturi Mask 14.0 55 09/27/17 19:30 91 20 Venturi Mask 14.0 55 09/27/17 19:30 95 Venturi Mask 14.0 55 09/27/17 19:00 86 26 132/44 94 Venturi Mask 55 09/27/17 18:00 88 27 128/50 92 Venturi Mask 55 09/27/17 17:00 86 27 131/49 93 Venturi Mask 55 09/27/17 16:00 97.6 91 29 151/52 90 Venturi Mask 55 09/27/17 16:00 92 09/27/17 15:00 80 27 126/47 92 Venturi Mask 55 09/27/17 14:00 69 25 126/43 100 Venturi Mask 55 09/27/17 13:00 87 28 158/52 92 Venturi Mask 55 09/27/17 12:00 98.9 96 29 154/45 97 Venturi Mask 55 09/27/17 12:00 97 09/27/17 11:00 89 27 145/55 97 Venturi Mask 55 09/27/17 10:00 88 25 135/49 96 Venturi Mask 55 09/27/17 09:00 86 26 139/53 96 Venturi Mask 55 09/27/17 08:53 87 119/44 Height (Feet): 5 Height (Inches): 8.00 Weight (Pounds): 180 HEENT: mucous membranes moist Respiratory/Chest: lungs clear, other - O2 by mask Cardiovascular: normal rate Abdomen: soft, non tender, other - orogastric tube Genitourinary: other - Mcdonnell catheter, hematuria Extremities: no edema Neurologic/Psychiatric: other - opens eyes Laboratory Tests Test 09/27/17 12:05 09/28/17 04:30 Arterial Blood pH 7.430 (7.350-7.450) Arterial Blood Partial Pressure CO2 46.9 mmHg (35.0-45.0) H Arterial Blood Partial Pressure O2 149.2 mmHg (75.0-100.0) H Arterial Blood HCO3 30.6 mmol/L (22.0-26.0) H Arterial Blood Oxygen Saturation 98.8 % (92.0-98.0) H Arterial Blood Base Excess 5.5 Scotty Test Positive White Blood Count 19.5 K/UL (4.8-10.8) H Red Blood Count 5.19 M/UL (4.70-6.10) Hemoglobin 11.1 G/DL (14.2-18.0) L Hematocrit 36.1 % (42.0-52.0) L Mean Corpuscular Volume 70 FL (80-99) L Mean Corpuscular Hemoglobin 21.3 PG (27.0-31.0) L Mean Corpuscular Hemoglobin Concent 30.6 G/DL (32.0-36.0) L Red Cell Distribution Width 25.4 % (11.6-14.8) H Platelet Count 98 K/UL (150-450) L Mean Platelet Volume 12.6 FL (6.5-10.1) H Neutrophils (%) (Auto) % (45.0-75.0) Lymphocytes (%) (Auto) % (20.0-45.0) Monocytes (%) (Auto) % (1.0-10.0) Eosinophils (%) (Auto) % (0.0-3.0) Basophils (%) (Auto) % (0.0-2.0) Neutrophils % (Manual) Pending Lymphocytes % (Manual) Pending Platelet Estimate Pending Platelet Morphology Pending Sodium Level 146 MMOL/L (136-145) H Potassium Level 3.3 MMOL/L (3.5-5.1) L Chloride Level 107 MMOL/L (98-107) Carbon Dioxide Level 29 MMOL/L (21-32) Anion Gap 10 mmol/L (5-15) Blood Urea Nitrogen 27 mg/dL (7-18) H Creatinine 0.9 MG/DL (0.55-1.30) Estimat Glomerular Filtration Rate mL/min (>60) Glucose Level 89 MG/DL (74-106) Calcium Level 8.3 MG/DL (8.5-10.1) L Total Bilirubin 0.6 MG/DL (0.2-1.0) Aspartate Amino Transf (AST/SGOT) 22 U/L (15-37) Alanine Aminotransferase (ALT/SGPT) 25 U/L (12-78) Alkaline Phosphatase 66 U/L (46-116) Total Protein 6.6 G/DL (6.4-8.2) Albumin 2.1 G/DL (3.4-5.0) L Globulin 4.5 g/dL Albumin/Globulin Ratio 0.5 (1.0-2.7) L Current Medications Medications (Trade) Dose Ordered Sig/Duong Route PRN Reason Start Time Stop Time Status Last Admin Dose Admin Acetaminophen (Tylenol) 650 mg Q4H PRN NG MILD PAIN(1-3)/FEVER 09/21/17 22:00 10/21/17 21:59 09/24/17 16:31 Fentanyl Citrate 2500 mcg/Sodium Chloride 250 ml @ 0 mls/hr Q24H IV 09/22/17 13:00 09/29/17 12:59 09/22/17 13:39 Ipratropium Snyder (Atrovent) 500 mcg Q4H PRN HHN Breakthru Shortness of Breath 09/22/17 15:00 09/27/17 23:59 09/25/17 15:15 Levofloxacin 150 ml @ 150 mls/hr Q24H IVPB 09/26/17 15:00 09/28/17 15:59 09/27/17 15:00 Levothyroxine Sodium (Synthroid) 50 mcg ACBREAKFAST GT 09/22/17 06:30 10/17/17 06:29 09/28/17 06:07 Methylprednisolone Sodium Succinate (Solu-MEDROL) 20 mg DAILY IVP 09/28/17 09:00 10/28/17 08:59 Metoprolol Tartrate (Lopressor) 50 mg Q12HR NG 09/25/17 21:00 10/25/17 20:59 09/27/17 21:14 Montelukast Sodium (Singulair) 10 mg DAILY GT 09/22/17 09:00 10/17/17 08:59 09/27/17 08:52 Pantoprazole (Protonix) 40 mg EVERY 12 HOURS IVP 09/18/17 21:00 10/16/17 22:59 09/27/17 21:13 Polyethylene Glycol (Miralax) 17 gm BEDTIME GT 09/21/17 21:00 10/19/17 20:59 09/26/17 22:59 Potassium Chloride (K-Dur) 40 meq ONCE ONCE ORAL 09/28/17 09:30 09/28/17 09:31 CIRO GODFREY Sep 28, 2017 08:34
[2017-09-28] MEDS ORDERED: Solu-MEDROL 40mg Inj IVP SCH (09:00)
--- NOTE | 2017-09-28 09:06 | Critical Care Progress Note ---
Assessment/Plan Assessment/Plan COPD with exacerbation Acute respiratory failure tachycardia Pneumonia acute encephalopathy hypoxemia significant agitation anemia hypertension profound leukocytosis PLAN care noted IV antibiotics off iv fluids monitor BNP respiratory care as is monitor off vent supportive care as outlined suction correct lytes ID follow up maintain IV steroids CPT and encourage cough ABG low threshold to intubate CM to assist with possible transport as per family request monitor respiratory status closely oxygen therapy prognosis guarded medications/laboratory data/nursing notes/ICU care reviewed in detail note reviewed and edited care discussed with RN and RT ICU time spent 36 minutes Critical Care - Subjective Interval Events: slightly improved less congestion noted on oxygen on feeds ROS Limited/Unobtainable: Yes Condition: critical EKG Rhythm: Sinus Rhythm I&O: Intake and Output 09/27/17 09/28/17 19:00 07:00 Intake Total 225 ml 90 ml Output Total 660 ml 500 ml Balance -435 ml -410 ml Free Water 100 ml 60 ml IV Total 125 ml Tube Feeding 0 ml 30 ml Output Urine Total 660 ml 500 ml # Bowel Movements 4 3 Critical Care - Objective ET-Tube: 7.5 ET Position: 23 Last 24 Hour Vital Signs Date Time Temp Pulse Resp B/P (MAP) Pulse Ox O2 Delivery O2 Flow Rate FiO2 09/28/17 07:45 94 Venturi Mask 14.0 55 09/28/17 07:45 Venturi Mask 14.0 55 09/28/17 07:45 86 20 Venturi Mask 14.0 55 09/28/17 07:00 74 25 169/52 96 Venturi Mask 55 09/28/17 06:00 76 22 156/51 97 Venturi Mask 55 09/28/17 05:00 80 22 159/62 94 Venturi Mask 55 09/28/17 04:00 98.4 82 26 152/51 95 Venturi Mask 55 09/28/17 03:56 80 09/28/17 03:00 75 25 150/54 95 Venturi Mask 55 09/28/17 03:00 77 24 160/47 95 Venturi Mask 55 09/28/17 02:00 78 25 144/46 97 Venturi Mask 55 09/28/17 01:00 80 24 154/42 97 Venturi Mask 55 09/28/17 00:19 66 09/28/17 00:00 97.9 68 26 138/49 96 Venturi Mask 55 09/27/17 23:05 75 23 144/43 95 Venturi Mask 55 09/27/17 22:00 74 23 133/42 95 Venturi Mask 55 09/27/17 21:14 95 133/45 09/27/17 21:00 95 25 133/45 96 Venturi Mask 55 09/27/17 20:21 90 09/27/17 20:00 98.7 90 22 144/53 96 Venturi Mask 55 09/27/17 19:30 Venturi Mask 14.0 55 09/27/17 19:30 91 20 Venturi Mask 14.0 55 09/27/17 19:30 95 Venturi Mask 14.0 55 09/27/17 19:00 86 26 132/44 94 Venturi Mask 55 09/27/17 18:00 88 27 128/50 92 Venturi Mask 55 09/27/17 17:00 86 27 131/49 93 Venturi Mask 55 09/27/17 16:00 97.6 91 29 151/52 90 Venturi Mask 55 09/27/17 16:00 92 09/27/17 15:00 80 27 126/47 92 Venturi Mask 55 09/27/17 14:00 69 25 126/43 100 Venturi Mask 55 09/27/17 13:00 87 28 158/52 92 Venturi Mask 55 09/27/17 12:00 98.9 96 29 154/45 97 Venturi Mask 55 09/27/17 12:00 97 09/27/17 11:00 89 27 145/55 97 Venturi Mask 55 09/27/17 10:00 88 25 135/49 96 Venturi Mask 55 Labs: Laboratory Tests Test 09/27/17 12:05 09/28/17 04:30 Arterial Blood pH 7.430 (7.350-7.450) Arterial Blood Partial Pressure CO2 46.9 mmHg (35.0-45.0) H Arterial Blood Partial Pressure O2 149.2 mmHg (75.0-100.0) H Arterial Blood HCO3 30.6 mmol/L (22.0-26.0) H Arterial Blood Oxygen Saturation 98.8 % (92.0-98.0) H Arterial Blood Base Excess 5.5 Scotty Test Positive White Blood Count 19.5 K/UL (4.8-10.8) H Red Blood Count 5.19 M/UL (4.70-6.10) Hemoglobin 11.1 G/DL (14.2-18.0) L Hematocrit 36.1 % (42.0-52.0) L Mean Corpuscular Volume 70 FL (80-99) L Mean Corpuscular Hemoglobin 21.3 PG (27.0-31.0) L Mean Corpuscular Hemoglobin Concent 30.6 G/DL (32.0-36.0) L Red Cell Distribution Width 25.4 % (11.6-14.8) H Platelet Count 98 K/UL (150-450) L Mean Platelet Volume 12.6 FL (6.5-10.1) H Neutrophils (%) (Auto) % (45.0-75.0) Lymphocytes (%) (Auto) % (20.0-45.0) Monocytes (%) (Auto) % (1.0-10.0) Eosinophils (%) (Auto) % (0.0-3.0) Basophils (%) (Auto) % (0.0-2.0) Differential Total Cells Counted 100 Neutrophils % (Manual) 87 % (45-75) H Lymphocytes % (Manual) 2 % (20-45) L Monocytes % (Manual) 7 % (1-10) Eosinophils % (Manual) 0 % (0-3) Basophils % (Manual) 0 % (0-2) Metamyelocytes % 3 % (0-0) H Myelocytes % 1 % (0-0) H Band Neutrophils 0 % (0-8) Platelet Estimate Decreased L Platelet Morphology Normal Hypochromasia 1+ Anisocytosis 4+ Microcytosis 1+ Sodium Level 146 MMOL/L (136-145) H Potassium Level 3.3 MMOL/L (3.5-5.1) L Chloride Level 107 MMOL/L (98-107) Carbon Dioxide Level 29 MMOL/L (21-32) Anion Gap 10 mmol/L (5-15) Blood Urea Nitrogen 27 mg/dL (7-18) H Creatinine 0.9 MG/DL (0.55-1.30) Estimat Glomerular Filtration Rate mL/min (>60) Glucose Level 89 MG/DL (74-106) Calcium Level 8.3 MG/DL (8.5-10.1) L Total Bilirubin 0.6 MG/DL (0.2-1.0) Aspartate Amino Transf (AST/SGOT) 22 U/L (15-37) Alanine Aminotransferase (ALT/SGPT) 25 U/L (12-78) Alkaline Phosphatase 66 U/L (46-116) Total Protein 6.6 G/DL (6.4-8.2) Albumin 2.1 G/DL (3.4-5.0) L Globulin 4.5 g/dL Albumin/Globulin Ratio 0.5 (1.0-2.7) L Objective: WDWN NAD opens eyes and interacts on oxygen reduced breath sounds bilaterally with scattered rhonchi bilaterally [id number] without MRG NABS nontender no HSM OGT in place no CCE nonfocal awake and comfortable skin noted lines reviewed reviewed and edited STEVE CARPIO Sep 28, 2017 09:06
[2017-09-28] MEDS: Montelukast 10mg tablet GT SCH (09:25)
[2017-09-28] MEDS: Metoprolol 25mg tab NG SCH ×2 (09:25→20:17)
[2017-09-28] MEDS: Pantoprazole Inj IVP SCH ×2 (09:26→20:18)
[2017-09-28 11:14] LABS: APPEARANCE,URINE CLOUDY; BILIRUBIN, URINE NEGATIVE (NEGATIVE); COLOR,URINE AMBER; GLUCOSE, URINE (UA) NEGATIVE (NEGATIVE); KETONES,URINE 3+ (NEGATIVE); LEUKOCYTE ESTERASE ,URINE 1+ (NEGATIVE); NITRITE,URINE NEGATIVE (NEGATIVE); PH,URINE 5 (4.5-8.0); PROTEIN,URINE 3+ (NEGATIVE); UROBILINOGEN,URINE 1 MG/DL (0.0-1.0)
[2017-09-28] MEDS: fentaNYL Citrate 2500mcg in NS 250ml IV SCH (13:00)
[2017-09-28] MEDS ORDERED: D5W 275ml ONE (14:39)
[2017-09-28] MEDS ORDERED: NS 500ML ONE (14:39)
[2017-09-28] MEDS ORDERED: NS 275ml ONE (17:24)
[2017-09-28] MEDS ORDERED: Tubing IV Secondary IV ONE (17:24)
[2017-09-28] MEDS ORDERED: Tubing IV Blood Pump IV ONE (17:24)
--- NOTE | 2017-09-28 17:27 | General Progress Note ---
Assessment/Plan Assessment/Plan Assessment - OB (+) stools - Microcytic Iron deficient anemia - s/p transfusion - TF intolerance - thrombocytopenia - OBS - constipation Recommendations - follow labs and exam - laxative PRN - retry TF, slowly - transfuse PRN - IV Fe - PPI - swallow eval when more awake - GI w/u on hold, per family request Subjective Allergies: Coded Allergies: No Known Allergies (Unverified , 09/16/17) Subjective weak on mask (+) OGT Objective Last 24 Hour Vital Signs Date Time Temp Pulse Resp B/P (MAP) Pulse Ox O2 Delivery O2 Flow Rate FiO2 09/28/17 17:00 98.0 101 26 153/51 98 Venturi Mask 55 09/28/17 16:00 97.6 98 27 134/75 96 Venturi Mask 55 09/28/17 16:00 91 09/28/17 15:50 168/47 09/28/17 15:00 98.9 89 23 161/67 92 Venturi Mask 55 09/28/17 14:00 168/47 09/28/17 13:37 98.0 89 22 162/64 96 Venturi Mask 55 09/28/17 13:00 23 09/28/17 13:00 98.2 82 26 165/64 96 55 09/28/17 12:00 89 09/28/17 12:00 97.6 89 23 161/64 96 Venturi Mask 55 09/28/17 11:00 96 27 166/48 96 Venturi Mask 55 09/28/17 09:46 98.4 82 26 152/51 95 Venturi Mask 55 09/28/17 09:25 87 173/53 09/28/17 09:00 85 27 17/53 95 Venturi Mask 55 09/28/17 08:00 82 09/28/17 08:00 98.4 78 26 164/53 97 Venturi Mask 55 09/28/17 07:45 94 Venturi Mask 14.0 55 09/28/17 07:45 Venturi Mask 14.0 55 09/28/17 07:45 86 20 Venturi Mask 14.0 55 09/28/17 07:00 74 25 169/52 96 Venturi Mask 55 09/28/17 06:00 76 22 156/51 97 Venturi Mask 55 09/28/17 05:00 80 22 159/62 94 Venturi Mask 55 09/28/17 04:00 98.4 82 26 152/51 95 Venturi Mask 55 09/28/17 03:56 80 09/28/17 03:00 75 25 150/54 95 Venturi Mask 55 09/28/17 03:00 77 24 160/47 95 Venturi Mask 55 09/28/17 02:00 78 25 144/46 97 Venturi Mask 55 09/28/17 01:00 80 24 154/42 97 Venturi Mask 55 09/28/17 00:19 66 09/28/17 00:00 97.9 68 26 138/49 96 Venturi Mask 55 09/27/17 23:05 75 23 144/43 95 Venturi Mask 55 09/27/17 22:00 74 23 133/42 95 Venturi Mask 55 09/27/17 21:14 95 133/45 09/27/17 21:00 95 25 133/45 96 Venturi Mask 55 09/27/17 20:21 90 09/27/17 20:00 98.7 90 22 144/53 96 Venturi Mask 55 09/27/17 19:30 Venturi Mask 14.0 55 09/27/17 19:30 91 20 Venturi Mask 14.0 55 09/27/17 19:30 95 Venturi Mask 14.0 55 09/27/17 19:00 86 26 132/44 94 Venturi Mask 55 09/27/17 18:00 88 27 128/50 92 Venturi Mask 55 Intake and Output 09/27/17 09/28/17 19:00 07:00 Intake Total 225 ml 90 ml Output Total 660 ml 500 ml Balance -435 ml -410 ml Free Water 100 ml 60 ml IV Total 125 ml Tube Feeding 0 ml 30 ml Output Urine Total 660 ml 500 ml # Bowel Movements 4 3 Laboratory Tests 09/28/17 04:30: White Blood Count 19.5H, Red Blood Count 5.19, Hemoglobin 11.1L, Hematocrit 36.1L, Mean Corpuscular Volume 70L, Mean Corpuscular Hemoglobin 21.3L, Mean Corpuscular Hemoglobin Concent 30.6L, Red Cell Distribution Width 25.4H, Platelet Count 98L, Mean Platelet Volume 12.6H, Neutrophils (%) (Auto) , Lymphocytes (%) (Auto) , Monocytes (%) (Auto) , Eosinophils (%) (Auto) , Basophils (%) (Auto) , Differential Total Cells Counted 100, Neutrophils % ( Manual) 87H, Lymphocytes % (Manual) 2L, Monocytes % (Manual) 7, Eosinophils % ( Manual) 0, Basophils % (Manual) 0, Metamyelocytes % 3H, Myelocytes % 1H, Band Neutrophils 0, Platelet Estimate DecreasedL, Platelet Morphology Normal, Hypochromasia 1+, Anisocytosis 4+, Microcytosis 1+, Sodium Level 146H, Potassium Level 3.3L, Chloride Level 107, Carbon Dioxide Level 29, Anion Gap 10 , Blood Urea Nitrogen 27H, Creatinine 0.9, Estimat Glomerular Filtration Rate , Glucose Level 89, Calcium Level 8.3L, Total Bilirubin 0.6, Aspartate Amino Transf (AST/SGOT) 22, Alanine Aminotransferase (ALT/SGPT) 25, Alkaline Phosphatase 66, Total Protein 6.6, Albumin 2.1L, Globulin 4.5, Albumin/Globulin Ratio 0.5L 09/28/17 11:00: Urine Color Kenyatta, Urine Appearance Cloudy, Urine pH 5, Urine Specific [place] 1.025, Urine Protein 3+H, Urine Glucose (UA) Negative, Urine Ketones 3+H, Urine Occult Blood 5+H, Urine Nitrite Negative, Urine Bilirubin Negative, Urine Ictotest Negative, Urine Urobilinogen 1H, Urine Leukocyte Esterase 1+H, Urine RBC TntcH, Urine WBC 40-60H, Urine Squamous Epithelial Cells ModerateH, Urine Bacteria Few Height (Feet): 5 Height (Inches): 8.00 Weight (Pounds): 180 Objective Elderly patient in ICU NCAT, (+) OGT, (+) FM supple Coarse BS RR Soft abd trace edema TAYO GUERIN Sep 28, 2017 17:27
[2017-09-28] MEDS: Miralax 17gm pkt GT SCH (20:17)
[2017-09-29] VITALS (25 sets, daily range): BP systolic 149–180; BP diastolic 44–60
[2017-09-29] MEDS ORDERED: HydrALAZINE 10mg Tab NG PRN (01:45)
[2017-09-29] MEDS ORDERED: D5W w/KCl 20mEq 1,000 ML IV SCH (01:45)
--- NOTE | 2017-09-29 05:00 | Progress Note ---
DATE: 09/28/2017 CARDIOLOGY PROGRESS NOTE SUBJECTIVE: The patient is off ventilator. Blood pressure parameters are increasing. He is awake and alert. He continues to have moderate secretions requiring aggressive respiratory management. OBJECTIVE: VITAL SIGNS: Blood pressure is 169/52, pulse rate 74, respiratory rate 25, afebrile. LUNGS: Coarse breath sounds. Scattered rhonchi. HEART: Regular rhythm and rate. Normal S1 and S2 with a fourth heart sound. ABDOMEN: Soft and nontender. EXTREMITIES: A 1+ dependent edema. DIAGNOSTIC AND LABORATORY DATA: Chest x-ray yesterday revealed left side patchy opacities and worsening aeration of the right lung. White count is 19.5 and hemoglobin 11. Potassium is 3.63, sodium 146, BUN 27, and creatinine 0.9. Albumin 2.1. IMPRESSION: 1. Status post respiratory failure. 2. Urinary tract infection. 3. Sepsis with shock, recovered. 4. Acute myocardial infarction. PLAN: 1. Follow up urine culture. 2. Antibiotics per Infectious Diseases senior management consultant. 3. Aggressive respiratory hygiene. 4. Free water replacement. 5. Potassium replacement. 6. Protein supplement by feeding tube. 7. Advance antihypertensive therapy. 8. Taper off steroids. Malik Burroughs M.D. DR: Dashawn JOB#: [id number] CC:
[2017-09-29 06:10] LABS: HEMATOCRIT 35.5 % (42.0-52.0); HEMOGLOBIN 10.7 G/DL (14.2-18.0); MEAN CORPUSCULAR VOLUME 71 FL (80-99); PLATELET COUNT 123 K/UL (150-450); RED BLOOD COUNT 5.03 M/UL (4.70-6.10); RED CELL DISTRIBUTION WIDTH 26.1 % (11.6-14.8); WHITE BLOOD COUNT 19.5 K/UL (4.8-10.8)
[2017-09-29 06:32] LABS: ALANINE AMINOTRANSFERASE 25 U/L (12-78); ALBUMIN 2.1 G/DL (3.4-5.0); ALBUMIN/GLOBULIN RATIO 0.5 (1.0-2.7); ALKALINE PHOSPHATASE 83 U/L (46-116); ANION GAP 4 mmol/L (5-15); ASPARTATE AMINO TRANSFERASE 28 U/L (15-37); BILIRUBIN,TOTAL 0.5 MG/DL (0.2-1.0); BLOOD UREA NITROGEN 25 mg/dL (7-18); CALCIUM 8.1 MG/DL (8.5-10.1); CARBON DIOXIDE 32 MMOL/L (21-32); CHLORIDE 110 MMOL/L (98-107); CREATININE 0.9 MG/DL (0.55-1.30); POTASSIUM 3.9 MMOL/L (3.5-5.1); SODIUM 146 MMOL/L (136-145)
[2017-09-29] MEDS: Metoprolol 25mg tab NG SCH ×2 (08:52→21:07)
[2017-09-29] MEDS: Montelukast 10mg tablet GT SCH (08:52)
[2017-09-29] MEDS: Pantoprazole Inj IVP SCH ×2 (08:52→21:07)
--- NOTE | 2017-09-29 09:14 | General Progress Note ---
Assessment/Plan Problem List: (1) Anemia ICD Codes: D64.9 - Anemia, unspecified SNOMED: 476536195 (2) AMI (acute myocardial infarction) ICD Codes: I21.9 - Acute myocardial infarction, unspecified SNOMED: 27621089 (3) HTN (hypertension) ICD Codes: I10 - Essential (primary) hypertension SNOMED: 96208906 (4) COPD (chronic obstructive pulmonary disease) ICD Codes: J44.9 - Chronic obstructive pulmonary disease, unspecified SNOMED: 42431347 (5) Gout ICD Codes: M10.9 - Gout, unspecified SNOMED: 79164422 (6) Episode of generalized weakness ICD Codes: R53.1 - Weakness SNOMED: 17129650 (7) Sepsis ICD Codes: A41.9 - Sepsis, unspecified organism SNOMED: 07922100 Qualifiers: Qualified Codes: A41.9 - Sepsis, unspecified organism (8) Pneumonia ICD Codes: J18.9 - Pneumonia, unspecified organism SNOMED: 600118215 Status: stable, progressing Assessment/Plan resp rx/suctioning/o2 wean o2 as able iv abx keep dry monitor abg and cxr swallow eval increase water flush ngt feeds monitor residuals remains guarded but improving slowly. d/w pts pmd in [place]- accepted pt when bed available Subjective ROS Limited/Unobtainable: No Constitutional: Reports: malaise, weakness HEENT: Reports: no symptoms Cardiovascular: Reports: no symptoms Respiratory: Reports: cough, shortness of breath, sputum Gastrointestinal/Abdominal: Reports: no symptoms Genitourinary: Reports: no symptoms Neurologic/Psychiatric: Reports: no symptoms Endocrine: Reports: no symptoms Hematologic/Lymphatic: Reports: anemia Allergies: Coded Allergies: No Known Allergies (Unverified , 09/16/17) All Systems: reviewed and negative except above Subjective no events. remains on venti mask. unable to wean o2. less congested than yesterday. has ngt. denies chest pain d/w rn. feeds just resumed. family requesting transfer to [facility] in [place] Objective Last 24 Hour Vital Signs Date Time Temp Pulse Resp B/P (MAP) Pulse Ox O2 Delivery O2 Flow Rate FiO2 09/29/17 09:00 96 23 149/50 95 Venturi Mask 55 09/29/17 08:52 91 157/44 09/29/17 08:00 98.2 95 22 157/44 96 Venturi Mask 55 09/29/17 08:00 93 09/29/17 07:27 Venturi Mask 14.0 55 09/29/17 07:26 96 Venturi Mask 14.0 55 09/29/17 07:25 103 26 Venturi Mask 14.0 55 09/29/17 07:00 95 22 157/52 95 Venturi Mask 55 09/29/17 06:00 98 22 165/55 96 Venturi Mask 55 09/29/17 05:00 96 23 165/58 96 Venturi Mask 55 09/29/17 04:15 164/48 09/29/17 04:00 98 09/29/17 04:00 98.3 95 23 164/48 96 Venturi Mask 55 09/29/17 03:00 95 23 164/48 96 Venturi Mask 55 09/29/17 02:00 94 24 156/47 95 Venturi Mask 55 09/29/17 01:00 95 22 172/57 96 Venturi Mask 55 09/29/17 00:42 170/57 09/29/17 00:00 98.2 86 22 175/57 95 Venturi Mask 55 09/29/17 00:00 88 09/28/17 23:00 86 23 171/50 94 Venturi Mask 55 09/28/17 22:00 85 23 147/50 96 Venturi Mask 55 09/28/17 21:00 95 25 162/50 96 Venturi Mask 55 09/28/17 20:17 108 153/47 09/28/17 20:00 98.3 109 25 153/65 95 Venturi Mask 55 09/28/17 20:00 106 09/28/17 19:52 Venturi Mask 14.0 55 09/28/17 19:51 92 Venturi Mask 14.0 55 09/28/17 19:50 107 30 Venturi Mask 14.0 55 09/28/17 19:00 107 22 179/68 95 Venturi Mask 55 09/28/17 18:00 102 22 153/61 Venturi Mask 55 09/28/17 17:00 98.0 101 26 153/51 98 Venturi Mask 55 09/28/17 16:00 97.6 98 27 134/75 96 Venturi Mask 55 09/28/17 16:00 91 09/28/17 15:50 168/47 09/28/17 15:00 98.9 89 23 161/67 92 Venturi Mask 55 09/28/17 14:00 168/47 09/28/17 13:37 98.0 89 22 162/64 96 Venturi Mask 55 09/28/17 13:00 23 09/28/17 13:00 98.2 82 26 165/64 96 55 09/28/17 12:00 89 09/28/17 12:00 97.6 89 23 161/64 96 Venturi Mask 55 09/28/17 11:00 96 27 166/48 96 Venturi Mask 55 09/28/17 09:46 98.4 82 26 152/51 95 Venturi Mask 55 09/28/17 09:25 87 173/53 Intake and Output 09/28/17 09/29/17 19:00 07:00 Intake Total 790 ml 1090 ml Output Total 740 ml 660 ml Balance 50 ml 430 ml Free Water 480 ml 225 ml IV Total 375 ml Tube Feeding 310 ml 460 ml Other 30 ml Output Urine Total 740 ml 660 ml # Voids 50 # Bowel Movements 4 1 Laboratory Tests 09/28/17 11:00: Urine Color Kenyatta, Urine Appearance Cloudy, Urine pH 5, Urine Specific [place] 1.025, Urine Protein 3+H, Urine Glucose (UA) Negative, Urine Ketones 3+H, Urine Occult Blood 5+H, Urine Nitrite Negative, Urine Bilirubin Negative, Urine Ictotest Negative, Urine Urobilinogen 1H, Urine Leukocyte Esterase 1+H, Urine RBC TntcH, Urine WBC 40-60H, Urine Squamous Epithelial Cells ModerateH, Urine Bacteria Few 09/29/17 05:16: White Blood Count 19.5H, Red Blood Count 5.03, Hemoglobin 10.7L, Hematocrit 35.5L, Mean Corpuscular Volume 71L, Mean Corpuscular Hemoglobin 21.3L, Mean Corpuscular Hemoglobin Concent 30.2L, Red Cell Distribution Width 26.1H, Platelet Count 123L, Mean Platelet Volume 12.7H, Neutrophils (%) (Auto) , Lymphocytes (%) (Auto) , Monocytes (%) (Auto) , Eosinophils (%) (Auto) , Basophils (%) (Auto) , Differential Total Cells Counted 100, Neutrophils % ( Manual) 87H, Lymphocytes % (Manual) 3L, Monocytes % (Manual) 5, Eosinophils % ( Manual) 0, Basophils % (Manual) 0, Myelocytes % 1H, Band Neutrophils 4, Platelet Estimate DecreasedL, Platelet Morphology , Giant Platelets Occasional, Hypochromasia 1+, Anisocytosis 2+, Microcytosis 2+, Sodium Level 146H, Potassium Level 3.9, Chloride Level 110H, Carbon Dioxide Level 32, Anion Gap 4L , Blood Urea Nitrogen 25H, Creatinine 0.9, Estimat Glomerular Filtration Rate , Glucose Level 224#H, Calcium Level 8.1L, Magnesium Level 1.9, Total Bilirubin 0.5, Aspartate Amino Transf (AST/SGOT) 28, Alanine Aminotransferase (ALT/SGPT) 25, Alkaline Phosphatase 83, Pro-B-Type Natriuretic Peptide 2974H, Total Protein 6.6, Albumin 2.1L, Globulin 4.5, Albumin/Globulin Ratio 0.5L Height (Feet): 5 Height (Inches): 8.00 Weight (Pounds): 180 Objective General Appearance: WD/WN, alert. no distress. +ngt Neck: supple Cardiovascular: normal rate, regular rhythm Respiratory/Chest: rales and rhonchi ernestine- less Abdomen: normal bowel sounds, non tender, soft, no organomegaly Edema: no edema noted Arm (L), no edema noted Arm (R), no edema noted Leg (L), no edema noted Leg (R), no edema noted Pedal (L), no edema noted Pedal (R), no edema noted Generalized BHUPINDER DILL Sep 29, 2017 09:14
--- NOTE | 2017-09-29 09:15 | Critical Care Progress Note ---
Assessment/Plan Assessment/Plan COPD with exacerbation Acute respiratory failure tachycardia Pneumonia acute encephalopathy hypoxemia significant agitation anemia hypertension profound leukocytosis PLAN care noted IV antibiotics off iv fluids monitor BNP respiratory care as is monitor off vent supportive care as outlined suction correct lytes ID follow up off IV steroids CPT and encourage cough ABG repeat CXR may be able to stepdown out of ICU CM to assist with possible transport as per family request monitor respiratory status closely oxygen therapy prognosis guarded medications/laboratory data/nursing notes/ICU care reviewed in detail note reviewed and edited care discussed with RN and RT ICU time spent 38 minutes Critical Care - Subjective Interval Events: care noted alert but weak family insisting on transfer off steroids on NGT ROS Limited/Unobtainable: Yes Condition: stable EKG Rhythm: Sinus Rhythm Residuals: minimal Tube Feeding Tolerated: yes I&O: Intake and Output 09/28/17 09/29/17 19:00 07:00 Intake Total 790 ml 1090 ml Output Total 740 ml 660 ml Balance 50 ml 430 ml Free Water 480 ml 225 ml IV Total 375 ml Tube Feeding 310 ml 460 ml Other 30 ml Output Urine Total 740 ml 660 ml # Voids 50 # Bowel Movements 4 1 Critical Care - Objective ET-Tube: 7.5 ET Position: 23 Last 24 Hour Vital Signs Date Time Temp Pulse Resp B/P (MAP) Pulse Ox O2 Delivery O2 Flow Rate FiO2 09/29/17 09:00 96 23 149/50 95 Venturi Mask 55 09/29/17 08:52 91 157/44 09/29/17 08:00 98.2 95 22 157/44 96 Venturi Mask 55 09/29/17 08:00 93 09/29/17 07:27 Venturi Mask 14.0 55 09/29/17 07:26 96 Venturi Mask 14.0 55 09/29/17 07:25 103 26 Venturi Mask 14.0 55 09/29/17 07:00 95 22 157/52 95 Venturi Mask 55 09/29/17 06:00 98 22 165/55 96 Venturi Mask 55 09/29/17 05:00 96 23 165/58 96 Venturi Mask 55 09/29/17 04:15 164/48 09/29/17 04:00 98 09/29/17 04:00 98.3 95 23 164/48 96 Venturi Mask 55 09/29/17 03:00 95 23 164/48 96 Venturi Mask 55 09/29/17 02:00 94 24 156/47 95 Venturi Mask 55 09/29/17 01:00 95 22 172/57 96 Venturi Mask 55 09/29/17 00:42 170/57 09/29/17 00:00 98.2 86 22 175/57 95 Venturi Mask 55 09/29/17 00:00 88 09/28/17 23:00 86 23 171/50 94 Venturi Mask 55 09/28/17 22:00 85 23 147/50 96 Venturi Mask 55 09/28/17 21:00 95 25 162/50 96 Venturi Mask 55 09/28/17 20:17 108 153/47 09/28/17 20:00 98.3 109 25 153/65 95 Venturi Mask 55 09/28/17 20:00 106 09/28/17 19:52 Venturi Mask 14.0 55 09/28/17 19:51 92 Venturi Mask 14.0 55 09/28/17 19:50 107 30 Venturi Mask 14.0 55 09/28/17 19:00 107 22 179/68 95 Venturi Mask 55 09/28/17 18:00 102 22 153/61 Venturi Mask 55 09/28/17 17:00 98.0 101 26 153/51 98 Venturi Mask 55 09/28/17 16:00 97.6 98 27 134/75 96 Venturi Mask 55 09/28/17 16:00 91 09/28/17 15:50 168/47 09/28/17 15:00 98.9 89 23 161/67 92 Venturi Mask 55 09/28/17 14:00 168/47 09/28/17 13:37 98.0 89 22 162/64 96 Venturi Mask 55 09/28/17 13:00 23 09/28/17 13:00 98.2 82 26 165/64 96 55 09/28/17 12:00 89 09/28/17 12:00 97.6 89 23 161/64 96 Venturi Mask 55 09/28/17 11:00 96 27 166/48 96 Venturi Mask 55 09/28/17 09:46 98.4 82 26 152/51 95 Venturi Mask 55 09/28/17 09:25 87 173/53 Labs: Laboratory Tests Test 09/28/17 11:00 09/29/17 05:16 Urine Color [place] Urine Appearance Cloudy Urine pH 5 (4.5-8.0) Urine Specific [place] 1.025 (1.005-1.035) Urine Protein 3+ (NEGATIVE) H Urine Glucose (UA) Negative (NEGATIVE) Urine Ketones 3+ (NEGATIVE) H Urine Occult Blood 5+ (NEGATIVE) H Urine Nitrite Negative (NEGATIVE) Urine Bilirubin Negative (NEGATIVE) Urine Ictotest Negative Urine Urobilinogen 1 MG/DL (0.0-1.0) H Urine Leukocyte Esterase 1+ (NEGATIVE) H Urine RBC Tntc /HPF (0 - 0) H Urine WBC 40-60 /HPF (0 - 0) H Urine Squamous Epithelial Cells Moderate /LPF (NONE/OCC) H Urine Bacteria Few /HPF (NONE) White Blood Count 19.5 K/UL (4.8-10.8) H Red Blood Count 5.03 M/UL (4.70-6.10) Hemoglobin 10.7 G/DL (14.2-18.0) L Hematocrit 35.5 % (42.0-52.0) L Mean Corpuscular Volume 71 FL (80-99) L Mean Corpuscular Hemoglobin 21.3 PG (27.0-31.0) L Mean Corpuscular Hemoglobin Concent 30.2 G/DL (32.0-36.0) L Red Cell Distribution Width 26.1 % (11.6-14.8) H Platelet Count 123 K/UL (150-450) L Mean Platelet Volume 12.7 FL (6.5-10.1) H Neutrophils (%) (Auto) % (45.0-75.0) Lymphocytes (%) (Auto) % (20.0-45.0) Monocytes (%) (Auto) % (1.0-10.0) Eosinophils (%) (Auto) % (0.0-3.0) Basophils (%) (Auto) % (0.0-2.0) Differential Total Cells Counted 100 Neutrophils % (Manual) 87 % (45-75) H Lymphocytes % (Manual) 3 % (20-45) L Monocytes % (Manual) 5 % (1-10) Eosinophils % (Manual) 0 % (0-3) Basophils % (Manual) 0 % (0-2) Myelocytes % 1 % (0-0) H Band Neutrophils 4 % (0-8) Platelet Estimate Decreased L Platelet Morphology Giant Platelets Occasional Hypochromasia 1+ Anisocytosis 2+ Microcytosis 2+ Sodium Level 146 MMOL/L (136-145) H Potassium Level 3.9 MMOL/L (3.5-5.1) Chloride Level 110 MMOL/L (98-107) H Carbon Dioxide Level 32 MMOL/L (21-32) Anion Gap 4 mmol/L (5-15) L Blood Urea Nitrogen 25 mg/dL (7-18) H Creatinine 0.9 MG/DL (0.55-1.30) Estimat Glomerular Filtration Rate mL/min (>60) Glucose Level 224 MG/DL (74-106) #H Calcium Level 8.1 MG/DL (8.5-10.1) L Magnesium Level 1.9 MG/DL (1.8-2.4) Total Bilirubin 0.5 MG/DL (0.2-1.0) Aspartate Amino Transf (AST/SGOT) 28 U/L (15-37) Alanine Aminotransferase (ALT/SGPT) 25 U/L (12-78) Alkaline Phosphatase 83 U/L (46-116) Pro-B-Type Natriuretic Peptide 2974 pg/mL (0-125) H Total Protein 6.6 G/DL (6.4-8.2) Albumin 2.1 G/DL (3.4-5.0) L Globulin 4.5 g/dL Albumin/Globulin Ratio 0.5 (1.0-2.7) L Objective: WDWN NAD opens eyes and interacts on oxygen reduced breath sounds bilaterally with no rhonchi bilaterally [id number] without MRG NABS nontender no HSM OGT in place no CCE nonfocal awake and comfortable skin noted lines reviewed reviewed and edited Micro: Microbiology Date/Time Source Procedure Growth Status 09/28/17 11:00 Indwelling Cath Urine Culture - Preliminary NO GROWTH Resulted STEVE CARPIO Sep 29, 2017 09:15
--- NOTE | 2017-09-29 11:34 | Infectious Diseases Prog Note ---
Assessment/Plan Assessment/Plan antibiotics : levoquin A 1. pneumonia improving 2. leucocytosis 3. COPD 4. gout 5. respiratory failure resolved 6. renal failure improving 7. thrombocytopenia P 1. continue po levoquin 2. will follow up cultures Subjective ROS Limited/Unobtainable: Yes Allergies: Coded Allergies: No Known Allergies (Unverified , 09/16/17) Objective Vital Signs Last 24 Hour Vital Signs Date Time Temp Pulse Resp B/P (MAP) Pulse Ox O2 Delivery O2 Flow Rate FiO2 09/29/17 11:00 89 20 158/47 97 Venturi Mask 55 09/29/17 10:00 94 22 166/56 95 Venturi Mask 55 09/29/17 09:00 96 23 149/50 95 Venturi Mask 55 09/29/17 08:52 91 157/44 09/29/17 08:00 98.2 95 22 157/44 96 Venturi Mask 55 09/29/17 08:00 93 09/29/17 07:27 Venturi Mask 14.0 55 09/29/17 07:26 96 Venturi Mask 14.0 55 09/29/17 07:25 103 26 Venturi Mask 14.0 55 09/29/17 07:00 95 22 157/52 95 Venturi Mask 55 09/29/17 06:00 98 22 165/55 96 Venturi Mask 55 09/29/17 05:00 96 23 165/58 96 Venturi Mask 55 09/29/17 04:15 164/48 09/29/17 04:00 98 09/29/17 04:00 98.3 95 23 164/48 96 Venturi Mask 55 09/29/17 03:00 95 23 164/48 96 Venturi Mask 55 09/29/17 02:00 94 24 156/47 95 Venturi Mask 55 09/29/17 01:00 95 22 172/57 96 Venturi Mask 55 09/29/17 00:42 170/57 09/29/17 00:00 98.2 86 22 175/57 95 Venturi Mask 55 09/29/17 00:00 88 09/28/17 23:00 86 23 171/50 94 Venturi Mask 55 09/28/17 22:00 85 23 147/50 96 Venturi Mask 55 09/28/17 21:00 95 25 162/50 96 Venturi Mask 55 1/1/18 20:17 108 153/47 09/28/17 20:00 98.3 109 25 153/65 95 Venturi Mask 55 09/28/17 20:00 106 09/28/17 19:52 Venturi Mask 14.0 55 09/28/17 19:51 92 Venturi Mask 14.0 55 09/28/17 19:50 107 30 Venturi Mask 14.0 55 09/28/17 19:00 107 22 179/68 95 Venturi Mask 55 09/28/17 18:00 102 22 153/61 Venturi Mask 55 09/28/17 17:00 98.0 101 26 153/51 98 Venturi Mask 55 09/28/17 16:00 97.6 98 27 134/75 96 Venturi Mask 55 09/28/17 16:00 91 09/28/17 15:50 168/47 09/28/17 15:00 98.9 89 23 161/67 92 Venturi Mask 55 09/28/17 14:00 168/47 09/28/17 13:37 98.0 89 22 162/64 96 Venturi Mask 55 09/28/17 13:00 23 09/28/17 13:00 98.2 82 26 165/64 96 55 09/28/17 12:00 89 09/28/17 12:00 97.6 89 23 161/64 96 Venturi Mask 55 Height (Feet): 5 Height (Inches): 8.00 Weight (Pounds): 180 Respiratory/Chest: rhonchi - bilaterally Cardiovascular: normal rate, regular rhythm, no gallop/murmur Abdomen: soft, non tender Extremities: no edema Microbiology Date/Time Source Procedure Growth Status 09/28/17 11:00 Indwelling Cath Urine Culture - Preliminary NO GROWTH Resulted Laboratory Tests Test 09/29/17 05:16 White Blood Count 19.5 K/UL (4.8-10.8) H Red Blood Count 5.03 M/UL (4.70-6.10) Hemoglobin 10.7 G/DL (14.2-18.0) L Hematocrit 35.5 % (42.0-52.0) L Mean Corpuscular Volume 71 FL (80-99) L Mean Corpuscular Hemoglobin 21.3 PG (27.0-31.0) L Mean Corpuscular Hemoglobin Concent 30.2 G/DL (32.0-36.0) L Red Cell Distribution Width 26.1 % (11.6-14.8) H Platelet Count 123 K/UL (150-450) L Mean Platelet Volume 12.7 FL (6.5-10.1) H Neutrophils (%) (Auto) % (45.0-75.0) Lymphocytes (%) (Auto) % (20.0-45.0) Monocytes (%) (Auto) % (1.0-10.0) Eosinophils (%) (Auto) % (0.0-3.0) Basophils (%) (Auto) % (0.0-2.0) Differential Total Cells Counted 100 Neutrophils % (Manual) 87 % (45-75) H Lymphocytes % (Manual) 3 % (20-45) L Monocytes % (Manual) 5 % (1-10) Eosinophils % (Manual) 0 % (0-3) Basophils % (Manual) 0 % (0-2) Myelocytes % 1 % (0-0) H Band Neutrophils 4 % (0-8) Platelet Estimate Decreased L Platelet Morphology Giant Platelets Occasional Hypochromasia 1+ Anisocytosis 2+ Microcytosis 2+ Sodium Level 146 MMOL/L (136-145) H Potassium Level 3.9 MMOL/L (3.5-5.1) Chloride Level 110 MMOL/L (98-107) H Carbon Dioxide Level 32 MMOL/L (21-32) Anion Gap 4 mmol/L (5-15) L Blood Urea Nitrogen 25 mg/dL (7-18) H Creatinine 0.9 MG/DL (0.55-1.30) Estimat Glomerular Filtration Rate mL/min (>60) Glucose Level 224 MG/DL (74-106) #H Calcium Level 8.1 MG/DL (8.5-10.1) L Magnesium Level 1.9 MG/DL (1.8-2.4) Total Bilirubin 0.5 MG/DL (0.2-1.0) Aspartate Amino Transf (AST/SGOT) 28 U/L (15-37) Alanine Aminotransferase (ALT/SGPT) 25 U/L (12-78) Alkaline Phosphatase 83 U/L (46-116) Pro-B-Type Natriuretic Peptide 2974 pg/mL (0-125) H Total Protein 6.6 G/DL (6.4-8.2) Albumin 2.1 G/DL (3.4-5.0) L Globulin 4.5 g/dL Albumin/Globulin Ratio 0.5 (1.0-2.7) L SHARON LUEVANO Sep 29, 2017 11:34
--- NOTE | 2017-09-29 12:22 | Diagnostic Imaging Report ---
Indication: Weakness Technique: XRAY Chest 1v Comparison: 09/27/2017 Findings: NG tube unchanged in position. Heart size and mediastinal contours are stable. Improved aeration of the left lung with decreased previously seen patchy opacities. There is slight improved aeration of the medial right base compared to the prior exam. Some patchy right basilar opacities persist.. No pneumothorax. Costophrenic sulci are sharp. No acute osseous abnormality Impression: Slight improved aeration of the left lung and medial right base compared to the prior exam. Persistent patchy opacities in the right lower lung.
[2017-09-29] MEDS: Miralax 17gm pkt GT SCH (21:07)
--- NOTE | 2017-09-29 22:38 | General Progress Note ---
Assessment/Plan Assessment/Plan Assessment - OB (+) stools - Microcytic Iron deficient anemia - s/p transfusion - TF intolerance - thrombocytopenia - OBS - constipation Recommendations - follow labs and exam - laxative PRN - retry TF, slowly - transfuse PRN - IV Fe - PPI - swallow eval when more awake - GI w/u on hold, per family request Subjective Allergies: Coded Allergies: No Known Allergies (Unverified , 09/16/17) Subjective weak on mask (+) OGT Objective Last 24 Hour Vital Signs Date Time Temp Pulse Resp B/P (MAP) Pulse Ox O2 Delivery O2 Flow Rate FiO2 09/29/17 21:07 102 163/57 09/29/17 19:14 Venturi Mask 14.0 55 09/29/17 19:14 104 38 Venturi Mask 14.0 55 09/29/17 19:14 93 Venturi Mask 14.0 55 09/29/17 19:00 104 26 180/56 93 Venturi Mask 55 09/29/17 18:20 178/63 09/29/17 18:00 103 21 174/54 95 Venturi Mask 55 09/29/17 17:00 97 18 166/53 96 Venturi Mask 55 09/29/17 16:00 99.4 97 21 163/56 95 Venturi Mask 55 09/29/17 16:00 82 09/29/17 15:00 79 28 160/49 96 Venturi Mask 55 09/29/17 14:00 79 28 154/44 97 Venturi Mask 55 09/29/17 13:00 74 27 154/54 97 Venturi Mask 55 09/29/17 12:00 78 09/29/17 12:00 97.6 97 16 152/44 97 Venturi Mask 55 09/29/17 11:00 89 20 158/47 97 Venturi Mask 55 09/29/17 10:00 94 22 166/56 95 Venturi Mask 55 09/29/17 09:00 96 23 149/50 95 Venturi Mask 55 09/29/17 08:52 91 157/44 09/29/17 08:00 98.2 95 22 157/44 96 Venturi Mask 55 09/29/17 08:00 93 09/29/17 07:27 Venturi Mask 14.0 55 09/29/17 07:26 96 Venturi Mask 14.0 55 09/29/17 07:25 103 26 Venturi Mask 14.0 55 09/29/17 07:00 95 22 157/52 95 Venturi Mask 55 09/29/17 06:00 98 22 165/55 96 Venturi Mask 55 09/29/17 05:00 96 23 165/58 96 Venturi Mask 55 09/29/17 04:15 164/48 09/29/17 04:00 98 09/29/17 04:00 98.3 95 23 164/48 96 Venturi Mask 55 09/29/17 03:00 95 23 164/48 96 Venturi Mask 55 09/29/17 02:00 94 24 156/47 95 Venturi Mask 55 09/29/17 01:00 95 22 172/57 96 Venturi Mask 55 09/29/17 00:42 170/57 09/29/17 00:00 98.2 86 22 175/57 95 Venturi Mask 55 09/29/17 00:00 88 09/28/17 23:00 86 23 171/50 94 Venturi Mask 55 Intake and Output 09/28/17 09/29/17 19:00 07:00 Intake Total 790 ml 1090 ml Output Total 740 ml 660 ml Balance 50 ml 430 ml Free Water 480 ml 225 ml IV Total 375 ml Tube Feeding 310 ml 460 ml Other 30 ml Output Urine Total 740 ml 660 ml # Voids 50 # Bowel Movements 4 1 Laboratory Tests 09/29/17 05:16: White Blood Count 19.5H, Red Blood Count 5.03, Hemoglobin 10.7L, Hematocrit 35.5L, Mean Corpuscular Volume 71L, Mean Corpuscular Hemoglobin 21.3L, Mean Corpuscular Hemoglobin Concent 30.2L, Red Cell Distribution Width 26.1H, Platelet Count 123L, Mean Platelet Volume 12.7H, Neutrophils (%) (Auto) , Lymphocytes (%) (Auto) , Monocytes (%) (Auto) , Eosinophils (%) (Auto) , Basophils (%) (Auto) , Differential Total Cells Counted 100, Neutrophils % ( Manual) 87H, Lymphocytes % (Manual) 3L, Monocytes % (Manual) 5, Eosinophils % ( Manual) 0, Basophils % (Manual) 0, Myelocytes % 1H, Band Neutrophils 4, Platelet Estimate DecreasedL, Platelet Morphology , Giant Platelets Occasional, Hypochromasia 1+, Anisocytosis 2+, Microcytosis 2+, Sodium Level 146H, Potassium Level 3.9, Chloride Level 110H, Carbon Dioxide Level 32, Anion Gap 4L , Blood Urea Nitrogen 25H, Creatinine 0.9, Estimat Glomerular Filtration Rate , Glucose Level 224#H, Calcium Level 8.1L, Magnesium Level 1.9, Total Bilirubin 0.5, Aspartate Amino Transf (AST/SGOT) 28, Alanine Aminotransferase (ALT/SGPT) 25, Alkaline Phosphatase 83, Pro-B-Type Natriuretic Peptide 2974H, Total Protein 6.6, Albumin 2.1L, Globulin 4.5, Albumin/Globulin Ratio 0.5L Height (Feet): 5 Height (Inches): 8.00 Weight (Pounds): 180 Objective Elderly patient in ICU NCAT, (+) OGT, (+) FM supple Coarse BS RR Soft abd trace edema TAYO GUERIN Sep 29, 2017 22:38
[2017-09-30] VITALS (24 sets, daily range): BP systolic 133–183; BP diastolic 39–70
--- NOTE | 2017-09-30 04:45 | Progress Note ---
DATE: 09/29/2017 CARDIOLOGY PROGRESS NOTE SUBJECTIVE: The patient remains in the intensive care unit. He is off pressors. Blood pressure parameters are increasing. Antihypertensive therapy was added yesterday. The patient continues to require BiPAP support due to respiratory difficulties. OBJECTIVE: VITAL SIGNS: Blood pressure is 157/44, pulse 91, respiratory rate 22, and afebrile. CHEST: Coarse breath sounds. Scattered rhonchi. No wheezing. HEART: Regular rhythm and rate. Normal S1 and S2 with a fourth heart sound. ABDOMEN: Soft and nontender. EXTREMITIES: No edema. LABORATORY DATA: White count is 19.5 and hemoglobin 10.7. Magnesium 1.9, potassium 3.9, sodium 146, chloride 110, bicarbonate 32, BUN 25, creatinine 0.9. Pro- natriuretic peptide is 2974. IMPRESSION: 1. Acute on chronic diastolic congestive heart failure, improved. 2. Status post respiratory failure with persistent hypoxia and congestion. Chest x-ray is improving. 3. Recovered sepsis with shock. 4. Iron-deficiency anemia with stool occult blood, but stable hemoglobin, status post transfusion. 5. Acute myocardial infarction. 6. Acute renal failure, resolved. 7. Dehydration. 8. Hypernatremia. PLAN: 1. Hypotonic IV fluids. 2. Respiratory hygiene. 3. Oxygen support. 4. Bronchodilators. 5. Antibiotics per Infectious Disease help desk consultant. 6. Presently, no indication for diuresis. 7. We will follow closely. Malik Burroughs M.D. DR: Dashawn JOB#: [id number] CC:
[2017-09-30 05:52] LABS: HEMATOCRIT 34.6 % (42.0-52.0); HEMOGLOBIN 10.2 G/DL (14.2-18.0); MEAN CORPUSCULAR VOLUME 71 FL (80-99); PLATELET COUNT 154 K/UL (150-450); RED BLOOD COUNT 4.85 M/UL (4.70-6.10); RED CELL DISTRIBUTION WIDTH 26.6 % (11.6-14.8)
[2017-09-30 06:43] LABS: ALANINE AMINOTRANSFERASE 36 U/L (12-78); ALBUMIN/GLOBULIN RATIO 0.4 (1.0-2.7); ALKALINE PHOSPHATASE 94 U/L (46-116); ANION GAP 8 mmol/L (5-15); ASPARTATE AMINO TRANSFERASE 39 U/L (15-37); BILIRUBIN,TOTAL 0.4 MG/DL (0.2-1.0); BLOOD UREA NITROGEN 28 mg/dL (7-18); CALCIUM 8.2 MG/DL (8.5-10.1); CARBON DIOXIDE 30 MMOL/L (21-32); CHLORIDE 110 MMOL/L (98-107); POTASSIUM 4.2 MMOL/L (3.5-5.1); SODIUM 148 MMOL/L (136-145)
--- NOTE | 2017-09-30 08:11 | General Progress Note ---
Assessment/Plan Problem List: (1) Anemia ICD Codes: D64.9 - Anemia, unspecified SNOMED: 811812725 (2) AMI (acute myocardial infarction) ICD Codes: I21.9 - Acute myocardial infarction, unspecified SNOMED: 38999964 (3) HTN (hypertension) ICD Codes: I10 - Essential (primary) hypertension SNOMED: 58476327 (4) COPD (chronic obstructive pulmonary disease) ICD Codes: J44.9 - Chronic obstructive pulmonary disease, unspecified SNOMED: 82208725 (5) Gout ICD Codes: M10.9 - Gout, unspecified SNOMED: 37828420 (6) Episode of generalized weakness ICD Codes: R53.1 - Weakness SNOMED: 84920289 (7) Sepsis ICD Codes: A41.9 - Sepsis, unspecified organism SNOMED: 50859563 Qualifiers: Qualified Codes: A41.9 - Sepsis, unspecified organism (8) Pneumonia ICD Codes: J18.9 - Pneumonia, unspecified organism SNOMED: 099586899 Status: stable, not improved Assessment/Plan resp rx/suctioning/o2 wean o2 as able iv abx keep dry monitor abg and cxr swallow eval increase water flush ngt feeds monitor residuals remains guarded d/w pts pmd in [place]- accepted pt when bed available Subjective ROS Limited/Unobtainable: No Constitutional: Reports: malaise, weakness HEENT: Reports: no symptoms Cardiovascular: Reports: no symptoms Respiratory: Reports: cough, shortness of breath, sputum Gastrointestinal/Abdominal: Reports: difficulty swallowing Genitourinary: Reports: no symptoms Neurologic/Psychiatric: Reports: no symptoms Endocrine: Reports: no symptoms Hematologic/Lymphatic: Reports: anemia Allergies: Coded Allergies: No Known Allergies (Unverified , 09/16/17) Subjective no events. remains on venti mask. unable to wean o2. more congested than yesterday. has ngt. denies chest pain d/w rn. feeds just resumed. family requesting [facility] [place]. wbc trending up. Objective Last 24 Hour Vital Signs Date Time Temp Pulse Resp B/P (MAP) Pulse Ox O2 Delivery O2 Flow Rate FiO2 09/30/17 07:19 75 20 Venturi Mask 14.0 55 09/30/17 07:19 97 Venturi Mask 14.0 55 09/30/17 07:19 Venturi Mask 14.0 55 09/30/17 07:00 73 24 164/58 95 Venturi Mask 55 09/30/17 06:00 83 24 137/44 95 Venturi Mask 55 09/30/17 06:00 77 25 137/44 93 Venturi Mask 55 09/30/17 05:00 83 24 146/40 95 Venturi Mask 55 09/30/17 05:00 77 24 138/39 96 Venturi Mask 55 09/30/17 04:00 86 09/30/17 04:00 99.0 83 24 146/40 95 Venturi Mask 55 09/30/17 03:00 82 26 162/52 96 Venturi Mask 55 09/30/17 02:00 81 22 157/41 95 Venturi Mask 55 09/30/17 01:00 86 26 168/43 95 Venturi Mask 55 09/30/17 00:00 81 09/30/17 00:00 99.0 86 26 158/46 95 Venturi Mask 55 09/29/17 23:00 75 26 162/54 95 Venturi Mask 55 09/29/17 22:00 87 20 162/54 93 Venturi Mask 55 09/29/17 21:07 102 163/57 09/29/17 21:00 104 26 173/60 93 Venturi Mask 55 09/29/17 20:00 99.5 104 26 180/56 93 Venturi Mask 55 09/29/17 20:00 104 09/29/17 19:14 Venturi Mask 14.0 55 09/29/17 19:14 104 38 Venturi Mask 14.0 55 09/29/17 19:14 93 Venturi Mask 14.0 55 09/29/17 19:00 104 26 180/56 93 Venturi Mask 55 09/29/17 18:20 178/63 09/29/17 18:00 103 21 174/54 95 Venturi Mask 55 09/29/17 17:00 97 18 166/53 96 Venturi Mask 55 09/29/17 16:00 99.4 97 21 163/56 95 Venturi Mask 55 09/29/17 16:00 82 09/29/17 15:00 79 28 160/49 96 Venturi Mask 55 09/29/17 14:00 79 28 154/44 97 Venturi Mask 55 1/2/18 13:00 74 27 154/54 97 Venturi Mask 55 09/29/17 12:00 78 09/29/17 12:00 97.6 97 16 152/44 97 Venturi Mask 55 09/29/17 11:00 89 20 158/47 97 Venturi Mask 55 09/29/17 10:00 94 22 166/56 95 Venturi Mask 55 09/29/17 09:00 96 23 149/50 95 Venturi Mask 55 09/29/17 08:52 91 157/44 Intake and Output 09/29/17 09/30/17 19:00 07:00 Intake Total 1325 ml 650 ml Output Total 480 ml 500 ml Balance 845 ml 150 ml Free Water 150 ml 50 ml IV Total 675 ml Tube Feeding 500 ml 600 ml Output Urine Total 480 ml 500 ml # Bowel Movements 1 Laboratory Tests 09/30/17 04:05: White Blood Count 24.0*H, Red Blood Count 4.85, Hemoglobin 10.2L, Hematocrit 34.6L, Mean Corpuscular Volume 71L, Mean Corpuscular Hemoglobin 21.1L, Mean Corpuscular Hemoglobin Concent 29.5L, Red Cell Distribution Width 26.6H, Platelet Count 154, Mean Platelet Volume 12.6H, Neutrophils (%) (Auto) , Lymphocytes (%) (Auto) , Monocytes (%) (Auto) , Eosinophils (%) (Auto) , Basophils (%) (Auto) , Neutrophils % (Manual) [Pending], Lymphocytes % (Manual) [Pending], Platelet Estimate [Pending], Platelet Morphology [Pending], Sodium Level 148H, Potassium Level 4.2, Chloride Level 110H, Carbon Dioxide Level 30, Anion Gap 8, Blood Urea Nitrogen 28H, Creatinine 1.0, Estimat Glomerular Filtration Rate , Glucose Level 159H, Calcium Level 8.2L, Total Bilirubin 0.4, Aspartate Amino Transf (AST/SGOT) 39H, Alanine Aminotransferase (ALT/SGPT) 36, Alkaline Phosphatase 94, Total Protein 6.7, Albumin 2.0L, Globulin 4.7, Albumin/ Globulin Ratio 0.4L Height (Feet): 5 Height (Inches): 8.00 Weight (Pounds): 182 Objective General Appearance: WD/WN, alert. no distress. +ngt Neck: supple Cardiovascular: normal rate, regular rhythm Respiratory/Chest: rales and rhonchi ernestine- slightly worse Abdomen: normal bowel sounds, non tender, soft, no organomegaly Edema: no edema noted Arm (L), no edema noted Arm (R), no edema noted Leg (L), no edema noted Leg (R), no edema noted Pedal (L), no edema noted Pedal (R), no edema noted Generalized BHUPINDER DILL Sep 30, 2017 08:11
[2017-09-30] MEDS: Metoprolol 25mg tab NG SCH ×2 (09:29→20:34)
[2017-09-30] MEDS: Montelukast 10mg tablet GT SCH (09:29)
[2017-09-30] MEDS: Pantoprazole Inj IVP SCH ×2 (09:29→20:34)
--- NOTE | 2017-09-30 09:49 | Critical Care Progress Note ---
Assessment/Plan Assessment/Plan COPD with exacerbation Acute respiratory failure tachycardia Pneumonia with some congestion acute encephalopathy hypoxemia significant agitation anemia hypertension leukocytosis PLAN care noted IV antibiotics noted off iv fluids monitor BNP respiratory care as is monitor off vent supportive care as outlined suction correct lytes ID follow up off IV steroids CPT and encourage cough ABG repeat CXR and monitor acid base may be able to stepdown out of ICU CM to assist with possible transport as per family request monitor respiratory status closely oxygen therapy prognosis guarded and still labile medications/laboratory data/nursing notes/ICU care reviewed in detail note reviewed and edited care discussed with RN and RT ICU time spent 36 minutes Critical Care - Subjective Interval Events: lethargic on oxygen arouseable ROS Limited/Unobtainable: Yes Condition: unchanged EKG Rhythm: Sinus Rhythm Residuals: minimal Tube Feeding Tolerated: yes I&O: Intake and Output 09/29/17 09/30/17 19:00 07:00 Intake Total 1325 ml 650 ml Output Total 480 ml 500 ml Balance 845 ml 150 ml Free Water 150 ml 50 ml IV Total 675 ml Tube Feeding 500 ml 600 ml Output Urine Total 480 ml 500 ml # Bowel Movements 1 Critical Care - Objective ET-Tube: 7.5 ET Position: 23 Last 24 Hour Vital Signs Date Time Temp Pulse Resp B/P (MAP) Pulse Ox O2 Delivery O2 Flow Rate FiO2 09/30/17 09:29 77 142/42 09/30/17 08:00 98.8 79 25 140/43 95 Venturi Mask 55 09/30/17 08:00 73 09/30/17 07:19 75 20 Venturi Mask 14.0 55 09/30/17 07:19 97 Venturi Mask 14.0 55 09/30/17 07:19 Venturi Mask 14.0 55 09/30/17 07:00 73 24 164/58 95 Venturi Mask 55 09/30/17 06:00 83 24 137/44 95 Venturi Mask 55 09/30/17 06:00 77 25 137/44 93 Venturi Mask 55 09/30/17 05:00 83 24 146/40 95 Venturi Mask 55 09/30/17 05:00 77 24 138/39 96 Venturi Mask 55 09/30/17 04:00 86 09/30/17 04:00 99.0 83 24 146/40 95 Venturi Mask 55 09/30/17 03:00 82 26 162/52 96 Venturi Mask 55 09/30/17 02:00 81 22 157/41 95 Venturi Mask 55 09/30/17 01:00 86 26 168/43 95 Venturi Mask 55 09/30/17 00:00 81 09/30/17 00:00 99.0 86 26 158/46 95 Venturi Mask 55 09/29/17 23:00 75 26 162/54 95 Venturi Mask 55 09/29/17 22:00 87 20 162/54 93 Venturi Mask 55 09/29/17 21:07 102 163/57 09/29/17 21:00 104 26 173/60 93 Venturi Mask 55 09/29/17 20:00 99.5 104 26 180/56 93 Venturi Mask 55 09/29/17 20:00 104 09/29/17 19:14 Venturi Mask 14.0 55 09/29/17 19:14 104 38 Venturi Mask 14.0 55 09/29/17 19:14 93 Venturi Mask 14.0 55 09/29/17 19:00 104 26 180/56 93 Venturi Mask 55 09/29/17 18:20 178/63 09/29/17 18:00 103 21 174/54 95 Venturi Mask 55 09/29/17 17:00 97 18 166/53 96 Venturi Mask 55 09/29/17 16:00 99.4 97 21 163/56 95 Venturi Mask 55 09/29/17 16:00 82 09/29/17 15:00 79 28 160/49 96 Venturi Mask 55 09/29/17 14:00 79 28 154/44 97 Venturi Mask 55 09/29/17 13:00 74 27 154/54 97 Venturi Mask 55 09/29/17 12:00 78 09/29/17 12:00 97.6 97 16 152/44 97 Venturi Mask 55 09/29/17 11:00 89 20 158/47 97 Venturi Mask 55 09/29/17 10:00 94 22 166/56 95 Venturi Mask 55 Labs: Labs Test 09/27/17 12:05 09/28/17 04:30 09/28/17 11:00 09/29/17 05:16 Arterial Blood pH 7.430 (7.350-7.450) Arterial Blood Partial Pressure CO2 46.9 mmHg (35.0-45.0) Arterial Blood Partial Pressure O2 149.2 mmHg (75.0-100.0) Arterial Blood HCO3 30.6 mmol/L (22.0-26.0) Arterial Blood Oxygen Saturation 98.8 % (92.0-98.0) Arterial Blood Base Excess 5.5 Scotty Test Positive White Blood Count 19.5 K/UL (4.8-10.8) 19.5 K/UL (4.8-10.8) Red Blood Count 5.19 M/UL (4.70-6.10) 5.03 M/UL (4.70-6.10) Hemoglobin 11.1 G/DL (14.2-18.0) 10.7 G/DL (14.2-18.0) Hematocrit 36.1 % (42.0-52.0) 35.5 % (42.0-52.0) Mean Corpuscular Volume 70 FL (80-99) 71 FL (80-99) Mean Corpuscular Hemoglobin 21.3 PG (27.0-31.0) 21.3 PG (27.0-31.0) Mean Corpuscular Hemoglobin Concent 30.6 G/DL (32.0-36.0) 30.2 G/DL (32.0-36.0) Red Cell Distribution Width 25.4 % (11.6-14.8) 26.1 % (11.6-14.8) Platelet Count 98 K/UL (150-450) 123 K/UL (150-450) Mean Platelet Volume 12.6 FL (6.5-10.1) 12.7 FL (6.5-10.1) Neutrophils (%) (Auto) % (45.0-75.0) % (45.0-75.0) Lymphocytes (%) (Auto) % (20.0-45.0) % (20.0-45.0) Monocytes (%) (Auto) % (1.0-10.0) % (1.0-10.0) Eosinophils (%) (Auto) % (0.0-3.0) % (0.0-3.0) Basophils (%) (Auto) % (0.0-2.0) % (0.0-2.0) Differential Total Cells Counted 100 100 Neutrophils % (Manual) 87 % (45-75) 87 % (45-75) Lymphocytes % (Manual) 2 % (20-45) 3 % (20-45) Monocytes % (Manual) 7 % (1-10) 5 % (1-10) Eosinophils % (Manual) 0 % (0-3) 0 % (0-3) Basophils % (Manual) 0 % (0-2) 0 % (0-2) Metamyelocytes % 3 % (0-0) Myelocytes % 1 % (0-0) 1 % (0-0) Band Neutrophils 0 % (0-8) 4 % (0-8) Platelet Estimate Decreased Decreased Platelet Morphology Normal Hypochromasia 1+ 1+ Anisocytosis 4+ 2+ Microcytosis 1+ 2+ Sodium Level 146 MMOL/L (136-145) 146 MMOL/L (136-145) Potassium Level 3.3 MMOL/L (3.5-5.1) 3.9 MMOL/L (3.5-5.1) Chloride Level 107 MMOL/L (98-107) 110 MMOL/L (98-107) Carbon Dioxide Level 29 MMOL/L (21-32) 32 MMOL/L (21-32) Anion Gap 10 mmol/L (5-15) 4 mmol/L (5-15) Blood Urea Nitrogen 27 mg/dL (7-18) 25 mg/dL (7-18) Creatinine 0.9 MG/DL (0.55-1.30) 0.9 MG/DL (0.55-1.30) Estimat Glomerular Filtration Rate mL/min (>60) mL/min (>60) Glucose Level 89 MG/DL (74-106) 224 MG/DL (74-106) Calcium Level 8.3 MG/DL (8.5-10.1) 8.1 MG/DL (8.5-10.1) Total Bilirubin 0.6 MG/DL (0.2-1.0) 0.5 MG/DL (0.2-1.0) Aspartate Amino Transf (AST/SGOT) 22 U/L (15-37) 28 U/L (15-37) Alanine Aminotransferase (ALT/SGPT) 25 U/L (12-78) 25 U/L (12-78) Alkaline Phosphatase 66 U/L (46-116) 83 U/L (46-116) Total Protein 6.6 G/DL (6.4-8.2) 6.6 G/DL (6.4-8.2) Albumin 2.1 G/DL (3.4-5.0) 2.1 G/DL (3.4-5.0) Globulin 4.5 g/dL 4.5 g/dL Albumin/Globulin Ratio 0.5 (1.0-2.7) 0.5 (1.0-2.7) Urine Color [place] Urine Appearance Cloudy Urine pH 5 (4.5-8.0) Urine Specific [place] 1.025 (1.005-1.035) Urine Protein 3+ (NEGATIVE) Urine Glucose (UA) Negative (NEGATIVE) Urine Ketones 3+ (NEGATIVE) Urine Occult Blood 5+ (NEGATIVE) Urine Nitrite Negative (NEGATIVE) Urine Bilirubin Negative (NEGATIVE) Urine Ictotest Negative Urine Urobilinogen 1 MG/DL (0.0-1.0) Urine Leukocyte Esterase 1+ (NEGATIVE) Urine RBC Tntc /HPF (0 - 0) Urine WBC 40-60 /HPF (0 - 0) Urine Squamous Epithelial Cells Moderate /LPF (NONE/OCC) Urine Bacteria Few /HPF (NONE) Giant Platelets Occasional Magnesium Level 1.9 MG/DL (1.8-2.4) Pro-B-Type Natriuretic Peptide 2974 pg/mL (0-125) Test 09/30/17 04:05 09/30/17 08:40 White Blood Count 24.0 K/UL (4.8-10.8) Red Blood Count 4.85 M/UL (4.70-6.10) Hemoglobin 10.2 G/DL (14.2-18.0) Hematocrit 34.6 % (42.0-52.0) Mean Corpuscular Volume 71 FL (80-99) Mean Corpuscular Hemoglobin 21.1 PG (27.0-31.0) Mean Corpuscular Hemoglobin Concent 29.5 G/DL (32.0-36.0) Red Cell Distribution Width 26.6 % (11.6-14.8) Platelet Count 154 K/UL (150-450) Mean Platelet Volume 12.6 FL (6.5-10.1) Neutrophils (%) (Auto) % (45.0-75.0) Lymphocytes (%) (Auto) % (20.0-45.0) Monocytes (%) (Auto) % (1.0-10.0) Eosinophils (%) (Auto) % (0.0-3.0) Basophils (%) (Auto) % (0.0-2.0) Sodium Level 148 MMOL/L (136-145) Potassium Level 4.2 MMOL/L (3.5-5.1) Chloride Level 110 MMOL/L (98-107) Carbon Dioxide Level 30 MMOL/L (21-32) Anion Gap 8 mmol/L (5-15) Blood Urea Nitrogen 28 mg/dL (7-18) Creatinine 1.0 MG/DL (0.55-1.30) Estimat Glomerular Filtration Rate mL/min (>60) Glucose Level 159 MG/DL (74-106) Calcium Level 8.2 MG/DL (8.5-10.1) Total Bilirubin 0.4 MG/DL (0.2-1.0) Aspartate Amino Transf (AST/SGOT) 39 U/L (15-37) Alanine Aminotransferase (ALT/SGPT) 36 U/L (12-78) Alkaline Phosphatase 94 U/L (46-116) Total Protein 6.7 G/DL (6.4-8.2) Albumin 2.0 G/DL (3.4-5.0) Globulin 4.7 g/dL Albumin/Globulin Ratio 0.4 (1.0-2.7) Arterial Blood pH 7.487 (7.350-7.450) Arterial Blood Partial Pressure CO2 43.2 mmHg (35.0-45.0) Arterial Blood Partial Pressure O2 83.1 mmHg (75.0-100.0) Arterial Blood HCO3 32.0 mmol/L (22.0-26.0) Arterial Blood Oxygen Saturation 96.4 % (92.0-98.0) Arterial Blood Base Excess 7.8 Scotty Test Positive Objective: WDWN NAD opens eyes and interacts on oxygen reduced breath sounds bilaterally with no rhonchi bilaterally [id number] without MRG NABS nontender no HSM OGT in place no CCE nonfocal awake and comfortable skin noted lines reviewed reviewed and edited Micro: Microbiology Date/Time Source Procedure Growth Status 09/28/17 11:00 Indwelling Cath Urine Culture - Preliminary NO GROWTH AFTER 24 HOURS Resulted STEVE CARPIO Sep 30, 2017 09:49
--- NOTE | 2017-09-30 11:57 | Infectious Diseases Prog Note ---
Assessment/Plan Assessment/Plan antibiotics : levoquin A 1. pneumonia improving 2. leucocytosis increased 3. COPD 4. gout 5. respiratory failure resolved 6. renal failure improving 7. thrombocytopenia P 1. continue po levoquin 2. stool for c.diff 3. start flagyl 4. will follow up cultures Subjective ROS Limited/Unobtainable: Yes Allergies: Coded Allergies: No Known Allergies (Unverified , 09/16/17) Objective Vital Signs Last 24 Hour Vital Signs Date Time Temp Pulse Resp B/P (MAP) Pulse Ox O2 Delivery O2 Flow Rate FiO2 09/30/17 11:00 65 24 148/43 98 Venturi Mask 55 09/30/17 10:00 68 24 144/41 98 Venturi Mask 55 09/30/17 09:29 77 142/42 09/30/17 09:00 67 24 147/42 95 Venturi Mask 55 09/30/17 08:00 98.8 79 25 140/43 95 Venturi Mask 55 09/30/17 08:00 73 09/30/17 07:19 75 20 Venturi Mask 14.0 55 09/30/17 07:19 97 Venturi Mask 14.0 55 09/30/17 07:19 Venturi Mask 14.0 55 09/30/17 07:00 73 24 164/58 95 Venturi Mask 55 09/30/17 06:00 83 24 137/44 95 Venturi Mask 55 09/30/17 06:00 77 25 137/44 93 Venturi Mask 55 09/30/17 05:00 83 24 146/40 95 Venturi Mask 55 09/30/17 05:00 77 24 138/39 96 Venturi Mask 55 09/30/17 04:00 86 09/30/17 04:00 99.0 83 24 146/40 95 Venturi Mask 55 09/30/17 03:00 82 26 162/52 96 Venturi Mask 55 09/30/17 02:00 81 22 157/41 95 Venturi Mask 55 09/30/17 01:00 86 26 168/43 95 Venturi Mask 55 09/30/17 00:00 81 09/30/17 00:00 99.0 86 26 158/46 95 Venturi Mask 55 09/29/17 23:00 75 26 162/54 95 Venturi Mask 55 09/29/17 22:00 87 20 162/54 93 Venturi Mask 55 09/29/17 21:07 102 163/57 09/29/17 21:00 104 26 173/60 93 Venturi Mask 55 09/29/17 20:00 99.5 104 26 180/56 93 Venturi Mask 55 09/29/17 20:00 104 09/29/17 19:14 Venturi Mask 14.0 55 09/29/17 19:14 104 38 Venturi Mask 14.0 55 09/29/17 19:14 93 Venturi Mask 14.0 55 09/29/17 19:00 104 26 180/56 93 Venturi Mask 55 09/29/17 18:20 178/63 09/29/17 18:00 103 21 174/54 95 Venturi Mask 55 09/29/17 17:00 97 18 166/53 96 Venturi Mask 55 09/29/17 16:00 99.4 97 21 163/56 95 Venturi Mask 55 09/29/17 16:00 82 09/29/17 15:00 79 28 160/49 96 Venturi Mask 55 09/29/17 14:00 79 28 154/44 97 Venturi Mask 55 09/29/17 13:00 74 27 154/54 97 Venturi Mask 55 09/29/17 12:00 78 09/29/17 12:00 97.6 97 16 152/44 97 Venturi Mask 55 Height (Feet): 5 Height (Inches): 8.00 Weight (Pounds): 182 Respiratory/Chest: lungs clear Cardiovascular: normal rate, regular rhythm, no gallop/murmur Abdomen: soft, non tender Extremities: no edema Microbiology Date/Time Source Procedure Growth Status 09/28/17 11:00 Indwelling Cath Urine Culture - Preliminary NO GROWTH AFTER 24 HOURS Resulted Laboratory Tests Test 09/30/17 04:05 09/30/17 08:40 White Blood Count 24.0 K/UL (4.8-10.8) *H Red Blood Count 4.85 M/UL (4.70-6.10) Hemoglobin 10.2 G/DL (14.2-18.0) L Hematocrit 34.6 % (42.0-52.0) L Mean Corpuscular Volume 71 FL (80-99) L Mean Corpuscular Hemoglobin 21.1 PG (27.0-31.0) L Mean Corpuscular Hemoglobin Concent 29.5 G/DL (32.0-36.0) L Red Cell Distribution Width 26.6 % (11.6-14.8) H Platelet Count 154 K/UL (150-450) Mean Platelet Volume 12.6 FL (6.5-10.1) H Neutrophils (%) (Auto) % (45.0-75.0) Lymphocytes (%) (Auto) % (20.0-45.0) Monocytes (%) (Auto) % (1.0-10.0) Eosinophils (%) (Auto) % (0.0-3.0) Basophils (%) (Auto) % (0.0-2.0) Differential Total Cells Counted 100 Neutrophils % (Manual) 82 % (45-75) H Lymphocytes % (Manual) 6 % (20-45) L Monocytes % (Manual) 6 % (1-10) Eosinophils % (Manual) 0 % (0-3) Basophils % (Manual) 0 % (0-2) Myelocytes % 2 % (0-0) H Band Neutrophils 4 % (0-8) Platelet Estimate Adequate Platelet Morphology Normal Hypochromasia 1+ Anisocytosis 2+ Microcytosis 2+ Sodium Level 148 MMOL/L (136-145) H Potassium Level 4.2 MMOL/L (3.5-5.1) Chloride Level 110 MMOL/L (98-107) H Carbon Dioxide Level 30 MMOL/L (21-32) Anion Gap 8 mmol/L (5-15) Blood Urea Nitrogen 28 mg/dL (7-18) H Creatinine 1.0 MG/DL (0.55-1.30) Estimat Glomerular Filtration Rate mL/min (>60) Glucose Level 159 MG/DL (74-106) H Calcium Level 8.2 MG/DL (8.5-10.1) L Total Bilirubin 0.4 MG/DL (0.2-1.0) Aspartate Amino Transf (AST/SGOT) 39 U/L (15-37) H Alanine Aminotransferase (ALT/SGPT) 36 U/L (12-78) Alkaline Phosphatase 94 U/L (46-116) Total Protein 6.7 G/DL (6.4-8.2) Albumin 2.0 G/DL (3.4-5.0) L Globulin 4.7 g/dL Albumin/Globulin Ratio 0.4 (1.0-2.7) L Arterial Blood pH 7.487 (7.350-7.450) Arterial Blood Partial Pressure CO2 43.2 mmHg (35.0-45.0) Arterial Blood Partial Pressure O2 83.1 mmHg (75.0-100.0) Arterial Blood HCO3 32.0 mmol/L (22.0-26.0) H Arterial Blood Oxygen Saturation 96.4 % (92.0-98.0) Arterial Blood Base Excess 7.8 Scotty Test Positive SHARON LUEVANO Sep 30, 2017 11:57
[2017-09-30] MEDS: metroNIDAZOLE 500mg tab ORAL SCH ×2 (13:54→21:33)
[2017-09-30] MEDS: Miralax 17gm pkt GT SCH (20:33)
--- NOTE | 2017-09-30 22:46 | General Progress Note ---
Assessment/Plan Assessment/Plan Assessment - OB (+) stools - Microcytic Iron deficient anemia - s/p transfusion - thrombocytopenia - OBS - constipation - dysphagia Recommendations - follow labs and exam - laxative PRN - transfuse PRN - IV Fe - PPI - swallow eval when more awake - GI w/u on hold, per family request Subjective Allergies: Coded Allergies: No Known Allergies (Unverified , 09/16/17) Subjective weak on mask (+) OGT d/w son at bedside Objective Last 24 Hour Vital Signs Date Time Temp Pulse Resp B/P (MAP) Pulse Ox O2 Delivery O2 Flow Rate FiO2 09/30/17 20:34 79 155/73 09/30/17 20:00 98.7 85 26 150/70 95 Venturi Mask 55 09/30/17 19:00 83 23 153/48 97 Venturi Mask 55 09/30/17 18:45 94 Venturi Mask 14.0 55 09/30/17 18:45 Venturi Mask 14.0 55 09/30/17 18:45 88 22 Venturi Mask 14.0 55 09/30/17 18:24 183/51 09/30/17 18:00 89 23 183/51 97 Venturi Mask 55 09/30/17 17:00 85 23 133/69 98 Venturi Mask 55 09/30/17 16:00 98.9 80 25 145/45 95 Venturi Mask 55 09/30/17 16:00 79 09/30/17 15:00 85 23 133/69 98 Venturi Mask 55 09/30/17 14:00 85 23 140/69 98 Venturi Mask 55 09/30/17 13:00 87 24 148/52 98 Venturi Mask 55 09/30/17 12:00 75 09/30/17 12:00 99.0 79 38 140/42 96 Venturi Mask 55 09/30/17 11:00 65 24 148/43 98 Venturi Mask 55 09/30/17 10:00 68 24 144/41 98 Venturi Mask 55 09/30/17 09:29 77 142/42 09/30/17 09:00 67 24 147/42 95 Venturi Mask 55 09/30/17 08:00 98.8 79 25 140/43 95 Venturi Mask 55 09/30/17 08:00 73 09/30/17 07:19 75 20 Venturi Mask 14.0 55 09/30/17 07:19 97 Venturi Mask 14.0 55 09/30/17 07:19 Venturi Mask 14.0 55 09/30/17 07:00 73 24 164/58 95 Venturi Mask 55 09/30/17 06:00 83 24 137/44 95 Venturi Mask 55 09/30/17 06:00 77 25 137/44 93 Venturi Mask 55 09/30/17 05:00 83 24 146/40 95 Venturi Mask 55 09/30/17 05:00 77 24 138/39 96 Venturi Mask 55 09/30/17 04:00 86 09/30/17 04:00 99.0 83 24 146/40 95 Venturi Mask 55 09/30/17 03:00 82 26 162/52 96 Venturi Mask 55 09/30/17 02:00 81 22 157/41 95 Venturi Mask 55 09/30/17 01:00 86 26 168/43 95 Venturi Mask 55 09/30/17 00:00 81 09/30/17 00:00 99.0 86 26 158/46 95 Venturi Mask 55 09/29/17 23:00 75 26 162/54 95 Venturi Mask 55 Intake and Output 09/29/17 09/30/17 19:00 07:00 Intake Total 1325 ml 650 ml Output Total 480 ml 500 ml Balance 845 ml 150 ml Free Water 150 ml 50 ml IV Total 675 ml Tube Feeding 500 ml 600 ml Output Urine Total 480 ml 500 ml # Bowel Movements 1 Laboratory Tests 09/30/17 04:05: White Blood Count 24.0*H, Red Blood Count 4.85, Hemoglobin 10.2L, Hematocrit 34.6L, Mean Corpuscular Volume 71L, Mean Corpuscular Hemoglobin 21.1L, Mean Corpuscular Hemoglobin Concent 29.5L, Red Cell Distribution Width 26.6H, Platelet Count 154, Mean Platelet Volume 12.6H, Neutrophils (%) (Auto) , Lymphocytes (%) (Auto) , Monocytes (%) (Auto) , Eosinophils (%) (Auto) , Basophils (%) (Auto) , Differential Total Cells Counted 100, Neutrophils % ( Manual) 82H, Lymphocytes % (Manual) 6L, Monocytes % (Manual) 6, Eosinophils % ( Manual) 0, Basophils % (Manual) 0, Myelocytes % 2H, Band Neutrophils 4, Platelet Estimate Adequate, Platelet Morphology Normal, Hypochromasia 1+, Anisocytosis 2+, Microcytosis 2+, Sodium Level 148H, Potassium Level 4.2, Chloride Level 110H, Carbon Dioxide Level 30, Anion Gap 8, Blood Urea Nitrogen 28H, Creatinine 1.0, Estimat Glomerular Filtration Rate , Glucose Level 159H, Calcium Level 8.2L, Total Bilirubin 0.4, Aspartate Amino Transf (AST/SGOT) 39H, Alanine Aminotransferase (ALT/SGPT) 36, Alkaline Phosphatase 94, Total Protein 6.7, Albumin 2.0L, Globulin 4.7, Albumin/Globulin Ratio 0.4L 09/30/17 08:40: Arterial Blood pH 7.487H, Arterial Blood Partial Pressure CO2 43.2, Arterial Blood Partial Pressure O2 83.1, Arterial Blood HCO3 32.0H, Arterial Blood Oxygen Saturation 96.4, Arterial Blood Base Excess 7.8, Scotty Test Positive Height (Feet): 5 Height (Inches): 8.00 Weight (Pounds): 182 Objective Elderly patient in ICU NCAT, (+) OGT, (+) FM supple Coarse BS RR Soft abd trace edema TAYO GUERIN Sep 30, 2017 22:46
[2017-10-01] VITALS (17 sets, daily range): BP systolic 122–169; BP diastolic 35–75
--- NOTE | 2017-10-01 02:45 | Progress Note ---
DATE: 09/30/2017 CARDIOLOGY PROGRESS NOTE SUBJECTIVE: The patient's condition is improving. Respiratory parameters are better. He still is on aspiration precautions and requires frequent respiratory hygiene and suctioning. OBJECTIVE: VITAL SIGNS: Blood pressure 164/58, pulse 73, and respiratory rate 24. LUNGS: Coarse breath sounds. Scattered rhonchi. HEART: Regular rhythm and rate. Normal S1, S2. ABDOMEN: Soft. EXTREMITIES: Trace edema. LABORATORY DATA: White count 24 and hemoglobin 10. Sodium 148, potassium 4.2, bicarbonate 30, BUN 28, and creatinine 1. Albumin 2.0. ABGs, pH 7.49, pCO2 43, and pO2 83. IMPRESSION: 1. Respiratory failure, status post extubation. 2. Leukocytosis. 3. Acute myocardial infarction. 4. Recovering pneumonia. 5. Chronic obstructive pulmonary disease. 6. Paroxysmal atrial fibrillation. 7. Dehydration. 8. Hypernatremia. PLAN: 1. Antimicrobials. 2. Respiratory hygiene. 3. Hypotonic IV fluids. 4. Cautious use of beta-brad. 5. Aspiration precaution. 6. Nutrition by feeding tube. Malik Burroughs M.D. DR: Letty JOB#: [id number] CC:
[2017-10-01 06:21] LABS: HEMATOCRIT 34.3 % (42.0-52.0); HEMOGLOBIN 10.4 G/DL (14.2-18.0); MEAN CORPUSCULAR VOLUME 71 FL (80-99); PLATELET COUNT 169 K/UL (150-450); RED BLOOD COUNT 4.85 M/UL (4.70-6.10); RED CELL DISTRIBUTION WIDTH 26.4 % (11.6-14.8); WHITE BLOOD COUNT 21.8 K/UL (4.8-10.8)
[2017-10-01] MEDS: metroNIDAZOLE 500mg tab ORAL SCH ×3 (06:41→21:55)
[2017-10-01 06:57] LABS: ALANINE AMINOTRANSFERASE 34 U/L (12-78); ALBUMIN 1.9 G/DL (3.4-5.0); ALBUMIN/GLOBULIN RATIO 0.4 (1.0-2.7); ALKALINE PHOSPHATASE 90 U/L (46-116); ANION GAP 6 mmol/L (5-15); ASPARTATE AMINO TRANSFERASE 37 U/L (15-37); BILIRUBIN,TOTAL 0.5 MG/DL (0.2-1.0); BLOOD UREA NITROGEN 24 mg/dL (7-18); CALCIUM 7.9 MG/DL (8.5-10.1); CARBON DIOXIDE 31 MMOL/L (21-32); CHLORIDE 105 MMOL/L (98-107); CREATININE 0.8 MG/DL (0.55-1.30); POTASSIUM 3.9 MMOL/L (3.5-5.1); SODIUM 142 MMOL/L (136-145)
--- NOTE | 2017-10-01 07:58 | General Progress Note ---
Assessment/Plan Problem List: (1) Anemia ICD Codes: D64.9 - Anemia, unspecified SNOMED: 773210288 (2) AMI (acute myocardial infarction) ICD Codes: I21.9 - Acute myocardial infarction, unspecified SNOMED: 96836190 (3) HTN (hypertension) ICD Codes: I10 - Essential (primary) hypertension SNOMED: 31850400 (4) COPD (chronic obstructive pulmonary disease) ICD Codes: J44.9 - Chronic obstructive pulmonary disease, unspecified SNOMED: 93562493 (5) Gout ICD Codes: M10.9 - Gout, unspecified SNOMED: 89095472 (6) Episode of generalized weakness ICD Codes: R53.1 - Weakness SNOMED: 33057740 (7) Sepsis ICD Codes: A41.9 - Sepsis, unspecified organism SNOMED: 19493438 Qualifiers: Qualified Codes: A41.9 - Sepsis, unspecified organism (8) Pneumonia ICD Codes: J18.9 - Pneumonia, unspecified organism SNOMED: 271344232 Status: stable, progressing Assessment/Plan resp rx/suctioning/o2 wean o2 as able iv abx keep dry monitor abg and cxr swallow eval increase water flush ngt feeds dc ivf monitor residuals remains guarded d/w pts pmd in [place]- accepted pt when bed available Subjective ROS Limited/Unobtainable: No Constitutional: Reports: malaise, weakness HEENT: Reports: no symptoms Cardiovascular: Reports: no symptoms Respiratory: Reports: cough, sputum Gastrointestinal/Abdominal: Reports: no symptoms Genitourinary: Reports: no symptoms Neurologic/Psychiatric: Reports: no symptoms Endocrine: Reports: no symptoms Hematologic/Lymphatic: Reports: anemia Allergies: Coded Allergies: No Known Allergies (Unverified , 09/16/17) All Systems: reviewed and negative except above Subjective no events. remains on venti mask. unable to wean venti mask. less congested. more alert. cxr with slight improvement. on ivf and ngt feeds Objective Last 24 Hour Vital Signs Date Time Temp Pulse Resp B/P (MAP) Pulse Ox O2 Delivery O2 Flow Rate FiO2 10/01/17 07:10 Venturi Mask 14.0 55 10/01/17 07:10 94 Venturi Mask 14.0 55 10/01/17 07:10 78 20 Venturi Mask 14.0 55 10/01/17 07:00 77 18 153/44 96 Venturi Mask 55 10/01/17 06:00 76 20 141/44 96 Venturi Mask 55 10/01/17 05:00 68 18 137/52 97 Venturi Mask 55 10/01/17 04:00 98.1 72 23 140/46 98 Venturi Mask 55 10/01/17 04:00 71 10/01/17 03:00 77 18 122/53 95 Venturi Mask 55 10/01/17 02:00 82 18 127/50 95 Venturi Mask 55 10/01/17 01:00 75 20 129/35 97 Venturi Mask 55 10/01/17 00:00 98.5 72 23 135/75 96 Venturi Mask 55 10/01/17 00:00 71 09/30/17 23:00 69 22 142/53 97 Venturi Mask 55 09/30/17 22:00 77 25 153/50 96 Venturi Mask 55 09/30/17 21:00 91 23 155/48 97 Venturi Mask 55 09/30/17 20:34 79 155/73 09/30/17 20:00 82 09/30/17 20:00 98.7 85 26 150/70 95 Venturi Mask 55 09/30/17 19:00 83 23 153/48 97 Venturi Mask 55 09/30/17 18:45 94 Venturi Mask 14.0 55 09/30/17 18:45 Venturi Mask 14.0 55 09/30/17 18:45 88 22 Venturi Mask 14.0 55 09/30/17 18:24 183/51 09/30/17 18:00 89 23 183/51 97 Venturi Mask 55 09/30/17 17:00 85 23 133/69 98 Venturi Mask 55 09/30/17 16:00 98.9 80 25 145/45 95 Venturi Mask 55 09/30/17 16:00 79 09/30/17 15:00 85 23 133/69 98 Venturi Mask 55 09/30/17 14:00 85 23 140/69 98 Venturi Mask 55 09/30/17 13:00 87 24 148/52 98 Venturi Mask 55 09/30/17 12:00 75 09/30/17 12:00 99.0 79 38 140/42 96 Venturi Mask 55 09/30/17 11:00 65 24 148/43 98 Venturi Mask 55 09/30/17 10:00 68 24 144/41 98 Venturi Mask 55 09/30/17 09:29 77 142/42 09/30/17 09:00 67 24 147/42 95 Venturi Mask 55 09/30/17 08:00 98.8 79 25 140/43 95 Venturi Mask 55 09/30/17 08:00 73 Intake and Output 09/30/17 10/01/17 19:00 07:00 Intake Total 1072.5 ml 1285 ml Output Total 710 ml 535 ml Balance 362.5 ml 750 ml IV Total 332.5 ml 785 ml Tube Feeding 600 ml 500 ml Other 140 ml Output Urine Total 710 ml 535 ml # Bowel Movements 2 Laboratory Tests 09/30/17 08:40: Arterial Blood pH 7.487H, Arterial Blood Partial Pressure CO2 43.2, Arterial Blood Partial Pressure O2 83.1, Arterial Blood HCO3 32.0H, Arterial Blood Oxygen Saturation 96.4, Arterial Blood Base Excess 7.8, Scotty Test Positive 10/01/17 04:45: White Blood Count 21.8H, Red Blood Count 4.85, Hemoglobin 10.4L, Hematocrit 34.3L, Mean Corpuscular Volume 71L, Mean Corpuscular Hemoglobin 21.5L, Mean Corpuscular Hemoglobin Concent 30.3L, Red Cell Distribution Width 26.4H, Platelet Count 169, Mean Platelet Volume 12.2H, Neutrophils (%) (Auto) , Lymphocytes (%) (Auto) , Monocytes (%) (Auto) , Eosinophils (%) (Auto) , Basophils (%) (Auto) , Neutrophils % (Manual) [Pending], Lymphocytes % (Manual) [Pending], Platelet Estimate [Pending], Platelet Morphology [Pending], Sodium Level 142, Potassium Level 3.9, Chloride Level 105, Carbon Dioxide Level 31, Anion Gap 6, Blood Urea Nitrogen 24H, Creatinine 0.8, Estimat Glomerular Filtration Rate , Glucose Level 168H, Calcium Level 7.9L, Total Bilirubin 0.5, Aspartate Amino Transf (AST/SGOT) 37, Alanine Aminotransferase (ALT/SGPT) 34, Alkaline Phosphatase 90, Total Protein 6.4, Albumin 1.9L, Globulin 4.5, Albumin/ Globulin Ratio 0.4L Height (Feet): 5 Height (Inches): 8.00 Weight (Pounds): 181 Objective General Appearance: WD/WN, alert. no distress. +ngt Neck: supple Cardiovascular: normal rate, regular rhythm Respiratory/Chest: rales and rhonchi ernestine- slightly worse Abdomen: normal bowel sounds, non tender, soft, no organomegaly Edema: no edema noted Arm (L), no edema noted Arm (R), no edema noted Leg (L), no edema noted Leg (R), no edema noted Pedal (L), no edema noted Pedal (R), no edema noted Generalized BHUPINDER DILL Oct 01, 2017 07:58
[2017-10-01] MEDS: Montelukast 10mg tablet GT SCH (08:40)
[2017-10-01] MEDS: Pantoprazole Inj IVP SCH ×2 (08:40→21:54)
[2017-10-01] MEDS: Metoprolol 25mg tab NG SCH (08:41)
--- NOTE | 2017-10-01 10:35 | Diagnostic Imaging Report ---
Indication: Dyspnea Technique: One view of the chest Comparison: 09/29/2017 Findings: Stable to slightly improved bilateral diffuse but mostly perihilar infiltrates versus edema. Pleural spaces remain clear. Heart size is normal. Stable satisfactory position of nasogastric tube Impression: Bilateral parenchymal disease appears improved slightly over 2 days but persists. Other stable findings as described
--- NOTE | 2017-10-01 11:53 | Infectious Diseases Prog Note ---
Assessment/Plan Assessment/Plan antibiotics : levoquin A 1. pneumonia improving 2. leucocytosis improving 3. COPD 4. gout 5. respiratory failure resolved 6. renal failure improving 7. thrombocytopenia P 1. continue po levoquin, flagyl 2. will follow up cultures Subjective Respiratory: Reports: shortness of breath, productive cough Gastrointestinal/Abdominal: Denies: nausea, vomiting, diarrhea Musculoskeletal: Denies: pain Allergies: Coded Allergies: No Known Allergies (Unverified , 09/16/17) Objective Vital Signs Last 24 Hour Vital Signs Date Time Temp Pulse Resp B/P (MAP) Pulse Ox O2 Delivery O2 Flow Rate FiO2 10/01/17 11:00 66 17 139/46 98 Venturi Mask 55 10/01/17 10:00 70 20 149/44 97 Venturi Mask 55 10/01/17 09:00 72 18 149/53 97 Venturi Mask 55 10/01/17 08:41 78 167/66 10/01/17 08:00 98.9 77 22 167/66 98 Venturi Mask 55 10/01/17 08:00 75 10/01/17 07:10 Venturi Mask 14.0 55 10/01/17 07:10 94 Venturi Mask 14.0 55 10/01/17 07:10 78 20 Venturi Mask 14.0 55 10/01/17 07:00 77 18 153/44 96 Venturi Mask 55 10/01/17 06:00 76 20 141/44 96 Venturi Mask 55 10/01/17 05:00 68 18 137/52 97 Venturi Mask 55 10/01/17 04:00 98.1 72 23 140/46 98 Venturi Mask 55 10/01/17 04:00 71 10/01/17 03:00 77 18 122/53 95 Venturi Mask 55 10/01/17 02:00 82 18 127/50 95 Venturi Mask 55 10/01/17 01:00 75 20 129/35 97 Venturi Mask 55 10/01/17 00:00 98.5 72 23 135/75 96 Venturi Mask 55 10/01/17 00:00 71 09/30/17 23:00 69 22 142/53 97 Venturi Mask 55 09/30/17 22:00 77 25 153/50 96 Venturi Mask 55 09/30/17 21:00 91 23 155/48 97 Venturi Mask 55 09/30/17 20:34 79 155/73 09/30/17 20:00 82 09/30/17 20:00 98.7 85 26 150/70 95 Venturi Mask 55 09/30/17 19:00 83 23 153/48 97 Venturi Mask 55 09/30/17 18:45 94 Venturi Mask 14.0 55 09/30/17 18:45 Venturi Mask 14.0 55 09/30/17 18:45 88 22 Venturi Mask 14.0 55 09/30/17 18:24 183/51 09/30/17 18:00 89 23 183/51 97 Venturi Mask 55 09/30/17 17:00 85 23 133/69 98 Venturi Mask 55 09/30/17 16:00 98.9 80 25 145/45 95 Venturi Mask 55 09/30/17 16:00 79 09/30/17 15:00 85 23 133/69 98 Venturi Mask 55 09/30/17 14:00 85 23 140/69 98 Venturi Mask 55 09/30/17 13:00 87 24 148/52 98 Venturi Mask 55 09/30/17 12:00 75 09/30/17 12:00 99.0 79 38 140/42 96 Venturi Mask 55 Height (Feet): 5 Height (Inches): 8.00 Weight (Pounds): 181 Respiratory/Chest: lungs clear Cardiovascular: normal rate, regular rhythm, no gallop/murmur Abdomen: soft, non tender Extremities: no edema Laboratory Tests Test 10/01/17 04:45 White Blood Count 21.8 K/UL (4.8-10.8) H Red Blood Count 4.85 M/UL (4.70-6.10) Hemoglobin 10.4 G/DL (14.2-18.0) L Hematocrit 34.3 % (42.0-52.0) L Mean Corpuscular Volume 71 FL (80-99) L Mean Corpuscular Hemoglobin 21.5 PG (27.0-31.0) L Mean Corpuscular Hemoglobin Concent 30.3 G/DL (32.0-36.0) L Red Cell Distribution Width 26.4 % (11.6-14.8) H Platelet Count 169 K/UL (150-450) Mean Platelet Volume 12.2 FL (6.5-10.1) H Neutrophils (%) (Auto) % (45.0-75.0) Lymphocytes (%) (Auto) % (20.0-45.0) Monocytes (%) (Auto) % (1.0-10.0) Eosinophils (%) (Auto) % (0.0-3.0) Basophils (%) (Auto) % (0.0-2.0) Differential Total Cells Counted 100 Neutrophils % (Manual) 85 % (45-75) H Lymphocytes % (Manual) 8 % (20-45) L Monocytes % (Manual) 6 % (1-10) Eosinophils % (Manual) 0 % (0-3) Basophils % (Manual) 0 % (0-2) Band Neutrophils 1 % (0-8) Platelet Estimate Adequate Platelet Morphology Normal Hypochromasia 1+ Anisocytosis 2+ Microcytosis 2+ Sodium Level 142 MMOL/L (136-145) Potassium Level 3.9 MMOL/L (3.5-5.1) Chloride Level 105 MMOL/L (98-107) Carbon Dioxide Level 31 MMOL/L (21-32) Anion Gap 6 mmol/L (5-15) Blood Urea Nitrogen 24 mg/dL (7-18) H Creatinine 0.8 MG/DL (0.55-1.30) Estimat Glomerular Filtration Rate mL/min (>60) Glucose Level 168 MG/DL (74-106) H Calcium Level 7.9 MG/DL (8.5-10.1) L Total Bilirubin 0.5 MG/DL (0.2-1.0) Aspartate Amino Transf (AST/SGOT) 37 U/L (15-37) Alanine Aminotransferase (ALT/SGPT) 34 U/L (12-78) Alkaline Phosphatase 90 U/L (46-116) Total Protein 6.4 G/DL (6.4-8.2) Albumin 1.9 G/DL (3.4-5.0) L Globulin 4.5 g/dL Albumin/Globulin Ratio 0.4 (1.0-2.7) L SHARON LUEVANO Oct 01, 2017 11:53
--- NOTE | 2017-10-01 12:25 | Critical Care Progress Note ---
Assessment/Plan Assessment/Plan COPD with exacerbation Acute respiratory failure tachycardia Pneumonia with some congestion acute encephalopathy hypoxemia significant agitation anemia hypertension leukocytosis PLAN care noted IV antibiotics noted off iv fluids monitor BNP respiratory care as is monitor off vent supportive care as outlined suction correct lytes ID follow up off IV steroids CPT and encourage cough ABG PRN repeat CXR and monitor acid base for change closely may be able to stepdown out of ICU CM to assist with possible transport as per family request awaiting bed and transport monitor respiratory status closely oxygen therapy prognosis guarded and still labile medications/laboratory data/nursing notes/ICU care reviewed in detail note reviewed and edited care discussed with RN and RT ICU time spent 36 minutes Critical Care - Subjective Interval Events: care noted and reviewed some slight improvement overall imaging slightly improved ROS Limited/Unobtainable: Yes Condition: improving EKG Rhythm: Sinus Rhythm Residuals: minimal Tube Feeding Tolerated: yes I&O: Intake and Output 09/30/17 10/01/17 19:00 07:00 Intake Total 1072.5 ml 1285 ml Output Total 710 ml 535 ml Balance 362.5 ml 750 ml IV Total 332.5 ml 785 ml Tube Feeding 600 ml 500 ml Other 140 ml Output Urine Total 710 ml 535 ml # Bowel Movements 2 Critical Care - Objective CXR: Bilateral parenchymal disease appears improved slightly over 2 days but persists. Last 24 Hour Vital Signs Date Time Temp Pulse Resp B/P (MAP) Pulse Ox O2 Delivery O2 Flow Rate FiO2 10/01/17 12:00 98.8 68 18 156/41 98 Venturi Mask 55 10/01/17 11:00 66 17 139/46 98 Venturi Mask 55 10/01/17 10:00 70 20 149/44 97 Venturi Mask 55 10/01/17 09:00 72 18 149/53 97 Venturi Mask 55 10/01/17 08:41 78 167/66 10/01/17 08:00 98.9 77 22 167/66 98 Venturi Mask 55 10/01/17 08:00 75 10/01/17 07:10 Venturi Mask 14.0 55 10/01/17 07:10 94 Venturi Mask 14.0 55 10/01/17 07:10 78 20 Venturi Mask 14.0 55 10/01/17 07:00 77 18 153/44 96 Venturi Mask 55 10/01/17 06:00 76 20 141/44 96 Venturi Mask 55 10/01/17 05:00 68 18 137/52 97 Venturi Mask 55 10/01/17 04:00 98.1 72 23 140/46 98 Venturi Mask 55 10/01/17 04:00 71 10/01/17 03:00 77 18 122/53 95 Venturi Mask 55 10/01/17 02:00 82 18 127/50 95 Venturi Mask 55 10/01/17 01:00 75 20 129/35 97 Venturi Mask 55 10/01/17 00:00 98.5 72 23 135/75 96 Venturi Mask 55 10/01/17 00:00 71 09/30/17 23:00 69 22 142/53 97 Venturi Mask 55 09/30/17 22:00 77 25 153/50 96 Venturi Mask 55 09/30/17 21:00 91 23 155/48 97 Venturi Mask 55 09/30/17 20:34 79 155/73 09/30/17 20:00 82 09/30/17 20:00 98.7 85 26 150/70 95 Venturi Mask 55 09/30/17 19:00 83 23 153/48 97 Venturi Mask 55 09/30/17 18:45 94 Venturi Mask 14.0 55 09/30/17 18:45 Venturi Mask 14.0 55 09/30/17 18:45 88 22 Venturi Mask 14.0 55 09/30/17 18:24 183/51 09/30/17 18:00 89 23 183/51 97 Venturi Mask 55 09/30/17 17:00 85 23 133/69 98 Venturi Mask 55 09/30/17 16:00 98.9 80 25 145/45 95 Venturi Mask 55 09/30/17 16:00 79 09/30/17 15:00 85 23 133/69 98 Venturi Mask 55 09/30/17 14:00 85 23 140/69 98 Venturi Mask 55 09/30/17 13:00 87 24 148/52 98 Venturi Mask 55 Labs: Labs Test 09/29/17 05:16 09/30/17 04:05 09/30/17 08:40 10/01/17 04:45 White Blood Count 19.5 K/UL (4.8-10.8) 24.0 K/UL (4.8-10.8) 21.8 K/UL (4.8-10.8) Red Blood Count 5.03 M/UL (4.70-6.10) 4.85 M/UL (4.70-6.10) 4.85 M/UL (4.70-6.10) Hemoglobin 10.7 G/DL (14.2-18.0) 10.2 G/DL (14.2-18.0) 10.4 G/DL (14.2-18.0) Hematocrit 35.5 % (42.0-52.0) 34.6 % (42.0-52.0) 34.3 % (42.0-52.0) Mean Corpuscular Volume 71 FL (80-99) 71 FL (80-99) 71 FL (80-99) Mean Corpuscular Hemoglobin 21.3 PG (27.0-31.0) 21.1 PG (27.0-31.0) 21.5 PG (27.0-31.0) Mean Corpuscular Hemoglobin Concent 30.2 G/DL (32.0-36.0) 29.5 G/DL (32.0-36.0) 30.3 G/DL (32.0-36.0) Red Cell Distribution Width 26.1 % (11.6-14.8) 26.6 % (11.6-14.8) 26.4 % (11.6-14.8) Platelet Count 123 K/UL (150-450) 154 K/UL (150-450) 169 K/UL (150-450) Mean Platelet Volume 12.7 FL (6.5-10.1) 12.6 FL (6.5-10.1) 12.2 FL (6.5-10.1) Neutrophils (%) (Auto) % (45.0-75.0) % (45.0-75.0) % (45.0-75.0) Lymphocytes (%) (Auto) % (20.0-45.0) % (20.0-45.0) % (20.0-45.0) Monocytes (%) (Auto) % (1.0-10.0) % (1.0-10.0) % (1.0-10.0) Eosinophils (%) (Auto) % (0.0-3.0) % (0.0-3.0) % (0.0-3.0) Basophils (%) (Auto) % (0.0-2.0) % (0.0-2.0) % (0.0-2.0) Differential Total Cells Counted 100 100 100 Neutrophils % (Manual) 87 % (45-75) 82 % (45-75) 85 % (45-75) Lymphocytes % (Manual) 3 % (20-45) 6 % (20-45) 8 % (20-45) Monocytes % (Manual) 5 % (1-10) 6 % (1-10) 6 % (1-10) Eosinophils % (Manual) 0 % (0-3) 0 % (0-3) 0 % (0-3) Basophils % (Manual) 0 % (0-2) 0 % (0-2) 0 % (0-2) Myelocytes % 1 % (0-0) 2 % (0-0) Band Neutrophils 4 % (0-8) 4 % (0-8) 1 % (0-8) Platelet Estimate Decreased Adequate Adequate Platelet Morphology Normal Normal Giant Platelets Occasional Hypochromasia 1+ 1+ 1+ Anisocytosis 2+ 2+ 2+ Microcytosis 2+ 2+ 2+ Sodium Level 146 MMOL/L (136-145) 148 MMOL/L (136-145) 142 MMOL/L (136-145) Potassium Level 3.9 MMOL/L (3.5-5.1) 4.2 MMOL/L (3.5-5.1) 3.9 MMOL/L (3.5-5.1) Chloride Level 110 MMOL/L (98-107) 110 MMOL/L (98-107) 105 MMOL/L (98-107) Carbon Dioxide Level 32 MMOL/L (21-32) 30 MMOL/L (21-32) 31 MMOL/L (21-32) Anion Gap 4 mmol/L (5-15) 8 mmol/L (5-15) 6 mmol/L (5-15) Blood Urea Nitrogen 25 mg/dL (7-18) 28 mg/dL (7-18) 24 mg/dL (7-18) Creatinine 0.9 MG/DL (0.55-1.30) 1.0 MG/DL (0.55-1.30) 0.8 MG/DL (0.55-1.30) Estimat Glomerular Filtration Rate mL/min (>60) mL/min (>60) mL/min (>60) Glucose Level 224 MG/DL (74-106) 159 MG/DL (74-106) 168 MG/DL (74-106) Calcium Level 8.1 MG/DL (8.5-10.1) 8.2 MG/DL (8.5-10.1) 7.9 MG/DL (8.5-10.1) Magnesium Level 1.9 MG/DL (1.8-2.4) Total Bilirubin 0.5 MG/DL (0.2-1.0) 0.4 MG/DL (0.2-1.0) 0.5 MG/DL (0.2-1.0) Aspartate Amino Transf (AST/SGOT) 28 U/L (15-37) 39 U/L (15-37) 37 U/L (15-37) Alanine Aminotransferase (ALT/SGPT) 25 U/L (12-78) 36 U/L (12-78) 34 U/L (12-78) Alkaline Phosphatase 83 U/L (46-116) 94 U/L (46-116) 90 U/L (46-116) Pro-B-Type Natriuretic Peptide 2974 pg/mL (0-125) Total Protein 6.6 G/DL (6.4-8.2) 6.7 G/DL (6.4-8.2) 6.4 G/DL (6.4-8.2) Albumin 2.1 G/DL (3.4-5.0) 2.0 G/DL (3.4-5.0) 1.9 G/DL (3.4-5.0) Globulin 4.5 g/dL 4.7 g/dL 4.5 g/dL Albumin/Globulin Ratio 0.5 (1.0-2.7) 0.4 (1.0-2.7) 0.4 (1.0-2.7) Arterial Blood pH 7.487 (7.350-7.450) Arterial Blood Partial Pressure CO2 43.2 mmHg (35.0-45.0) Arterial Blood Partial Pressure O2 83.1 mmHg (75.0-100.0) Arterial Blood HCO3 32.0 mmol/L (22.0-26.0) Arterial Blood Oxygen Saturation 96.4 % (92.0-98.0) Arterial Blood Base Excess 7.8 Scotty Test Positive Objective: WDWN NAD opens eyes and interacts on oxygen reduced breath sounds bilaterally with no rhonchi bilaterally- improved air entry [id number] without MRG NABS nontender no HSM OGT in place no CCE nonfocal awake and comfortable skin noted lines reviewed reviewed and edited STEVE CARPIO Oct 01, 2017 12:25
[2017-10-01] MEDS ORDERED: HydrALAZINE 10mg Tab NG PRN (17:00)
[2017-10-01] MEDS ORDERED: Acetaminophen 650mg/20.3ml NG PRN (17:00)
[2017-10-01] MEDS ORDERED: Ipratropium 0.02% Inh Soln 2.5ml UD HHN PRN (17:00)
[2017-10-01] MEDS: Miralax 17gm pkt GT SCH (21:00)
[2017-10-01] MEDS: Metoprolol Tartrate 50mg tab NG SCH (21:55)
--- NOTE | 2017-10-01 23:27 | General Progress Note ---
Assessment/Plan Assessment/Plan Assessment - OB (+) stools - Microcytic Iron deficient anemia - s/p transfusion - thrombocytopenia - OBS - constipation - dysphagia Recommendations - follow labs and exam - laxative PRN - transfuse PRN - IV Fe - PPI - swallow eval when more awake - GI w/u on hold, per family request Subjective Allergies: Coded Allergies: No Known Allergies (Unverified , 09/16/17) Subjective weak on mask (+) OGT d/w RN tolerating feeds Objective Last 24 Hour Vital Signs Date Time Temp Pulse Resp B/P (MAP) Pulse Ox O2 Delivery O2 Flow Rate FiO2 10/01/17 21:55 94 146/63 10/01/17 20:00 98.6 94 22 146/63 94 Venturi Mask 14.0 55 10/01/17 19:45 109 20 Venturi Mask 14.0 55 10/01/17 19:00 Venturi Mask 14.0 55 10/01/17 19:00 92 Venturi Mask 14.0 55 10/01/17 16:55 98.4 90 16 143/58 94 Venturi Mask 14.0 55 10/01/17 16:00 91 10/01/17 14:00 89 19 159/49 95 Venturi Mask 55 10/01/17 13:00 69 20 169/41 95 Venturi Mask 55 10/01/17 12:00 98.8 68 18 156/41 98 Venturi Mask 55 10/01/17 12:00 70 10/01/17 11:00 66 17 139/46 98 Venturi Mask 55 10/01/17 10:00 70 20 149/44 97 Venturi Mask 55 10/01/17 09:00 72 18 149/53 97 Venturi Mask 55 10/01/17 08:41 78 167/66 10/01/17 08:00 98.9 77 22 167/66 98 Venturi Mask 55 10/01/17 08:00 75 10/01/17 07:10 Venturi Mask 14.0 55 10/01/17 07:10 94 Venturi Mask 14.0 55 10/01/17 07:10 78 20 Venturi Mask 14.0 55 10/01/17 07:00 77 18 153/44 96 Venturi Mask 55 10/01/17 06:00 76 20 141/44 96 Venturi Mask 55 10/01/17 05:00 68 18 137/52 97 Venturi Mask 55 10/01/17 04:00 98.1 72 23 140/46 98 Venturi Mask 55 10/01/17 04:00 71 10/01/17 03:00 77 18 122/53 95 Venturi Mask 55 10/01/17 02:00 82 18 127/50 95 Venturi Mask 55 10/01/17 01:00 75 20 129/35 97 Venturi Mask 55 10/01/17 00:00 98.5 72 23 135/75 96 Venturi Mask 55 10/01/17 00:00 71 Intake and Output 09/30/17 10/01/17 19:00 07:00 Intake Total 1072.5 ml 1285 ml Output Total 710 ml 535 ml Balance 362.5 ml 750 ml IV Total 332.5 ml 785 ml Tube Feeding 600 ml 500 ml Other 140 ml Output Urine Total 710 ml 535 ml # Bowel Movements 2 Laboratory Tests 10/01/17 04:45: White Blood Count 21.8H, Red Blood Count 4.85, Hemoglobin 10.4L, Hematocrit 34.3L, Mean Corpuscular Volume 71L, Mean Corpuscular Hemoglobin 21.5L, Mean Corpuscular Hemoglobin Concent 30.3L, Red Cell Distribution Width 26.4H, Platelet Count 169, Mean Platelet Volume 12.2H, Neutrophils (%) (Auto) , Lymphocytes (%) (Auto) , Monocytes (%) (Auto) , Eosinophils (%) (Auto) , Basophils (%) (Auto) , Differential Total Cells Counted 100, Neutrophils % ( Manual) 85H, Lymphocytes % (Manual) 8L, Monocytes % (Manual) 6, Eosinophils % ( Manual) 0, Basophils % (Manual) 0, Band Neutrophils 1, Platelet Estimate Adequate, Platelet Morphology Normal, Hypochromasia 1+, Anisocytosis 2+, Microcytosis 2+, Sodium Level 142, Potassium Level 3.9, Chloride Level 105, Carbon Dioxide Level 31, Anion Gap 6, Blood Urea Nitrogen 24H, Creatinine 0.8, Estimat Glomerular Filtration Rate , Glucose Level 168H, Calcium Level 7.9L, Total Bilirubin 0.5, Aspartate Amino Transf (AST/SGOT) 37, Alanine Aminotransferase (ALT/SGPT) 34, Alkaline Phosphatase 90, Total Protein 6.4, Albumin 1.9L, Globulin 4.5, Albumin/Globulin Ratio 0.4L Height (Feet): 5 Height (Inches): 8.00 Weight (Pounds): 181 Objective Elderly patient in ICU NCAT, (+) OGT, (+) FM supple Coarse BS RR Soft abd trace edema TAYO GUERIN Oct 01, 2017 23:27
[2017-10-02] VITALS: BP 153/64
--- NOTE | 2017-10-02 02:15 | Progress Note ---
DATE: 10/01/2017 CARDIOLOGY PROGRESS NOTE SUBJECTIVE: The patient continues to require aggressive respiratory hygiene. He is on oxygen mask. He requires suctioning and bronchodilator treatments. OBJECTIVE: VITAL SIGNS: Blood pressure 153/44, pulse 77, respiratory rate 18, and afebrile. LUNGS: Coarse breath sounds with rhonchi. Mucous membranes dry. CARDIAC: Regular rhythm and rate. Normal S1 and S2. ABDOMEN: Soft. EXTREMITIES: No edema. LABORATORY AND DIAGNOSTIC DATA: White count 21.8 and hemoglobin 10.4. Sodium 142, BUN 24, and creatinine 0.8. Albumin 1.9. Chest x-ray today revealed improved infiltrates bilaterally. IMPRESSION: 1. Respiratory failure. 2. Acute myocardial infarction. 3. Paroxysmal atrial fibrillation. 4. Status post sepsis with shock. 5. Healthcare-acquired pneumonia. 6. Continued leukocytosis. 7. Severe protein-calorie malnutrition. PLAN: 1. Bronchodilators. 2. Respiratory hygiene. 3. Antimicrobials. 4. Aspiration precautions. 5. Hold diuretics. 6. Maintain adequate hydration. 7. Free water replacement. 8. DVT prophylaxis. 9. Continued beta-blockade. 10. Hold anti-platelet therapy in view of recent gastrointestinal blood loss. Malik Burroughs M.D. DR: CORNELL JOB#: [id number] CC:
[2017-10-02 04:00] VITALS: BP 149/75
[2017-10-02 05:05] LABS: HEMATOCRIT 33.2 % (42.0-52.0); HEMOGLOBIN 10.3 G/DL (14.2-18.0); MEAN CORPUSCULAR VOLUME 71 FL (80-99); PLATELET COUNT 181 K/UL (150-450); RED CELL DISTRIBUTION WIDTH 26.4 % (11.6-14.8); WHITE BLOOD COUNT 18.1 K/UL (4.8-10.8)
[2017-10-02 05:31] LABS: ALANINE AMINOTRANSFERASE 27 U/L (12-78); ALBUMIN/GLOBULIN RATIO 0.4 (1.0-2.7); ALKALINE PHOSPHATASE 101 U/L (46-116); ANION GAP 4 mmol/L (5-15); ASPARTATE AMINO TRANSFERASE 29 U/L (15-37); BILIRUBIN,TOTAL 0.4 MG/DL (0.2-1.0); BLOOD UREA NITROGEN 25 mg/dL (7-18); CALCIUM 8.2 MG/DL (8.5-10.1); CARBON DIOXIDE 32 MMOL/L (21-32); CHLORIDE 106 MMOL/L (98-107); CREATININE 0.9 MG/DL (0.55-1.30); SODIUM 142 MMOL/L (136-145)
[2017-10-02] MEDS: metroNIDAZOLE 500mg tab ORAL SCH ×3 (06:13→22:09)
[2017-10-02 08:00] VITALS: BP 158/68
--- NOTE | 2017-10-02 08:26 | Critical Care Progress Note ---
Assessment/Plan Assessment/Plan COPD with exacerbation Acute respiratory failure tachycardia Pneumonia with some congestion acute encephalopathy hypoxemia significant agitation anemia hypertension leukocytosis PLAN care noted antibiotics noted- levaquin off iv fluids monitor BNP respiratory care as is monitor off vent supportive care as outlined suction correct lytes ID follow up monitor for change suction as needed CPT and encourage cough CM to assist with possible transport as per family request awaiting bed and transport monitor respiratory status closely oxygen therapy prognosis guarded and still labile medications/laboratory data/nursing notes reviewed in detail note reviewed and edited care discussed with RN and RT Critical Care - Subjective Interval Events: care noted weak out of ICU at present Condition: stable EKG Rhythm: Sinus Rhythm I&O: Intake and Output 10/01/17 10/02/17 19:00 07:00 Intake Total 830 ml 750 ml Output Total 405 ml 600 ml Balance 425 ml 150 ml Free Water 120 ml 150 ml Tube Feeding 600 ml 600 ml Other 110 ml Output Urine Total 405 ml 600 ml # Bowel Movements 5 3 Critical Care - Objective Last 24 Hour Vital Signs Date Time Temp Pulse Resp B/P (MAP) Pulse Ox O2 Delivery O2 Flow Rate FiO2 10/02/17 04:00 97.9 86 20 149/75 97 Venturi Mask 14.0 55 10/02/17 03:36 78 10/02/17 00:00 98.3 78 20 153/64 97 Venturi Mask 14.0 55 10/02/17 00:00 76 10/01/17 21:55 94 146/63 10/01/17 20:00 96 10/01/17 20:00 98.6 94 22 146/63 94 Venturi Mask 14.0 55 10/01/17 19:45 109 20 Venturi Mask 14.0 55 10/01/17 19:00 Venturi Mask 14.0 55 10/01/17 19:00 92 Venturi Mask 14.0 55 10/01/17 16:55 98.4 90 16 143/58 94 Venturi Mask 14.0 55 10/01/17 16:00 91 10/01/17 14:00 89 19 159/49 95 Venturi Mask 55 10/01/17 13:00 69 20 169/41 95 Venturi Mask 55 10/01/17 12:00 98.8 68 18 156/41 98 Venturi Mask 55 10/01/17 12:00 70 10/01/17 11:00 66 17 139/46 98 Venturi Mask 55 10/01/17 10:00 70 20 149/44 97 Venturi Mask 55 10/01/17 09:00 72 18 149/53 97 Venturi Mask 55 10/01/17 08:41 78 167/66 Labs: Labs Test 09/30/17 04:05 09/30/17 08:40 10/01/17 04:45 10/02/17 03:35 White Blood Count 24.0 K/UL (4.8-10.8) 21.8 K/UL (4.8-10.8) 18.1 K/UL (4.8-10.8) Red Blood Count 4.85 M/UL (4.70-6.10) 4.85 M/UL (4.70-6.10) 4.70 M/UL (4.70-6.10) Hemoglobin 10.2 G/DL (14.2-18.0) 10.4 G/DL (14.2-18.0) 10.3 G/DL (14.2-18.0) Hematocrit 34.6 % (42.0-52.0) 34.3 % (42.0-52.0) 33.2 % (42.0-52.0) Mean Corpuscular Volume 71 FL (80-99) 71 FL (80-99) 71 FL (80-99) Mean Corpuscular Hemoglobin 21.1 PG (27.0-31.0) 21.5 PG (27.0-31.0) 21.9 PG (27.0-31.0) Mean Corpuscular Hemoglobin Concent 29.5 G/DL (32.0-36.0) 30.3 G/DL (32.0-36.0) 31.0 G/DL (32.0-36.0) Red Cell Distribution Width 26.6 % (11.6-14.8) 26.4 % (11.6-14.8) 26.4 % (11.6-14.8) Platelet Count 154 K/UL (150-450) 169 K/UL (150-450) 181 K/UL (150-450) Mean Platelet Volume 12.6 FL (6.5-10.1) 12.2 FL (6.5-10.1) 13.1 FL (6.5-10.1) Neutrophils (%) (Auto) % (45.0-75.0) % (45.0-75.0) % (45.0-75.0) Lymphocytes (%) (Auto) % (20.0-45.0) % (20.0-45.0) % (20.0-45.0) Monocytes (%) (Auto) % (1.0-10.0) % (1.0-10.0) % (1.0-10.0) Eosinophils (%) (Auto) % (0.0-3.0) % (0.0-3.0) % (0.0-3.0) Basophils (%) (Auto) % (0.0-2.0) % (0.0-2.0) % (0.0-2.0) Differential Total Cells Counted 100 100 Neutrophils % (Manual) 82 % (45-75) 85 % (45-75) Lymphocytes % (Manual) 6 % (20-45) 8 % (20-45) Monocytes % (Manual) 6 % (1-10) 6 % (1-10) Eosinophils % (Manual) 0 % (0-3) 0 % (0-3) Basophils % (Manual) 0 % (0-2) 0 % (0-2) Myelocytes % 2 % (0-0) Band Neutrophils 4 % (0-8) 1 % (0-8) Platelet Estimate Adequate Adequate Platelet Morphology Normal Normal Hypochromasia 1+ 1+ Anisocytosis 2+ 2+ Microcytosis 2+ 2+ Sodium Level 148 MMOL/L (136-145) 142 MMOL/L (136-145) 142 MMOL/L (136-145) Potassium Level 4.2 MMOL/L (3.5-5.1) 3.9 MMOL/L (3.5-5.1) 4.0 MMOL/L (3.5-5.1) Chloride Level 110 MMOL/L (98-107) 105 MMOL/L (98-107) 106 MMOL/L (98-107) Carbon Dioxide Level 30 MMOL/L (21-32) 31 MMOL/L (21-32) 32 MMOL/L (21-32) Anion Gap 8 mmol/L (5-15) 6 mmol/L (5-15) 4 mmol/L (5-15) Blood Urea Nitrogen 28 mg/dL (7-18) 24 mg/dL (7-18) 25 mg/dL (7-18) Creatinine 1.0 MG/DL (0.55-1.30) 0.8 MG/DL (0.55-1.30) 0.9 MG/DL (0.55-1.30) Estimat Glomerular Filtration Rate mL/min (>60) mL/min (>60) mL/min (>60) Glucose Level 159 MG/DL (74-106) 168 MG/DL (74-106) 135 MG/DL (74-106) Calcium Level 8.2 MG/DL (8.5-10.1) 7.9 MG/DL (8.5-10.1) 8.2 MG/DL (8.5-10.1) Total Bilirubin 0.4 MG/DL (0.2-1.0) 0.5 MG/DL (0.2-1.0) 0.4 MG/DL (0.2-1.0) Aspartate Amino Transf (AST/SGOT) 39 U/L (15-37) 37 U/L (15-37) 29 U/L (15-37) Alanine Aminotransferase (ALT/SGPT) 36 U/L (12-78) 34 U/L (12-78) 27 U/L (12-78) Alkaline Phosphatase 94 U/L (46-116) 90 U/L (46-116) 101 U/L (46-116) Total Protein 6.7 G/DL (6.4-8.2) 6.4 G/DL (6.4-8.2) 6.7 G/DL (6.4-8.2) Albumin 2.0 G/DL (3.4-5.0) 1.9 G/DL (3.4-5.0) 2.0 G/DL (3.4-5.0) Globulin 4.7 g/dL 4.5 g/dL 4.7 g/dL Albumin/Globulin Ratio 0.4 (1.0-2.7) 0.4 (1.0-2.7) 0.4 (1.0-2.7) Arterial Blood pH 7.487 (7.350-7.450) Arterial Blood Partial Pressure CO2 43.2 mmHg (35.0-45.0) Arterial Blood Partial Pressure O2 83.1 mmHg (75.0-100.0) Arterial Blood HCO3 32.0 mmol/L (22.0-26.0) Arterial Blood Oxygen Saturation 96.4 % (92.0-98.0) Arterial Blood Base Excess 7.8 Scotty Test Positive Objective: WDWN NAD weak on oxygen reduced breath sounds bilaterally with some rhonchi bilaterally [id number] without MRG NABS nontender no HSM OGT in place no CCE nonfocal awake and comfortable skin noted lines reviewed reviewed and edited STEVE CARPIO Oct 02, 2017 08:26
[2017-10-02] MEDS ORDERED: Montelukast 10mg tablet GT SCH (09:00)
--- NOTE | 2017-10-02 09:55 | General Progress Note ---
Assessment/Plan Problem List: (1) Anemia ICD Codes: D64.9 - Anemia, unspecified SNOMED: 474960851 (2) AMI (acute myocardial infarction) ICD Codes: I21.9 - Acute myocardial infarction, unspecified SNOMED: 47126996 (3) HTN (hypertension) ICD Codes: I10 - Essential (primary) hypertension SNOMED: 09286990 (4) COPD (chronic obstructive pulmonary disease) ICD Codes: J44.9 - Chronic obstructive pulmonary disease, unspecified SNOMED: 27861141 (5) Gout ICD Codes: M10.9 - Gout, unspecified SNOMED: 08748736 (6) Episode of generalized weakness ICD Codes: R53.1 - Weakness SNOMED: 06366084 (7) Sepsis ICD Codes: A41.9 - Sepsis, unspecified organism SNOMED: 37053502 Qualifiers: Qualified Codes: A41.9 - Sepsis, unspecified organism (8) Pneumonia ICD Codes: J18.9 - Pneumonia, unspecified organism SNOMED: 742160653 Status: stable, progressing Assessment/Plan resp rx/suctioning/o2 wean o2 as able iv abx keep dry monitor abg and cxr swallow eval increase water flush ngt feeds monitor residuals remains guarded d/w pts pmd in [place]- accepted pt when bed available Subjective ROS Limited/Unobtainable: Yes Constitutional: Reports: malaise, weakness HEENT: Reports: no symptoms Cardiovascular: Reports: no symptoms Respiratory: Reports: no symptoms Gastrointestinal/Abdominal: Reports: difficulty swallowing Genitourinary: Reports: no symptoms Neurologic/Psychiatric: Reports: pre-existing deficit Endocrine: Reports: no symptoms Hematologic/Lymphatic: Reports: anemia Allergies: Coded Allergies: No Known Allergies (Unverified , 09/16/17) All Systems: reviewed and negative except above Subjective no events. remains on venti mask. unable to wean venti mask. less congested. more alert. cxr with slight improvement. on ivf and ngt feeds more congested. pulls of venti mask. Objective Last 24 Hour Vital Signs Date Time Temp Pulse Resp B/P (MAP) Pulse Ox O2 Delivery O2 Flow Rate FiO2 10/02/17 08:00 97.9 90 16 158/68 93 Venturi Mask 14.0 55 10/02/17 04:00 97.9 86 20 149/75 97 Venturi Mask 14.0 55 10/02/17 03:36 78 10/02/17 00:00 98.3 78 20 153/64 97 Venturi Mask 14.0 55 10/02/17 00:00 76 10/01/17 21:55 94 146/63 10/01/17 20:00 96 10/01/17 20:00 98.6 94 22 146/63 94 Venturi Mask 14.0 55 10/01/17 19:45 109 20 Venturi Mask 14.0 55 10/01/17 19:00 Venturi Mask 14.0 55 10/01/17 19:00 92 Venturi Mask 14.0 55 10/01/17 16:55 98.4 90 16 143/58 94 Venturi Mask 14.0 55 10/01/17 16:00 91 10/01/17 14:00 89 19 159/49 95 Venturi Mask 55 10/01/17 13:00 69 20 169/41 95 Venturi Mask 55 10/01/17 12:00 98.8 68 18 156/41 98 Venturi Mask 55 10/01/17 12:00 70 10/01/17 11:00 66 17 139/46 98 Venturi Mask 55 10/01/17 10:00 70 20 149/44 97 Venturi Mask 55 Intake and Output 10/01/17 10/02/17 19:00 07:00 Intake Total 830 ml 750 ml Output Total 405 ml 600 ml Balance 425 ml 150 ml Free Water 120 ml 150 ml Tube Feeding 600 ml 600 ml Other 110 ml Output Urine Total 405 ml 600 ml # Bowel Movements 5 3 Laboratory Tests 10/02/17 03:35: White Blood Count 18.1H, Red Blood Count 4.70, Hemoglobin 10.3L, Hematocrit 33.2L, Mean Corpuscular Volume 71L, Mean Corpuscular Hemoglobin 21.9L, Mean Corpuscular Hemoglobin Concent 31.0L, Red Cell Distribution Width 26.4H, Platelet Count 181, Mean Platelet Volume 13.1H, Neutrophils (%) (Auto) , Lymphocytes (%) (Auto) , Monocytes (%) (Auto) , Eosinophils (%) (Auto) , Basophils (%) (Auto) , Differential Total Cells Counted 100, Neutrophils % ( Manual) 79H, Lymphocytes % (Manual) 14L, Monocytes % (Manual) 7, Eosinophils % ( Manual) 0, Basophils % (Manual) 0, Band Neutrophils 0, Platelet Estimate Adequate, Platelet Morphology Normal, Hypochromasia 1+, Anisocytosis 2+, Microcytosis 2+, Sodium Level 142, Potassium Level 4.0, Chloride Level 106, Carbon Dioxide Level 32, Anion Gap 4L, Blood Urea Nitrogen 25H, Creatinine 0.9, Estimat Glomerular Filtration Rate , Glucose Level 135H, Calcium Level 8.2L, Total Bilirubin 0.4, Aspartate Amino Transf (AST/SGOT) 29, Alanine Aminotransferase (ALT/SGPT) 27, Alkaline Phosphatase 101, Total Protein 6.7, Albumin 2.0L, Globulin 4.7, Albumin/Globulin Ratio 0.4L Height (Feet): 5 Height (Inches): 8.00 Weight (Pounds): 176 Objective General Appearance: WD/WN, alert. no distress. +ngt Neck: supple Cardiovascular: normal rate, regular rhythm Respiratory/Chest: rales and rhonchi ernestine- slightly worse Abdomen: normal bowel sounds, non tender, soft, no organomegaly Edema: no edema noted Arm (L), no edema noted Arm (R), no edema noted Leg (L), no edema noted Leg (R), no edema noted Pedal (L), no edema noted Pedal (R), no edema noted Generalized BHUPINDER DILL Oct 02, 2017 09:55
[2017-10-02] MEDS: Pantoprazole Inj IVP SCH ×2 (10:01→22:08)
[2017-10-02] MEDS: Metoprolol Tartrate 50mg tab NG SCH ×2 (10:01→22:09)
[2017-10-02 12:00] VITALS: BP 151/64
--- NOTE | 2017-10-02 12:16 | Diagnostic Imaging Report ---
Indication: Cough, shortness of breath Technique: One view of the chest Comparison: 10/01/2017 Findings: Stable satisfactory position of nasogastric tube. Bilateral interstitial opacities persist, unchanged. Heart size is normal. Pleural spaces are clear. Impression: Unchanged, over one day, findings as above.
--- NOTE | 2017-10-02 13:10 | Infectious Diseases Prog Note ---
Assessment/Plan Assessment/Plan antibiotics : levoquin A 1. pneumonia improving 2. leucocytosis improving 3. COPD 4. gout 5. respiratory failure resolved 6. renal failure improving 7. thrombocytopenia P 1. continue po levoquin, flagyl 4 more days 2. will follow up cultures Subjective Constitutional: Denies: fever, chills Respiratory: Reports: shortness of breath, productive cough, Denies: dry cough Gastrointestinal/Abdominal: Denies: nausea, vomiting, diarrhea Musculoskeletal: Denies: pain Allergies: Coded Allergies: No Known Allergies (Unverified , 09/16/17) Objective Vital Signs Last 24 Hour Vital Signs Date Time Temp Pulse Resp B/P (MAP) Pulse Ox O2 Delivery O2 Flow Rate FiO2 10/02/17 10:43 87 48 90 Non-Rebreather 15.0 100 10/02/17 10:35 Non-Rebreather 15.0 100 10/02/17 10:35 84 48 Non-Rebreather 15.0 100 10/02/17 10:35 90 Non-Rebreather 15.0 100 10/02/17 10:35 84 48 90 Non-Rebreather 15.0 100 10/02/17 10:01 90 158/68 10/02/17 08:00 91 10/02/17 08:00 97.9 90 16 158/68 93 Venturi Mask 14.0 55 10/02/17 04:00 97.9 86 20 149/75 97 Venturi Mask 14.0 55 10/02/17 03:36 78 10/02/17 00:00 98.3 78 20 153/64 97 Venturi Mask 14.0 55 10/02/17 00:00 76 10/01/17 21:55 94 146/63 10/01/17 20:00 96 10/01/17 20:00 98.6 94 22 146/63 94 Venturi Mask 14.0 55 10/01/17 19:45 109 20 Venturi Mask 14.0 55 10/01/17 19:00 Venturi Mask 14.0 55 10/01/17 19:00 92 Venturi Mask 14.0 55 10/01/17 16:55 98.4 90 16 143/58 94 Venturi Mask 14.0 55 10/01/17 16:00 91 10/01/17 14:00 89 19 159/49 95 Venturi Mask 55 Height (Feet): 5 Height (Inches): 8.00 Weight (Pounds): 176 Respiratory/Chest: lungs clear Cardiovascular: normal rate, regular rhythm, no gallop/murmur Abdomen: soft, non tender Extremities: no edema Laboratory Tests Test 10/02/17 03:35 White Blood Count 18.1 K/UL (4.8-10.8) H Red Blood Count 4.70 M/UL (4.70-6.10) Hemoglobin 10.3 G/DL (14.2-18.0) L Hematocrit 33.2 % (42.0-52.0) L Mean Corpuscular Volume 71 FL (80-99) L Mean Corpuscular Hemoglobin 21.9 PG (27.0-31.0) L Mean Corpuscular Hemoglobin Concent 31.0 G/DL (32.0-36.0) L Red Cell Distribution Width 26.4 % (11.6-14.8) H Platelet Count 181 K/UL (150-450) Mean Platelet Volume 13.1 FL (6.5-10.1) H Neutrophils (%) (Auto) % (45.0-75.0) Lymphocytes (%) (Auto) % (20.0-45.0) Monocytes (%) (Auto) % (1.0-10.0) Eosinophils (%) (Auto) % (0.0-3.0) Basophils (%) (Auto) % (0.0-2.0) Differential Total Cells Counted 100 Neutrophils % (Manual) 79 % (45-75) H Lymphocytes % (Manual) 14 % (20-45) L Monocytes % (Manual) 7 % (1-10) Eosinophils % (Manual) 0 % (0-3) Basophils % (Manual) 0 % (0-2) Band Neutrophils 0 % (0-8) Platelet Estimate Adequate Platelet Morphology Normal Hypochromasia 1+ Anisocytosis 2+ Microcytosis 2+ Sodium Level 142 MMOL/L (136-145) Potassium Level 4.0 MMOL/L (3.5-5.1) Chloride Level 106 MMOL/L (98-107) Carbon Dioxide Level 32 MMOL/L (21-32) Anion Gap 4 mmol/L (5-15) L Blood Urea Nitrogen 25 mg/dL (7-18) H Creatinine 0.9 MG/DL (0.55-1.30) Estimat Glomerular Filtration Rate mL/min (>60) Glucose Level 135 MG/DL (74-106) H Calcium Level 8.2 MG/DL (8.5-10.1) L Total Bilirubin 0.4 MG/DL (0.2-1.0) Aspartate Amino Transf (AST/SGOT) 29 U/L (15-37) Alanine Aminotransferase (ALT/SGPT) 27 U/L (12-78) Alkaline Phosphatase 101 U/L (46-116) Total Protein 6.7 G/DL (6.4-8.2) Albumin 2.0 G/DL (3.4-5.0) L Globulin 4.7 g/dL Albumin/Globulin Ratio 0.4 (1.0-2.7) L SHARON LUEVANO Oct 02, 2017 13:10
--- NOTE | 2017-10-02 15:44 | Progress Note ---
DATE: 10/02/2017 CARDIOLOGY PROGRESS NOTE SUBJECTIVE: The patient continues to have congestion and cough and requires high oxygen flow with a Ventimask. Chest x-ray yesterday revealed slight improvement in pulmonary infiltrates. OBJECTIVE: VITAL SIGNS: Blood pressure 158/68, pulse 90, respirations 16, and afebrile. LUNGS: Coarse breath sounds with rhonchi. Dry mucous membranes. HEART: Regular rhythm and rate. Normal S1, S2 with a fourth heart sound. ABDOMEN: Soft. EXTREMITIES: No edema. LABORATORY DATA: White count 18 and hemoglobin 10. Potassium 4, BUN 25, and creatinine 0.9. Albumin 2. IMPRESSION: 1. Status post respiratory failure. 2. Healthcare-acquired pneumonia. 3. Acute myocardial ischemia. 4. Acute on chronic diastolic congestive heart failure. 5. Severe protein-calorie malnutrition. 6. Aspiration. 7. Leukocytosis. 8. Microcytic anemia, status post gastrointestinal bleed. PLAN: 1. Continued maintenance hydration. 2. Antimicrobials. 3. NG-tube nutrition. 4. Respiratory hygiene. 5. Taper oxygen requirement as able. 6. DVT and stress ulcer prophylaxes. 7. Skin care. 8. Continue beta-blockade, but hold anti-platelet therapy in view of recent GI bleeding. Malik Burroughs M.D. DR: IOANA JOB#: [id number] CC:
[2017-10-02 16:00] VITALS: BP 151/89
[2017-10-02 20:00] VITALS: BP 149/64
[2017-10-02] MEDS: Miralax 17gm pkt GT SCH (21:00)
--- NOTE | 2017-10-02 22:07 | General Progress Note ---
Assessment/Plan Assessment/Plan Assessment - respiratory failure - OB (+) stools - Microcytic Iron deficient anemia - s/p transfusion - thrombocytopenia - OBS - constipation - dysphagia Recommendations - Hold feeds - Stat ABG - follow labs and exam - transfuse PRN - IV Fe - PPI - GI w/u on hold, per family request Subjective Allergies: Coded Allergies: No Known Allergies (Unverified , 09/16/17) Subjective Out of ICU poor resp effort noted on 100% O2 d/w RN Objective Last 24 Hour Vital Signs Date Time Temp Pulse Resp B/P (MAP) Pulse Ox O2 Delivery O2 Flow Rate FiO2 10/02/17 18:59 Non-Rebreather 15.0 100 10/02/17 18:59 93 Non-Rebreather 15.0 100 10/02/17 18:58 96 26 Non-Rebreather 15.0 100 10/02/17 16:00 97.7 81 18 151/89 94 Venturi Mask 55 10/02/17 16:00 89 10/02/17 12:00 97.7 78 16 151/64 94 Venturi Mask 15.0 55 10/02/17 12:00 83 10/02/17 10:43 87 48 90 Non-Rebreather 15.0 100 10/02/17 10:35 Non-Rebreather 15.0 100 10/02/17 10:35 84 48 Non-Rebreather 15.0 100 10/02/17 10:35 90 Non-Rebreather 15.0 100 10/02/17 10:35 84 48 90 Non-Rebreather 15.0 100 10/02/17 10:01 90 158/68 10/02/17 08:00 91 10/02/17 08:00 97.9 90 16 158/68 93 Venturi Mask 14.0 55 10/02/17 06:35 94 Venturi Mask 14.0 50 10/02/17 06:35 Venturi Mask 14.0 50 10/02/17 06:35 78 20 Venturi Mask 14.0 50 10/02/17 04:00 97.9 86 20 149/75 97 Venturi Mask 14.0 55 10/02/17 03:36 78 10/02/17 00:00 98.3 78 20 153/64 97 Venturi Mask 14.0 55 10/02/17 00:00 76 Intake and Output 10/01/17 10/02/17 19:00 07:00 Intake Total 830 ml 825 ml Output Total 405 ml 600 ml Balance 425 ml 225 ml Free Water 120 ml 225 ml Tube Feeding 600 ml 600 ml Other 110 ml Output Urine Total 405 ml 600 ml # Bowel Movements 5 3 Laboratory Tests 10/02/17 03:35: White Blood Count 18.1H, Red Blood Count 4.70, Hemoglobin 10.3L, Hematocrit 33.2L, Mean Corpuscular Volume 71L, Mean Corpuscular Hemoglobin 21.9L, Mean Corpuscular Hemoglobin Concent 31.0L, Red Cell Distribution Width 26.4H, Platelet Count 181, Mean Platelet Volume 13.1H, Neutrophils (%) (Auto) , Lymphocytes (%) (Auto) , Monocytes (%) (Auto) , Eosinophils (%) (Auto) , Basophils (%) (Auto) , Differential Total Cells Counted 100, Neutrophils % ( Manual) 79H, Lymphocytes % (Manual) 14L, Monocytes % (Manual) 7, Eosinophils % ( Manual) 0, Basophils % (Manual) 0, Band Neutrophils 0, Platelet Estimate Adequate, Platelet Morphology Normal, Hypochromasia 1+, Anisocytosis 2+, Microcytosis 2+, Sodium Level 142, Potassium Level 4.0, Chloride Level 106, Carbon Dioxide Level 32, Anion Gap 4L, Blood Urea Nitrogen 25H, Creatinine 0.9, Estimat Glomerular Filtration Rate , Glucose Level 135H, Calcium Level 8.2L, Total Bilirubin 0.4, Aspartate Amino Transf (AST/SGOT) 29, Alanine Aminotransferase (ALT/SGPT) 27, Alkaline Phosphatase 101, Total Protein 6.7, Albumin 2.0L, Globulin 4.7, Albumin/Globulin Ratio 0.4L Height (Feet): 5 Height (Inches): 8.00 Weight (Pounds): 176 Objective Elderly patient in ICU NCAT, (+) OGT, (+) FM supple Coarse ronchi, poor chest movement RR Soft abd trace edema TAYO GUERIN Oct 02, 2017 22:07
[2017-10-02] MEDS ORDERED: Succinylcholine 20mg/ml 10ml vial IV ONE (22:45)
[2017-10-03] VITALS (22 sets, daily range): BP systolic 61–168; BP diastolic 25–62
[2017-10-03] MEDS ORDERED: HydrALAZINE 10mg Tab NG PRN (00:23)
[2017-10-03] MEDS ORDERED: Ipratropium 0.02% Inh Soln 2.5ml UD HHN PRN (01:00)
[2017-10-03] MEDS ORDERED: Acetaminophen 650mg/20.3ml NG PRN (01:00)
--- NOTE | 2017-10-03 01:39 | Emergency Room Report ---
History of Present Illness General Chief Complaint: Generalized Weakness Source: Patient, Family Member, EMS, Caregiver Present Illness HPI Patient apparently was recently intubated and sedated. Patient was in a [facility]. I was called by the floor to emergently intubate the patient. I write to find patient showing evidence of respiratory distress and impending respiratory failure. Patient require emergent intubation. A she apparently was admitted for altered mental status. No further history is available at this time as patient was critical. Allergies: Coded Allergies: No Known Allergies (Unverified , 09/16/17) Patient History Past Medical History: dementia Past Surgical History: unable to obtain Pertinent Family History: unable to obtain Reviewed Nursing Documentation: PMH: Agreed, PSxH: Agreed Nursing Documentation-PMH Past Medical History: No History, Except For Hx Cardiac Problems: No Hx Cancer: No Hx Gastrointestinal Problems: No History Of Psychiatric Problem: Yes - Dementia Hx Neurological Problems: No Review of Systems All Other Systems: limited - poor mental status Physical Exam Vital Signs:Patient appeared to tachypneic and weak. With impending respiratory failure. Blood pressure was stable. Respiratory rate was 15. Patient was not tachycardic with normal heart rate. General Appearance: severe distress, lethargic Head: atraumatic Eyes: bilateral eye normal inspection ENT: dry mucus membranes Neck: supple Respiratory: respiratory distress, decreased breath sounds, accessory muscle use Cardiovascular #1: regular rate, rhythm Gastrointestinal: non tender, soft Genitourinary: normal inspection Musculoskeletal: normal inspection Neurologic: other - unresponsive Skin: normal color Procedures Critical Care Time Critical Care Time Patient had a critical medical condition which untreated could potentially result in life or limb threatening injury. Total critical care time excluding procedures was approximately 45 minutes. Central Line Central Line : Consent: Emergent Central Line Lumen: triple Maximal Sterile Barrier Tech: yes cap, yes mask, yes sterile gown, yes sterile gloves, yes large sterile sheet, yes hand hygiene, yes chlorhexidine prep Central Line Postion: femoral (R) Complications: none Central Line Post Position: sutured, good blood return Attempts: One Patient Tolerated: Well Complications: None Intubation Intubation : Consent: Emergent Intubation Method: orotracheal Tube Size (cm): 7.5 Medications: Etomidate, Succinylcholine Breath Sounds after Intubation: equal Intubation Complications: no complications Attempts: One Patient Tolerated: Well Complications: None Medical Decision Making Diagnostic Impression: Primary Impression: Respiratory failure Qualified Codes: J96.01 - Acute respiratory failure with hypoxia; J96.02 - Acute respiratory failure with hypercapnia Additional Impression: Sepsis Qualified Codes: A41.9 - Sepsis, unspecified organism ER Course Patient show evidence of respiratory failure requiring emergent admission. Patient was intubated. Patient also required a central line placement. Central line was placed in patient's right groin. Case was signed back out to Dr. Singh who in turn will notify Dr. Rosado and Dr. Polanco. Patient will be transferred to ICU for further management. Last Vital Signs Date Time Temp Pulse Resp B/P (MAP) Pulse Ox O2 Delivery O2 Flow Rate FiO2 10/03/17 01:27 30 10/03/17 01:27 79 18 10/03/17 00:00 98.2 61/25 100 Mechanical Ventilator 10/02/17 18:59 15.0 Status: improved Disposition: ADMITTED INPATIENT Condition: Critical Referrals: NON PHYSICIAN (PCP) ROSE MARIE DOHERTY M.D. Oct 03, 2017 01:39
[2017-10-03] MEDS: metroNIDAZOLE 500mg tab ORAL SCH ×3 (06:07→22:00)
[2017-10-03 07:24] LABS: HEMATOCRIT 32.4 % (42.0-52.0); HEMOGLOBIN 9.6 G/DL (14.2-18.0); MEAN CORPUSCULAR VOLUME 71 FL (80-99); PLATELET COUNT 180 K/UL (150-450); RED BLOOD COUNT 4.57 M/UL (4.70-6.10); RED CELL DISTRIBUTION WIDTH 26.4 % (11.6-14.8); WHITE BLOOD COUNT 20.3 K/UL (4.8-10.8)
[2017-10-03 07:29] LABS: ALANINE AMINOTRANSFERASE 25 U/L (12-78); ALBUMIN/GLOBULIN RATIO 0.4 (1.0-2.7); ALKALINE PHOSPHATASE 84 U/L (46-116); ANION GAP 7 mmol/L (5-15); ASPARTATE AMINO TRANSFERASE 26 U/L (15-37); BILIRUBIN,TOTAL 0.4 MG/DL (0.2-1.0); BLOOD UREA NITROGEN 29 mg/dL (7-18); CALCIUM 7.9 MG/DL (8.5-10.1); CARBON DIOXIDE 29 MMOL/L (21-32); CHLORIDE 110 MMOL/L (98-107); CREATININE 1.1 MG/DL (0.55-1.30); SODIUM 146 MMOL/L (136-145)
[2017-10-03] MEDS: Metoprolol Tartrate 50mg tab NG SCH ×2 (08:35→20:13)
[2017-10-03] MEDS: Pantoprazole Inj IVP SCH ×2 (08:36→20:12)
--- NOTE | 2017-10-03 08:56 | General Progress Note ---
Assessment/Plan Problem List: (1) Anemia ICD Codes: D64.9 - Anemia, unspecified SNOMED: 889970722 (2) AMI (acute myocardial infarction) ICD Codes: I21.9 - Acute myocardial infarction, unspecified SNOMED: 86489402 (3) HTN (hypertension) ICD Codes: I10 - Essential (primary) hypertension SNOMED: 44898787 (4) COPD (chronic obstructive pulmonary disease) ICD Codes: J44.9 - Chronic obstructive pulmonary disease, unspecified SNOMED: 49055737 (5) Gout ICD Codes: M10.9 - Gout, unspecified SNOMED: 11596768 (6) Episode of generalized weakness ICD Codes: R53.1 - Weakness SNOMED: 30169803 (7) Sepsis ICD Codes: A41.9 - Sepsis, unspecified organism SNOMED: 17859071 Qualifiers: Qualified Codes: A41.9 - Sepsis, unspecified organism (8) Pneumonia ICD Codes: J18.9 - Pneumonia, unspecified organism SNOMED: 989477359 Status: stable, not improved Assessment/Plan vent support resp rx suctioning abg monitor cxr ?bronch ngt feeds ivf abx per id Subjective ROS Limited/Unobtainable: No Constitutional: Reports: malaise, weakness HEENT: Reports: no symptoms Cardiovascular: Reports: no symptoms Respiratory: Reports: shortness of breath Gastrointestinal/Abdominal: Reports: no symptoms Genitourinary: Reports: no symptoms Neurologic/Psychiatric: Reports: no symptoms Endocrine: Reports: no symptoms Hematologic/Lymphatic: Reports: no symptoms Allergies: Coded Allergies: No Known Allergies (Unverified , 09/16/17) All Systems: reviewed and negative except above Subjective intubated for resp failure. called by dr chen last night. he found pt with agonal respirations. abg with severe hypercapnea and resp acidosis. intubated. lungs clear now. stable vitals. abg reviewed Objective Last 24 Hour Vital Signs Date Time Temp Pulse Resp B/P (MAP) Pulse Ox O2 Delivery O2 Flow Rate FiO2 10/03/17 08:35 98 151/43 10/03/17 08:00 98.9 93 22 151/43 96 Mechanical Ventilator 30 10/03/17 07:00 93 23 129/39 96 Mechanical Ventilator 30 10/03/17 06:33 85 26 30 10/03/17 06:00 98 23 160/43 96 Mechanical Ventilator 30 10/03/17 05:21 94 24 30 10/03/17 05:00 94 23 139/42 96 Mechanical Ventilator 30 10/03/17 04:00 30 10/03/17 04:00 93 10/03/17 04:00 98.8 75 20 136/43 100 Mechanical Ventilator 100 10/03/17 03:43 89 24 30 10/03/17 03:00 86 24 133/44 95 Mechanical Ventilator 100 10/03/17 02:00 72 23 112/32 94 Mechanical Ventilator 100 10/03/17 01:27 30 10/03/17 01:27 79 18 30 10/03/17 01:00 70 20 109/30 100 Mechanical Ventilator 100 10/03/17 00:00 100 10/03/17 00:00 86 10/03/17 00:00 98.2 75 19 61/25 100 Mechanical Ventilator 100 10/02/17 22:56 97 26 100 10/02/17 22:09 75 149/64 10/02/17 20:00 98.4 96 27 149/64 92 Venturi Mask 55 10/02/17 20:00 76 10/02/17 18:59 Non-Rebreather 15.0 100 10/02/17 18:59 93 Non-Rebreather 15.0 100 10/02/17 18:58 96 26 Non-Rebreather 15.0 100 10/02/17 16:00 97.7 81 18 151/89 94 Venturi Mask 55 10/02/17 16:00 89 10/02/17 12:00 97.7 78 16 151/64 94 Venturi Mask 15.0 55 10/02/17 12:00 83 10/02/17 10:43 87 48 90 Non-Rebreather 15.0 100 10/02/17 10:35 Non-Rebreather 15.0 100 10/02/17 10:35 84 48 Non-Rebreather 15.0 100 10/02/17 10:35 90 Non-Rebreather 15.0 100 10/02/17 10:35 84 48 90 Non-Rebreather 15.0 100 10/02/17 10:01 90 158/68 Intake and Output 10/02/17 10/03/17 19:00 07:00 Intake Total 870 ml 180 ml Output Total 120 ml Balance 870 ml 60 ml Free Water 150 ml Tube Feeding 600 ml 120 ml Other 120 ml 60 ml Output Urine Total 120 ml Laboratory Tests 10/02/17 22:04: Arterial Blood pH 7.145*L, Arterial Blood Partial Pressure CO2 104.7*H, Arterial Blood Partial Pressure O2 307.0H, Arterial Blood HCO3 35.2H, Arterial Blood Oxygen Saturation 99.4H, Arterial Blood Base Excess 3.5, Scotty Test Positive 10/03/17 00:30: Arterial Blood pH 7.379, Arterial Blood Partial Pressure CO2 50.7H, Arterial Blood Partial Pressure O2 369.2H, Arterial Blood HCO3 29.7H, Arterial Blood Oxygen Saturation 99.1H, Arterial Blood Base Excess 3.8, Scotty Test Positive 10/03/17 04:20: White Blood Count 20.3H, Red Blood Count 4.57L, Hemoglobin 9.6L, Hematocrit 32.4L, Mean Corpuscular Volume 71L, Mean Corpuscular Hemoglobin 21.0L, Mean Corpuscular Hemoglobin Concent 29.6L, Red Cell Distribution Width 26.4H, Platelet Count 180, Mean Platelet Volume 12.2H, Neutrophils (%) (Auto) , Lymphocytes (%) (Auto) , Monocytes (%) (Auto) , Eosinophils (%) (Auto) , Basophils (%) (Auto) , Neutrophils % (Manual) [Pending], Lymphocytes % (Manual) [Pending], Platelet Estimate [Pending], Platelet Morphology [Pending], Sodium Level 146H, Potassium Level 4.0, Chloride Level 110H, Carbon Dioxide Level 29, Anion Gap 7, Blood Urea Nitrogen 29H, Creatinine 1.1, Estimat Glomerular Filtration Rate , Glucose Level 141H, Calcium Level 7.9L, Total Bilirubin 0.4, Aspartate Amino Transf (AST/SGOT) 26, Alanine Aminotransferase (ALT/SGPT) 25, Alkaline Phosphatase 84, Total Protein 6.7, Albumin 2.0L, Globulin 4.7, Albumin/ Globulin Ratio 0.4L Height (Feet): 5 Height (Inches): 8.00 Weight (Pounds): 180 Objective General Appearance: WD/WN, alert. no distress. +ngt. orally intubated Neck: supple Cardiovascular: normal rate, regular rhythm Respiratory/Chest: clear ernestine Abdomen: normal bowel sounds, non tender, soft, no organomegaly Edema: no edema noted Arm (L), no edema noted Arm (R), no edema noted Leg (L), no edema noted Leg (R), no edema noted Pedal (L), no edema noted Pedal (R), no edema noted Generalized BHUPINDER DILL Oct 03, 2017 08:56
[2017-10-03] MEDS ORDERED: Montelukast 10mg tablet GT SCH (09:00)
--- NOTE | 2017-10-03 10:09 | Critical Care Progress Note ---
Assessment/Plan Assessment/Plan COPD with exacerbation Acute respiratory failure tachycardia Pneumonia with some congestion acute encephalopathy hypoxemia significant agitation anemia hypertension leukocytosis PLAN care noted antibiotics noted vent support respiratory care as is monitor for change supportive care as outlined suction correct lytes ID follow up monitor for change suction as needed CPT and encourage cough maintain on the ventilator for now monitor respiratory status closely oxygen therapy prognosis guarded and concern for need for prolonged respiratory failure medications/laboratory data/nursing notes/ICU care reviewed in detail note reviewed and edited care discussed with RN and RT ICU time spent 38 minutes Critical Care - Subjective Interval Events: events noted went into respiratory failure intubated and back in ICU reduced LOC overall ROS Limited/Unobtainable: Yes Condition: critical EKG Rhythm: Sinus Rhythm I&O: Intake and Output 10/02/17 10/03/17 19:00 07:00 Intake Total 870 ml 180 ml Output Total 120 ml Balance 870 ml 60 ml Free Water 150 ml Tube Feeding 600 ml 120 ml Other 120 ml 60 ml Output Urine Total 120 ml Critical Care - Objective CXR: no change on 10/02 ET-Tube: 7.5 ET Position: 26 Last 24 Hour Vital Signs Date Time Temp Pulse Resp B/P (MAP) Pulse Ox O2 Delivery O2 Flow Rate FiO2 10/03/17 09:00 81 21 107/38 96 Mechanical Ventilator 30 10/03/17 09:00 76 25 30 10/03/17 08:35 98 151/43 10/03/17 08:00 98.9 93 22 151/43 96 Mechanical Ventilator 30 10/03/17 08:00 99 10/03/17 07:00 93 23 129/39 96 Mechanical Ventilator 30 10/03/17 06:33 85 26 30 10/03/17 06:00 98 23 160/43 96 Mechanical Ventilator 30 10/03/17 05:21 94 24 30 10/03/17 05:00 94 23 139/42 96 Mechanical Ventilator 30 10/03/17 04:00 30 10/03/17 04:00 93 10/03/17 04:00 98.8 75 20 136/43 100 Mechanical Ventilator 100 10/03/17 03:43 89 24 30 10/03/17 03:00 86 24 133/44 95 Mechanical Ventilator 100 10/03/17 02:00 72 23 112/32 94 Mechanical Ventilator 100 10/03/17 01:27 30 1/6/18 01:27 79 18 30 10/03/17 01:00 70 20 109/30 100 Mechanical Ventilator 100 10/03/17 00:00 100 10/03/17 00:00 86 10/03/17 00:00 98.2 75 19 61/25 100 Mechanical Ventilator 100 10/02/17 22:56 97 26 100 10/02/17 22:09 75 149/64 10/02/17 20:00 98.4 96 27 149/64 92 Venturi Mask 55 10/02/17 20:00 76 10/02/17 18:59 Non-Rebreather 15.0 100 10/02/17 18:59 93 Non-Rebreather 15.0 100 10/02/17 18:58 96 26 Non-Rebreather 15.0 100 10/02/17 16:00 97.7 81 18 151/89 94 Venturi Mask 55 10/02/17 16:00 89 10/02/17 12:00 97.7 78 16 151/64 94 Venturi Mask 15.0 55 10/02/17 12:00 83 10/02/17 10:43 87 48 90 Non-Rebreather 15.0 100 10/02/17 10:35 Non-Rebreather 15.0 100 10/02/17 10:35 84 48 Non-Rebreather 15.0 100 10/02/17 10:35 90 Non-Rebreather 15.0 100 10/02/17 10:35 84 48 90 Non-Rebreather 15.0 100 Labs: Laboratory Tests Test 10/02/17 22:04 10/03/17 00:30 10/03/17 04:20 10/03/17 09:25 Arterial Blood pH 7.145 (7.350-7.450) 7.379 (7.350-7.450) 7.480 (7.350-7.450) Arterial Blood Partial Pressure CO2 104.7 mmHg (35.0-45.0) *H 50.7 mmHg (35.0-45.0) H 44.3 mmHg (35.0-45.0) Arterial Blood Partial Pressure O2 307.0 mmHg (75.0-100.0) H 369.2 mmHg (75.0-100.0) H 73.5 mmHg (75.0-100.0) L Arterial Blood HCO3 35.2 mmol/L (22.0-26.0) H 29.7 mmol/L (22.0-26.0) H 32.4 mmol/L (22.0-26.0) H Arterial Blood Oxygen Saturation 99.4 % (92.0-98.0) H 99.1 % (92.0-98.0) H 95.3 % (92.0-98.0) Arterial Blood Base Excess 3.5 3.8 8.1 Scotty Test Positive Positive Positive White Blood Count 20.3 K/UL (4.8-10.8) H Red Blood Count 4.57 M/UL (4.70-6.10) L Hemoglobin 9.6 G/DL (14.2-18.0) L Hematocrit 32.4 % (42.0-52.0) L Mean Corpuscular Volume 71 FL (80-99) L Mean Corpuscular Hemoglobin 21.0 PG (27.0-31.0) L Mean Corpuscular Hemoglobin Concent 29.6 G/DL (32.0-36.0) L Red Cell Distribution Width 26.4 % (11.6-14.8) H Platelet Count 180 K/UL (150-450) Mean Platelet Volume 12.2 FL (6.5-10.1) H Neutrophils (%) (Auto) % (45.0-75.0) Lymphocytes (%) (Auto) % (20.0-45.0) Monocytes (%) (Auto) % (1.0-10.0) Eosinophils (%) (Auto) % (0.0-3.0) Basophils (%) (Auto) % (0.0-2.0) Neutrophils % (Manual) Pending Lymphocytes % (Manual) Pending Platelet Estimate Pending Platelet Morphology Pending Sodium Level 146 MMOL/L (136-145) H Potassium Level 4.0 MMOL/L (3.5-5.1) Chloride Level 110 MMOL/L (98-107) H Carbon Dioxide Level 29 MMOL/L (21-32) Anion Gap 7 mmol/L (5-15) Blood Urea Nitrogen 29 mg/dL (7-18) H Creatinine 1.1 MG/DL (0.55-1.30) Estimat Glomerular Filtration Rate mL/min (>60) Glucose Level 141 MG/DL (74-106) H Calcium Level 7.9 MG/DL (8.5-10.1) L Total Bilirubin 0.4 MG/DL (0.2-1.0) Aspartate Amino Transf (AST/SGOT) 26 U/L (15-37) Alanine Aminotransferase (ALT/SGPT) 25 U/L (12-78) Alkaline Phosphatase 84 U/L (46-116) Total Protein 6.7 G/DL (6.4-8.2) Albumin 2.0 G/DL (3.4-5.0) L Globulin 4.7 g/dL Albumin/Globulin Ratio 0.4 (1.0-2.7) L Objective: WDWN NAD weak on ventilator reduced breath sounds bilaterally with scattered rhonchi bilaterally [id number] without MRG NABS nontender no HSM OGT in place no CCE nonfocal reduced LOC overall skin noted lines reviewed reviewed and edited Micro: Microbiology Date/Time Source Procedure Growth Status 10/02/17 10:30 Sputum Gram Stain - Final Resulted 10/02/17 10:30 Sputum Sputum Culture Pending Resulted STEVE CARPIO Oct 03, 2017 10:09
--- NOTE | 2017-10-03 11:58 | General Progress Note ---
Assessment/Plan Problem List: (1) Diverticulosis ICD Codes: K57.90 - Diverticulosis of intestine, part unspecified, without perforation or abscess without bleeding SNOMED: 912982362 (2) Fecal impaction ICD Codes: K56.41 - Fecal impaction SNOMED: 43949839 (3) Gout ICD Codes: M10.9 - Gout, unspecified SNOMED: 29508160 (4) Anemia ICD Codes: D64.9 - Anemia, unspecified SNOMED: 469296149 (5) Sepsis ICD Codes: A41.9 - Sepsis, unspecified organism SNOMED: 99751664 Qualifiers: Qualified Codes: A41.9 - Sepsis, unspecified organism (6) AMI (acute myocardial infarction) ICD Codes: I21.9 - Acute myocardial infarction, unspecified SNOMED: 88640930 (7) HTN (hypertension) ICD Codes: I10 - Essential (primary) hypertension SNOMED: 52525797 (8) Episode of generalized weakness ICD Codes: R53.1 - Weakness SNOMED: 86865324 (9) Pneumonia ICD Codes: J18.9 - Pneumonia, unspecified organism SNOMED: 925319270 (10) Renal insufficiency ICD Codes: N28.9 - Disorder of kidney and ureter, unspecified SNOMED: 544764196, 821066293 (11) Respiratory failure ICD Codes: J96.90 - Respiratory failure, unspecified, unspecified whether with hypoxia or hypercapnia SNOMED: 003111630 Qualifiers: Qualified Codes: J96.01 - Acute respiratory failure with hypoxia; J96.02 - Acute respiratory failure with hypercapnia Assessment/Plan ppi daily monitor H&H transfuse to keep Hgb around 8 needs GI procedures but not stable at this time abx per ID bowel regimen TF on hold, possibly tomorrow if stable abx Subjective ROS Limited/Unobtainable: No Allergies: Coded Allergies: No Known Allergies (Unverified , 09/16/17) Subjective intubated Objective Last 24 Hour Vital Signs Date Time Temp Pulse Resp B/P (MAP) Pulse Ox O2 Delivery O2 Flow Rate FiO2 10/03/17 11:00 76 23 132/39 99 Mechanical Ventilator 30 10/03/17 10:57 79 19 30 10/03/17 10:00 76 18 124/38 97 Mechanical Ventilator 10/03/17 09:00 81 21 107/38 96 Mechanical Ventilator 30 10/03/17 09:00 76 25 30 10/03/17 08:35 98 151/43 10/03/17 08:00 98.9 93 22 151/43 96 Mechanical Ventilator 30 10/03/17 08:00 99 10/03/17 07:00 93 23 129/39 96 Mechanical Ventilator 30 10/03/17 06:33 85 26 30 10/03/17 06:00 98 23 160/43 96 Mechanical Ventilator 30 10/03/17 05:21 94 24 30 10/03/17 05:00 94 23 139/42 96 Mechanical Ventilator 30 10/03/17 04:00 30 10/03/17 04:00 93 10/03/17 04:00 98.8 75 20 136/43 100 Mechanical Ventilator 100 10/03/17 03:43 89 24 30 10/03/17 03:00 86 24 133/44 95 Mechanical Ventilator 100 10/03/17 02:00 72 23 112/32 94 Mechanical Ventilator 100 10/03/17 01:27 30 10/03/17 01:27 79 18 30 10/03/17 01:00 70 20 109/30 100 Mechanical Ventilator 100 10/03/17 00:00 100 10/03/17 00:00 86 10/03/17 00:00 98.2 75 19 61/25 100 Mechanical Ventilator 100 10/02/17 22:56 97 26 100 10/02/17 22:09 75 149/64 10/02/17 20:00 98.4 96 27 149/64 92 Venturi Mask 55 10/02/17 20:00 76 10/02/17 18:59 Non-Rebreather 15.0 100 10/02/17 18:59 93 Non-Rebreather 15.0 100 10/02/17 18:58 96 26 Non-Rebreather 15.0 100 10/02/17 16:00 97.7 81 18 151/89 94 Venturi Mask 55 10/02/17 16:00 89 10/02/17 12:00 97.7 78 16 151/64 94 Venturi Mask 15.0 55 10/02/17 12:00 83 Intake and Output 10/02/17 10/03/17 19:00 07:00 Intake Total 870 ml 180 ml Output Total 120 ml Balance 870 ml 60 ml Free Water 150 ml Tube Feeding 600 ml 120 ml Other 120 ml 60 ml Output Urine Total 120 ml Laboratory Tests 10/02/17 22:04: Arterial Blood pH 7.145*L, Arterial Blood Partial Pressure CO2 104.7*H, Arterial Blood Partial Pressure O2 307.0H, Arterial Blood HCO3 35.2H, Arterial Blood Oxygen Saturation 99.4H, Arterial Blood Base Excess 3.5, Scotty Test Positive 10/03/17 00:30: Arterial Blood pH 7.379, Arterial Blood Partial Pressure CO2 50.7H, Arterial Blood Partial Pressure O2 369.2H, Arterial Blood HCO3 29.7H, Arterial Blood Oxygen Saturation 99.1H, Arterial Blood Base Excess 3.8, Scotty Test Positive 10/03/17 04:20: White Blood Count 20.3H, Red Blood Count 4.57L, Hemoglobin 9.6L, Hematocrit 32.4L, Mean Corpuscular Volume 71L, Mean Corpuscular Hemoglobin 21.0L, Mean Corpuscular Hemoglobin Concent 29.6L, Red Cell Distribution Width 26.4H, Platelet Count 180, Mean Platelet Volume 12.2H, Neutrophils (%) (Auto) , Lymphocytes (%) (Auto) , Monocytes (%) (Auto) , Eosinophils (%) (Auto) , Basophils (%) (Auto) , Differential Total Cells Counted 100, Neutrophils % ( Manual) 81H, Lymphocytes % (Manual) 4L, Monocytes % (Manual) 9, Eosinophils % ( Manual) 0, Basophils % (Manual) 0, Metamyelocytes % 3H, Myelocytes % 2H, Band Neutrophils 1, Platelet Estimate Adequate, Platelet Morphology Normal, Hypochromasia 2+, Anisocytosis 4+, Microcytosis 2+, Sodium Level 146H, Potassium Level 4.0, Chloride Level 110H, Carbon Dioxide Level 29, Anion Gap 7, Blood Urea Nitrogen 29H, Creatinine 1.1, Estimat Glomerular Filtration Rate , Glucose Level 141H, Calcium Level 7.9L, Total Bilirubin 0.4, Aspartate Amino Transf (AST/SGOT) 26, Alanine Aminotransferase (ALT/SGPT) 25, Alkaline Phosphatase 84, Total Protein 6.7, Albumin 2.0L, Globulin 4.7, Albumin/Globulin Ratio 0.4L 10/03/17 09:25: Arterial Blood pH 7.480H, Arterial Blood Partial Pressure CO2 44.3, Arterial Blood Partial Pressure O2 73.5L, Arterial Blood HCO3 32.4H, Arterial Blood Oxygen Saturation 95.3, Arterial Blood Base Excess 8.1, Scotty Test Positive Height (Feet): 5 Height (Inches): 8.00 Weight (Pounds): 180 General Appearance: lethargic EENT: normal ENT inspection Neck: supple Cardiovascular: normal rate Respiratory/Chest: decreased breath sounds Abdomen: normal bowel sounds, non tender, soft Extremities: non-tender SUZY CARDONA Oct 03, 2017 11:58
[2017-10-03] MEDS ORDERED: Miralax 17gm pkt GT SCH (21:00)
[2017-10-03] MEDS ORDERED: 1/2 NS 1000ml IV ONE (21:59)
[2017-10-03] MEDS ORDERED: NS 500ML ONE ×2 (21:59)
[2017-10-03] MEDS ORDERED: Tubing IV Secondary IV ONE (21:59)
--- NOTE | 2017-10-04 01:45 | Progress Note ---
DATE: 10/03/2017 CARDIOLOGY PROGRESS NOTE SUBJECTIVE: The patient's condition has deteriorated. He was noted to be in respiratory distress last evening. Arterial blood gases revealed acute respiratory acidosis. Intubation and mechanical ventilation followed. The patient now in the intensive care unit on full ventilator support. OBJECTIVE: VITAL SIGNS: Blood pressure 129/39, pulse 93, respiratory rate 23, and afebrile. CHEST: Bilateral breath sounds. No wheezing or rales. HEART: Regular rhythm and rate. Normal S1 and S2. ABDOMEN: Soft. EXTREMITIES: No edema. LABORATORY DATA: White count is 20 and hemoglobin 9.6. Sodium is 146, potassium 4, bicarbonate 29, BUN 29, creatinine 1.1. Albumin 2. ABG, 7.48, 44, and 74. IMPRESSION: 1. Respiratory failure. 2. Acute respiratory acidosis. 3. Acute myocardial ischemia. 4. History of hypertension. 5. Hemoccult-positive stool. 6. Dehydration. 7. Hypernatremia. PLAN: 1. Ventilator support. 2. Consider CT imaging of the brain to assess for acute neurologic insult. 3. Antimicrobials. 4. Bronchodilators. 5. Respiratory hygiene. 6. Hypotonic IV fluids. 7. Nutritional support by feeding tube. 8. Possible transfer to [place] to be closer to his home. Malik Burroughs M.D. DR: Dashawn JOB#: [id number] CC:
--- NOTE | 2017-10-06 14:15 | Diagnostic Imaging Report ---
Indication: Shortness of breath Technique: XRAY Chest 1v Comparison: 10/02/2017 Findings: Endotracheal tube is in satisfactory position with tip 2.5 cm above the jacek. Nasogastric tube is within the proximal stomach. The heart and lungs are stable. Impression: Satisfactory endotracheal tube placement.
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
--- NOTE | 2017-10-12 06:45 | Consultation ---
DATE OF CONSULTATION: 09/17/2017 CARDIOLOGY CONSULTATION CONSULTING PHYSICIAN: Jarett Dunlap M.D. REFERRING PHYSICIAN: Deacon Polanco M.D. REASON FOR CONSULTATION: Management of acute myocardial infarction. HISTORY OF PRESENT ILLNESS: The patient is a very pleasant 87-year-old gentleman, who presents to the emergency department for evaluation of weakness and confusion for the past few days. According to the patient's son, the patient has more confusion and weakness and altered mental status. His baseline is talkative person, walking with a walker. The patient at the time of arrival to the hospital did not have any chest pain or shortness of breath. Initial evaluation in the emergency department showed his blood pressure 125/68 mmHg and heart rate 110. Laboratory evaluation in the emergency room showed elevation of BNP, however, the first troponin I level was 0.016. The patient was admitted to intensive care unit of [facility] for further evaluation and management. Of note, the electrocardiogram was significant for sinus tachycardia, but no acute ischemic changes. PAST MEDICAL HISTORY: Dementia. MEDICATIONS: The list of medications including allopurinol 100 mg p.o. daily, aspirin 81 mg p.o. daily, Symbicort 80/4.5 mcg inhaler once daily, levothyroxine 50 mcg p.o. daily, and montelukast 10 mg p.o. daily. ALLERGIES: No known drug allergies. SOCIAL HISTORY: No history of tobacco, alcohol, or illicit drug use. FAMILY HISTORY: No premature coronary artery disease in first-degree relatives. REVIEW OF SYSTEMS: HEENT: Denies any history of headache, diplopia, or blurred vision. CONSTITUTIONAL: Denies any fever, chills, or night sweats. Positive for generalized weakness. CARDIOVASCULAR: Denies any chest pain, shortness of breath, PND, orthopnea, or leg swelling. PULMONARY: Denies any cough, hemoptysis, or wheezing. GASTROINTESTINAL: Denies any nausea, vomiting, diarrhea, constipation, abdominal pain, or GI bleed. GENITOURINARY: Denies any hematuria, dysuria, incontinence. NEUROLOGICAL: Denies any motor dysfunction, sensory deficit, or altered speech. PHYSICAL EXAMINATION: VITAL SIGNS: Blood pressure was 125/68, pulse of 110, respirations 20, temperature 99.2 degrees Fahrenheit, and O2 saturation of 96% on room air. GENERAL: The patient in no apparent respiratory distress, alert and oriented x4. HEENT: Atraumatic and normocephalic. Anicteric. Pupils are equal, round, and reactive to light and accommodation. Extraocular movements are intact. NECK: JVP is less than 5 cm. No carotid bruits. Carotid upstrokes 2+ bilaterally. CEREBROVASCULAR: Normal S1 and S2. Regular rate and rhythm. No murmurs, gallops, or rubs. PMI is at fourth intercostal space at the left midclavicular line. LUNGS: Clear to auscultation bilaterally. ABDOMEN: Soft, nontender, nondistended. No hepatosplenomegaly. Positive bowel sounds. EXTREMITIES: No evidence of edema, clubbing, or cyanosis. LABORATORY FINDINGS: Initial WBC was 32,700, hemoglobin 7.1, hematocrit 26.7, and platelet count is 99,000, 86% neutrophils and 4% bands. Chemistry shows sodium 140, potassium is 3.7, chloride 107, bicarbonate 23, BUN of 18, creatinine 1.2, glucose is 128, calcium is 8.7. The first troponin level was 0.016. The second troponin level went up to 0.120. ProBNP was 486. INR was 1.0. Blood gas showed pH of 7.43, pCO2 of 46.9, pO2 of 149.2, bicarbonate 30.6, saturation 90.8 consistent with mixed respiratory acidosis and metabolic alkalosis. DIAGNOSTIC DATA: Chest x-ray is significant for no acute cardiopulmonary disease. CT of head showed chronic and age-related changes. Ventriculomegaly due to chronic central volume loss and possible hydrocephalus. Negative for intracranial bleed or mass effect. ASSESSMENT AND PLAN: This is a very unfortunate 87-year-old gentleman, who was admitted to intensive care unit of [facility]. 1. Non-ST elevation myocardial infarction. A 12-lead electrocardiogram has shown sinus tachycardia, rate of 108 with low voltage QRS. In view of leukocytosis and the patient's altered level of consciousness, the patient will be monitored carefully in the intensive care unit. 2. we will obtain 2D echocardiography for assessment of left ventricular systolic and diastolic function. 3. History of dementia. 4. Possible sepsis. 5. Pancytopenia. Total amount of time spent in the intensive care unit of [facility] for evaluation of this patient, discussion with the patient's son and covering with the plan of care, discussion with the primary care, and was 45 minutes. I would like to thank, Dr. Polanco, for the courtesy of this consultation. Jarett Dunlap M.D. DR: Bang JOB#: [id number] CC:
== END 2017-10-03 22:00 | disposition short-term general hospital (02) | DRG 870 ==
LOC: EDBD 14:10 → EMR 14:44 → 3E 16:45 → EDBEDREQ 18:12 → ICU 23:05 → 2W 09-18 13:13 → 2E 09-18 17:30 → ICU 09-20 11:33 → 2W 10-01 14:47 → ICU 10-02 23:40
DX: A41.9 Sepsis, unspecified organism (principal); J96.01 Acute respiratory failure with hypoxia; I21.9 Acute myocardial infarction, unspecified; J18.9 Pneumonia, unspecified organism; R65.21 Severe sepsis with septic shock; I50.33 Acute on chronic diastolic (congestive) heart failure; G93.40 Encephalopathy, unspecified; N17.9 Acute kidney failure, unspecified; D61.818 Other pancytopenia; J44.0 Chronic obstructive pulmonary disease with (acute) lower respiratory infection; N39.0 Urinary tract infection, site not specified; J44.1 Chronic obstructive pulmonary disease with (acute) exacerbation; E87.2 Acidosis; E44.0 Moderate protein-calorie malnutrition; E87.0 Hyperosmolality and hypernatremia; I11.0 Hypertensive heart disease with heart failure; D50.8 Other iron deficiency anemias; M10.9 Gout, unspecified; F03.90 Unspecified dementia, unspecified severity, without behavioral disturbance, psychotic disturbance, mood disturbance, and anxiety; D69.6 Thrombocytopenia, unspecified; D50.9 Iron deficiency anemia, unspecified; R62.7 Adult failure to thrive; N40.0 Benign prostatic hyperplasia without lower urinary tract symptoms; E87.6 Hypokalemia; Z68.27 Body mass index [BMI] 27.0-27.9, adult; K56.41 Fecal impaction; K57.90 Diverticulosis of intestine, part unspecified, without perforation or abscess without bleeding
CPT/HCPCS: 36415; 36600; 51702; 70450; 71010; 71045; 71250; 74000; 74176; 76700; 80048; 80053; 81001; 81003; 82140; 82270; 82378; 82550; 82553; 82570; 82607; 82728; 82746; 82803; 83540; 83550; 83605; 83615; 83735; 83880; 83935; 84100; 84153; 84165; 84300; 84484; 84550; 85007; 85025; 85044; 85060; 85384; 85610; 85730; 86703; 86710; 86803; 86850; 86900; 86901; 86920; 87040; 87070; 87086; 87205; 87324; 87340; 93005; 93306; 93970; 94002; 94003; 94640; 94664; 94760; 99285; J2765; J7620; J8499